=== PATIENT | male | born 1955 | race Caucasian/White ===

== ENCOUNTER 2019-06-15 13:04 | Outpatient (CLI) | payer MEDICARE, SELFPAY ==
--- NOTE | 2019-06-15 13:11 | ECG_ITS ---
Measurements Intervals [place] Rate: 62 P: 89 IN: 235 QRS: -27 QRSD: 103 T: 17 QT: 417 QTc: 424 Interpretive Statements SINUS RHYTHM WITH FIRST DEGREE AV BLOCK BORDERLINE R WAVE PROGRESSION, ANTERIOR LEADS INFERIOR INFARCT, AGE INDETERMINATE ABNORMAL ECG Electronically Signed On 06-15-2019 13:23:56 [employer]ESTYLE [employer] by Frank Reilly D.O.
== END 2019-06-15 13:05 | disposition home or self-care (01) ==
PROVIDERS: PCP Internal Medicine; Visit Provider Nurse Practitioner
DX: R00.2 Palpitations (principal); R07.9 Chest pain, unspecified; R94.31 Abnormal electrocardiogram [ECG] [EKG]
CPT/HCPCS: 93005

== ENCOUNTER 2019-06-21 09:38 | Outpatient (CLI) | payer MEDICARE, SELFPAY ==
--- NOTE | ~2019-06-21 | NM_ITS ---
EXAMINATION: NM brooke stress w perfusion EXAM DATE: 06/21/2019 12:57 INDICATION: Ischemic chest pain. TECHNIQUE: Rest images were obtained following intravenous administration of 9.4 mCi Tc99m tetrofosmi n (Myoview). The patient was infused intravenously with Lexiscan (regadenoson). Then, 26.8 mCi Tc99m tetrofosmin (Myoview) was administered intravenously, and stress images were obtained. Data was recon structed into short axis and horizontal and vertical long axis SPECT images. Gated SPECT images were also obtained. There is no prior study for comparison. FINDINGS: There is no definite reversible or fixed perfusion abnormality to suggest ischemia or infar ction. There is normal left ventricular wall motion. End diastolic volume: 125 mL. End-systolic volume: 50 mL. Left ventricular ejection fraction: 60%. IMPRESSION: 1. Normal myocardial perfusion at rest and during stress. 2. Left ventricular ejection fraction measuring 60%. Reviewed, dictated and finalized at location A. CUTTER
--- NOTE | 2019-06-21 10:50 | EST_ITS ---
Patient Info Name: Pawel Hawkins Age: 64 years : 1955 Gender: Male Ht: 68 in Wt: 285 lbs BSA: 2.56 m2 HR: 60 bpm BP: 150 / 93 mmHg Heart Rhythm: Sinus Rhythm Exam Date: 06/21/2019 11:40 AM Exam Location: [facility] Stress Patient Status: Outpatient Admit Date: 06/21/2019 Staff Ordering Physician: Nella Barber NP Attending Provider: Evan Rebolledo DO Exercise Technologist: Manju Ospina CT Exercise Physician: Frank Reilly DO Exam Type: CA stress brooke w NM Study Info Indications R07.9 - Chest pain, unspecified A regadenoson stress test was performed. Summary 1. 1. Negative Lexiscan stress test for ischemic ST changes by ECG criteria. 2. 2. Baseline hypertension. 3. 3. Nuclear scan to follow and will be reported separately. Please correlate with it. 4. 4. Patient informed of the above results. Protocol: Lexiscan Stress ECG Details Stage: REST Duration (min): 16 min : 9 sec HR (bpm): 68 SBP (mmHg): 150 DBP (mmHg): 93 Stage: STAGE 1 Duration (min): 1 min : 0 sec HR (bpm): 64 SBP (mmHg): 150 DBP (mmHg): 93 Stage: RECOVERY Duration (min): 1 min : 0 sec HR (bpm): 64 SBP (mmHg): 189 DBP (mmHg): 88 Stage: RECOVERY Duration (min): 2 min : 0 sec HR (bpm): --- SBP (mmHg): 189 DBP (mmHg): 88 Stage: RECOVERY Duration (min): 2 min : 35 sec HR (bpm): --- SBP (mmHg): 189 DBP (mmHg): 88 Rest HR: 68 bpm Peak HR: 68 bpm Rest Sys BP: 150 mmHg Peak Sys BP: 189 mmHg Max Pred HR: 154 bpm % Max Pred HR: 44 % Target HR: 131 bpm Max RPP: 12,852 bpm*mmHg Termination Reason: Completed protocol Cardiac Symptoms: Shortness of breath Total Time: 1 min : 0 sec Rest Vargas BP: 93 mmHg Peak Vargas BP: 88 mmHg Total Dose: 0.4 mg Resting ECG Sinus bradycardia with first degree AV block, BRWP- anterior leads. Stress ECG No ST changes. Arrhythmias None. Report Signatures
== END 2019-06-21 09:39 | disposition home or self-care (01) ==
PROVIDERS: PCP Internal Medicine; Visit Provider Internal Medicine
DX: R07.9 Chest pain, unspecified (principal)
CPT/HCPCS: 78452; 93017; A9502; J2785

== ENCOUNTER → 2019-11-21 12:13 | Outpatient (CLI) | payer MEDICARE, SELFPAY ==
--- NOTE | ~2019-11-21 | MR_ITS ---
EXAMINATION: MR brain/brain stem wo/w con DATE: 11/21/2019 13:23 INDICATION: Amnesia. Headache. Dizziness. TECHNIQUE: Magnetic resonance imaging (MRI) of the brain and brainstem was performed without and with 20 mL MultiHance intravenous contrast. Sequences included sagittal and axial T1-weighted FSE, axial diffusion-weighted FS EPI, axial T2*-weighted GRE, axial T2-weighted FLAIR Propeller, and axial T2-we ighted Propeller. Postcontrast sequences included axial and coronal T1-weighted FSE. Apparent diffusi on coefficient (ADC) maps were created. COMPARISON: None. FINDINGS: There are scattered areas of nonspecific increased T2-weighted signal intensity in the cere bral white matter. There is no intracranial hemorrhage, acute infarction, or abnormal intracranial ma ss lesion. The ventricles are normal in size. The paranasal sinuses are clear. The orbits are normal. There are trace bilateral mastoid effusions. IMPRESSION: 1. Mild nonspecific cerebral white matter disease, which likely represents chronic small vessel ische pauline disease. Reviewed, dictated and finalized at location A. IMPRESSION: 1. 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
[2019-11-21 12:40] LABS: Estimated Glomerular Filt Rate 43
== END ==
PROVIDERS: PCP Internal Medicine; Visit Provider Clinical Nurse Specialist
DX: R41.3 Other amnesia (principal); R51 Headache; R42 Dizziness and giddiness; R93.0 Abnormal findings on diagnostic imaging of skull and head, not elsewhere classified
CPT/HCPCS: 36415; 70553; A9577

== ENCOUNTER 2021-03-14 11:15 | Outpatient (CLI) | payer MEDICARE, SELFPAY ==
[2021-03-14 11:47] LABS: Creatinine Urine 154.8 mg/dL
[2021-03-14 11:49] LABS: Anion Gap 10 mmol/L (8-16); Blood Urea Nitrogen 30 mg/dL (9-20); Calcium 9.1 mg/dL (8.4-10.2); Carbon Dioxide 27 mmol/L (22-30); Chloride 99 mmol/L (98-107); Cholesterol 121 mg/dL (0-200); Estimated Glomerular Filt Rate 51; Glucose 278 mg/dL (65-110); HDL Direct 36 mg/dL; Potassium 4.9 mmol/L (3.4-5.0); Sodium 136 mmol/L (137-145); Triglycerides 139 mg/dL (<150)
[2021-03-14 12:00] LABS: LDL Cholesterol Direct 56 mg/dL
[2021-03-14 12:27] LABS: Hemoglobin A1C 9.2 % (<5.7)
[2021-03-14 12:43] LABS: MALB Creatinine Ratio 504.3 mg/g (0-30); Microalbumin Urine Random 780.7 mg/L (0-16.7)
== END 2021-03-14 11:16 | disposition home or self-care (01) ==
LOC: ANHLAB 11:19
PROVIDERS: PCP Internal Medicine; Visit Provider Clinical Nurse Specialist
DX: E11.9 Type 2 diabetes mellitus without complications (principal); E78.5 Hyperlipidemia, unspecified
CPT/HCPCS: 36415; 80048; 80061; 82043; 82607; 83036

== ENCOUNTER 2021-06-23 11:42 | Outpatient (CLI) | payer MEDICARE, SELFPAY ==
--- NOTE | ~2021-06-23 | XR_ITS ---
EXAMINATION: XR chest 2V 06/23/2021 11:57 INDICATION: Productive cough PROCEDURE: 2 view chest COMPARISON: 06/24/2018 FINDINGS: There is bibasilar atelectasis. No focal pneumonia, pleural effusion. The cardiomediastinal silhouette is within normal limits. There are no pleural effusions. There is no pneumothorax suspe cted. IMPRESSION: 1: Bibasilar atelectasis. Reviewed, dictated and finalized at location B. GYN IMPRESSION: 1: Bibasilar atelectasis.
== END 2021-06-23 11:43 | disposition home or self-care (01) ==
PROVIDERS: PCP Internal Medicine; Visit Provider Internal Medicine
DX: R05.9 Cough, unspecified (principal); J98.11 Atelectasis
CPT/HCPCS: 71046

== ENCOUNTER 2021-10-20 07:37 | Outpatient (CLI) | payer MEDICARE, SELFPAY ==
[2021-10-20 08:37] LABS: Anion Gap 5 mmol/L (8-16); Blood Urea Nitrogen 29 mg/dL (9-20); Calcium 8.9 mg/dL (8.4-10.2); Carbon Dioxide 26 mmol/L (22-30); Chloride 105 mmol/L (98-107); Estimated Glomerular Filt Rate 50; Glucose 192 mg/dL (65-110); Potassium 4.7 mmol/L (3.4-5.0); Sodium 136 mmol/L (137-145)
[2021-10-20 10:30] LABS: Hemoglobin A1C 7.6 % (<5.7)
== END 2021-10-20 07:38 | disposition home or self-care (01) ==
LOC: ANHLAB 07:43
PROVIDERS: PCP Internal Medicine; Visit Provider Family Medicine
DX: E11.9 Type 2 diabetes mellitus without complications (principal); N18.32 Chronic kidney disease, stage 3b
CPT/HCPCS: 36415; 80048; 83036

== ENCOUNTER 2022-01-20 11:34 | Outpatient (CLI) | payer MEDICARE, SELFPAY ==
[2022-01-20 19:26] LABS: Basophils Percent Auto 0.3 % (0.2-1.2); Eosinophils Absolute Auto 0.4 K/mm3 (0-0.3); Eosinophils Percent Auto 4.9 % (0-4.4); Hematocrit 39.4 % (42.0-52.0); Immature Granulocyte Absolute 0.02 K/mm3 (0.00-0.031); Immature Granulocyte Percent A 0.3 % (0-0.5); Lymphocytes Absolute Auto 1.86 K/mm3 (0.9-3.2); Lymphocytes Percent Auto 25.4 % (18.3-44.2); Mean Corpuscular Hemoglobin 31.8 pg (26-34); Mean Corpuscular Volume 96.3 fl (80-100); Mean Platelet Volume 10.3 fl (7.4-10.4); Monocytes Absolute Auto 0.5 K/mm3 (0.1-0.6); Monocytes Percent Auto 6.2 % (2.6-8.5); Neutrophils Absolute Auto 4.6 K/mm3 (1.3-6.7); Neutrophils Percent Auto 62.9 % (45.5-73.1); Platelet Count Result 177 k/mm3 (150-375); Red Blood Count 4.09 M/mm3 (4.6-6.20); Red Cell Distribution Width 13.6 % (11.5-14.5); White Blood Count 7.3 K/mm3 (4.5-10.0)
[2022-01-20 19:54] LABS: Creatinine Urine 112.9 mg/dL
[2022-01-20 20:07] LABS: Vitamin D 25 Hydroxy 33.8 ng/mL
[2022-01-20 20:15] LABS: MALB Creatinine Ratio 375.6 mg/g (0-30)
[2022-01-20 20:36] LABS: Hemoglobin A1C 9.2 % (<5.7)
[2022-01-20 20:42] LABS: Hepatitis C Virus Antibody Negative (Negative)
[2022-01-20 21:38] LABS: Alanine Aminotransferase 44 U/L (6-50); Albumin Level 4.2 g/dL (3.5-5.1); Alkaline Phosphatase 98 U/L (38-126); Anion Gap 13 mmol/L (8-16); Aspartate Amino Transferase 42 U/L (17-59); Bilirubin,Total 0.4 mg/dL (0.2-1.3); Blood Urea Nitrogen 28 mg/dL (9-20); Calcium 9.2 mg/dL (8.4-10.2); Carbon Dioxide 20 mmol/L (22-30); Chloride 104 mmol/L (98-107); Estimated Glomerular Filt Rate 47; Glucose 289 mg/dL (65-110); Potassium 4.8 mmol/L (3.4-5.0); Sodium 137 mmol/L (137-145)
[2022-01-20 21:48] LABS: Parathyroid Intact 82.3 pg/mL (7.5-53.5)
[2022-01-20 22:10] LABS: Prostate Specific Antigen 1.1 ng/mL (< OR = 4.0)
== END 2022-01-20 11:35 | disposition home or self-care (01) ==
LOC: ANHGOSHLAB 11:37
PROVIDERS: PCP Internal Medicine; Visit Provider Clinical Nurse Specialist
DX: N18.9 Chronic kidney disease, unspecified (principal); Z11.59 Encounter for screening for other viral diseases; E11.9 Type 2 diabetes mellitus without complications; E55.9 Vitamin D deficiency, unspecified; D64.9 Anemia, unspecified; Z12.5 Encounter for screening for malignant neoplasm of prostate
CPT/HCPCS: 36415; 80053; 82043; 82306; 83036; 83970; 84153; 85025; 86803; G0103

== ENCOUNTER 2022-02-26 09:18 | Outpatient (CLI) | payer MEDICARE, SELFPAY ==
[2022-02-26 10:05] LABS: Hematocrit 35.3 % (42.0-52.0); Hemoglobin 12.2 g/dL (14.0-18.0); Mean Corpuscular HGB Conc 34.6 g/dl (32-36); Mean Corpuscular Volume 92.7 fl (80-100); Mean Platelet Volume 9.8 fl (7.4-10.4); Platelet Count Result 149 k/mm3 (150-375); Red Blood Count 3.81 M/mm3 (4.6-6.20); Red Cell Distribution Width 13.5 % (11.5-14.5); White Blood Count 5.7 K/mm3 (4.5-10.0)
[2022-02-26 10:15] LABS: Add Urine Microscopic? YES; Appearance Urine Clear (Clear); Bilirubin Urine Negative (Negative); Blood Urine 1+ (Negative); Color Urine Yellow (Yellow); Glucose Urine UA 3+ mg/dL (Negative); Ketones Urine Negative (Negative); Leukocyte Esterase Ur Negative LEU/UL (NEGATIVE); Nitrate Urine Negative (Negative); Protein Urine 2+ mg/dL (Negative); RBC Urine 0-2 /hpf (0-2); Specific Grav Ur 1.026 (1.001-1.035); Urobilinogen Urine Negative mg/dL (<2.0); WBC Urine 0-3 /hpf (0-3)
[2022-02-26 10:23] LABS: Complement C3 105 mg/dL (88-165)
[2022-02-26 10:27] LABS: Parathyroid Intact 113.9 pg/mL (7.5-53.5)
[2022-02-26 10:34] LABS: Anion Gap 13 mmol/L (8-16); Blood Urea Nitrogen 24 mg/dL (9-20); Calcium 8.7 mg/dL (8.4-10.2); Carbon Dioxide 26 mmol/L (22-30); Chloride 95 mmol/L (98-107); Estimated Glomerular Filt Rate 47; Glucose 527 mg/dL (65-110); Phosphorus 3.4 mg/dL (2.5-4.5); Potassium 4.1 mmol/L (3.4-5.0); Sodium 134 mmol/L (137-145)
[2022-02-26 11:11] LABS: Erythrocyte Sedimentation Rate 43 mm/hr (0-20)
[2022-02-26 13:03] LABS: Creatinine Urine 77.5 mg/dL; Total Protein Urine Random 105 mg/dL; Ur Ttl Prot Creatinine Ratio 1.35 mg/mg (0-0.20)
[2022-03-02 17:49] LABS: Kappa\\Lambda Light Chains 1.44 (0.26-1.65); Lambda Light Chain 42.1 mg/L (5.7-26.3)
[2022-03-02 20:52] LABS: Complement Total CH50 >60 U/mL (31-60)
== END 2022-02-26 09:19 | disposition home or self-care (01) ==
PROVIDERS: PCP Internal Medicine; Visit Provider Internal Medicine Nephrology
DX: N18.31 Chronic kidney disease, stage 3a (principal)
CPT/HCPCS: 36415; 80069; 81001; 82570; 82948; 83883; 83970; 84156; 85027; 85652; 86038; 86160; 86162; 86334

== ENCOUNTER 2022-02-26 12:19 | Emergency (ER) | payer MEDICARE, SELFPAY ==
[2022-02-26 12:36] LABS: Glucose Point of Care 376 mg/dl (65-105)
[2022-02-26 12:37] VITALS: BP 152/75; PULSE 92; RESP 18; TEMP 36.3; O2SAT 98
--- NOTE | 2022-02-26 12:41 | PC.NURSE ---
Pt came to intake desk and states Im going to just go to [facility] office since my blood sugar has come down so much Pt ambulated to the exit with no difficulty
== END 2022-02-26 12:42 | disposition left against medical advice (07) ==
PROVIDERS: Emergency Provider Emergency Medicine; PCP Internal Medicine
DX: E11.65 Type 2 diabetes mellitus with hyperglycemia (principal)
CPT/HCPCS: 82948; 99199

== ENCOUNTER 2022-03-01 18:09 | Emergency (ER) | payer MEDICARE, SELFPAY ==
--- NOTE | ~2022-03-01 | XR_ITS ---
EXAM: XR foot LT min 3V DATE: 03/01/2022 19:23 HISTORY: Diabetic foot ulcer base of great toe, NKI . COMPARISON: None available. FINDINGS: Decreased mineralization. No fracture or dislocation. No lytic or blastic lesion. Scattere d degenerative changes. No erosion or periosteal change. Scattered vascular calcification. Soft tissu e swelling and ulceration at the ball of the foot. IMPRESSION: No acute osseous finding in the left foot. Reviewed, dictated and finalized at location K.
[2022-03-01 18:17] VITALS: BP 153/73; PULSE 82; RESP 16; TEMP 36.9; O2SAT 97
--- NOTE | 2022-03-01 19:11 | ECG_ITS ---
Measurements Intervals [place] Rate: 85 P: 93 WA: 225 QRS: -42 QRSD: 89 T: 38 QT: 341 QTc: 406 Interpretive Statements SINUS RHYTHM WITH FIRST DEGREE AV BLOCK MARKED LEFT AXIS DEVIATION [QRS AXIS < -30] POOR R-WAVE PROGRESSION PREVIOUS INFERIOR WALL AR ] COMPARED TO ECG 06/15/2019 13:21:14 NO SIGNIFICANT CHANGE Electronically Signed On 03-02-2022 12:30:17 CDT by Elie Doherty M.D.
--- NOTE | 2022-03-01 19:13 | ED.GENADULT ---
HPI - General Adult General Chief complaint: Extremity Problem,Nontraumatic Stated complaint: cellulitis? Time Seen by Provider: 03/01/22 18:26 History of Present Illness HPI narrative: This is a 4-year-old male with history of diabetes presenting ED with an ulcer on the bottom of his left foot. Patient believes that he stepped on a piece of glass 2 months ago and the wound has been getting steadily worse since then. Patient has intermittently controlled diabetes. He denies systemic signs of illness. Patient has licensed nurse practitioner who is not seen in over 1 year. Related Data Home Medications Medication Instructions Recorded Confirmed ferrous sulfate 325 mg (65 mg 325 mg PO DAILY 03/23/19 02/27/22 iron) tablet (Feosol) ketoconazole 2 % topical cream applic topical DAILY PRN 04/17/20 02/11/22 triamcinolone acetonide 0.025 % 1 applic topical DAILY 04/17/20 02/27/22 topical cream vitamin B complex (B 1 tablet PO DAILY 04/17/20 02/27/22 Complex-Vitamin B12 tablet) calcium carbonate 500 mg calcium 500 mg PO DAILY 09/26/20 02/27/22 (1,250 mg) tablet (Calcium 500) valacyclovir 500 mg tablet 500 mg PO DAILY 11/28/20 02/27/22 Allergies Allergy/AdvReac Type Severity Reaction Status Date / Time prednisone Allergy Severe Anaphylaxis Verified 02/27/22 09:20 Review of Systems Review of Systems: CONSTITUTIONAL: Denies night sweats. EYES: No eye pain ENT: Denies rhinorrhea CARDIOVASCULAR: Denies palpitations RESPIRATORY: Denies hemoptysis GASTROINTESTINAL: Denies hematemesis GENITOURINARY: Denies hematuria. SKIN: Denies rash MUSCULOSKELETAL: Denies myalgia. NEUROLOGIC: Denies weakness. PSYCHIATRIC: Denies delusions [facility] Past Medical History Medical History Anemia Asthma Cardiomyopathy Cellulitis of right lower extremity CKD (chronic kidney disease) Depression Diabetes mellitus Dyslipidemia Edema Fibromyalgia Generalized pain Gout Herpes zoster infection of oral mucosa History of transfusion Hyperlipidemia Hypertension Hypogonadism in male Morbid obesity with BMI of 40.0-44.9, adult Osteoarthritis Seasonal allergies Surgical History Surgical History History of carpal tunnel release Hx of gastric bypass Status post laparoscopic cholecystectomy 05/22/2019 Family History Family History Father Diabetes mellitus Asthma Family history of coronary artery disease Mother FH: ovarian cancer in first degree relative Social History Social History Smoking status: Never smoker Alcohol intake: never Gender identity (if verbalized by the patient): Male Exam Narrative: APPEARANCE: No apparent distress. Head atraumatic. EYES: PERRLA/EOMI, NOSE: Normal no drainage NECK: Supple, Trachea midline RESPIRATORY: CTAB, No increased work of breathing. CARDIOVASCULAR: S1S2 appreciated ABDOMINAL: Soft, nontender, nondistended, MUSCULOSKELETAl: No obvious deformities NEURO: Alert. Moving 4/4 extremities SKIN:: The base of the great toe on the sole of foot there is a large callus with ulceration . No area of fluctuance. There is some erythema/swelling to the foot. PSYCHIATRIC: Normal affect Course Vital Signs Vital signs: Vital Signs Temperature 98.4 F 03/01/22 18:17 Pulse Rate 82 03/01/22 18:17 Respiratory Rate 16 03/01/22 18:17 Blood Pressure 153/73 H 03/01/22 18:17 Pulse Oximetry 97 03/01/22 18:17 Oxygen Delivery Room Air 03/01/22 18:17 Temperature 98.4 F 03/01/22 18:17 Pulse Rate 82 03/01/22 18:17 Respiratory Rate 16 03/01/22 18:17 Blood Pressure 153/73 H 03/01/22 18:17 Pulse Oximetry 97 03/01/22 18:17 Oxygen Delivery Room Air 03/01/22 18:17 Medical Decision Making [facility] Narrative Medical decision making narrative: This is a 4
[2022-03-01 19:27] LABS: Glucose Point of Care 335 mg/dl (65-105)
== END 2022-03-01 20:08 | disposition left against medical advice (07) ==
PROVIDERS: Emergency Provider Emergency Medicine; PCP Internal Medicine
DX: E11.621 Type 2 diabetes mellitus with foot ulcer (principal); L97.529 Non-pressure chronic ulcer of other part of left foot with unspecified severity; E11.22 Type 2 diabetes mellitus with diabetic chronic kidney disease; I12.9 Hypertensive chronic kidney disease with stage 1 through stage 4 chronic kidney disease, or unspecified chronic kidney disease; N18.9 Chronic kidney disease, unspecified; J45.909 Unspecified asthma, uncomplicated; I42.9 Cardiomyopathy, unspecified; E78.5 Hyperlipidemia, unspecified; M79.7 Fibromyalgia; M19.90 Unspecified osteoarthritis, unspecified site; E66.01 Morbid (severe) obesity due to excess calories; Z68.41 Body mass index [BMI] 40.0-44.9, adult; Z86.2 Personal history of diseases of the blood and blood-forming organs and certain disorders involving the immune mechanism; Z98.84 Bariatric surgery status; Z79.85 Long-term (current) use of injectable non-insulin antidiabetic drugs; Z79.84 Long term (current) use of oral hypoglycemic drugs; I44.0 Atrioventricular block, first degree
CPT/HCPCS: 73630; 82948; 93005; 99283

== ENCOUNTER 2022-03-17 09:44 | Outpatient (CLI) | payer MEDICARE, SELFPAY ==
--- NOTE | 2022-03-17 09:58 | ECHO_ITS ---
Patient Info Name: Pawel Hawkins Age: 66 years : 1955 Gender: Male Ht: 68 in Wt: 288 lbs BSA: 2.57 m2 HR: 71 bpm BP: 151 / 83 mmHg Exam Date: 03/17/2022 10:30 AM Exam Location: [facility] Pulmonary Patient Status: Outpatient Admit Date: 03/17/2022 Staff Ordering Physician: Frank Reilly DO Electronic Coils Supervisor: Ean Figueroa RDCS Attending Provider: Frank Reilly DO Referring Physician: Tommie PENG; Exam Type: CA echo dop color flow w con Study Info Indications I51.89 - Other ill-defined heart diseases Complete two-dimensional, color flow and Doppler transthoracic echocardiogram is performed. Contrast/Agitated Saline Contrast/Ag. Saline: Definity Amount: 4.00 ml Administered By: Ean Figueroa RDCS Existing IV Access: Yes IV Access Condition: patent with no signs of infiltration Summary 1. Complete two-dimensional, color flow and Doppler transthoracic echocardiogram is performed. 2. Left ventricular chamber dimension is normal. 3. Definity contrast administered improved wall motion interpretation. 4. Left ventricular systolic function is normal, estimated at 60-65%. 5. The left ventricular diastolic function is abnormal. 6. E/e' 12 is mildly elevated. 7. There is mild aortic valve sclerosis. Left Ventricle Definity contrast administered improved wall motion interpretation. E/e' 12 is mildly elevated. Left ventricular chamber dimension is normal. Left ventricular systolic function is normal, estimated at 60-65%. The left ventricular diastolic function is abnormal. Right Ventricle Right ventricular systolic function is normal and with normal TAPSE 1.9 cm. Right ventricular chamber dimension is normal. Left Atria Left atrial chamber dimension is normal. Right Atria Right atrial chamber dimension is normal. Aortic Valve The aortic valve is trileaflet. There is mild aortic valve sclerosis. There is no aortic valve stenosis. There is no aortic valve regurgitation. Pulmonic Valve There is no pulmonic regurgitation. Mitral Valve There is no mitral valve stenosis. There is no mitral valve regurgitation. Tricuspid Valve There is no tricuspid valve regurgitation. Pericardium/Pleural There is no pericardial effusion. Inferior Vena Cava Normal inferior vena cava with >50% collapse upon inspiration consistent with normal right atrial pressure, 5 mmHg. Aorta The aortic root size at the sinus of Valsalva is normal. Left Ventricular Outflow Tract Name Value Normal LVOT 2D LVOT Diameter 2.29 cm Mitral Valve Name Value Normal MV Doppler MV Peak Gradient 2 mmHg MV Mean Gradient 1 mmHg MV Decel Mcminn 578.17 cm/s2 MV PHT 0 s MV Area (PHT) 4.90 cm2 4.00-5.00 MV Diastolic Function ---------
[2022-03-17] MEDS: PERFLUTREN LIPID MICROSPHERES 1.5 ML VIAL DILUTED TO 10 ML TOTAL VOLUME IV PUSH (11:00)
== END 2022-03-17 09:45 | disposition home or self-care (01) ==
LOC: ANHCARD 09:45
PROVIDERS: PCP Internal Medicine; Visit Provider Internal Medicine Cardiovascular Disease
DX: I51.89 Other ill-defined heart diseases (principal)
CPT/HCPCS: C8929; Q9957

== ENCOUNTER 2022-04-10 10:11 | Emergency (ER) | payer MEDICARE, SELFPAY ==
[2022-04-10 10:21] VITALS: BP 166/87; PULSE 112; RESP 16; TEMP 36.4; O2SAT 98
--- NOTE | 2022-04-10 10:50 | ED.SKABFB ---
HPI - Skin/Abscess/Foreign Bdy General Chief complaint: Skin/Abscess/Foreign Body Stated complaint: glass in rt foot Time Seen by Provider: 04/10/22 10:40 Source: patient, RN notes reviewed and old records reviewed Mode of arrival: ambulatory Limitations: no limitations History of Present Illness HPI narrative: 66 year old male presents to express care with complaint of feeling like he has a small piece of glass in the bottom of his right foot plantar area for the past 2 weeks. Patient reports that he had a piece of glass in his foot previously and had it removed in the past a few months ago.Patient states that when he steps down on his foot he feels like something sharp is in it. MD complaint: foreign body (reports that he thinks he has a piece of glass in foot.) Onset (ago): week(s) (2) Tetanus up to date: yes Location: R foot (plantar area) Severity scale (1-10): 1 Pain Consistency: intermittent Treatments prior to arrival: none Related Data Home Medications Medication Instructions Recorded Confirmed ferrous sulfate 325 mg (65 mg 325 mg PO DAILY 03/23/19 02/27/22 iron) tablet (Feosol) ketoconazole 2 % topical cream applic topical DAILY 04/17/20 02/11/22 triamcinolone acetonide 0.025 % 1 applic topical DAILY 04/17/20 02/27/22 topical cream vitamin B complex (B 1 tablet PO DAILY 04/17/20 02/27/22 Complex-Vitamin B12 tablet) calcium carbonate 500 mg calcium 500 mg PO DAILY 09/26/20 02/27/22 (1,250 mg) tablet (Calcium 500) valacyclovir 500 mg tablet 500 mg PO DAILY 11/28/20 02/27/22 metformin 500 mg tablet 1,000 mg BID 04/10/22 Allergies Allergy/AdvReac Type Severity Reaction Status Date / Time prednisone Allergy Severe Anaphylaxis Verified 04/10/22 10:26 Review of Systems Review of Systems: CONSTITUTIONAL: Denies fever, chills, or sweats. EYES: Denies visual changes, redness, or discharge. ENT: Denies rhinorrhea, congestion, sore throat, or otalgia. CARDIOVASCULAR: Denies chest pain, palpitations, or edema. RESPIRATORY: Denies cough or dyspnea. GASTROINTESTINAL: Denies abdominal pain, nausea, vomiting, or diarrhea. GENITOURINARY: Denies dysuria or hematuria. SKIN: Patient reports that he feels like he has foreign body in the bottom of his right foot plantar area at ball of foot MUSCULOSKELETAL: Denies back pain, joint pain, or myalgia. NEUROLOGIC: Denies headache, numbness, or weakness. PSYCHIATRIC: Denies anxiety or depression. All systems reviewed & are unremarkable except as noted in HPI and below PMFSH Past Medical History Medical History Anemia Asthma Cardiomyopathy Cellulitis of right lower extremity CKD (chronic kidney disease) Depression Diabetes mellitus Dyslipidemia Edema Fibromyalgia Generalized pain Gout Herpes zoster infection of oral mucosa History of transfusion Hyperlipidemia Hypertension Hypogonadism in male Morbid obesity with BMI of 40.0-44.9, adult Osteoarthritis Seasonal allergies Surgical History Surgical History History of carpal tunnel release Hx of gastric bypass Status post laparoscopic cholecystectomy 05/22/2019 Family History Family History Father Diabetes mellitus Asthma Family history of coronary artery disease Mother FH: ovarian cancer in first degree relative Social History Social History Smoking status: Never smoker Alcohol intake: never Gender identity (if verbalized by the patient): Male Comments At time of signature, agree with nursing past medical, surgical, social and family history. There is no relevant family history pertinent to the presenting complaint Exam Narrative: GENERAL: Well-appearing, well-nourished, and in no acute distress. HEAD: Normocephalic, atraumatic. EYES: PERRLA and EOMI. ENT: Nares clear,
== END 2022-04-10 11:06 | disposition home or self-care (01) ==
PROVIDERS: Emergency Provider Registered Nurse; PCP Internal Medicine
DX: S91.321A Laceration with foreign body, right foot, initial encounter (principal); E11.22 Type 2 diabetes mellitus with diabetic chronic kidney disease; I12.9 Hypertensive chronic kidney disease with stage 1 through stage 4 chronic kidney disease, or unspecified chronic kidney disease; N18.9 Chronic kidney disease, unspecified; E78.5 Hyperlipidemia, unspecified; W25.XXXA Contact with sharp glass, initial encounter
CPT/HCPCS: 99212; G0463

== ENCOUNTER 2022-12-24 10:48 | Outpatient (CLI) | payer MEDICARE, SELFPAY ==
[2022-12-24 11:38] LABS: Hematocrit 37.3 % (42.0-52.0); Hemoglobin 12.7 g/dL (14.0-18.0); Mean Corpuscular Hemoglobin 33.1 pg (26-34); Mean Corpuscular Volume 97.1 fl (80-100); Mean Platelet Volume 10.1 fl (7.4-10.4); Platelet Count Result 180 k/mm3 (150-375); Red Blood Count 3.84 M/mm3 (4.6-6.20); Red Cell Distribution Width 13.3 % (11.5-14.5); White Blood Count 7.3 K/mm3 (4.5-10.0)
[2022-12-24 11:52] LABS: Anion Gap 7 mmol/L (8-16); Blood Urea Nitrogen 33 mg/dL (9-20); Carbon Dioxide 23 mmol/L (22-30); Chloride 102 mmol/L (98-107); Cholesterol 129 mg/dL (0-200); Estimated Glomerular Filt Rate 50; Glucose 191 mg/dL (65-110); HDL Direct 35 mg/dL; Potassium 4.4 mmol/L (3.4-5.0); Sodium 132 mmol/L (137-145); Triglycerides 99 mg/dL (<150)
[2022-12-24 11:53] LABS: Albumin Level 4.1 g/dL (3.5-5.1); Anion Gap 6 mmol/L (8-16); Blood Urea Nitrogen 33 mg/dL (9-20); Carbon Dioxide 24 mmol/L (22-30); Chloride 102 mmol/L (98-107); Estimated Glomerular Filt Rate 50; Glucose 191 mg/dL (65-110); Phosphorus 3.6 mg/dL (2.5-4.5); Potassium 4.4 mmol/L (3.4-5.0); Sodium 132 mmol/L (137-145)
[2022-12-24 11:53] LABS: Creatinine Urine 145.2 mg/dL; Total Protein Urine Random 131 mg/dL
[2022-12-24 12:02] LABS: LDL Cholesterol Direct 73 mg/dL; Parathyroid Intact 117.2 pg/mL (7.5-53.5)
[2022-12-24 12:10] LABS: Hemoglobin A1C 7.2 % (<5.7)
== END 2022-12-24 10:49 | disposition home or self-care (01) ==
PROVIDERS: Internal Medicine Nephrology; PCP Internal Medicine; Referring Provider Internal Medicine Cardiovascular Disease; Visit Provider Clinical Nurse Specialist
DX: N18.31 Chronic kidney disease, stage 3a (principal); E11.9 Type 2 diabetes mellitus without complications; E78.5 Hyperlipidemia, unspecified
CPT/HCPCS: 36415; 80048; 80061; 80069; 82570; 83036; 83970; 84156; 85027

== ENCOUNTER 2023-04-01 07:22 | Outpatient (CLI) | payer MEDICARE, SELFPAY ==
[2023-04-01 08:07] LABS: Basophils Percent Auto 0.3 % (0.2-1.2); Eosinophils Absolute Auto 0.3 K/mm3 (0-0.3); Eosinophils Percent Auto 5.3 % (0-4.4); Hematocrit 36.7 % (42.0-52.0); Hemoglobin 12.5 g/dL (14.0-18.0); Immature Granulocyte Absolute 0.03 K/mm3 (0.00-0.031); Immature Granulocyte Percent A 0.5 % (0-0.5); Lymphocytes Absolute Auto 1.67 K/mm3 (0.9-3.2); Lymphocytes Percent Auto 26.6 % (18.3-44.2); Mean Corpuscular HGB Conc 34.1 g/dl (32-36); Mean Corpuscular Hemoglobin 32.9 pg (26-34); Mean Corpuscular Volume 96.6 fl (80-100); Monocytes Absolute Auto 0.5 K/mm3 (0.1-0.6); Monocytes Percent Auto 7.5 % (2.6-8.5); Neutrophils Absolute Auto 3.8 K/mm3 (1.3-6.7); Neutrophils Percent Auto 59.8 % (45.5-73.1); Platelet Count Result 150 k/mm3 (150-375); Red Cell Distribution Width 13.8 % (11.5-14.5); White Blood Count 6.3 K/mm3 (4.5-10.0)
[2023-04-01 08:24] LABS: CRP 0.7 mg/dL (<1.0)
[2023-04-01 08:30] LABS: Immunoglobulin A 368 mg/dL (70-400); Immunoglobulin G 896 mg/dL (700-1600); Immunoglobulin M 53 mg/dL (40-230)
[2023-04-01 09:28] LABS: Erythrocyte Sedimentation Rate 42 mm/hr (0-20)
[2023-04-03 20:15] LABS: Immunoglobulin G, Serum 885 mg/dL (600-1540); Immunoglobulin G1 293 mg/dL (382-929); Immunoglobulin G2 434 mg/dL (241-700); Immunoglobulin G3 184 mg/dL (22-178); Immunoglobulin G4 50.8 mg/dL (4.0-86.0)
== END 2023-04-01 07:23 | disposition home or self-care (01) ==
LOC: ANHLAB 07:28
PROVIDERS: PCP Internal Medicine; Visit Provider Allergy & Immunology
DX: D84.9 Immunodeficiency, unspecified (principal); R21 Rash and other nonspecific skin eruption
CPT/HCPCS: 36415; 82784; 82787; 85025; 85652; 86038; 86140; 86648; 86774

== ENCOUNTER 2023-05-11 09:41 | Outpatient (CLI) | payer MEDICARE, SELFPAY ==
[2023-05-11 19:22] LABS: Anion Gap 8 mmol/L (8-16); Blood Urea Nitrogen 32 mg/dL (9-20); Carbon Dioxide 28 mmol/L (22-30); Chloride 101 mmol/L (98-107); Estimated Glomerular Filt Rate 50; Glucose 228 mg/dL (65-110); Potassium 4.6 mmol/L (3.4-5.0); Sodium 137 mmol/L (137-145)
[2023-05-11 20:27] LABS: Erythrocyte Sedimentation Rate 87 mm/hr (0-20)
[2023-05-11 21:25] LABS: Hemoglobin A1C 8.6 % (<5.7)
[2023-05-13 15:56] LABS: Osmolality, Urine 483 mOsm/kg (50-1200)
[2023-05-13 16:34] LABS: Albumin 3.9 g/dL (3.8-4.8); Alpha 1 Globulin 0.4 g/dL (0.2-0.3); Alpha 2 Globulin 0.8 g/dL (0.5-0.9); Beta 1 Globulin 0.5 g/dL (0.4-0.6); Gamma Globulin 0.9 g/dL (0.8-1.7); Protein, Total 6.9 g/dL (6.1-8.1)
== END 2023-05-11 09:42 | disposition home or self-care (01) ==
PROVIDERS: Internal Medicine Nephrology; PCP Internal Medicine; Visit Provider Clinical Nurse Specialist
DX: E87.1 Hypo-osmolality and hyponatremia (principal); E11.22 Type 2 diabetes mellitus with diabetic chronic kidney disease; N18.31 Chronic kidney disease, stage 3a
CPT/HCPCS: 36415; 80048; 82533; 82607; 83036; 83930; 83935; 84155; 84165; 84443; 85652; 86334

== ENCOUNTER 2023-05-19 13:32 | Outpatient (CLI) | payer MEDICARE, SELFPAY ==
[2023-05-19 19:39] LABS: Prostate Specific Antigen 1.2 ng/mL (< OR = 4.0)
[2023-05-19 19:46] LABS: Hemoglobin A1C 8.4 % (<5.7)
== END 2023-05-19 13:33 | disposition home or self-care (01) ==
LOC: ANHGOSHLAB 13:33
PROVIDERS: PCP Internal Medicine; Visit Provider Clinical Nurse Specialist
DX: E11.22 Type 2 diabetes mellitus with diabetic chronic kidney disease (principal); Z12.5 Encounter for screening for malignant neoplasm of prostate
CPT/HCPCS: 36415; 83036; 84153; G0103

== ENCOUNTER 2023-06-08 13:49 | Outpatient (CLI) | payer MEDICARE, SELFPAY ==
--- NOTE | ~2023-06-08 | US_ITS ---
EXAMINATION: US renal BI DATE: 06/08/2023 14:28 INDICATION: Stage IIIa chronic kidney disease TECHNIQUE: Multiple ultrasound grayscale images of the kidneys were obtained. COMPARISON: CT dated 03/17/2019 FINDINGS: The right kidney measures 11.4 x 6.2 x 6.2 cm. The left kidney measures 12.1 x 6.7 x 5.1 cm. The kidn eys demonstrate normal echogenicity. There are multiple bilateral anechoic simple renal cysts the lar gest measuring up to 2.0 cm on the right and 3.0 cm on the left. There is no hydronephrosis in either kidney. No stones identified. The bladder appears unremarkable but is incompletely distended which limits evaluation.. IMPRESSION: 1. Bilateral simple appearing renal cysts. No hydronephrosis. Reviewed, dictated and finalized at location A. UMER
== END 2023-06-08 13:50 | disposition home or self-care (01) ==
LOC: ANHIMG 13:51
PROVIDERS: PCP Internal Medicine; Visit Provider Internal Medicine Nephrology
DX: N18.31 Chronic kidney disease, stage 3a (principal); E87.1 Hypo-osmolality and hyponatremia; N28.1 Cyst of kidney, acquired
CPT/HCPCS: 76775

== ENCOUNTER 2023-06-10 14:17 | Outpatient (CLI) | payer MEDICARE, SELFPAY ==
[2023-06-10 14:35] LABS: Basophils Percent Auto 0.3 % (0.2-1.2); Eosinophils Absolute Auto 0.4 K/mm3 (0-0.3); Eosinophils Percent Auto 5.1 % (0-4.4); Hematocrit 38.3 % (42.0-52.0); Hemoglobin 13.2 g/dL (14.0-18.0); Immature Granulocyte Absolute 0.03 K/mm3 (0.00-0.031); Immature Granulocyte Percent A 0.4 % (0-0.5); Lymphocytes Absolute Auto 2.08 K/mm3 (0.9-3.2); Lymphocytes Percent Auto 28.7 % (18.3-44.2); Mean Corpuscular HGB Conc 34.5 g/dl (32-36); Mean Corpuscular Volume 95.8 fl (80-100); Monocytes Absolute Auto 0.5 K/mm3 (0.1-0.6); Monocytes Percent Auto 7.2 % (2.6-8.5); Neutrophils Absolute Auto 4.2 K/mm3 (1.3-6.7); Neutrophils Percent Auto 58.3 % (45.5-73.1); Platelet Count Result 164 k/mm3 (150-375); Red Cell Distribution Width 12.4 % (11.5-14.5); White Blood Count 7.3 K/mm3 (4.5-10.0)
[2023-06-10 17:34] LABS: Alanine Aminotransferase 32 U/L (6-50); Alkaline Phosphatase 117 U/L (38-126); Anion Gap 8 mmol/L (8-16); Aspartate Amino Transferase 25 U/L (17-59); Bilirubin,Total 0.5 mg/dL (0.2-1.3); Blood Urea Nitrogen 40 mg/dL (9-20); Calcium 9.2 mg/dL (8.4-10.2); Carbon Dioxide 26 mmol/L (22-30); Chloride 97 mmol/L (98-107); Estimated Glomerular Filt Rate 43; Glucose 497 mg/dL (65-110); Sodium 131 mmol/L (137-145)
[2023-06-10 17:43] LABS: Immunoglobulin A 414 mg/dL (70-400); Immunoglobulin G 946 mg/dL (700-1600); Immunoglobulin M 67 mg/dL (40-230)
[2023-06-10 17:45] LABS: Potassium 4.6 mmol/L (3.4-5.0)
[2023-06-12 12:03] LABS: Kappa\\Lambda Light Chains 1.62 (0.26-1.65); Lambda Light Chain 46.7 mg/L (5.7-26.3)
[2023-06-13 13:30] LABS: Albumin 4.1 g/dL (3.8-4.8); Alpha 1 Globulin 0.3 g/dL (0.2-0.3); Alpha 2 Globulin 0.8 g/dL (0.5-0.9); Beta 1 Globulin 0.5 g/dL (0.4-0.6); Gamma Globulin 0.9 g/dL (0.8-1.7); Protein, Total 7.1 g/dL (6.1-8.1)
== END 2023-06-10 14:18 | disposition home or self-care (01) ==
LOC: ANHLAB 14:19
PROVIDERS: PCP Internal Medicine; Visit Provider Internal Medicine Hematology & Oncology
DX: C90.00 Multiple myeloma not having achieved remission (principal)
CPT/HCPCS: 36415; 80053; 82784; 83883; 84155; 84165; 85025

== ENCOUNTER 2023-06-14 08:52 | Outpatient (CLI) | payer MEDICARE, SELFPAY ==
--- NOTE | ~2023-06-14 | XR_ITS ---
EXAMINATION: XR bone survey comp/metastic DATE: 06/14/2023 09:39 INDICATION: Multiple myeloma. TECHNIQUE: 31 views of a skeletal survey were obtained. COMPARISON: CT abdomen and pelvis 03/17/2019 FINDINGS: The chest demonstrates clear lungs without pneumonia, pleural effusion, or pneumothorax. Th e heart size is normal. There are surgical clips in the abdomen. There are bridging endplate osteophy ayaka at multiple levels in the spine, consistent with diffuse idiopathic skeletal hyperostosis (DISH). There is mild chronic anterior wedging of T11 and T12 vertebral bodies. IMPRESSION: 1. No evidence of multiple myeloma. Reviewed, dictated and finalized at location A. ATTENDANT
== END 2023-06-14 08:53 | disposition home or self-care (01) ==
LOC: ANHIMG 08:55
PROVIDERS: PCP Internal Medicine; Visit Provider Internal Medicine Hematology & Oncology
DX: C90.00 Multiple myeloma not having achieved remission (principal)
CPT/HCPCS: 77075

== ENCOUNTER 2023-06-25 06:48 | Outpatient (CLI) | payer MEDICARE, SELFPAY ==
[2023-06-24 08:35] VITALS: BMI 41.8
--- NOTE | 2023-06-24 08:36 | PC.NURSE ---
Pre Radiology instructions Report to the outpatient hospital for special care on date 06/25/23 at time 0830 for procedure Time: 1030. YOU MAY BE MONITORED AT HOSPITAL FOR UP TO 4 HOURS AFTER YOUR PROCEDURE. A visitor will be allowed to accompany the patient into the hospital. You and your visitor will be asked to self-screen and do not enter if you have any COVID symptoms. A mask is OPTIONAL within the hospital. Patients are to have no food or drink 6 hours prior to procedure time Driving will be restricted after the procedure, you must have a person to drive you home. Labs will be drawn in preop area and once reviewed, you will be taken to radiology area for procedure. When the procedure is completed, you will be taken to outpatient where you will be monitored for several hours. You may have one visitor in this area. Other than holding anti-coagulants, patient may take other medication(s) as scheduled. Prior to your appointment date patients are instructed to hold anti-coagulants after discussing with ordering provider to stop. If unable to discontinue anti-coagulants please notify radiologist. ? No aspirin or warfarin (Coumadin) for 7 days prior to the procedure. ? No clopidogrel (Plavix), ticagrelor (Brilinta), prasugrel (Effient) or dabigatran (Pradaxa) for 5 days prior to the procedure. ? No rivaroxaban (Xarelto), apixaban (Eliquis), dipyridamole (Aggrenox or Persantine) or cilostazol (Pletal) for 2 days prior to the procedure. Medications to discontinue per physician: N/A Date to take last dose: N/A Please leave all valuables, including medications, at home the day of procedure. The hospital will not accept responsibility for valuables. Wear comfortable, loose fitting clothing.? Follow any additional instructions given to you from ordering provider. Telephone instructions given to PT - TOYA UMANZOR and asked if any additional questions and then verbalized understanding. Patient advised to call scheduling provider office or registration scheduling [phone] if any additional questions.
[2023-06-25] VITALS (9 sets, daily range): BP systolic 113–163; BP diastolic 60–77; PULSE 73–88; RESP 20; TEMP 36.2; O2SAT 95–99
--- NOTE | ~2023-06-25 | US_ITS ---
EXAMINATION: US biopsy renal DATE: 06/25/2023 11:02 INDICATION: Hypergammaglobulinemia TECHNIQUE: The procedure including the risks, benefits, and alternatives was discussed with the patie nt. Risks discussed included bleeding and infection. The patient understood the risks and agreed to p roceed. A timeout was performed to verify the patient's name, date of , and procedure to be p erformed. The skin overlying the left kidney was prepped and draped in usual sterile fashion. Anest hetic was administered with 1% lidocaine subcutaneously. An 18 gauge core biopsy needle was then use d to obtain 4 core biopsy specimens under continuous sonographic guidance. The entry site was cleaned and dressed. There were no immediate complications. FINDINGS: Ultrasound images demonstrate the needle in the kidney. IMPRESSION: 1. Ultrasound-guided random left kidney core needle biopsy. Reviewed, dictated and finalized at location A. STONE POLISHER
[2023-06-25 09:47] LABS: Platelet Count Result 133 k/mm3 (150-375)
[2023-06-25 10:03] LABS: Prothrombin Time 13.7 Seconds (11.1-14.7)
[2023-06-25 11:27] LABS: Glucose Point of Care 324 mg/dl (65-105)
[2023-06-25 11:27] LABS: Glucose Point of Care 297 mg/dl (65-105)
--- NOTE | 2023-06-25 11:29 | SUR.PHASEII ---
BS = 324; REPEATED = 297; DR. NICOLE NOTIFIED WHO RECOMMENDED PATIENT FOLLOW UP WITH PMD. NO INTERVENTIONS ORDERED.
== END 2023-06-25 14:55 | disposition home or self-care (01) ==
PROVIDERS: PCP Internal Medicine; Referring Provider Internal Medicine Nephrology; Visit Provider Radiology Diagnostic Radiology
PROC: (CPT 76942; principal; 2023-06-25 10:30)
DX: D89.2 Hypergammaglobulinemia, unspecified (principal); E11.22 Type 2 diabetes mellitus with diabetic chronic kidney disease; I12.9 Hypertensive chronic kidney disease with stage 1 through stage 4 chronic kidney disease, or unspecified chronic kidney disease; N18.32 Chronic kidney disease, stage 3b
CPT/HCPCS: 36415; 50200; 76942; 82948; 85049; 85610; 88300; 88305; 88313; 88329; 88346; 88348; 88350

== ENCOUNTER 2023-09-10 10:49 | Outpatient (CLI) | payer MEDICARE, SELFPAY ==
[2023-09-10 11:41] LABS: Hematocrit 37.7 % (42.0-52.0); Hemoglobin 12.4 g/dL (14.0-18.0); Mean Corpuscular HGB Conc 32.9 g/dl (32-36); Mean Corpuscular Hemoglobin 33.4 pg (26-34); Mean Corpuscular Volume 101.6 fl (80-100); Mean Platelet Volume 10.1 fl (7.4-10.4); Platelet Count Result 159 k/mm3 (150-375); Red Blood Count 3.71 M/mm3 (4.6-6.20); Red Cell Distribution Width 13.3 % (11.5-14.5); White Blood Count 5.7 K/mm3 (4.5-10.0)
[2023-09-10 11:45] LABS: Creatinine Urine 114.8 mg/dL
[2023-09-10 11:55] LABS: Albumin Level 4.1 g/dL (3.5-5.1); Anion Gap 5 mmol/L (4-12); Blood Urea Nitrogen 24 mg/dL (9-20); Calcium 9.6 mg/dL (8.4-10.2); Carbon Dioxide 27 mmol/L (22-30); Chloride 105 mmol/L (98-107); Estimated Glomerular Filt Rate 60; Glucose 218 mg/dL (65-110); Phosphorus 2.7 mg/dL (2.5-4.5); Potassium 4.5 mmol/L (3.4-5.0); Sodium 137 mmol/L (137-145)
[2023-09-10 12:04] LABS: Parathyroid Intact 87.3 pg/mL (7.5-53.5)
[2023-09-10 12:05] LABS: Total Protein Urine Random 295 mg/dL; Ur Ttl Prot Creatinine Ratio 2.57 mg/mg (0-0.20)
== END 2023-09-10 10:50 | disposition home or self-care (01) ==
PROVIDERS: PCP Internal Medicine; Visit Provider Internal Medicine Nephrology
DX: D89.2 Hypergammaglobulinemia, unspecified (principal); E11.22 Type 2 diabetes mellitus with diabetic chronic kidney disease; N18.31 Chronic kidney disease, stage 3a
CPT/HCPCS: 36415; 80069; 82570; 83970; 84156; 85027

== ENCOUNTER 2023-12-03 08:26 | Outpatient (CLI) | payer MEDICARE, SELFPAY ==
[2023-12-03 08:51] LABS: Basophils Percent Auto 0.2 % (0.2-1.2); Eosinophils Absolute Auto 0.4 K/mm3 (0-0.3); Eosinophils Percent Auto 7.4 % (0-4.4); Hematocrit 35.3 % (42.0-52.0); Hemoglobin 11.8 g/dL (14.0-18.0); Immature Granulocyte Absolute 0.02 K/mm3 (0.00-0.031); Immature Granulocyte Percent A 0.3 % (0-0.5); Lymphocytes Absolute Auto 1.23 K/mm3 (0.9-3.2); Lymphocytes Percent Auto 21.1 % (18.3-44.2); Mean Corpuscular HGB Conc 33.4 g/dl (32-36); Mean Corpuscular Hemoglobin 32.7 pg (26-34); Mean Corpuscular Volume 97.8 fl (80-100); Mean Platelet Volume 9.4 fl (7.4-10.4); Monocytes Absolute Auto 0.4 K/mm3 (0.1-0.6); Monocytes Percent Auto 6.2 % (2.6-8.5); Neutrophils Absolute Auto 3.8 K/mm3 (1.3-6.7); Neutrophils Percent Auto 64.8 % (45.5-73.1); Platelet Count Result 140 k/mm3 (150-375); Red Blood Count 3.61 M/mm3 (4.6-6.20); Red Cell Distribution Width 13.1 % (11.5-14.5); White Blood Count 5.8 K/mm3 (4.5-10.0)
[2023-12-03 10:40] LABS: Alanine Aminotransferase 35 U/L (6-50); Albumin Level 4.1 g/dL (3.5-5.1); Alkaline Phosphatase 92 U/L (38-126); Anion Gap 5 mmol/L (4-12); Aspartate Amino Transferase 24 U/L (17-59); Bilirubin,Total 0.5 mg/dL (0.2-1.3); Blood Urea Nitrogen 32 mg/dL (9-20); Carbon Dioxide 25 mmol/L (22-30); Chloride 105 mmol/L (98-107); Estimated Glomerular Filt Rate 55; Glucose 278 mg/dL (65-110); Potassium 4.4 mmol/L (3.4-5.0); Sodium 135 mmol/L (137-145)
[2023-12-03 10:45] LABS: Immunoglobulin A 358 mg/dL (70-400); Immunoglobulin G 975 mg/dL (700-1600); Immunoglobulin M 48 mg/dL (40-230)
[2023-12-05 04:23] LABS: Protein, Total 6.2 g/dL (6.1-8.1)
[2023-12-06 10:48] LABS: Kappa\\Lambda Light Chains 1.59 (0.26-1.65); Lambda Light Chain 39.5 mg/L (5.7-26.3)
[2023-12-06 15:37] LABS: Abnormal Protein Band 1 0.2 g/dL (NONE DETECTED); Albumin 3.6 g/dL (3.8-4.8); Alpha 1 Globulin 0.3 g/dL (0.2-0.3); Alpha 2 Globulin 0.7 g/dL (0.5-0.9); Beta 1 Globulin 0.5 g/dL (0.4-0.6); Gamma Globulin 0.8 g/dL (0.8-1.7)
== END 2023-12-03 08:27 | disposition home or self-care (01) ==
LOC: ANHLAB 08:28
PROVIDERS: PCP Internal Medicine; Visit Provider Internal Medicine Hematology & Oncology
DX: C90.00 Multiple myeloma not having achieved remission (principal)
CPT/HCPCS: 36415; 80053; 82784; 83883; 84155; 84165; 85025

== ENCOUNTER 2023-12-13 10:26 | Outpatient (CLI) | payer MEDICARE, SELFPAY ==
[2023-12-13 11:28] LABS: Iron 93 ug/dL (49-181)
[2023-12-13 11:39] LABS: Percent Iron Saturation 27 % (20-50)
== END 2023-12-13 10:27 | disposition home or self-care (01) ==
LOC: ANHLAB 10:27
PROVIDERS: PCP Internal Medicine; Visit Provider Internal Medicine Hematology & Oncology
DX: D64.9 Anemia, unspecified (principal)
CPT/HCPCS: 36415; 82607; 82728; 83540; 83550

== ENCOUNTER 2024-01-06 07:28 | Emergency (ER) | payer MEDICARE, SELFPAY ==
[2024-01-06 07:37] VITALS: BP 193/84; PULSE 77; RESP 15; TEMP 36.6; O2SAT 99
[2024-01-06 08:07] LABS: Strep Group A RT-PCR NOT DETECTED (Negative)
[2024-01-06 08:18] LABS: Influenza A QL RT-PCR Negative (Negative); Influenza B QL RT-PCR Negative (Negative); RSV RNA, RT-PCR Negative (Negative); SARS-CoV-2 RNA PCR Positive (Negative)
--- NOTE | 2024-01-06 08:39 | ED.URI ---
HPI - URI/Sore Throat General Chief Complaint: Upper Respiratory Infection Stated Complaint: cough, ST Time Seen by Provider: 01/06/24 08:13 History of Present Illness HPI Narrative: Patient presents here with a cough and sore throat, denies any nausea vomiting, chest pain shortness of breath, or other complaints. Related Data Home Medications Medication Instructions Recorded Confirmed ferrous sulfate 325 mg (65 mg 325 mg PO DAILY 03/23/19 09/15/23 iron) tablet (Feosol) ketoconazole 2 % topical cream 1 applic topical DAILY 04/17/20 09/15/23 triamcinolone acetonide 0.025 % 1 applic topical DAILY 04/17/20 09/15/23 topical cream vitamin B complex (B 1 tablet PO DAILY 04/17/20 09/15/23 Complex-Vitamin B12 tablet) calcium carbonate (Calcium 500) 500 mg PO DAILY 09/26/20 09/15/23 valacyclovir 500 mg tablet 500 mg PO BID 04/15/23 09/15/23 mupirocin 2 % topical ointment 1 applic topical BID 05/19/23 09/15/23 Allergies Allergy/AdvReac Type Severity Reaction Status Date / Time prednisone Allergy Severe Anaphylaxis Verified 09/14/23 11:09 Review of Systems Review of Systems: All systems reviewed & are unremarkable except as noted in HPI and below PMFSH Past Medical History Medical History Anemia Asthma Cardiomyopathy Cellulitis of right lower extremity CKD (chronic kidney disease) Depression Diabetes mellitus Dyslipidemia Edema Fibromyalgia Generalized pain Gout Herpes zoster infection of oral mucosa History of transfusion Hyperlipidemia Hypertension Hypogonadism in male Morbid obesity with BMI of 40.0-44.9, adult Osteoarthritis Seasonal allergies Surgical History Surgical History History of carpal tunnel release Hx of gastric bypass Status post laparoscopic cholecystectomy 05/22/2019 Family History Family History Father Diabetes mellitus Asthma Family history of coronary artery disease Mother FH: ovarian cancer in first degree relative Social History Social History Social History: Caffeine- tea occasionally Smoking status: Never smoker Alcohol intake: never Substance use: never Substance use type: does not use Do You Feel Safe in your Home?: Yes Lack of Transportation: No Lack of Food: Never True Current Housing: I Have Housing Concerned About Future Housing: No Difficulty Paying Gas/Electric Bills: No Difficulty Paying for Meds: No Currently Unemployed: No Education: Master's Degree or Higher Difficulty w/ Childcare or Family Care: No Gender identity (if verbalized by the patient): Male Exam Narrative: EXAMINATION OF ORGAN SYSTEMS/BODY AREAS: Constitutional: Vital signs per nursing GENERAL:[No acute distress, non-toxic appearing.] HEAD: Normal with no signs of head trauma. EYES: EOMI, conjunctiva normal ENT: Hearing grossly intact LUNGS: Nonlabored breathing. HEART: [Regular rate and rhythm] ABD: [Soft], [nontender to palpation] EXT: Normal range of motion SKIN: [No rashes or lesions.] NEURO: [Alert and oriented x 3. No gross focal sensory or strength deficits.] PSYCH: Normal affect Course Vital Signs Vital signs: Vital Signs Temperature 97.8 F 01/06/24 07:37 Pulse Rate 77 01/06/24 07:37 Respiratory Rate 15 01/06/24 07:37 Blood Pressure 193/84 H 01/06/24 07:37 Pulse Oximetry 99 01/06/24 07:37 Oxygen Delivery Room Air 01/06/24 07:37 Temperature 97.8 F 01/06/24 07:37 Pulse Rate 77 01/06/24 07:37 Respiratory Rate 15 01/06/24 07:37 Blood Pressure 193/84 H 01/06/24 07:37 Pulse Oximetry 99 01/06/24 07:37 Oxygen Delivery Room Air 01/06/24 08:14 MDM - URI/Sore Throat MDM Narrative Medical decision making narrative: ED COURSE AND MEDICAL DECISION MAKING: This 68 year o
== END 2024-01-06 08:57 | disposition home or self-care (01) ==
PROVIDERS: Emergency Provider Emergency Medicine; PCP Internal Medicine
DX: U07.1 COVID-19 (principal); I12.9 Hypertensive chronic kidney disease with stage 1 through stage 4 chronic kidney disease, or unspecified chronic kidney disease; E11.22 Type 2 diabetes mellitus with diabetic chronic kidney disease; N18.9 Chronic kidney disease, unspecified; D64.9 Anemia, unspecified; I42.9 Cardiomyopathy, unspecified; E78.5 Hyperlipidemia, unspecified; J45.909 Unspecified asthma, uncomplicated; M79.7 Fibromyalgia; M10.9 Gout, unspecified; E66.01 Morbid (severe) obesity due to excess calories; Z68.41 Body mass index [BMI] 40.0-44.9, adult; Z98.84 Bariatric surgery status; Z79.85 Long-term (current) use of injectable non-insulin antidiabetic drugs; Z79.84 Long term (current) use of oral hypoglycemic drugs
CPT/HCPCS: 87637; 87651; 99283

== ENCOUNTER 2024-01-14 10:28 | Emergency (ER) | payer MEDICARE, SELFPAY ==
--- NOTE | ~2024-01-14 | XR_ITS ---
EXAMINATION: XR chest 2V DATE: 01/14/2024 10:47 INDICATION: Cough and shortness of breath TECHNIQUE: frontal and lateral views of the chest were obtained. COMPARISON: Chest radiograph dated 06/23/2021 FINDINGS: The lungs are clear with no focal airspace opacities, pulmonary edema, pleural effusion or pneumothor ax. The cardiomediastinal silhouette is normal. Postoperative changes at the epigastric region consis tent with prior gastric bypass procedure chronic mild anterior wedging of a lower thoracic vertebral body with bridging osteophytes at multiple levels consistent with diffuse idiopathic skeletal hyperos tosis (DISH). IMPRESSION: 1. No acute cardiopulmonary disease. Reviewed, dictated and finalized at location B.
[2024-01-14 10:32] VITALS: BP 128/83; PULSE 86; RESP 16; TEMP 36.4; O2SAT 99
[2024-01-14 10:40] VITALS: O2SAT 99
--- NOTE | 2024-01-14 10:40 | ED.SOB ---
HPI - SOB/Dyspnea General Chief Complaint: Shortness of Breath/Dyspnea Stated Complaint: SOB Time Seen by Provider: 01/14/24 10:42 Source: patient Mode of arrival: ambulatory Limitations: no limitations History of Present Illness HPI Narrative: Pawel is a 68-year-old male patient presenting to the clinic today with complaints of shortness of breath and cough for the past 2-3 days. He reports last week he tested positive for COVID. He stated he called his primary care doctor's office and they cannot get him until next week and they suggested he come to the [facility] to be evaluated. He states he did go to the ER last night however there was a 6-7 hour wait. States that it feels as though it is hard to take a deep breath in, cough is nonproductive. No fevers or chills currently. He denies any chest pain. Related Data Home Medications Medication Instructions Recorded Confirmed ferrous sulfate 325 mg (65 mg 325 mg PO DAILY 03/23/19 09/15/23 iron) tablet (Feosol) ketoconazole 2 % topical cream 1 applic topical DAILY 04/17/20 09/15/23 triamcinolone acetonide 0.025 % 1 applic topical DAILY 04/17/20 09/15/23 topical cream vitamin B complex (B 1 tablet PO DAILY 04/17/20 09/15/23 Complex-Vitamin B12 tablet) calcium carbonate (Calcium 500) 500 mg PO DAILY 09/26/20 09/15/23 valacyclovir 500 mg tablet 500 mg PO BID 04/15/23 09/15/23 mupirocin 2 % topical ointment 1 applic topical BID 05/19/23 09/15/23 Allergies Allergy/AdvReac Type Severity Reaction Status Date / Time prednisone Allergy Severe Anaphylaxis Verified 01/14/24 10:46 Review of Systems Review of Systems: Pertinent positives per HPI. Patient denies any fever, chills, rash, headache, visual changes, dizziness, runny nose, sore throat,chest pain, palpitations, nausea, vomiting, diarrhea, constipation, abdominal pain, or any urinary issues. PENDING SALE TO [facility] Past Medical History Medical History Anemia Asthma Cardiomyopathy Cellulitis of right lower extremity CKD (chronic kidney disease) Depression Diabetes mellitus Dyslipidemia Edema Fibromyalgia Generalized pain Gout Herpes zoster infection of oral mucosa History of transfusion Hyperlipidemia Hypertension Hypogonadism in male Morbid obesity with BMI of 40.0-44.9, adult Osteoarthritis Seasonal allergies Surgical History Surgical History History of carpal tunnel release Hx of gastric bypass Status post laparoscopic cholecystectomy 05/22/2019 Family History Family History Father Diabetes mellitus Asthma Family history of coronary artery disease Mother FH: ovarian cancer in first degree relative Social History Social History Social History: Caffeine- tea occasionally Smoking status: Never smoker Alcohol intake: never Substance use: never Substance use type: does not use Do You Feel Safe in your Home?: Yes Lack of Transportation: No Lack of Food: Never True Current Housing: I Have Housing Concerned About Future Housing: No Difficulty Paying Gas/Electric Bills: No Difficulty Paying for Meds: No Currently Unemployed: No Education: Master's Degree or Higher Difficulty w/ Childcare or Family Care: No Gender identity (if verbalized by the patient): Male Comments At the time of my signature, I reviewed and agree with the nursing past medical, surgical, social, and family history. There is no relevant family history pertinent to the patient complaint. Exam Narrative: General: Well-developed, morbidly obese, in no apparent distress Head: Normocephalic, atraumatic Eyes: Pupils equally round and reactive to light bilaterally, EOM intact, sclera and conjunctive clear, no discharge, lids normal Ears: TMs intact and clear, ear canals clear, no drainag
== END 2024-01-14 11:07 | disposition home or self-care (01) ==
PROVIDERS: Emergency Provider Nurse Practitioner Family; PCP Internal Medicine
DX: R06.02 Shortness of breath (principal); R05.1 Acute cough; J45.909 Unspecified asthma, uncomplicated; I12.9 Hypertensive chronic kidney disease with stage 1 through stage 4 chronic kidney disease, or unspecified chronic kidney disease; E11.22 Type 2 diabetes mellitus with diabetic chronic kidney disease; N18.9 Chronic kidney disease, unspecified; E78.5 Hyperlipidemia, unspecified; M79.7 Fibromyalgia; M10.9 Gout, unspecified; E66.01 Morbid (severe) obesity due to excess calories; Z68.41 Body mass index [BMI] 40.0-44.9, adult; M19.90 Unspecified osteoarthritis, unspecified site; Z98.84 Bariatric surgery status; D64.9 Anemia, unspecified
CPT/HCPCS: 71046; 99213; G0463

== ENCOUNTER 2024-05-11 09:05 | Outpatient (CLI) | payer MEDICARE, SELFPAY ==
[2024-05-11 20:42] LABS: Creatinine Urine 81.2 mg/dL
[2024-05-11 20:46] LABS: Alanine Aminotransferase 38 U/L (6-50); Albumin Level 3.8 g/dL (3.5-5.1); Alkaline Phosphatase 92 U/L (38-126); Anion Gap 6 mmol/L (4-12); Aspartate Amino Transferase 36 U/L (17-59); Bilirubin,Total 0.6 mg/dL (0.2-1.3); Blood Urea Nitrogen 29 mg/dL (9-20); Carbon Dioxide 26 mmol/L (22-30); Chloride 105 mmol/L (98-107); Estimated Glomerular Filt Rate 47; Glucose 170 mg/dL (65-110); Potassium 4.6 mmol/L (3.4-5.0); Sodium 137 mmol/L (137-145)
[2024-05-11 20:54] LABS: Hematocrit 36.5 % (42.0-52.0); Mean Corpuscular HGB Conc 32.9 g/dl (32-36); Mean Corpuscular Volume 100.3 fl (80-100); Mean Platelet Volume 10.2 fl (7.4-10.4); Platelet Count Result 151 k/mm3 (150-375); Red Blood Count 3.64 M/mm3 (4.6-6.20); White Blood Count 6.1 K/mm3 (4.5-10.0)
[2024-05-11 21:12] LABS: Parathyroid Intact 61.8 pg/mL (14.5-75.2)
[2024-05-11 21:13] LABS: Total Protein Urine Random 314 mg/dL; Ur Ttl Prot Creatinine Ratio 3.87 mg/mg (0-0.20)
[2024-05-11 21:15] LABS: Vitamin D 25 Hydroxy 16.1 ng/mL
== END 2024-05-11 09:06 | disposition home or self-care (01) ==
PROVIDERS: Internal Medicine Nephrology; PCP Internal Medicine; Visit Provider Clinical Nurse Specialist
DX: E11.22 Type 2 diabetes mellitus with diabetic chronic kidney disease (principal); N18.31 Chronic kidney disease, stage 3a; E21.1 Secondary hyperparathyroidism, not elsewhere classified; R53.83 Other fatigue; Z86.2 Personal history of diseases of the blood and blood-forming organs and certain disorders involving the immune mechanism
CPT/HCPCS: 36415; 80053; 82306; 82570; 83036; 83970; 84156; 85027

== ENCOUNTER 2024-07-14 09:26 | Outpatient (CLI) | payer MEDICARE, SELFPAY ==
--- OUTSIDE RECORDS SUMMARY | 2024-07-14 10:01 | XMS_ITS | Clinical Summary ---
Author Organization [facility] Address [address] [place] [id number] Phone Care Team Providers Care Retail Zone Specialist Name Role Phone Evan Rebolledo DO Primary Care Provider [phone] Allergies Active Allergy Reactions Criticality Noted Date Comments Prednisone Hallucinations,Other (see comments) High 11/06/2019 Hyper-manic; auditory hallucinations Medications Medication Sig Dispensed Refills Start Date End Date Status allopurinol (ZYLOPRIM) 300 MG tablet Take 300 mg by mouth 1 (one) time each day 02/05/2022 Active atorvastatin (LIPITOR) 20 MG tablet Take 20 mg by mouth 1 (one) time each day 01/23/2022 Active Azelastine HCl 0.15 % solution USE 1 SPRAY IN EACH NOSTRIL EVERY DAY AT BEDTIME 11/21/2021 Active b complex vitamins capsule Take 1 capsule by mouth in the morning. Active baclofen (LIORESAL) 10 MG tablet 01/22/2022 Active busPIRone (BUSPAR) 10 MG tablet Take 10 mg by mouth in the morning and 10 mg before bedtime. 02/09/2022 Active Trulicity 4.5 MG/0.5ML solution pen-injector 01/22/2022 Active ferrous sulfate 325 (65 Fe) MG EC tablet Take 65 mg by mouth in the morning. Active fluticasone (FLONASE) 50 MCG/ACT nasal spray SHAKE LIQUID AND USE 1 SPRAY IN EACH NOSTRIL TWICE DAILY 02/18/2022 Active furosemide (LASIX) 20 MG tablet Take 20 tablets by mouth in the morning. 10/01/2019 Active Ketoconazole 2 % foam APPLY TOPICALLY TO THE AFFECTED AREA TWICE DAILY 01/30/2022 Active lisinopril (PRINIVIL) 20 MG tablet Take 20 mg by mouth 1 (one) time each day 01/28/2022 Active MAGnesium-Oxide 400 (240 Mg) MG tablet Take 1 tablet by mouth 1 (one) time each day 01/28/2022 Active metFORMIN (GLUCOPHAGE) 500 MG tablet Take 1,000 mg by mouth in the morning and 1,000 mg before bedtime. 02/09/2022 Active metoprolol succinate XL (TOPROL-XL) 25 MG 24 hr tablet Take 25 mg by mouth 1 (one) time each day 01/17/2022 Active montelukast (SINGULAIR) 10 MG tablet Take 10 mg by mouth 1 (one) time each day 02/03/2022 Active sertraline (ZOLOFT) 100 MG tablet Take 100 mg by mouth in the morning and 100 mg before bedtime. 01/28/2022 Active traZODone (DESYREL) 100 MG tablet Take 100 mg by mouth in the morning and 100 mg before bedtime. 01/29/2022 Active triamcinolone (KENALOG) 0.025 % cream APPLY TOPICALLY TO RASH ON LEGS TWICE DAILY FOR 4 WEEKS FOR FLARES. DO NOT APPLY TO FACE 02/21/2022 Active valACYclovir (VALTREX) 1 g tablet 02/11/2022 Acti ve Cholecalciferol (Vitamin D) 25 MCG (1000 UT) tablet Take by mouth Activ e Active Problems Problem Noted Date Diagnosed Date Diarrhea 11/06/2019 Overview (02/26/2022): Added automatically from request for surgery [id number] Generalized abdominal pain 11/06/2019 Overview (02/26/2022): Added automatically from request for surgery [id number] Immunizations Name Administration Dates Next Due Influenza TIV (IM) 01/15/2022 Pneumococcal Conjugate 01/15/2022 Family History Medical History Relation Comments Kidney disease Mother Relation Status Comments Mother Social History Tobacco Use Types Packs/Day Years Used Date Smoking Tobacco: Never Smokeless Tobacco: Never Tobacco Cessation:Counseling Given: Not Answered Alcohol Use Standard Drinks/Week Comments Not Currently 0 (1 standard drink = 0.6 oz pur e alcohol) Sex and Gender Information Value Date Recorded Sex Assigned at Not on file Gender Identity Not on file Sexual Orientation Not on file Last Filed Vital Signs Vital Sign Reading Time Taken Comments Blood Pressure 136/70 02/26/2022 8:52 AM CDT Pulse 72 02/26/2022 8:52 AM CDT Temperature 35.3 C (95.6 F) 02/26/2022 8:52 AM CDT Respiratory Rate - - Oxygen Saturation - - Inhaled Oxygen Concentration - - Weight 136 kg (299 lb) 02/26/2022 8:52 AM CDT Height 172.7 cm (5' 8 ) 02/26/2022 8:52 AM CDT Body Mass Index 45.46 02/26/2022 8:52 AM CDT Plan of Treatment Health Maintenance Due Date Last Done Comments Pneumococcal PPSV23/PCV13 65 + Years / High and Highest Risk (1 of 4 - PCV) 1959 Pneumococcal PPSV23/PCV13 65 + Years / Low and Medium Risk (1 of 4 - PCV) 2018 Influenza Vaccine (#1) 2024 01/15/2022 Care Teams Retail Zone Specialist Relationship Specialty Start Date End Date Evan Rebolledo DO [address] [place] [address] PCP - General Internal Medicine 01/22/22
--- OUTSIDE RECORDS SUMMARY | 2024-07-14 10:01 | XMS_ITS | Clinical Summary ---
Author Organization [facility] Address [address] [place] [address] Phone Care Team Providers Care Donor Floor Technician Name Role Phone Kesha Evan Kevyn DURHAM Primary Care Provider Allergies Active Allergy Reactions Criticality Noted Date Comments Prednisone Hallucination,Anaphy laxi s,Hives,Other (See Comments),Palpitations High 03/15/2018 Hyper-manic; auditory hallucinations Hyper-manic; auditory hallucinations Medications metFORMIN (GLUCOPHAGE) 500 mg tablet Take 1,000 mg by mouth 4 times daily. 2 Active metoprolol succinate (TOPROL XL) 25 mg Extended Release 24 hour tablet Take 25 mg by mouth daily. 2 Active furosemide (LASIX) 20 mg tablet Take 20 Tablets by mouth daily. 2 Active sertraline (ZOLOFT) 100 mg tablet Take 200 mg by mouth daily. 2 Active busPIRone (BUSPAR) 10 mg tablet Take 10 mg by mouth daily. 2 Active atorvastatin (LIPITOR) 20 mg tablet Take 20 mg by mouth daily. 2 Active allopurinoL (ZYLOPRIM) 300 mg tablet Take 300 mg by mouth daily. 2 Active magnesium oxide (MAG-OX) 400 mg (241.3 mg magnesium) tablet Take 400 mg by mouth daily. 2 Active lisinopriL (PRINIVIL) 20 mg tablet Take 20 mg by mouth daily. 2 Active traZODone (DESYREL) 100 mg tablet Take 100 mg by mouth daily at bedtime. 2 Active onabotulinumtox Brandan (BOTOX) 200 unit Recon SolnIndications :Intractable chronic migraine without aura and without status migrainosus Inject up to 200u IM to the head and neck muscles every 12 weeks in the MD office. Discard unused portion. 1 Each 2 Active triamcinolone acetonide (KENALOG) 0.025 % Cream APPLY TOPICALLY TO RASH ON LEGS TWICE DAILY FOR 4 WEEKS FOR FLARES. DO NOT APPLY TO FACE 3 Active mupirocin (BACTROBAN) 2 % Ointment APPLY TO CRUSTED AREAS ON THE FACE THREE TIMES DAILY FOR 1 WEEK NEEDED 3 Active Ketoconazole 2 % Foam APPLY TOPICALLY TO THE AFFECTED AREA TWICE DAILY 3 Active fluticasone propionate (FLONASE) 50 mcg/spray Gill, Suspension nasal inhaler SHAKE LIQUID AND USE 1 SPRAY IN EACH NOSTRIL TWICE DAILY 3 Active Trulicity 4.5 mg/0.5 mL injection 3 Active azelastine (ASTELIN) 137 mcg/actuation nasal spray Administer 1 Gill in each nostril Continuous as needed. 3 Active montelukast (SINGULAIR) 10 mg tablet Take 1 Tablet by mouth daily. 4 Active baclofen (LIORESAL) 10 mg tablet Take 1-2 pills up to two times a day for headache, can use up to 5 days a week. 60 Tablet 6 4 Active erenumab-aooe (Aimovig Autoinjector) 140 mg/mL Auto-Injector Inject 1 mL (140 mg) by subcutaneous injection every 28 days. 1 mL 5 4 Active Active Problems Problem Noted Date Diagnosed Date Intractable chronic migraine without aura and without status migrainosus 07/13/2024 Generalized abdominal pain 11/06/2019 Overview (02/24/2022): Added automatically from request for surgery [id number] Diarrhea 11/06/2019 Overview (02/24/2022): Added automatically from request for surgery [id number] Encounters Date Type Department Care Team Description 07/14/2024 Telephone [facility] Neurology [address] [facility] [address] [place] [address] gAa Domínguez FNP 07/13/2024 Orders Only [facility] [address] [facility] [address] [place] [address] Aga Domínguez FNP Intractable chronic migraine without aura and without status migrainosus (Primary Dx) 07/10/2024 External Device Data [facility] ABSTRACTION Provider, Abstract 06/27/2024 External Device Data [facility] ABSTRACTION Provider, Abstract 05/30/2024 External Device Data [facility] ABSTRACTION Provider, Abstract 05/24/2024 External Device Data [facility] ABSTRACTION Provider, Abstract 05/24/2024 External Device Data [facility] ABSTRACTION Provider, Abstract 05/24/2024 Abstract [facility] NEUROLOGY - [facility] [address] [facility] [address] [place] [address] Provider, Abstract 05/18/2024 Orders Only [facility] Neurology [facility] [address] [facility] [address] [place] [address] Provider, Abstract 05/17/2024 External Device Data ST[facility] ABSTRACTION Provider, Abstract 04/24/2024 8:30 AM STATEMENT CLERK Procedure visit [facility] [address] [facility] [address] [place] [address] Aga Domínguez FNP Other fatigue (Primary Dx); Paresthesia; Benign paroxysmal positional vertigo, unspecified laterality; Vitamin D deficiency; Type 2 diabetes mellitus with other specified complication, unspecified whether ocean transportation intermediary insulin use ([facility]); History of anemia; Intractable chronic migraine without aura and without status migrainosus from Last 3 Months Social History Tobacco Use Types Packs/Day Years Used Date Smoking Tobacco: Never Tobacco Cessation:Counseling Given: Not Answered Sex and Gender Information Value Date Recorded Sex Assigned at Not on file Legal Sex Male 10:47 AM CDT Gender Identity Not on file Sexual Orientation Not on file Last Filed Vital Signs Vital Sign Reading Time Taken Comments Blood Pressure 124/68 04/24/2024 8:44 AM STATEMENT CLERK Pulse 76 04/24/2024 8:44 AM STATEMENT CLERK Temperature 36.4 C (97.5 F) 12/13/2023 9:48 AM CDT Respiratory Rate 18 12/13/2023 9:48 AM CDT Oxygen Saturation 97% 04/24/2024 8:44 AM STATEMENT CLERK Inhaled Oxygen Concentration - - Weight 129.3 kg (285 lb) 01/31/2024 8:22 AM CDT Height 172.7 cm (5' 8 ) 11/08/2023 8:35 AM CDT Body Mass Index 43.33 11/08/2023 8:35 AM CDT Plan of Treatment Upcoming Encounters Date Type Department Care Team (Late st Contact Info) Description 07/17/2024 8:30 AM CDT Procedure visit [facility] Neurology [address] [facility] [address] [place] [address] Aga Domínguez FNP [address] [facility] [address] [place] [address] 07/21/2024 11:45 AM CDT Office Visit [facility] Oncology and Hematology - [place] [address] [facility] [address] [place] [address] Molina Camacho MD [address] [facility] [address] [place] [address] 09/20/2024 9:00 AM CDT Office Visit [facility] Neurology [address] [facility] [address] [place] [address] Tyson De La Cruz MD [address] [facility] [address] [place] [address] Health Maintenance Due Date Last Done Comments DTAP/TDAP/TD VACCINES (1 - Tdap) 1972 PNEUMOCOCCAL VACCINE 50+ YEA RS (1 of 2 - PCV) 1972 01/15/2022 ZOSTER VACCINE (1 of 2) 1972 COLORECTAL SCREENING 1998 Colorectal Cancer Screening 1998 FIT-DNA Q 3 years 1998 FIT/FOBT Q 1 year 1998 Flex Sig/CT Colonography Q 5 years 1998 RSV VACCINE (60+ or ) (1 - Risk 60-74 years 1-dose series) 2013 INFLUENZA VACCINE (#1) 2023 01/15/2022 COVID-19 Vaccine (5 - 2023-2 5 season) 2024 12/17/2021, 01/03/2021, 07/05/2020, Additional history exists Medicare Ad[place] ([place]) Preventative Visit/Annual Wellness Visit 05/03/2024 Procedures Procedure Name Priority Date/Time Associated Diagnosis Comments HISTORICAL LAB RESULTS Routine 05/15/2024 9:36 AM STATEMENT CLERK from Last 3 Months Results * HISTORICAL LAB RESULTS (05/15/2024 9:36 AM STATEMENT CLERK) Other, specify us Abstract Provider CHEMISTRY ORDERABLES Final Res [facility] from Last 3 Months Insurance AETNA [facility] RX AETNA Medicare Part D AETNA PPO [facility] Care Teams Donor Floor Technician Relationship Specialty Start Date End Date Evan Rebolledo DO [address] [facility] [address] [place] [address] PCP - General Internal Medicine 01/22/22
--- OUTSIDE RECORDS SUMMARY | 2024-07-14 10:01 | XMS_ITS | Encounter Summary ---
Author Organization [facility] Address [address] [place] [address] Care Team Providers Care Director Of Dance Name Role Phone Evan Rebolledo Primary Care Provider Encounter Details Date Type Department Care Team (Late Contact Info) Description 07/14/2024 Telephone [facility] Neurology [address] [place] [address] Aga Domínguez FNP [address] [place] [address] Social History Tobacco Use Types Packs/Day Years Used Date Smoking Tobacco: Never Sex and Gender Information Value Date Recorded Sex Assigned at Not on file Legal Sex Male 10:47 AM CDT Gender Identity Not on file Sexual Orientation Not on file documented as of this encounter Plan of Treatment Upcoming Encounters Date Type Department Care Team (Late Contact Info) Description 07/17/2024 8:30 AM CDT Procedure visit [facility] Neurology [address] [place] [address] Aga Domínguez FNP [address] [place] [address] 07/21/2024 11:45 AM CDT Office Visit [facility] Oncology and Hematology - [place] [address] [place] [address] Molina Camacho MD [address] [facility] [address] [place] [address] 09/20/2024 9:00 AM CDT Office Visit [facility] Neurology [address] [place] [address] Tyson De La Cruz MD [address] [facility] [address] [place] [address] documented as of this encounter Visit Diagnoses Not on filedocumented in this encounter Care Teams Director Of Dance Relationship Specialty Start Date End Date Evan Rebolledo DO [address] [facility] [address] [place] [address] PCP - General Internal Medicine 01/22/22 documented as of this encounter
--- OUTSIDE RECORDS SUMMARY | 2024-07-14 10:01 | XMS_ITS | Encounter Summary ---
Author Organization [facility] Address [address] [place] [address] Care Team Providers Care Supervisor Partial Denture Department Name Role Phone Evan Rebolledo Primary Care Provider Encounter Details Date Type Department Care Team (Late Contact Info) Description 07/13/2024 Orders Only [facility] Neurology [address] [place] [address] Aga Domínguez FNP [address] [place] [address] Intractable chronic migraine without aura and without status migrainosus (Primary Dx) Social History Tobacco Use Types Packs/Day Years [...] Description 07/17/2024 8:30 AM CDT Procedure visit [facility] Neurology [address] [place] [address] Aga Domínguez FNP [address] [place] [address] 07/21/2024 11:45 AM CDT Office Visit [facility] Oncology and Hematology - [place] [address] [place] [address] Molina Camacho MD [address] [facility] [address] [place] [address] 09/20/2024 9:00 AM CDT Office Visit [facility] Neurology [address] [place] [address] Tyson De La Cruz MD [address] [place] [address] documented as of this encounter Visit Diagnoses Diagnosis Intractable chronic migraine without aura and without status migrainosus- Primary Chronic migraine without aura, with intractable migraine, so stated, without mention of status migrainosus documented in this encounter Care Teams Supervisor Partial Denture Department Relationship Specialty Start Date End Date Evan Rebolledo DO [address] [facility] [address] [place] [address] PCP - General Internal Medicine 01/22/22 documented as of this encounter
[2024-07-14 18:45] LABS: Hematocrit 37.9 % (42.0-52.0); Hemoglobin 12.4 g/dL (14.0-18.0); Mean Corpuscular HGB Conc 32.7 g/dl (32-36); Mean Corpuscular Hemoglobin 33.2 pg (26-34); Mean Corpuscular Volume 101.3 fl (80-100); Mean Platelet Volume 10.1 fl (7.4-10.4); Platelet Count Result 151 k/mm3 (150-375); Red Blood Count 3.74 M/mm3 (4.6-6.20); Red Cell Distribution Width 13.6 % (11.5-14.5); White Blood Count 6.9 K/mm3 (4.5-10.0)
[2024-07-14 18:52] LABS: Alanine Aminotransferase 34 U/L (6-50); Alkaline Phosphatase 94 U/L (38-126); Anion Gap 10 mmol/L (4-12); Aspartate Amino Transferase 57 U/L (17-59); Bilirubin,Total 0.4 mg/dL (0.2-1.3); Blood Urea Nitrogen 26 mg/dL (9-20); Carbon Dioxide 23 mmol/L (22-30); Chloride 105 mmol/L (98-107); Estimated Glomerular Filt Rate 46; Glucose 151 mg/dL (65-110); Potassium 4.1 mmol/L (3.4-5.0); Sodium 138 mmol/L (137-145)
[2024-07-14 18:53] LABS: Iron 88 ug/dL (49-181)
[2024-07-14 18:53] LABS: Anion Gap 12 mmol/L (4-12); Blood Urea Nitrogen 26 mg/dL (9-20); Calcium 8.8 mg/dL (8.4-10.2); Carbon Dioxide 23 mmol/L (22-30); Chloride 105 mmol/L (98-107); Estimated Glomerular Filt Rate 46; Glucose 146 mg/dL (65-110); Phosphorus 3.4 mg/dL (2.5-4.5); Potassium 4.2 mmol/L (3.4-5.0); Sodium 140 mmol/L (137-145)
[2024-07-14 19:02] LABS: Parathyroid Intact 82.6 pg/mL (14.5-75.2)
[2024-07-14 19:02] LABS: Creatinine Urine 218.4 mg/dL
[2024-07-14 19:04] LABS: Percent Iron Saturation 26 % (20-50)
[2024-07-14 19:29] LABS: Total Protein Urine Random > 600 mg/dL; Ur Ttl Prot Creatinine Ratio > 2.75 mg/mg (0-0.20)
[2024-07-14 20:35] LABS: Folic Acid 12.5 ng/mL (2.76->20)
== END 2024-07-14 09:27 | disposition home or self-care (01) ==
LOC: ANHGOSHLAB 09:28
PROVIDERS: Internal Medicine Hematology & Oncology; PCP Internal Medicine; Visit Provider Internal Medicine Nephrology
DX: I12.9 Hypertensive chronic kidney disease with stage 1 through stage 4 chronic kidney disease, or unspecified chronic kidney disease (principal); E21.1 Secondary hyperparathyroidism, not elsewhere classified; N18.31 Chronic kidney disease, stage 3a; C90.00 Multiple myeloma not having achieved remission; D63.8 Anemia in other chronic diseases classified elsewhere
CPT/HCPCS: 36415; 80053; 80069; 82570; 82607; 82728; 82746; 83540; 83550; 83970; 84156; 85027

== ENCOUNTER 2024-10-06 08:29 | Outpatient (CLI) | payer MEDICARE, SELFPAY ==
--- OUTSIDE RECORDS SUMMARY | 2024-10-06 08:36 | XMS_ITS | Clinical Summary ---
Author Organization [facility] Address [address] [place] [id number] Phone Care Team Providers Care Gang Investigator Name Role Phone Evan Rebolledo DO Primary Care Provider [phone] Allergies Active Allergy Reactions Criticality Noted Date Comments Prednisone Hallucinations,Other (see comments) High 11/06/2019 Hyper-manic; auditory hallucinations Medications allopurinol (ZYLOPRIM) 300 MG tablet Take 300 mg by mouth 1 (one) time each day 2 Active atorvastatin (LIPITOR) 20 MG tablet Take 20 mg by mouth 1 (one) time each day 2 Active Azelastine HCl 0.15 % solution USE 1 SPRAY IN EACH NOSTRIL EVERY DAY AT BEDTIME 2 Active b complex vitamins capsule Take 1 capsule by mouth in the morning. Active baclofen (LIORESAL) 10 MG tablet 2 Active busPIRone (BUSPAR) 10 MG tablet Take 10 mg by mouth in the morning and 10 mg before bedtime. 2 Active Trulicity 4.5 MG/0.5ML solution pen-injector 2 Active ferrous sulfate 325 (65 Fe) MG EC tablet Take 65 mg by mouth in the morning. Active fluticasone (FLONASE) 50 MCG/ACT nasal spray SHAKE LIQUID AND USE 1 SPRAY IN EACH NOSTRIL TWICE DAILY 2 Active furosemide (LASIX) 20 MG tablet Take 20 tablets by mouth in the morning. 0 Active Ketoconazole 2 % foam APPLY TOPICALLY TO THE AFFECTED AREA TWICE DAILY 2 Active lisinopril (PRINIVIL) 20 MG tablet Take 20 mg by mouth 1 (one) time each day 2 Active MAGnesium-Oxide 400 (240 Mg) MG tablet Take 1 tablet by mouth 1 (one) time each day 2 Active metFORMIN (GLUCOPHAGE) 500 MG tablet Take 1,000 mg by mouth in the morning and 1,000 mg before bedtime. 2 Active metoprolol succinate XL (TOPROL-XL) 25 MG 24 hr tablet Take 25 mg by mouth 1 (one) time each day 2 Active montelukast (SINGULAIR) 10 MG tablet Take 10 mg by mouth 1 (one) time each day 2 Active sertraline (ZOLOFT) 100 MG tablet Take 100 mg by mouth in the morning and 100 mg before bedtime. 2 Active traZODone (DESYREL) 100 MG tablet Take 100 mg by mouth in the morning and 100 mg before bedtime. 2 Active triamcinolone (KENALOG) 0.025 % cream APPLY TOPICALLY TO RASH ON LEGS TWICE DAILY FOR 4 WEEKS FOR FLARES. DO NOT APPLY TO FACE 2 Active valACYclovir (VALTREX) 1 g tablet 2 Active Cholecalciferol (Vitamin D) 25 MCG (1000 UT) tablet Take by mouth Active Active Problems Problem Noted Date Diagnosed Date Diarrhea 11/06/2019 Overview (02/26/2022): Added automatically from request for surgery [id number] Generalized abdominal pain 11/06/2019 Overview (02/26/2022): Added automatically from request for surgery [id number] Immunizations Immunization Administration Dates Next Due Influenza TIV (IM) [...] at Not on file Legal Sex Male 2:02 PM MDT Gender Identity Not on file Sexual Orientation [...] 8:52 AM CDT Height 172.7 cm (5' 8) 02/26/2022 8:52 AM CDT Body Mass Index 45.46 02/26/2022 8:52 AM CDT Plan of Treatment Health Maintenance Due Date Last Done Comments Pneumococcal PPSV23/PCV13 65 + Years / Low and Medium Risk (1 of 4 - PCV) 2003 Influenza Vaccine (Season Ended) 2025 01/16/20 22 Insurance [address] [place] [address] A[employer] MEDICARE ADVANTAGE Care Teams Gang Investigator Relationship Specialty Start Date End Date Evan Rebolledo DO [address] [place] [address] PCP - General Internal Medicine 01/22/22
--- OUTSIDE RECORDS SUMMARY | 2024-10-06 08:36 | XMS_ITS | Patient Health Record ---
Author Organization [facility] [employer] Address [address] [facility] [address] [place] [phone] Care Team Providers Care Thread Puller Name Role Phone Torri Turner Primary Care Provider Reason For Referral No Information Immunizations Vaccine Route Administration Date Status Comme nts [id number] Vaccine IM Intramuscular 06/07/2020 Administered Pt tolerated we ll. [id number] Vaccine IM Intramuscular 07/05/2020 Administered Pt tolerated we ll. [id number]-[id number] Vaccine IM Intramuscular 01/03/2021 Administered Pt tolerated we ll [id number] BOOSTER IM Intramuscular 12/17/2021 Administered Pt tolerated injection well Plan Of Treatment No Information Insurance Providers Payer Name Payer Address Payer Phone Subscriber Number Group Number Insured Name Patient Relationship to Insured Coverage Start Date Coverage End Date [place] Aet[employer] [address] [place], [place] [id number] Pawel Lan Self - patient is the insured 1 Aetna PPO [address] [place], [place] [id number] Pawel Lan Self - patient is the insured 1
--- OUTSIDE RECORDS SUMMARY | 2024-10-06 08:36 | XMS_ITS | Clinical Summary ---
Author Organization [facility] Address [address] [place] [address] Phone Care Team Providers Care Flight Crew Scheduler Name Role Phone ThangEvan thakur Kevyn Primary Care Provider Allergies Active Allergy Reactions [...] 3 Active fluticasone propionate (FLONASE) 50 mcg/spray Wallaceton, Suspension nasal inhaler SHAKE LIQUID AND USE 1 SPRAY IN EACH NOSTRIL TWICE DAILY 3 Active Trulicity 4.5 mg/0.5 mL injection 3 Active azelastine (ASTELIN) 137 mcg/actuation nasal spray Administer 1 Wallaceton in each nostril Continuous as needed. 3 [...] (02/24/2022): Added automatically from request for surgery [id number] Diarrhea 11/06/2019 Overview (02/24/2022): Added automatically from request for surgery [id number] Encounters Date Type Department Care Team Description 09/26/2024 External Device Data [facility] Provider, Abstract 09/21/2024 External Device Data [facility] Provider, Abstract 09/20/2024 External Device Data [facility] Provider, Abstract 09/19/2024 External Device Data [facility] Provider, Abstract 08/15/2024 External Device Data [facility] Provider, Abstract 08/08/2024 External Device Data [facility] Provider, Abstract 07/24/2024 2:30 PM CDT Procedure visit [facility] [address] [place] [address] Aga Domínguez, DAVE Intractable chronic migraine without aura and without status migrainosus (Primary Dx) 07/24/2024 Telephone [facility] [address] [place] [address] Sana Styles FNP Erroneous encounter-disregard 07/21/2024 11:45 AM CDT Office Visit [facility] - [place] [address] [place] [phone] Molina Camacho MD Multiple myeloma, remission status unspecified (CMS/HCC) (Primary Dx); Chronic anemia 07/19/2024 External Device Data [facility] Provider, Abstract 07/19/2024 Orders Only [facility] - [place] [address] [place] [address] Molina Camacho MD 07/18/2024 Orders Only [facility] - [place] [address] [place] [address] Molina Camacho MD 07/17/2024 Telephone [facility] [address] [place] [address] Tyson De La Cruz MD Medication Question 07/14/2024 Telephone [facility] [place] [address] [place] [address] Ashley Riojas MD Botox PA Approval 07/14/2024 Telephone [facility] [address] [facility] [address] [place] [address] Aga Domínguez FNP Duplicate 07/13/2024 Orders Only [facility] [address] [facility] [address] [place] [address] Aga Domínguez FNP Intractable chronic migraine without aura and without status migrainosus (Primary Dx) 07/10/2024 External Device Data [facility] Provider, Abstract from Last 3 Months Social History Tobacco Use Types Packs/Day Years Used Date Smoking Tobacco: Never Tobacco Cessation:Counseling Given: Not Answered Sex and Gender Information Value Date Recorded Sex Assigned at Not on file Legal Sex Male 10:47 AM CDT Gender Identity Not on file Sexual Orientation Not on file Last Filed Vital Signs Vital Sign Reading Time Taken Comments Blood Pressure 164/76 07/24/2024 12:46 PM CDT Pulse 65 07/24/2024 12:46 PM CDT Temperature 36.1 C (96.9 F) 07/21/2024 11:34 AM CDT Respiratory Rate 16 07/21/2024 11:3 4 AM CDT Oxygen Saturation 97% 07/24/2024 12: 46 PM CDT Inhaled Oxygen Concentration - - Weight 123.7 kg (272 lb 12.8 oz) 2024 11:34 AM CDT Height 172.7 cm (5' 8) 11/08/2023 8:35 AM CDT Body Mass Index 41.48 11/08/2023 8:35 AM CDT Plan of Treatment Upcoming Encounters Date Type Department Care Team (Late st Contact Info) Description 10/16/2024 9:00 AM CDT Procedure visit [facility] [address] [facility] [address] [place] [address] Torri Le, HANDY [address] [facility] [address] [place] [address] 01/08/2025 9:00 AM CDT Procedure visit [facility] [address] [facility] [address] [place] [address] Aga Domínguez, DAVE [address] [facility] [address] [place] [address] 01/25/2025 11:45 AM CDT Office Visit [facility]ology - [place] [address] [facility] [address] [place] [address] Molina Camacho MD [address] [facility] [address] [place] [address] 02/14/2025 3:30 PM CDT Office Visit [facility] [address] [facility] [address] [place] [address] Tyson De La Cruz MD [address] [facility] [address] [place] [address] Health Maintenance Due Date Last Done Comments [...] Procedure Name Priority Date/Time Associated Diagnosis Comments AL CHEMODERVATE FACIAL/TRIGEM/CERV MUSC MIGRAINE Routine 07/24/2024 1:10 PM CDT Intractable chronic migraine without aura and without status migrainosus BASIC METABOLIC PANEL Routine 07/14/2024 4:53 PM CDT CBC WITH DIFFERENTIAL Routine 07/14/2024 2:32 PM CDT from Last 3 Months Results * AL CHEMODERVATE FACIAL/TRIGEM/CERV MUSC MIGRAINE (07/24/2024 1:10 PM CDT) Narrative Aga Domínguez FNP - 07/24/2024 1:10 PM CDT Aga Domínguez FNP 07/24/2024 2:49 PM Botox Procedure Note Patient: Pawel Hawkins / 69 y.o. / male : 1955 BP (!) 164/76 (BP Location: Left arm, Patient Position (BP): Sitting, BP Cuff Size: Large Adult) Pulse 65 SpO2 97% Procedure Performed: Botox for Chronic Migraine without Aura Date of Service: 07/24/2024 Provider: DAVE Bruno Medical Necessity for Procedure: This patient has a history of intractable headache present for 15 or more days per month, at least 8 of which lasting for more than 4 hours a day and meeting migraine criteria. They have tried at least 2 migraine prophylaxis medications. It is medically necessary to proceed with Botulinum toxin A injections per PREEMPT protocol in order to optimize this patient's treatment plan that will result in improved level of functioning and quality of life. Past Medical History: Past Medical History: Diagnosis Date Arthritis Diabetes mellitus (CMS/HCC) Headache Herpes zoster Migraine with aura Supporting Evidence for the Treatment's Effectiveness: BOTOX was evaluated in two randomized, multi-center, 24-week, 2 injection cycle, placebo-controlled double-blind studies. Study 1 and Study 2 included chronic migraine adults who were not using any concurrent headache prophylaxis, and during a 28-day baseline period had >15 headache days lasting 4 hours or more, with >50% being migraine/probable migraine. In both studies, patients were randomized to receive placebo or 155 Units to 195 Units BOTOX injections every 12 weeks for the 2-cycle, double-blind phase. Patients were allowed to use acute headache treatments during the study. BOTOX treatment demonstrated statistically significant and clinically meaningful improvements from baseline compared to placebo for wasserman efficacy variables (see Table 31). Patients treated with BOTOX had a significantly greater mean decrease from baseline in the frequency of headache days at most timepoints from Week 4 to Week 24 in Study 1 (Figure 11), and all timepoints from Week 4 to Week 24 in Study 2 (Figure 12), compared to placebo-treated patients. Diagram of Injection sites: ASSESSMENT and TREATMENT PLAN: HIT-6 score: Date of last botox treatment: 04/2024 with Abigail ACOSTA # of IBARRA d/m pre Botox: 30 d/m Current preventative medications Botox every 12 weeks Aimovig 140mg monthly - issues with getting script filled # of IBARRA d/m in each of last 3 months: 20-25 d/m 2024 Total Headache Days Migraine Days May Have you had improvement in severity of IBARRA compared to pre Botox?: Yes Any side effects of Botox: No Interim history Continues to have migraines approx 6 days per weeks Some sinus issues associated Located to bilateral frontal and sinus regions Procedure Details: The patient was educated about the risks and benefits of the procedure prior to starting. The patient signed a form showing they received informed consent. Then the patient was given Botox as follows: OnabotulinumtoxinA-Botox 200 units (lot # see jul; expiration see jul ) was reconstituted using 4 ml preservative free saline to a final concentration of 50 units/ml. Using 1 ml syringes with 30 gauge 0.5 inch needles, and aseptic technique, Botox was administered as follows: Muscle # units Right # of inj sites Right # units Left # of inj sites Left Total units Coin Purse Framer 5 1 5 1 10 Procerus 5 Frontalis 10 2 10 2 20 Temporalis 20 4 20 4 40 Occipitalis 15 3 15 3 30 Cervical Paraspinal 10 2 10 2 20 Trapezius 15 3 15 3 30 Masseter Orbicularis oculi Sternocleidomastoid TOTAL units injected 155 Units wasted 45 Each injection was preceded by negative aspiration for blood. Patient tolerated the procedure well. Post-injection care instructions reviewed and patient discharged in good and stable condition. Tension to neck and shoulders Tenderness to palpation to bilateral occipital regions Medications Administered This Visit: Administrations This Visit onabotulinumtoxinA (BOTOX) injection 155 Units Admin Date 07/24/2024 Action Given Dose 155 Units Route IM Documented By Aga Domínguez FNP Were there any complications during this procedure or following previous Botox procedures for Chronic Migraine?: No Treatment Plan: Continue Botox every 12 weeks Follow up assessment scheduled Dr. De La Cruz as scheduled DAVE Bruno Result [facility] Aga ACOSTA PROCEDURE/MINOR SURGIC AL ORDERABLES Final Result * BASIC METABOLIC PANEL (07/14/2024 4:53 PM CDT) Blood Molina Camacho MD CHEMISTRY ORDERABLES Final Resu lt * CBC WITH DIFFERENTIAL (07/14/2024 2:32 PM CDT) Blood Molina Camacho MD HEMATOLOGY ORDERABLES Final Res ult from Last 3 Months Insurance AETNA PPO [facility] RX AETNA Medicare Part D AET[employer] PPO MCR Care Teams Flight Crew Scheduler Relationship Specialty Start Date End Date Evan Rebolledo DO [address] [facility] [address] [place] [address] PCP - General Internal Medicine 01/22/22
[2024-10-06 12:14] LABS: Basophils Percent Auto 0.3 % (0.2-1.2); Eosinophils Absolute Auto 0.6 K/mm3 (0-0.3); Eosinophils Percent Auto 8.9 % (0-4.4); Hematocrit 35.3 % (42.0-52.0); Hemoglobin 11.4 g/dL (14.0-18.0); Immature Granulocyte Absolute 0.03 K/mm3 (0.00-0.031); Immature Granulocyte Percent A 0.4 % (0-0.5); Lymphocytes Absolute Auto 1.47 K/mm3 (0.9-3.2); Lymphocytes Percent Auto 21.5 % (18.3-44.2); Mean Corpuscular HGB Conc 32.3 g/dl (32-36); Mean Corpuscular Hemoglobin 32.6 pg (26-34); Mean Corpuscular Volume 100.9 fl (80-100); Monocytes Absolute Auto 0.5 K/mm3 (0.1-0.6); Monocytes Percent Auto 7.2 % (2.6-8.5); Neutrophils Absolute Auto 4.2 K/mm3 (1.3-6.7); Neutrophils Percent Auto 61.7 % (45.5-73.1); Platelet Count Result 139 k/mm3 (150-375); Red Cell Distribution Width 14.2 % (11.5-14.5); White Blood Count 6.8 K/mm3 (4.5-10.0)
[2024-10-06 12:40] LABS: Cholesterol 96 mg/dL (0-200); HDL Direct 34 mg/dL; Triglycerides 69 mg/dL (<150)
[2024-10-06 12:44] LABS: Alanine Aminotransferase 43 U/L (6-50); Albumin Level 3.7 g/dL (3.5-5.1); Alkaline Phosphatase 94 U/L (38-126); Anion Gap 7 mmol/L (4-12); Aspartate Amino Transferase 49 U/L (17-59); Bilirubin,Total 0.4 mg/dL (0.2-1.3); Blood Urea Nitrogen 34 mg/dL (9-20); Calcium 9.2 mg/dL (8.4-10.2); Carbon Dioxide 25 mmol/L (22-30); Chloride 108 mmol/L (98-107); Estimated Glomerular Filt Rate 44; Glucose 167 mg/dL (65-110); Potassium 4.9 mmol/L (3.4-5.0); Sodium 140 mmol/L (137-145); Total Protein 6.7 g/dL (6.3-8.2)
[2024-10-06 12:52] LABS: LDL Cholesterol Direct 38 mg/dL
[2024-10-06 13:06] LABS: Hemoglobin A1C 7.3 % (<5.7)
[2024-10-06 13:11] LABS: Prostate Specific Antigen 1.4 ng/mL (< OR = 4.0)
[2024-10-06 13:21] LABS: Thyroid Stimulating Hormone 0.786 uIU/mL (0.465-4.680)
[2024-10-06 13:42] LABS: Vitamin B12 > 1000.0 pg/mL (239-931)
[2024-10-11 17:28] LABS: Vitamin B6 4.8 ng/mL (2.1-21.7)
== END 2024-10-06 08:30 | disposition home or self-care (01) ==
PROVIDERS: Clinical Nurse Specialist; PCP Internal Medicine
DX: E78.5 Hyperlipidemia, unspecified (principal); Z12.5 Encounter for screening for malignant neoplasm of prostate; I10 Essential (primary) hypertension; I42.9 Cardiomyopathy, unspecified; I51.89 Other ill-defined heart diseases; E66.01 Morbid (severe) obesity due to excess calories; Z68.42 Body mass index [BMI] 45.0-49.9, adult; R53.83 Other fatigue; Z86.2 Personal history of diseases of the blood and blood-forming organs and certain disorders involving the immune mechanism
CPT/HCPCS: 36415; 80053; 80061; 82607; 83036; 84153; 84207; 84443; 85025; G0103

== ENCOUNTER 2024-10-18 12:30 | Emergency (ER) | payer MEDICARE, SELFPAY ==
--- NOTE | 2024-10-18 12:32 | ED.SKABFB ---
HPI - Skin/Abscess/Foreign Bdy General Chief complaint: Skin/Abscess/Foreign Body Stated complaint: Cellulitis Source: patient and RN notes reviewed Mode of arrival: ambulatory Limitations: no limitations History of Present Illness HPI narrative: Patient is a 69-year-old male who presents to the [facility] with complaints of wound to his right forearm. Patient states that he was struck with a toy rhino on Wednesday, which caused a puncture wound. Patient states that he placed a bandaid over the top of the wound, and when he removed the bandaid, it caused a skin tear. Patient is concerned for possible infection as he has history of diabetes and multiple myeloma. He states that he has done several dressing changes in attempt to keep the wound clean. States that his tetanus is up to date. Related Data Home Medications ?Medication ?Instructions ?Recorded ?Confirmed ?Last Taken ?Type ferrous sulfate 325 mg (65 mg 325 mg PO DAILY 03/23/19 10/17/24 05/21/19 History iron) tablet (Feosol) ketoconazole 2 % topical cream 1 applic topical DAILY 04/17/20 10/17/24 Unknown History triamcinolone acetonide 0.025 % 1 applic topical DAILY 04/17/20 10/17/24 Unknown History topical cream vitamin B complex (B 1 tablet PO DAILY 04/17/20 10/17/24 Unknown History Complex-Vitamin B12 tablet) calcium carbonate (Calcium 500) 500 mg PO DAILY 09/26/20 10/17/24 Unknown History valacyclovir 500 mg tablet 500 mg PO BID 04/15/23 10/17/24 Unknown History mupirocin 2 % topical ointment 1 applic topical BID 05/19/23 10/17/24 Unknown History Allergies Allergy/AdvReac Type Severity Reaction Status Date / Time prednisone Allergy Severe Anaphylaxis Verified 10/18/24 12:44 Review of Systems Review of Systems: CONSTITUTIONAL: Denies fever, chills, or sweats. EYES: Denies visual changes, redness, or discharge. ENT: Denies otalgia and sore throat CARDIOVASCULAR: Denies chest pain, palpitations, or edema. RESPIRATORY: Denies cough or dyspnea. GASTROINTESTINAL: Denies abdominal pain, nausea, vomiting, or diarrhea. GENITOURINARY: Denies dysuria or hematuria. SKIN: Reports skin tear to right forearm. MUSCULOSKELETAL: Denies back pain, joint pain, or myalgia. NEUROLOGIC: Denies headache, numbness, or weakness. Pertinent positives per HPI. [facility] Past Medical History Medical History Hypogonadism in male Fibromyalgia Morbid obesity with BMI of 40.0-44.9, adult Cardiomyopathy History of transfusion Asthma Generalized pain Edema Hyperlipidemia Cellulitis of right lower extremity Herpes zoster infection of oral mucosa Anemia Depression Gout Seasonal allergies Osteoarthritis CKD (chronic kidney disease) Dyslipidemia Hypertension Diabetes mellitus Surgical History Surgical History Status post laparoscopic cholecystectomy 05/22/2019 History of carpal tunnel release Hx of gastric bypass Family History Family History Father Diabetes mellitus Asthma Family history of coronary artery disease Mother FH: ovarian cancer in first degree relative Social History Social History Social History: Caffeine- tea occasionally Smoking status: Never smoker Alcohol intake: never Substance use: never Substance use type: does not use Do You Feel Safe in your Home?: Yes Lack of Transportation: No Lack of Food: Never True Current Housing: I Have Housing Concerned About Future Housing: No Difficulty Paying Gas/Electric Bills: No Difficulty Paying for Meds: No Currently Unemployed: No Education: Master's Degree or Higher Difficulty w/ Childcare or Family Care: No Living arrangements: with family Gender identity (if verbalized by the patient): Male Spiritual care concerns: No Comments At the time of my signature, I reviewed and agree with the nursing past medical, surgical, social, and family history. There is no relevant family history pertinent to the patient complaint. Exam Narrative: GENERAL: This is a well-nourished, well-developed patient, in no apparent distress. HEAD: normocephalic, atraumatic. EYES: Sclera clear/white. Vision is grossly intact. EARS: External ears normal. Hearing grossly intact. NOSE: External nose normal with no obvious nasal discharge, nares without redness, no rhinorrhea. THROAT: Mucous membranes moist, posterior pharynx clear. NECK: Neck supple, non-tender without lymphadenopathy, masses or thyromegaly. CARDIOVASCULAR: Regular rate and rhythm without murmurs, gallops, or rubs. RESPIRATORY: Clear to auscultation. Breath sounds equal bilaterally. No wheezes, rales, or rhonchi. GASTROINTESTINAL: Abdomen soft, non-tender, nondistended. Bowel sounds are active. No hepato-splenomegaly, or palpable masses. No guarding. SKIN: 3 cm skin tear to the posterior forearm with no significant erythema or swelling. No active bleeding. Wound is moist and clean. NEURO: awake, alert, and oriented to person, place and time. There were no obvious focal neurologic abnormalities. Course Course Level of Care: Express Care Visit Vital Signs Vital signs: Vital Signs Temperature 97.9 F 10/18/24 12:35 Pulse Rate 80 10/18/24 12:35 Respiratory Rate 17 10/18/24 12:35 Blood Pressure 144/74 H 10/18/24 12:35 Pulse Oximetry 99 10/18/24 12:35 Oxygen Delivery Room Air 10/18/24 12:35 Temperature 97.9 F 10/18/24 12:35 Pulse Rate 80 10/18/24 12:35 Respiratory Rate 17 10/18/24 12:35 Blood Pressure 144/74 H 10/18/24 12:35 Pulse Oximetry 99 10/18/24 12:35 Oxygen Delivery Room Air 10/18/24 12:35 Reviewed MDM - Skin/Abscess/Foreign Bdy MDM Narrative Medical decision making narrative: Clean with soap and water only; Avoid using alcohol and peroxide. Elevate the affected area if possible Alternate Tylenol/ibuprofen for as needed for pain Acetaminophen(Tylenol) 650-1000mg every 4-6hours with max of 4000mg/day. Nonsteroidal anti-inflammatory agent (NSAIDs-ibuprofen): 400mg every 4-6hours with max 2400mg/day Take antibiotic until it's gone. Please schedule a follow up visit with your personal physician for further evaluation and treatment within 3-5days OR if your symptoms persist, change or worsen significantly before you can contact your personal physician then please, without delay, go to the emergency department for further evaluation. Due to patient's history diabetes and multiple myeloma, we will prophylactically treat with a course of Keflex. Advised follow-up with primary care physician. Differential Diagnosis Differential diagnosis: Likely abscess of skin or subcutaneous tissue, cellulitis, contact dermatitis and other (skin tear) Critical Care Time Critical Care Time Critical Care Time: No Discharge Plan Discharge Clinical Impression: Skin tear of right forearm without complication Qualifiers: Encounter type: initial encounter Qualified Code(s): S51.811A - Laceration without foreign body of right forearm, initial encounter Patient Disposition: Home Condition: Stable Instructions: Antibiotic Form, Cellulitis (ED) Additional Instructions: Clean with soap and water only; Avoid using alcohol and peroxide. Elevate the affected area if possible Alternate Tylenol/ibuprofen for as needed for pain Acetaminophen(Tylenol) 650-1000mg every 4-6hours with max of 4000mg/day. Nonsteroidal anti-inflammatory agent (NSAIDs-ibuprofen): 400mg every 4-6hours with max 2400mg/day Take antibiotic until it's gone. Please schedule a follow up visit with your personal physician for further evaluation and treatment within 3-5days OR if your symptoms persist, change or worsen significantly before you can contact your personal physician then please, without delay, go to the emergency department for further evaluation. Patient Language: Tongan Prescriptions: New cephalexin 500 mg capsule 500 mg PO Q8H 7 Days Qty: 21 0RF No Action valacyclovir 500 mg tablet 500 mg PO BID ferrous sulfate [Feosol] 325 mg (65 mg iron) tablet 325 mg PO DAILY triamcinolone acetonide 0.025 % cream 1 applic topical DAILY ketoconazole 2 % cream 1 applic topical DAILY vitamin B complex [B Complex-Vitamin B12] Tablet 1 tablet PO DAILY calcium carbonate [Calcium 500] 500 mg calcium (1,250 mg) tablet 500 mg PO DAILY mupirocin 2 % ointment 1 applic topical BID nystatin 100,000 unit/gram ointment 1 applic topical BID Qty: 30 0RF albuterol sulfate 90 mcg/actuation HFA aerosol inhaler 2 puff inhalation Q4-6H PRN (Reason: shortness of breath or wheezing) Qty: 8.5 1RF furosemide 20 mg tablet See Rx Instructions .ROUTE .COMPLEX Qty: 270 1RF Dose Instruction: TAKE 2 TABLETS BY MOUTH EVERY MORNING AND 1 TABLET DAILY AT NIGHT Rx Instructions: TAKE 2 TABLETS BY MOUTH EVERY MORNING AND 1 TABLET DAILY AT NIGHT acetaminophen [Tylenol Extra Strength] 500 mg tablet 1,000 mg PO Q6H PRN (Reason: pain) Qty: 50 0RF (DME) blood-glucose meter Misc See Rx Instructions .Route Qty: 1 0RF Rx Instructions: Use to test BS once daily (DME) Blood Glucose Test Strip See Rx Instructions .Route Qty: 50 3RF Rx Instructions: Use to check BS once daily (DME) lancets-blood glucose strips 30 gauge combo pack See Rx Instructions .Route Qty: 200 2RF Rx Instructions: Use to check BS once daily lisinopril 40 mg tablet 80 mg PO DAILY Qty: 90 3RF azelastine 137 mcg (0.1 %) spray,non-aerosol 137 mcg intranasal Q12H Qty: 90 1RF Rx Instructions: administer into each nostril atorvastatin 20 mg tablet See Rx Instructions .ROUTE .COMPLEX Qty: 90 1RF Dose Instruction: TAKE 1 TABLET BY MOUTH DAILY Rx Instructions: TAKE 1 TABLET BY MOUTH DAILY. sertraline 100 mg tablet See Rx Instructions .ROUTE .COMPLEX Qty: 180 0RF Dose Instruction: TAKE 1 TABLET BY MOUTH TWICE DAILY Rx Instructions: TAKE 1 TABLET BY MOUTH TWICE DAILY fluticasone propionate 50 mcg/actuation spray,suspension See Rx Instructions .ROUTE .COMPLEX Qty: 48 0RF Dose Instruction: SHAKE LIQUID AND USE 1 SPRAY IN EACH NOSTRIL TWICE DAILY Rx Instructions: SHAKE LIQUID AND USE 1 SPRAY IN EACH NOSTRIL TWICE DAILY Trulicity 4.5 mg/0.5 mL pen injector See Rx Instructions .ROUTE .COMPLEX Qty: 2 2RF Dose Instruction: ADMINISTER 0.5 ML(4.5 MG) UNDER THE SKIN WEEKLY Rx Instructions: ADMINISTER 0.5 ML(4.5 MG) UNDER THE SKIN WEEKLY trazodone 100 mg tablet See Rx Instructions .ROUTE .COMPLEX Qty: 180 0RF Dose Instruction: TAKE 2 TABLETS BY MOUTH EVERY DAY AT BEDTIME Rx Instructions: TAKE 2 TABLETS BY MOUTH EVERY DAY AT BEDTIME metformin 500 mg tablet 1,000 mg PO BID Qty: 360 1RF allopurinol 300 mg tablet See Rx Instructions .ROUTE .COMPLEX Qty: 90 1RF Dose Instruction: TAKE 1 TABLET BY MOUTH DAILY Rx Instructions: TAKE 1 TABLET BY MOUTH DAILY buspirone 10 mg tablet See Rx Instructions .ROUTE .COMPLEX Qty: 180 1RF Dose Instruction: TAKE 1 TABLET BY MOUTH TWICE DAILY Rx Instructions: TAKE 1 TABLET BY MOUTH TWICE DAILY metoprolol succinate 25 mg tablet extended release 24 hr 25 mg PO DAILY Qty: 90 1RF montelukast [Singulair] 10 mg tablet 10 mg PO DAILY Qty: 90 1RF magnesium oxide 400 mg (241.3 mg magnesium) tablet See Rx Instructions .ROUTE .COMPLEX Qty: 90 1RF Dose Instruction: TAKE 1 TABLET BY MOUTH DAILY Rx Instructions: TAKE 1 TABLET BY MOUTH DAILY Ozempic 0.25 mg or 0.5 mg (2 mg/3 mL) pen injector 0.25 mg subcut WEEKLY Qty: 3 0RF Rx Instructions: for 4 weeks Follow-up/Referrals: PHYSICIAN,INVESTIGATION MANAGER [Primary Care Provider] - Time of Disposition: 12:47
[2024-10-18 12:35] VITALS: BP 144/74; PULSE 80; RESP 17; TEMP 36.6; O2SAT 99
== END 2024-10-18 13:00 | disposition home or self-care (01) ==
PROVIDERS: Emergency Provider Nurse Practitioner
DX: S51.811A Laceration without foreign body of right forearm, initial encounter (principal); X58.XXXA Exposure to other specified factors, initial encounter; I12.9 Hypertensive chronic kidney disease with stage 1 through stage 4 chronic kidney disease, or unspecified chronic kidney disease; E11.22 Type 2 diabetes mellitus with diabetic chronic kidney disease; N18.9 Chronic kidney disease, unspecified; Z79.84 Long term (current) use of oral hypoglycemic drugs; Z79.85 Long-term (current) use of injectable non-insulin antidiabetic drugs; C90.00 Multiple myeloma not having achieved remission; I42.9 Cardiomyopathy, unspecified; E78.5 Hyperlipidemia, unspecified; M79.7 Fibromyalgia; E66.01 Morbid (severe) obesity due to excess calories; Z68.41 Body mass index [BMI] 40.0-44.9, adult; J45.909 Unspecified asthma, uncomplicated; D64.9 Anemia, unspecified; M10.9 Gout, unspecified; Z98.84 Bariatric surgery status
CPT/HCPCS: 99213; G0463

== ENCOUNTER 2024-12-15 07:17 | Outpatient (CLI) | payer MEDICARE, SELFPAY ==
--- NOTE | ~2024-12-15 | XR_ITS ---
Cervical Spine: AP, lateral, open-mouth views Clinical History: Pain Findings: The normal lordotic curve is maintained. No fracture or subluxation seen. There is moderate degenerative disc narrowing from C4 through C6. There is advanced degenerative disc narrowing at C6- C7. There are minimal facet joint degenerative changes. Pre-vertebral soft tissues are unremarkable. Impression: Moderate to advanced degenerative spondylosis of the lower cervical spine, as above. Reviewed, dictated and finalized at location M. Impression: Moderate to advanced degenerative spondylosis of the lower cervical spine, as a nick.
--- OUTSIDE RECORDS SUMMARY | 2024-12-15 07:25 | XMS_ITS | Clinical Summary ---
Author Organization [facility] Address [address] [place] [address] Phone Care Team Providers Care Phlebotomist Medical Lab Assistant Name Role Phone ThangEvan thakur Kevyn Primary [...] by mouth daily at bedtime. 2 Active onabotulinumtoxin A (BOTOX) 200 unit Recon SolnIndications:I ntractable chronic migraine without aura and without status [...] 3 Active fluticasone propionate (FLONASE) 50 mcg/spray [place], Suspension nasal inhaler SHAKE LIQUID AND USE 1 SPRAY IN EACH NOSTRIL TWICE DAILY 3 Active Trulicity 4.5 mg/0.5 mL injection 3 Active azelastine (ASTELIN) 137 mcg/actuation nasal spray Administer 1 [place] in each nostril Continuous as needed. 3 Active montelukast (SINGULAIR) 10 mg tablet Take 1 Tablet by mouth daily. 4 Active baclofen (LIORESAL) 10 mg tablet Take 1-2 pills up to two times a day for headache, can use up to 5 days a week. 60 Tablet 6 4 Active Aimovig Autoinjector 140 mg/mL Auto-Injector ADMINISTER 1 ML(140 MG) UNDER THE SKIN EVERY 28 DAYS 1 mL 5 5 Active Active Problems Problem Noted Date Diagnosed Date Intractable chronic migraine without aura and without status migrainosus 07/13/2024 Generalized abdominal pain 11/06/2019 Overview (02/24/2022): Added automatically from request for surgery [id number] Diarrhea 11/06/2019 Overview (02/24/2022): Added automatically from request for surgery [id number] Encounters Date Type Department Care Team Description 12/05/2024 External Device Data STL ABSTRACTION Provider, Abstract 11/23/2024 Telephone [facility] Neurology [address] [place] [phone] Aga Domínguez FNP Erroneous encounter-disregard 10/25/2024 10:30 AM CDT Procedure visit [facility] Neurology [address] [place] [address] Torri Le, HANDY Intractable chronic migraine without aura and without status migrainosus (Primary Dx); Myalgia of auxiliary muscles, head and neck 10/20/2024 Refill [facility] Neurology [address] [place] [address] Aga Domínguez FNP 10/20/2024 Telephone [facility] Neurology [address] [place] [address] Tyson De La Cruz MD Med Refill 10/20/2024 Telephone [facility] Neurology [address] [place] [address] Aga Domínguez FNP TPI PHONE CALL 10/17/2024 External Device Data STL ABSTRACTION Provider, Abstract 10/17/2024 Telephone [facility] Oncology and Hematology - [place] [facility] Bobo Kamara [facility] [address] [place] [address] Molina Camacho MD Lab Results 10/16/2024 9:00 AM CDT Procedure visit [facility] Neurology [address] [place] [address] Torri Le, HANDY Intractable chronic migraine without aura and without status migrainosus (Primary Dx) 10/12/2024 Results Follow-Up [facility] Neurology [address] [place] [address] Aga Domínguez FNP VITAMIN B6 LEVEL 10/12/2024 Orders Only [facility] Neurology [address] [place] [address] Shelby Delgadillo Hermilo 10/09/2024 Orders Only [facility] Neurology [address] [place] [address] Tyson De La Cruz MD 09/26/2024 External Device Data STL ABSTRACTION Provider, [...] Sign Reading Time Taken Comments Blood Pressure 130/72 10/25/2024 10:44 AM CDT Pulse 78 10/16/2024 8:42 AM CDT Temperature 36.1 C (96.9 F) 07/21/2024 11:34 AM CDT Respiratory Rate 16 07/21/2024 11:3 4 AM CDT Oxygen Saturation 97% 10/16/2024 8:42 AM CDT Inhaled Oxygen Concentration - - Weight 123.7 kg (272 lb 12.8 oz) 2024 11:34 AM CDT Height 172.7 cm (5' 8) 11/08/2023 8:35 AM CDT Body Mass Index 41.48 11/08/2023 8:35 AM CDT Plan of Treatment Upcoming Encounters Date Type Department Care Team (Late st Contact Info) Description 01/25/2025 11:45 AM CDT Office Visit [facility] Oncology and Hematology - [place] [address] [place] [address] Molina Camacho MD [address] [facility] [address] [place] [address] 01/26/2025 11:30 AM CDT Procedure visit [facility] Neurology [address] [facility] [address] [place] [address] Aga Domínguez, DAVE [address] [facility] [address] [place] [address] 02/14/2025 3:30 PM CDT Office Visit [facility] Neurology [address] [facility] [address] [place] [address] Tyson De La Cruz MD [address] [facility] [address] [place] [address] 04/02/2025 1:00 PM [employer] Procedure visit [facility] Neurology [address] [facility] [address] [place] [address] Torri Le NP [address] [facility] [address] [place] [address] Health Maintenance Due Date Last Done [...] - Risk 60-74 years 1-dose series) 2013 COVID-19 Vaccine (5 - 2023-2 5 season) 2024 12/17/2021, 01/03/2021, 07/05/2020, Additional history exists INFLUENZA VACCINE (#1) 2024 01/15/2022 Procedures Procedure Name Priority Date/Time Associated Diagnosis Comments NV INJECTION SINGLE/MARINE SURVEYOR TRIGGER POINT 3/> MUSCLES Routine 10/25/2024 11:12 AM CDT Intractable chronic migraine without aura and without status migrainosus Myalgia of auxiliary muscles, head and neck NV CHEMODERVATE FACIAL/TRIGEM/CERV MUSC MIGRAINE Routine 10/16/2024 9:35 AM CDT Intractable chronic migraine without aura and without status migrainosus VITAMIN B6 LEVEL Routine 10/12/2024 3:45 PM CDT Paresthesia COMPREHENSIVE METABOLIC PANEL Routine 10/06/2024 1:41 PM CDT from Last 3 Months Results * NV INJECTION SINGLE/MARINE SURVEYOR TRIGGER POINT 3/> MUSCLES (10/25/2024 11:12 AM CDT) Narrative Torri Le NP - 10/25/2024 11:12 AM CDT Torri Le NP 10/25/2024 11:15 AM Procedure Note Patient: Pawel Hawkins / 69 y.o. / male : 1955 Procedure Performed: Trigger Point Injections Date of Service: 10/25/2024 Provider: Torri Le NP MA/MEAGAN/RN: Evonne Lazar RN BP 130/72 (BP Location: Left arm, Patient Position (BP): Sitting, BP Cuff Size: Large Adult) Preoperative Diagnosis: ICD-10-CM ICD-9-CM 1. Intractable chronic migraine without aura and without status migrainosus G43.719 346.71 BUPivacaine PF (SENSORCAINE MPF) 5 mg/mL (0.5%) injection 75 mg INJECT TRIGGER POINT(S) DISCONTINUED: BUPivacaine PF (SENSORCAINE MPF) 5 mg/mL (0.5%) injection 75 mg 2. Myalgia of auxiliary muscles, head and neck M79.12 729.1 BUPivacaine PF (SENSORCAINE MPF) 5 mg/mL (0.5%) injection 75 mg INJECT TRIGGER POINT(S) Postoperative Diagnosis: ICD-10-CM ICD-9-CM 1. Intractable chronic migraine without aura and without status migrainosus G43.719 346.71 BUPivacaine PF (SENSORCAINE MPF) 5 mg/mL (0.5%) injection 75 mg INJECT TRIGGER POINT(S) DISCONTINUED: BUPivacaine PF (SENSORCAINE MPF) 5 mg/mL (0.5%) injection 75 mg 2. Myalgia of auxiliary muscles, head and neck M79.12 729.1 BUPivacaine PF (SENSORCAINE MPF) 5 mg/mL (0.5%) injection 75 mg INJECT TRIGGER POINT(S) /SAME Anesthesia: Local Estimated Blood Loss: Minimal. Surgical Safety Checklist: Pre-Incision Completed: Yes Confirmation of: Patient verified Site verified (if applicable) Laterality verified Procedure verified H&P Performed Prior to Procedure Surgical Safety Checklist Pre-Incision Completed Timeout - A timeout was performed to include correct patient verified, site identified and marked if appropriate, laterality verified, and surgical safety checklist were completed. FIRE RISKS (fire risks (skin prep, oxygen) and REMEDIATION TO PREVENT FIRE (ex: skin prep was fully dried per floor molder instructions per use) Yes Specimens Removed: None Procedure Details: After informed consent was obtained the patient was given Trigger Point Injections as follows: Procedure, risks, benefits and treatment alternatives were reviewed with patient. After verbal and written consent obtained, using sterile technique the trigger point areas were prepped. Bupivacaine 0.5% (Lot #: [id number]; Expiration: 03/27) was used. The procedure was well tolerated. Muscle # of inj sites Left Total dose left (mg) # of inj sites Right Total dose right (mg) Total dose (mg) Addiction Social Worker Procerus Frontalis Temporalis Occipitalis 5 12.5 5 12.5 25 Splenius capitis Semispinalis capitis Trapezius 5 25 5 25 50 Masseter Sternocleidomastoid TOTAL injected 75 mg Total wasted 25 mg Medications Administered This Visit: Administrations This Visit BUPivacaine PF (SENSORCAINE MPF) 5 mg/mL (0.5%) injection 75 mg Admin Date 10/25/2024 Action Given Dose 75 mg Route Intradermal Documented By Torri Le NP Condition: Aftercare instructions reviewed with patient. Patient discharged in good and stable condition. COMPLICATIONS: No Post Procedure Follow Up: NA Plan: Follow up as needed for Trigger Point Injections Continue Botox every 12 weeks Follow up with Dr. De La Cruz on 02/14/25. Physician Responsible for Discharge: HANDY Llanes NP Torri Le NP PROCEDURE/MINOR MOSER RGICAL ORDERABLES Final Result * NV CHEMODERVATE FACIAL/TRIGEM/CERV MUSC MIGRAINE (10/16/2024 9:35 AM CDT) Narrative Torri Le NP - 10/16/2024 9:35 AM CDT Torri Le NP 10/16/2024 9:36 AM Botox Procedure Note Patient: Pawel Hawkins / 69 y.o. / male : 1955 BP (!) 144/82 (BP Location: Left arm, Patient Position (BP): Sitting, BP Cuff Size: Large Adult) Pulse 78 SpO2 97% Procedure Performed: Botox for Chronic Migraine without Aura Date of Service: 10/16/2024 Provider: Torri Le NP Medical Necessity for Procedure: This patient has a history of intractable headache present for 15 or more days per month, at least 8 of which lasting for more than 4 hours a day and meeting migraine criteria for at least 3 months. They have tried at least 2 migraine prophylaxis medications. It is medically necessary to proceed with Botulinum toxin A injections per PREEMPT protocol in order to optimize this patient's treatment plan that will result in improved level of functioning and quality of life. Past Medical History: Past Medical History: Diagnosis Date Arthritis Diabetes mellitus ([facility]) Headache Herpes zoster Migraine with aura Supporting [...] to placebo-treated patients. Diagram of Injection sites: Procedure Details: The patient was educated about the risks and benefits of the procedure prior to starting. The patient signed a form showing they received informed consent. Then the patient was given Botox as follows: OnabotulinumtoxinA-Botox 200 units (lot # [id number] ; expiration 02/26) was reconstituted using 4 ml preservative free saline to a final concentration of 50 units/ml. Using 1 ml syringes with 30 gauge 0.5 inch needles, and aseptic technique, Botox was administered as follows: Muscle # units Right # of inj sites Right # units Left # of inj sites Left Total units Addiction Social Worker 5 1 5 1 10 Procerus 5 Frontalis 10 2 10 2 20 Temporalis 20 4 20 4 40 Occipitalis 15 3 15 3 30 Cervical Paraspinal 10 2 10 2 20 Trapezius 15 3 15 3 30 TOTAL units injected 155 Units wasted 45 Each injection was preceded by negative aspiration for blood. Patient tolerated the procedure well. Post-injection care instructions reviewed and patient discharged in good and stable condition. Medications Administered This Visit: Administrations This Visit onabotulinumtoxinA (BOTOX) injection 155 Units Admin Date 10/16/2024 Action Given Dose 155 Units Route IM Documented By Torri Le NP sodium chloride bacteriostatic 0.9 % injection 4 mL Admin Date 10/16/2024 Action Given Dose 4 mL Route See Admin Instructions Documented By Torri Le NP Were there any complications during this procedure or following previous Botox procedures for Chronic Migraine?: No Treatment Plan: Continue Botox every 12 weeks Follow up assessment scheduled 02/14/[address] Jono Le NP us Torri Le NP PROCEDURE/MINOR MOSER RGICAL ORDERABLES Final Result * VITAMIN B6 LEVEL (10/12/2024 3:45 PM CDT) Blood 10/12/2024 3:45 PM CDT Aga Domínguez STOREPERSON CHEMISTRY ORDERABLES F inal Result [facility] [phone] * COMPREHENSIVE METABOLIC PANEL (10/06/2024 1:41 PM CDT) Blood Tyson De La Cruz MD CHEMISTRY ORDERABLES Final Resu lt from Last 3 Months Insurance RX AETNA Medicare Part D [facility] Care Teams Phlebotomist Medical Lab Assistant Relationship Specialty Start Date End Date Evan Rebolledo DO [address] [facility] [address] [place] [address] PCP - General Internal Medicine 01/22/22
--- OUTSIDE RECORDS SUMMARY | 2024-12-15 07:25 | XMS_ITS | Patient Health Record ---
Author Organization [facility] Address [address] [address] Care Team Providers Care Supervisor Decorating Name Role Phone Torri Turner Primary Care Provider Reason For Referral No Information Immunizations Vaccine Route Administration Date Status Comme nts [id number] Vaccine IM Intramuscular 06/07/2020 Administered Pt tolerated we ll. [id number] Vaccine IM Intramuscular 07/05/2020 Administered Pt tolerated we ll. [id number] Vaccine IM Intramuscular 01/03/2021 Administered Pt tolerated we ll TFrbgojw-[id number]-15 BOOSTER IM Intramuscular 12/17/2021 Administered Pt tolerated injection well Plan Of Treatment No Information Insurance Providers Payer Name Payer Address Payer Phone Subscriber Number Group Number Insured Name Patient Relationship to Insured Coverage Start Date Coverage End Date [place] Aet[employer] [address] [place], [place] [id number] Pawel Lan Self - patient is the insured 1 A[employer] PPO [address] [place], [place] [id number] Pawel Lan Self - patient is the insured 1
--- OUTSIDE RECORDS SUMMARY | 2024-12-15 07:25 | XMS_ITS | Clinical Summary ---
Author Organization [facility] Address [address] [place] [phone] Phone Care Team Providers Care Data Miner Name Role Phone Evan Rebolledo DO Primary Care Provider Allergies Active Allergy Reactions [...] (02/26/2022): Added automatically from request for surgery [id number] Generalized abdominal pain 11/06/2019 Overview (02/26/2022): Added automatically from request for surgery [id number] Immunizations Immunization Administration Dates Next Due Influenza [...] / Low and Medium Risk (1 of 2 - PCV) 2003 Influenza Vaccine (#1) 2025 01/15/2022 Insurance [employer] MEDICARE ADVANTAGE Care Teams Data Miner Relationship Specialty Start Date End Date Evan Rebolledo DO [address] [place] [address] PCP - General Internal Medicine 01/22/22
[2024-12-15 08:21] LABS: Hematocrit 38.8 % (42.0-52.0); Hemoglobin 13.1 g/dL (14.0-18.0); Immature Granulocyte Percent A 0.3 % (0-0.5); Lymphocytes Absolute Auto 1.50 K/mm3 (0.9-3.2); Mean Corpuscular HGB Conc 33.8 g/dl (32-36); Mean Corpuscular Hemoglobin 32.9 pg (26-34); Mean Corpuscular Volume 97.5 fl (80-100); Nucleated Red Blood Cells Absolute Auto 0.000 K/mm3 (0.0-0.012); Nucleated Red Blood Cells Perc 0.0 % (0.0-0.2); Platelet Count Result 158 k/mm3 (150-375); Red Blood Count 3.98 M/mm3 (4.6-6.20); White Blood Count 6.6 K/mm3 (4.5-10.0)
[2024-12-15 08:36] LABS: Hemoglobin A1C 8.5 % (<5.7)
[2024-12-15 08:42] LABS: Alanine Aminotransferase 81 U/L (6-50); Albumin Level 4.0 g/dL (3.5-5.1); Alkaline Phosphatase 98 U/L (38-126); Anion Gap 11 mmol/L (4-12); Aspartate Amino Transferase 68 U/L (17-59); Bilirubin,Total 0.5 mg/dL (0.2-1.3); Blood Urea Nitrogen 31 mg/dL (9-20); Calcium 9.4 mg/dL (8.4-10.2); Carbon Dioxide 24 mmol/L (22-30); Chloride 99 mmol/L (98-107); Estimated Glomerular Filt Rate 38; Glucose 388 mg/dL (65-110); Potassium 4.4 mmol/L (3.4-5.0); Sodium 134 mmol/L (137-145); Total Protein 7.2 g/dL (6.3-8.2)
[2024-12-15 10:36] LABS: Parathyroid Intact 64.0 pg/mL (14.5-75.2)
[2024-12-15 11:32] LABS: Total Protein Urine Random > 600 mg/dL; Ur Ttl Prot Creatinine Ratio > 6.99 mg/mg (0-0.20)
== END 2024-12-15 07:18 | disposition home or self-care (01) ==
PROVIDERS: PCP Internal Medicine; Referring Provider Clinical Nurse Specialist; Visit Provider Internal Medicine Nephrology
DX: I42.9 Cardiomyopathy, unspecified (principal); I51.89 Other ill-defined heart diseases; E66.01 Morbid (severe) obesity due to excess calories; Z68.42 Body mass index [BMI] 45.0-49.9, adult; Z12.5 Encounter for screening for malignant neoplasm of prostate; E11.9 Type 2 diabetes mellitus without complications; E55.9 Vitamin D deficiency, unspecified; I12.9 Hypertensive chronic kidney disease with stage 1 through stage 4 chronic kidney disease, or unspecified chronic kidney disease; N18.32 Chronic kidney disease, stage 3b; M47.22 Other spondylosis with radiculopathy, cervical region
CPT/HCPCS: 36415; 72040; 80053; 82306; 82570; 83036; 83970; 84100; 84156; 85025

== ENCOUNTER 2025-01-11 11:24 | Emergency (ER) | payer MEDICARE, SELFPAY ==
--- NOTE | ~2025-01-11 | CT_ITS ---
EXAMINATION: CT brain wo con DATE: 01/11/2025 13:37 INDICATION: Altered mental status TECHNIQUE: Computed tomography (CT) of the head was performed without intravenous contrast. The dose-length product was 681.00 mGy-cm. Automated exposure control and iterative reconstruction technique were employed. COMPARISON: None FINDINGS: Generalized atrophy. There are scattered mild periventricular and subcortical white matter changes, most likely related to small vessel ischemic disease (microangiopathy). There is a prominent perivascular space in the left basal ganglia. There is intracranial atherosclerosis. No acute infarction, hemorrhage, mass or mass effect. IMPRESSION: 1. No acute intracranial abnormality. Reviewed, dictated and finalized at location O.
[2025-01-11 11:27] VITALS: BP 148/69; PULSE 87; RESP 16; TEMP 36.8; O2SAT 97
--- NOTE | 2025-01-11 11:46 | ECG_ITS ---
Test Date: 2025-01-11 11:58:46 Measurements Intervals Oracle Rate: 84 P: 88 TX: 201 QRS: -34 QRSD: 93 T: 35 QT: 364 QTc: 430 Interpretive Statements SINUS RHYTHM WITH OCCASIONAL SUPRAVENTRICULAR PREMATURE COMPLEXES LEFT AXIS DEVIATION [QRS AXIS < -30] INFERIOR INFARCT, AGE INDETERMINATE MODERATE ST DEPRESSION [0.05+ mV ST DEPRESSION] No previous ECG available for comparison Electronically Signed On 01-11-2025 12:19:12 CDT by Nick Stanley M.D.
[2025-01-11 11:58] VITALS: BP 158/77; PULSE 84; RESP 18; O2SAT 95
[2025-01-11 12:10] LABS: Hematocrit 35.1 % (42.0-52.0); Hemoglobin 12.2 g/dL (14.0-18.0); Immature Granulocyte Percent A 0.6 % (0-0.5); Lymphocytes Absolute Auto 0.85 K/mm3 (0.9-3.2); Mean Corpuscular HGB Conc 34.8 g/dl (32-36); Mean Corpuscular Hemoglobin 33.0 pg (26-34); Mean Corpuscular Volume 94.9 fl (80-100); Nucleated Red Blood Cells Absolute Auto 0.000 K/mm3 (0.0-0.012); Nucleated Red Blood Cells Perc 0.0 % (0.0-0.2); Platelet Count Result 140 k/mm3 (150-375); Red Blood Count 3.70 M/mm3 (4.6-6.20); White Blood Count 6.8 K/mm3 (4.5-10.0)
--- NOTE | 2025-01-11 12:11 | ED_ITS ---
HPI - Altered Mental Status General Chief Complaint: Altered Mental Status Stated Complaint: confusion Time Seen by Provider: 01/11/25 12:00 Source: patient and RN notes reviewed Mode of arrival: EMS Limitations: no limitations History of Present Illness HPI narrative: This is a 69-year-old male with history of diabetes, hypertension, hyperlipidemia, gout, CKD who presents the ED for altered mental status. Patient states that for the past 4 days, he has been having dizziness that has made it difficult for him to ambulate. States he has also been having issues with memory loss and finding words that is new for him. He does live at assisted living facility. Denies any changes in medicines recently. He reports a sore throat for 2 months was asthma recently. Denies fevers, chills chest pain, shortness of breath, nausea vomiting, diarrhea, constipation. He has been checking his sugars at home and have been greater than 500 which extremely high for him. He is only on metformin for this. Related Data Home Medications ?Medication ?Instructions ?Recorded ?Confirmed ?Last Taken ?Type ferrous sulfate 325 mg (65 mg 325 mg PO DAILY 03/23/19 12/07/24 05/21/19 History iron) tablet (Feosol) ketoconazole 2 % topical cream 1 applic topical DAILY 04/17/20 12/07/24 Unknown History triamcinolone acetonide 0.025 % 1 applic topical DAILY 04/17/20 12/07/24 Unknown History topical cream vitamin B complex (B 1 tablet PO DAILY 04/17/20 0 12/07/24 Unknown History Complex-Vitamin B12 tablet) calcium carbonate (Calcium 500) 500 mg PO DAILY 12/07/24 Unknown History valacyclovir 500 mg tablet 500 mg PO BID 04/15/2311/24 Unknown History mupirocin 2 % topical ointment 1 applic topical BID 12/07/24 Unknown History Allergies Allergy/AdvReac Type Severity Reaction Status Date / Time prednisone Allergy Severe Anaphylaxis Verified 01/11/25 12:11 Review of Systems 2 Review of Systems: Gen.: Denies fevers or chills Eyes: Denies eye pain or visual change ENT: Denies congestion Respiratory: Denies shortness of breath or cough CV: Denies chest pain or palpitations GI: Denies abdominal pain nausea, emesis or diarrhea denies burning, urgency, frequency or hematuria Musculoskeletal: Denies back pain or muscle pain Neuro: Denies numbness, tingling, weakness or focal weakness Skin: Denies rash Except as documented, all other systems reviewed and negative [facility] Past Medical History Medical History Hypogonadism in male Fibromyalgia Morbid obesity with BMI of 40.0-44.9, adult Cardiomyopathy History of transfusion Asthma Generalized pain Edema Hyperlipidemia Cellulitis of right lower extremity Herpes zoster infection of oral mucosa Anemia Depression Gout Seasonal allergies Osteoarthritis CKD (chronic kidney disease) Dyslipidemia Hypertension Diabetes mellitus Surgical History Surgical History Status post laparoscopic cholecystectomy 05/22/2019 History of carpal tunnel release Hx of gastric bypass Family History Family History Father Diabetes mellitus Asthma Family history of coronary artery disease Mother FH: ovarian cancer in first degree relative Social History Social History Social History: Caffeine- tea occasionally Smoking status: Never smoker Alcohol intake: never Substance use: never Substance use type: does not use Do You Feel Safe in your Home?: Yes Lack of Transportation: No Lack of Food: Never True Current Housing: I Have Housing Concerned About Future Housing: No Difficulty Paying Gas/Electric Bills: No Difficulty Paying for Meds: No Currently Unemployed: No Education: Master's Degree or Higher Difficulty w/ Childcare or Family Care: No Living arrangements: with family Gender identity (if verbalized by the patient): Male Spiritual care concerns: No Exam 2 Narrative: APPEARANCE: No acute distress, nontoxic, resting in bed EYES: EOMI HEENT: Normocephalic, atraumatic, OMM RESPIRATORY: No respiratory distress Clear to auscultation bilaterally with no rhonchi wheezing or rales. CARDIOVASCULAR: Regular rate and rhythm without murmurs rubs or gallops. ABDOMINAL: Soft, nontender, nondistended, no rebound or guarding MUSCULOSKELETAl: Moves all extremities. No clubbing, cyanosis or edema. NEURO: Awake and alert. Following commands, speech normal, no focal deficits. Difficulty with memory recall. NIHSS 0 SKIN:: Warm, dry. No rashes lesions or abrasions PSYCHIATRIC: Normal affect/mood, Course Vital Signs Vital signs: Vital Signs Temperature 98.2 F 01/11/25 11:27 Pulse Rate 87 01/11/25 11:27 Respiratory Rate 16 01/11/25 11:27 Blood Pressure 148/69 H 01/11/25 11:27 Pulse Oximetry 97 01/11/25 11:27 Oxygen Delivery Room Air 01/11/25 11:27 Temperature 98.2 F 01/11/25 11:27 Pulse Rate 78 01/11/25 15:20 Respiratory Rate 16 01/11/25 15:20 Blood Pressure 148/79 H 01/11/25 15:20 Pulse Oximetry 93 01/11/25 15:20 Oxygen Delivery Room Air 01/11/25 11:58 MDM - Altered Mental Status MDM Narrative Medical decision making narrative: 69-year-old male that presented to the ED for concerns for altered mental status and hyperglycemia. Our initial evaluation, patient was in no acute distress, afebrile, hemodynamically stable. He was having some memory recall issues but had a nonfocal neuro exam. Abdomen was soft nontender. There is no obvious rashes or evidence of cellulitis. He was hyperglycemic but otherwise labs were without major abnormalities. He was given 12 units of insulin as well as potassium replacement. He did have improvement of his symptoms and was able ambulate through the department without any significant difficulty. Family did arrive and reported that he was at his baseline. Patient was deemed appropriate for discharge at this time. He was advised follow-up with PCP on Wednesday as scheduled. Patient and family are agreeable to this plan. Given strict return precautions. Differential Diagnosis Differential diagnosis: Likely altered mental status, delirium, dementia and other (CVA, electrolyte abnormality, UTI) Medical Records Attestation: I reviewed the patient's medical records. Lab Data Attestation: I reviewed the patient's lab results. Lab results narrative: For mild anemia at 12.2. Mild thrombocytopenia of 140. Pseudo hyponatremia due to hyperglycemia of 500. Creatinine 1.86. UA showed glucosuria 01/11/25 12:00 01/11/25 12:00 Labs: Lab Results 01/11/25 01/11/25 01/11/25 Range/Units 12:00 12:04 13:54 WBC 6.8 (4.5-10.0) K/mm3 RBC 3.70 L (4.6-6.20) M/mm3 Hgb 12.2 L (14.0-18.0) g/dL Hct 35.1 L (42.0-52.0) % MCV 94.9 (80-100) fl MCH 33.0 (26-34) pg MCHC 34.8 (32-36) g/dl RDW 13.4 (11.5-14.5) % Plt Count 140 L (150-375) k/mm3 MPV 10.0 (7.4-10.4) fl Immature Gran % (Auto) 0.6 H (0-0.5) % Neut % (Auto) 78.4 H (45.5-73.1) % Lymph % (Auto) 12.5 L (18.3-44.2) % Nuckolls % (Auto) 6.0 (2.6-8.5) % Eos % (Auto) 2.2 (0-4.4) % Baso % (Auto) 0.3 (0.2-1.2) % Lymph # (Auto) 0.85 L (0.9-3.2) K/mm3 Nuckolls # (Auto) 0.4 (0.1-0.6) K/mm3 Eos # (Auto) 0.2 (0-0.3) K/mm3 Baso # (Auto) 0.0 (0.0-0.1) K/mm3 Abs Immat Gran (auto) 0.04 H (0.00-0.031) K/mm3 Absolute Neuts (auto) 5.3 (1.3-6.7) K/mm3 Absolute Nucleated RBC 0.000 (0.0-0.012) K/mm3 Nucleated RBC % 0.0 (0.0-0.2) % PT 13.2 (11.1-14.7) Seconds INR 1.0 APTT 25.2 (22.3-36.8) Seconds Sodium 132 L (137-145) mmol/L Potassium 4.0 (3.4-5.0) mmol/L Chloride 98 (98-107) mmol/L Carbon Dioxide 24 (22-30) mmol/L Anion Gap 10 (4-12) mmol/L BUN 33 H (9-20) mg/dL Creatinine 1.86 H (0.7-1.3) mg/dL Estim Creat Clear Calc 42 ml/min Estimated GFR 36 L (59 - ) Glucose 499 H (65-110) mg/dL POC Capillary Glucose 290 H (65-105) mg/dl Calcium 8.7 (8.4-10.2) mg/dL Total Bilirubin 0.9 (0.2-1.3) mg/dL AST 30 (17-59) U/L ALT 38 (6-50) U/L Alkaline Phosphatase 128 H (38-126) U/L Total Protein 6.3 (6.3-8.2) g/dL Albumin 3.6 (3.5-5.1) g/dL Urine Color Yellow (Yellow) Urine Appearance Clear (Clear) Urine pH 5.5 (5.0-9.0) Ur Specific [place] 1.024 (1.001-1.035) Urine Protein 3+ H (Negative) mg/dL Urine Glucose (UA) 3+ H (Negative) mg/dL Urine Ketones Trace H (Negative) mg/dL Ur Blood (Man) 1+ H (Negative) Urine Nitrate Negative (Negative) Urine Bilirubin Negative (Negative) Urine Urobilinogen 0.2 (<2.0) mg/dL Leukocyte Esterase Rfl Negative (Negative) NIDHI/UL Urine RBC 0-2 (0-2) /hpf Urine WBC 0-5 (0-3) /hpf Ur Squamous Epith Cells None seen (Few) /hpf Urine Bacteria None seen /hpf Urine Casts 0-2 ECG Data EKG #1: Attestation: I personally reviewed and interpreted this ECG as follows: ECG completion date: 01/11/25 ECG completion time: 11:58 Interpretation: Normal sinus rhythm rate of 84 with occasional PAC, left axis deviation, poor R- wave progression, and Q-waves in inferior leads, no acute ST or T-wave changes. Discharge Plan Discharge Clinical Impression: Diabetes mellitus Qualifiers: Diabetes mellitus type: type 2 Diabetes mellitus termite treater helper insulin use: without termite treater helper use Diabetes mellitus complication status: with kidney complications D iabetes mellitus complication detail: with chronic kidney disease Chronic kidney disease stage: unspecified stage Qualified Code(s): E11.22 - Type 2 diabetes mellitus with diabetic chronic kidney disease Patient Disposition: Home Condition: Stable Instructions: Antibiotic Form, Diabetes and Nutrition (ED) Additional Instructions: Follow up with her PCP on Wednesday as scheduled. Continue to monitor blood sugars make diet adjustments as necessary. Return to ED for any new or worsening symptoms. Patient Language: Maltese Prescriptions: No Action valacyclovir 500 mg tablet 500 mg PO BID ferrous sulfate [Feosol] 325 mg (65 mg iron) tablet 325 mg PO DAILY triamcinolone acetonide 0.025 % cream 1 applic topical DAILY ketoconazole 2 % cream 1 applic topical DAILY vitamin B complex [B Complex-Vitamin B12] Tablet 1 tablet PO DAILY calcium carbonate [Calcium 500] 500 mg calcium (1,250 mg) tablet 500 mg PO DAILY mupirocin 2 % ointment 1 applic topical BID nystatin 100,000 unit/gram ointment 1 applic topical BID Qty: 30 0RF furosemide 20 mg tablet See Rx Instructions .ROUTE .COMPLEX Qty: 270 1RF Dose Instruction: TAKE 2 TABLETS BY MOUTH EVERY MORNING AND 1 TABLET DAILY AT NIGHT Rx Instructions: TAKE 2 TABLETS BY MOUTH EVERY MORNING AND 1 TABLET DAILY AT NIGHT albuterol sulfate 90 mcg/actuation HFA aerosol inhaler 2 puff inhalation Q4-6H PRN (Reason: shortness of breath or wheezing) Qty: 8.5 1RF allopurinol 300 mg tablet See Rx Instructions .ROUTE .COMPLEX Qty: 90 1RF Dose Instruction: TAKE 1 TABLET BY MOUTH DAILY Rx Instructions: TAKE 1 TABLET BY MOUTH DAILY acetaminophen [Tylenol Extra Strength] 500 mg tablet 1,000 mg PO Q6H PRN (Reason: pain) Qty: 50 0RF (DME) blood-glucose meter Misc See Rx Instructions .Route Qty: 1 0RF Rx Instructions: Use to test BS once daily (DME) Blood Glucose Test Strip See Rx Instructions .Route Qty: 50 3RF Rx Instructions: Use to check BS once daily (DME) lancets-blood glucose strips 30 gauge combo pack See Rx Instructions .Route Qty: 200 2RF Rx Instructions: Use to check BS once daily lisinopril 40 mg tablet 80 mg PO DAILY Qty: 90 3RF azelastine 137 mcg (0.1 %) spray,non-aerosol 137 mcg intranasal Q12H Qty: 90 1RF Rx Instructions: administer into each nostril atorvastatin 20 mg tablet See Rx Instructions .ROUTE .COMPLEX Qty: 90 1RF Dose Instruction: TAKE 1 TABLET BY MOUTH DAILY Rx Instructions: TAKE 1 TABLET BY MOUTH DAILY. sertraline 100 mg tablet See Rx Instructions .ROUTE .COMPLEX Qty: 180 0RF Dose Instruction: TAKE 1 TABLET BY MOUTH TWICE DAILY Rx Instructions: TAKE 1 TABLET BY MOUTH TWICE DAILY metformin 500 mg tablet 1,000 mg PO BID Qty: 360 1RF buspirone 10 mg tablet See Rx Instructions .ROUTE .COMPLEX Qty: 180 1RF Dose Instruction: TAKE 1 TABLET BY MOUTH TWICE DAILY Rx Instructions: TAKE 1 TABLET BY MOUTH TWICE DAILY metoprolol succinate 25 mg tablet extended release 24 hr 25 mg PO DAILY Qty: 90 1RF montelukast [Singulair] 10 mg tablet 10 mg PO DAILY Qty: 90 1RF magnesium oxide 400 mg (241.3 mg magnesium) tablet See Rx Instructions .ROUTE .COMPLEX Qty: 90 1RF Dose Instruction: TAKE 1 TABLET BY MOUTH DAILY Rx Instructions: TAKE 1 TABLET BY MOUTH DAILY trazodone 100 mg tablet See Rx Instructions .ROUTE .COMPLEX Qty: 180 1RF Dose Instruction: TAKE 2 TABLETS BY MOUTH EVERY DAY AT BEDTIME Rx Instructions: TAKE 2 TABLETS BY MOUTH EVERY DAY AT BEDTIME fluticasone propionate 50 mcg/actuation spray,suspension See Rx Instructions .ROUTE .COMPLEX Qty: 48 1RF Dose Instruction: SHAKE LIQUID AND USE 1 SPRAY IN EACH NOSTRIL TWICE DAILY Rx Instructions: SHAKE LIQUID AND USE 1 SPRAY IN EACH NOSTRIL TWICE DAILY Ozempic 0.25 mg or 0.5 mg (2 mg/3 mL) pen injector 0.5 mg subcut WEEKLY Qty: 3 0RF Rx Instructions: for 4 weeks Follow-up/Referrals: Evan Rebolledo, [Primary Care Provider, Internal Medicine]
[2025-01-11 12:15] VITALS: BP 161/89; PULSE 86; RESP 20; O2SAT 97
--- NOTE | 2025-01-11 12:16 | PC.NURSE ---
Called Uday at [phone], son in law, message was left.
[2025-01-11 12:17] LABS: Add Urine Microscopic? YES; Appearance Urine Clear (Clear); Glucose Urine UA 3+ mg/dL (Negative); Leukocyte Esterase Ur Negative LEU/UL (Negative); Nitrate Urine Negative (Negative); Non Pathogenic Casts 0-2; Specific Grav Ur 1.024 (1.001-1.035)
[2025-01-11 12:31] LABS: Alanine Aminotransferase 38 U/L (6-50); Albumin Level 3.6 g/dL (3.5-5.1); Alkaline Phosphatase 128 U/L (38-126); Anion Gap 10 mmol/L (4-12); Aspartate Amino Transferase 30 U/L (17-59); Bilirubin,Total 0.9 mg/dL (0.2-1.3); Blood Urea Nitrogen 33 mg/dL (9-20); Calcium 8.7 mg/dL (8.4-10.2); Carbon Dioxide 24 mmol/L (22-30); Chloride 98 mmol/L (98-107); Estimated CRCL calculation 42 ml/min; Estimated Glomerular Filt Rate 36; Glucose 499 mg/dL (65-110); Potassium 4.0 mmol/L (3.4-5.0); Sodium 132 mmol/L (137-145); Total Protein 6.3 g/dL (6.3-8.2)
[2025-01-11 12:32] LABS: INR 1.0; Prothrombin Time 13.2 Seconds (11.1-14.7)
[2025-01-11 12:33] LABS: Partial Thromboplastin Time 25.2 Seconds (22.3-36.8)
[2025-01-11 12:45] VITALS: BP 160/99; PULSE 86; RESP 16; O2SAT 97
[2025-01-11] MEDS: SODIUM CHLORIDE 0.9% IV 1,000 ML 999 ML IV CONT (12:58)
[2025-01-11] MEDS: INSULIN HUMAN REGULAR (*BKC) 100 UNITS/ML 12.1 UNITS IV PUSH (12:58)
[2025-01-11] MEDS: POTASSIUM CHLORIDE INJ 40 MEQ in SODIUM CHLORIDE 0.9% IV 500 ML 130 MEQ IVPB (13:22)
--- NOTE | 2025-01-11 13:55 | PC.NURSE ---
patient blood sugar 290 on fingerstick, Celestina Sommers RN aware.
--- OUTSIDE RECORDS SUMMARY | 2025-01-11 13:58 | XMS_ITS | Clinical Summary ---
Author Organization [facility] Address [address] [place] [id number] Phone Care Team Providers Care Personal Lines Sales Rep Name Role Phone Evan Rebolledo DO Primary Care Provider [phone] Allergies Active Allergy Reactions Criticality Noted Date [...] (02/26/2022): Added automatically from request for surgery [id number] Generalized abdominal pain 11/06/2019 Overview (02/26/2022): Added automatically from request for surgery [id number] Immunizations Immunization Administration Dates Next Due Influenza [...] 01/15/2022 Insurance [employer] MEDICARE ADVANTAGE Care Teams Personal Lines Sales Rep Relationship Specialty Start Date End Date Evan Rebolledo DO [address] [place] [address] PCP - General Internal Medicine 01/22/22
--- OUTSIDE RECORDS SUMMARY | 2025-01-11 13:58 | XMS_ITS | Clinical Summary ---
Author Organization [facility] Address [address] [place] [address] Phone Care Team Providers Care Wall Scraper Name Role Phone KeshaEvan Kevyn Primary Care Provider Allergies Active Allergy [...] 3 Active fluticasone propionate (FLONASE) 50 mcg/spray Temple, Suspension nasal inhaler SHAKE LIQUID AND USE 1 SPRAY IN EACH NOSTRIL TWICE DAILY 3 Active Trulicity 4.5 mg/0.5 mL injection 3 Active azelastine (ASTELIN) 137 mcg/actuation nasal spray Administer 1 Temple in each nostril Continuous as needed. 3 [...] (02/24/2022): Added automatically from request for surgery [id number] Diarrhea 11/06/2019 Overview (02/24/2022): Added automatically from request for surgery [id number] Encounters Date Type Department Care Team Description 12/19/2024 External Device Data ST[facility] ABSTRACTION Provider, Abstract 12/05/2024 External Device Data [facility] ABSTRACTION Provider, Abstract 11/23/2024 Telephone [facility] [address] [facility] [address] [place] [phone] Aga Domínguez FNP Erroneous encounter-disregard 10/25/2024 10:30 AM CDT Procedure visit [facility] [address] [facility] [address] [place] [address] Torri Le, HANDY Intractable chronic migraine without aura and without status migrainosus (Primary Dx); Myalgia of auxiliary muscles, head and neck 10/20/2024 Refill [facility] [address] [facility] [address] [place] [address] Aga Domínguez FNP 10/20/2024 Telephone [facility] [address] [facility] [address] [place] [address] Tyson De La Cruz MD Med Refill 10/20/2024 Telephone [facility] [address] [facility] [address] [place] [address] Aga Domínguez FNP TPI PHONE CALL 10/17/2024 External Device Data [facility] ABSTRACTION Provider, Abstract 10/17/2024 Telephone [facility] - [place] [address] [address] [address] Molina Camacho MD Lab Results 10/16/2024 9:00 AM CDT Procedure visit [facility] [address] [facility] [address] [place] [address] Torri Le, HANDY Intractable chronic migraine without aura and without status migrainosus (Primary Dx) 10/12/2024 Results Follow-Up [facility] [address] [facility] [address] [address] [place] [address] Aga Domínguez FNP VITAMIN B6 LEVEL 10/12/2024 Orders Only [facility] [address] [place] [address] Shelby Delgadillo Paresthesia from Last 3 Months Social History Tobacco [...] Description 01/25/2025 11:45 AM CDT Office Visit [facility] - [place] [address] [facility] [address] [place] [phone] Molina Camacho MD [address] [facility] [address] [place] [address] 01/26/2025 11:30 AM CDT Procedure visit [facility] [address] [place] [address] Aga Domínguez FNP [address] [place] [address] 02/14/2025 3:30 PM CDT Office Visit [facility] [address] [place] [address] Tyson De La Cruz MD [address] [facility] [address] [place] [address] 04/02/2025 1:00 PM POST ACUTE CARE REGISTERED NURSE Procedure visit [facility] [address] 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 / male : 1955 Procedure Performed: Trigger Point Injections Date of Service: 10/25/2024 Provider: Torri Le NP MA/PRODUCTION SUPERINTENDENT/RN: Evonne Lazar RN BP 130/72 (BP Location: [...] (ex: skin prep was fully dried per jewelry sales coordinator instructions per use) Yes Specimens Removed: None Procedure Details: After informed consent was obtained the patient was given Trigger Point Injections as follows: Procedure, risks, benefits and treatment alternatives were reviewed with patient. After verbal and written consent obtained, using sterile technique the trigger point areas were prepped. Bupivacaine 0.5% (Lot #: [id number]; Expiration: 03/27) was used. The procedure was well tolerated. Muscle # of inj sites Left Total dose left (mg) # of inj sites Right Total dose right (mg) Total dose (mg) Valver Procerus Frontalis Temporalis Occipitalis 5 12.5 5 [...] PROCEDURE/MINOR MOSER RGICAL ORDERABLES Final Result * NC CHEMODERVATE FACIAL/TRIGEM/CERV MUSC MIGRAINE (10/16/2024 9:35 AM [...] as follows: OnabotulinumtoxinA-Botox 200 units (lot # [id number] ; expiration 02/26) was reconstituted using 4 ml preservative free saline to a final concentration of 50 units/ml. Using 1 ml syringes with 30 gauge 0.5 inch needles, and aseptic technique, Botox was administered as follows: Muscle # units Right # of inj sites Right # units Left # of inj sites Left Total units Valver 5 1 5 1 10 Procerus 5 [...] scheduled 02/14/[address] Jono Le NP Torri Le NP PROCEDURE/MINOR MOSER RGICAL ORDERABLES Final Result * VITAMIN B6 LEVEL (10/12/2024 3:45 PM CDT) Blood 10/12/2024 3:45 PM CDT us Aga Domínguez ALL SOURCE ANALYST CHEMISTRY ORDERABLES F inal Result [facility] [phone] from Last 3 Months Insurance AETNA PPO [facility] RX AETNA Medicare Part D AETNA PPO [facility] Care Teams Wall Scraper Relationship Specialty Start Date End Date Evna Rebolledo DO [address] [facility] [address] [place] [address] PCP - General Internal Medicine 01/22/22
--- OUTSIDE RECORDS SUMMARY | 2025-01-11 13:58 | XMS_ITS | Patient Health Record ---
Author Organization [facility] [employer] Address [address] [address] Care Team Providers Care Traveling Construction Superintendent Name Role Phone Torri Turner Primary Care Provider Reason For Referral No Information Immunizations Vaccine Route Administration Date Status Comme nts [id number] Vaccine IM Intramuscular 06/07/2020 Administered Pt tolerated we ll. [id number] Vaccine IM Intramuscular 07/05/2020 Administered Pt tolerated we ll. [id number] Vaccine IM Intramuscular 01/03/2021 Administered Pt tolerated we ll [id number] BOOSTER IM Intramuscular 12/17/2021 Administered Pt tolerated injection well Social History Social History [facility] Social Info Question Answer Notes Household/Enviromental Risk Factors: Any Patient/Famil y Concerns : No Do you have any social/cultu ral characteristics? Social Characteristics: Yes Highest level of education: Graduated High School Concerns with daily living situations: None Support from family/friends: Yes Participation in community activities: No Cultural Characteristics: No Communication Barriers Are: None Assessment of Health Literacy Understands how to take medication Yes Understands risks/side effects of medication Yes Drugs/Alcohol: Social Info Question Answer Notes Caffeine Intake: more than 4 cups per day Tea Plan Of Treatment No Information Insurance Providers Payer Name Payer Address Payer Phone Subscriber Number Group Number Insured Name Patient Relationship to Insured Coverage Start Date Coverage End Date [place] Aetna [address] [place], [place] [id number] Pawel Lan Self - patient is the insured Aetna PPO [address] [place], [place] [id number] Pawel Lan Self - patient is the insured 1
[2025-01-11 14:31] VITALS: BP 160/85; PULSE 85; RESP 19; O2SAT 97
[2025-01-11 15:20] VITALS: BP 148/79; PULSE 78; RESP 16; O2SAT 93
== END 2025-01-11 15:20 | disposition home or self-care (01) ==
PROVIDERS: Emergency Medicine; Emergency Provider Student in an Organized Health Care Education/Training Program; PCP Internal Medicine
DX: I12.9 Hypertensive chronic kidney disease with stage 1 through stage 4 chronic kidney disease, or unspecified chronic kidney disease (principal); E11.22 Type 2 diabetes mellitus with diabetic chronic kidney disease; N18.9 Chronic kidney disease, unspecified; E78.5 Hyperlipidemia, unspecified
CPT/HCPCS: 36415; 70450; 80053; 81001; 82948; 85025; 85610; 85730; 93005; 96365; 96366; 96375; 99284; J1815; J3480; J7030; J7040

== ENCOUNTER 2025-01-12 10:03 | Emergency (ER) | payer MEDICARE, SELFPAY ==
--- NOTE | ~2025-01-12 | XR_ITS ---
EXAMINATION: XR chest 1V portable DATE: 01/12/2025 11:34 INDICATION: Confusion TECHNIQUE: frontal view of the chest was obtained. COMPARISON: Chest radiograph dated 01/14/24 FINDINGS: Mild linear discoid atelectasis/scarring at the lateral right midlung zone. No other airspace opacities, pulmonary edema, pleural effusion or pneumothorax. The cardiomediastinal silhouette is normal. IMPRESSION: 1. Mild linear discoid atelectasis/scarring at the lateral right midlung zone. No other acute cardiopulmonary disease. Reviewed, dictated and finalized at location A.
[2025-01-12 10:45] VITALS: BP 186/86; PULSE 88; RESP 12; TEMP 36.8; O2SAT 99
--- OUTSIDE RECORDS SUMMARY | 2025-01-12 10:47 | XMS_ITS | Clinical Summary ---
Author Organization [facility] Address [address] [place] [address] Phone Care Team Providers Care Separator Inserter Name Role Phone KeshaEvan Kevyn Primary Care [...] 3 Active fluticasone propionate (FLONASE) 50 mcg/spray Taberg, Suspension nasal inhaler SHAKE LIQUID AND USE 1 SPRAY IN EACH NOSTRIL TWICE DAILY 3 Active Trulicity 4.5 mg/0.5 mL injection 3 Active azelastine (ASTELIN) 137 mcg/actuation nasal spray Administer 1 Taberg in each nostril Continuous as needed. 3 [...] (02/24/2022): Added automatically from request for surgery [id number] Diarrhea 11/06/2019 Overview (02/24/2022): Added automatically from request for surgery [id number] Encounters Date Type Department Care Team Description 12/19/2024 External Device Data STL ABSTRACTION Provider, Abstract 12/05/2024 External Device Data STL ABSTRACTION Provider, Abstract 11/23/2024 Telephone [facility] Neurology [address] [facility] [address] [place] [address] Aga Domínguez FNP Erroneous encounter-disregard 10/25/2024 10:30 AM CDT Procedure visit [facility] Neurology [address] [facility] [address] [place] [address] Torri Le, HANDY Intractable chronic migraine without aura and without status migrainosus (Primary Dx); Myalgia of auxiliary muscles, head and neck 10/20/2024 Refill [facility] Neurology [address] [facility] [address] [place] [address] Aga Domínguez FNP 10/20/2024 Telephone [facility] Neurology [address] [facility] [address] [place] [address] Tyson De La Cruz MD Med Refill 10/20/2024 Telephone [facility] Neurology [address] [facility] [address] [place] [address] Aga Domínguez FNP TPI PHONE CALL 10/17/2024 External Device Data STL ABSTRACTION Provider, Abstract 10/17/2024 Telephone [facility] Oncology and Hematology - [place] [address] Bobo Kamara [address] [address] Molina Camacho MD Lab Results 10/16/2024 9:00 AM CDT Procedure visit [facility] Neurology [address] [facility] [address] [place] [address] Torri Le, HANDY Intractable chronic migraine without aura and without status migrainosus (Primary Dx) 10/12/2024 Results Follow-Up [facility] Neurology [address] [facility] [address] [place] [address] Aga Domínguez FNP VITAMIN B6 LEVEL 10/12/2024 Orders Only [facility] Neurology [address] [place] [address] Shelby Delgadillo Paresthesia from Last [...] Description 01/25/2025 11:45 AM CDT Office Visit [facility] Oncology and Hematology - [place] [address] [facility] [address] [place] [address] Molina Camacho MD [address] [facility] [address] [place] [address] 01/26/2025 11:30 AM CDT Procedure visit [facility] Neurology [address] [place] [address] Aga Domínguez FNP [address] [place] [address] 02/14/2025 3:30 PM CDT Office Visit [facility] Neurology [address] [place] [address] Tyson De La Cruz MD [address] [facility] [address] [place] [address] 04/02/2025 1:00 PM SHOE REPAIR COBBLER Procedure visit [facility] Neurology [address] [facility] [address] [place] [address] Torri Le, HANDY [address] [facility] [address] [place] [address] Health Maintenance Due Date Last [...] Procedure Name Priority Date/Time Associated Diagnosis Comments HI INJECTION SINGLE/DIRECTOR OF AGRONOMY TRIGGER POINT 3/> MUSCLES Routine 10/25/2024 11:12 AM CDT Intractable chronic migraine without aura and without status migrainosus Myalgia of auxiliary muscles, head and neck HI CHEMODERVATE FACIAL/TRIGEM/CERV MUSC MIGRAINE Routine 10/16/2024 9:35 AM CDT Intractable chronic migraine without aura and without status migrainosus VITAMIN B6 LEVEL Routine 10/12/2024 3:45 PM CDT Paresthesia from Last 3 Months Results * HI INJECTION SINGLE/DIRECTOR OF AGRONOMY TRIGGER POINT 3/> MUSCLES (10/25/2024 11:12 AM CDT) Narrative Torri Le NP - 10/25/2024 11:12 AM CDT Torri Le NP 10/25/2024 11:15 AM Procedure Note Patient: Pawel Hawkins / 69 y.o. / male : 1955 Procedure Performed: Trigger Point Injections Date of Service: 10/25/2024 Provider: Torri Le NP MA/GARAGE DOOR INSTALLER/RN: Evonne Lazar RN BP 130/72 (BP Location: [...] (ex: skin prep was fully dried per thrill performer instructions per use) Yes Specimens Removed: None Procedure Details: After informed consent was obtained the patient was given Trigger Point Injections as follows: Procedure, risks, benefits and treatment alternatives were reviewed with patient. After verbal and written consent obtained, using sterile technique the trigger point areas were prepped. Bupivacaine 0.5% (Lot #: [id number]; Expiration: 03/27) was used. The procedure was well tolerated. Muscle # of inj sites Left Total dose left (mg) # of inj sites Right Total dose right (mg) Total dose (mg) Maintenance Data Analyst Procerus Frontalis Temporalis Occipitalis 5 12.5 5 [...] PROCEDURE/MINOR MOSER RGICAL ORDERABLES Final Result * HI CHEMODERVATE FACIAL/TRIGEM/CERV MUSC MIGRAINE (10/16/2024 9:35 AM [...] as follows: OnabotulinumtoxinA-Botox 200 units (lot # [id number] ; expiration 02/26) was reconstituted using 4 ml preservative free saline to a final concentration of 50 units/ml. Using 1 ml syringes with 30 gauge 0.5 inch needles, and aseptic technique, Botox was administered as follows: Muscle # units Right # of inj sites Right # units Left # of inj sites Left Total units Maintenance Data Analyst 5 1 5 1 10 Procerus 5 [...] 10/12/2024 3:45 PM CDT us Aga Domínguez MARKETING DATA SPECIALIST CHEMISTRY ORDERABLES F inal Result [facility] [phone] from Last 3 Months Insurance [employer] PPO [facility] RX AETNA Medicare Part D A[employer] PPO [facility] Care Teams Separator Inserter Relationship Specialty Start Date End Date Evan Rebolledo DO [address] [facility] [address] [place] [address] PCP - General Internal Medicine 01/22/22
--- OUTSIDE RECORDS SUMMARY | 2025-01-12 10:47 | XMS_ITS | Patient Health Record ---
Author Organization [facility] Address [address] [address] Care Team Providers Care Litigation Specialist Name Role Phone Torri Turner Primary Care Provider [phone] Reason For Referral No Information Immunizations Vaccine Route Administration Date Status Comme nts [id number]-69 BOOSTER IM Intramuscular 12/17/2021 Administered Pt tolerated injection well Lkjirun-MAWTM-20 Vaccine IM Intramuscular 06/07/2020 Administered Pt tolerated we ll. Rqyxrfu-HUHED-94 Vaccine IM Intramuscular 07/05/2020 Administered Pt tolerated we ll. Gshahun-GKGRR-18 Vaccine IM Intramuscular 01/03/2021 Administered Pt tolerated we ll Social History Social History [facility] Social Info Question Answer Notes Household/Enviromental Risk [...] Coverage End Date [place] [employer] [address] [place], [place] [id number] Pawel Lan Self - patient is the insured A[employer] PPO [address] [place], [place] [phone] [phone] [id number] Pawel Lan Self - patient is the insured 1
--- OUTSIDE RECORDS SUMMARY | 2025-01-12 10:47 | XMS_ITS | Clinical Summary ---
Author Organization [facility] Address [address] [place] [address] Phone Care Team Providers Care Sander Setter Name Role Phone Evan Rebolledo DO Primary Care Provider [phone] Allergies Active Allergy Reactions Criticality Noted Date [...] (02/26/2022): Added automatically from request for surgery [id number] Generalized abdominal pain 11/06/2019 Overview (02/26/2022): Added automatically from request for surgery [id number] Immunizations Immunization Administration Dates Next Due Influenza [...] 01/15/2022 Insurance [employer] MEDICARE ADVANTAGE Care Teams Sander Setter Relationship Specialty Start Date End Date Evan Rebolledo DO [address] [place] [address] PCP - General Internal Medicine 01/22/22
--- NOTE | 2025-01-12 10:50 | ECG_ITS ---
Test Date: 2025-01-12 11:09:00 Measurements Intervals [place] Rate: 87 P: -31 VT: 203 QRS: 96 QRSD: 105 T: 27 QT: 380 QTc: 458 Interpretive Statements SINUS RHYTHM WITH OCCASIONAL SUPRAVENTRICULAR PREMATURE COMPLEXES BORDERLINE RIGHT AXIS DEVIATION [QRS AXIS > 90] Compared to ECG 01/11/2025 11:58:46 Left-axis deviation no longer present ST (T wave) deviation no longer present Electronically Signed On 01-12-2025 15:41:35 CDT by Nick Stanley M.D.
[2025-01-12 10:59] LABS: Hematocrit 35.1 % (42.0-52.0); Hemoglobin 12.0 g/dL (14.0-18.0); Immature Granulocyte Percent A 0.6 % (0-0.5); Lymphocytes Absolute Auto 0.66 K/mm3 (0.9-3.2); Mean Corpuscular HGB Conc 34.2 g/dl (32-36); Mean Corpuscular Hemoglobin 33.0 pg (26-34); Mean Corpuscular Volume 96.4 fl (80-100); Nucleated Red Blood Cells Absolute Auto 0.000 K/mm3 (0.0-0.012); Nucleated Red Blood Cells Perc 0.0 % (0.0-0.2); Platelet Count Result 127 k/mm3 (150-375); Red Blood Count 3.64 M/mm3 (4.6-6.20); White Blood Count 6.8 K/mm3 (4.5-10.0)
[2025-01-12 11:10] LABS: INR 1.0; Prothrombin Time 13.8 Seconds (11.1-14.7)
[2025-01-12 11:11] LABS: Partial Thromboplastin Time 26.1 Seconds (22.3-36.8)
[2025-01-12 11:12] LABS: Alanine Aminotransferase 39 U/L (6-50); Albumin Level 3.8 g/dL (3.5-5.1); Alkaline Phosphatase 136 U/L (38-126); Anion Gap 14 mmol/L (4-12); Aspartate Amino Transferase 41 U/L (17-59); Bilirubin,Total 1.1 mg/dL (0.2-1.3); Blood Urea Nitrogen 33 mg/dL (9-20); Calcium 8.9 mg/dL (8.4-10.2); Carbon Dioxide 18 mmol/L (22-30); Chloride 101 mmol/L (98-107); Estimated CRCL calculation 47 ml/min; Estimated Glomerular Filt Rate 42; Glucose 394 mg/dL (65-110); Potassium 4.6 mmol/L (3.4-5.0); Sodium 133 mmol/L (137-145); Total Protein 6.9 g/dL (6.3-8.2)
[2025-01-12 11:28] VITALS: PULSE 88
[2025-01-12 11:29] VITALS: BP 189/84; PULSE 90; RESP 20; O2SAT 98
--- NOTE | 2025-01-12 12:03 | PC.NURSE ---
Called lab, made awareof urine sent down and order placed.
[2025-01-12 12:23] LABS: Add Urine Microscopic? YES; Appearance Urine Clear (Clear); Glucose Urine UA 3+ mg/dL (Negative); Leukocyte Esterase Ur Negative LEU/UL (Negative); Nitrate Urine Negative (Negative); Non Pathogenic Casts 0-2; Specific Grav Ur 1.022 (1.001-1.035)
[2025-01-12] MEDS: SODIUM CHLORIDE 0.9% IV 500 ML 999 ML IV CONT (12:31)
[2025-01-12] MEDS: METOCLOPRAMIDE HCL INJ 10 MG/2 ML VIAL IV PUSH (12:33)
[2025-01-12 13:05] LABS: Influenza A QL RT-PCR Negative (Negative); Influenza B QL RT-PCR Negative (Negative); RSV RNA, RT-PCR Negative (Negative); SARS-CoV-2 RNA PCR Negative (Negative)
--- OUTSIDE RECORDS SUMMARY | 2025-01-12 13:07 | XMS_ITS | Clinical Summary ---
Author Organization [facility] Address [address] [place] [address] Phone Care Team Providers Care Hat Finisher Name Role Phone Evan Rebolledo DO Primary Care Provider [phone] Allergies Active Allergy Reactions Criticality Noted Date [...] (02/26/2022): Added automatically from request for surgery [id number] Generalized abdominal pain 11/06/2019 Overview (02/26/2022): Added automatically from request for surgery [id number] Immunizations Immunization Administration Dates Next Due Influenza [...] 01/15/2022 Insurance [employer] MEDICARE ADVANTAGE Care Teams Hat Finisher Relationship Specialty Start Date End Date Evan Rebolledo DO [address] [place] [address] PCP - General Internal Medicine 01/22/22
--- NOTE | 2025-01-12 13:32 | ED.GENADULT ---
HPI - General Adult General Chief complaint: Altered Mental Status Stated complaint: hallucinations Time Seen by Provider: 01/12/25 12:04 History of Present Illness HPI narrative: Patient is a 69-year-old male who presents ER with reports of having lights in his visual field bilaterally in the periphery as well as waking up today and having a flat affect which is atypical for him. He has been feeling unwell for about a week. He is diabetic and takes metformin, reports compliance with this medication. Was seen in the ER yesterday receive some IV insulin. There are no significant abnormalities outside of a increased blood sugar level. He has had normal CT imaging of his brain in the last 24 hours. No chest pain or shortness of breath. No productive cough. Mild frontal headache. Patient has not taken his antihypertensives for 2 days. Related Data Home Medications ?Medication ?Instructions ?Recorded ?Confirmed ?Last Taken ?Type ferrous sulfate 325 mg (65 mg 325 mg PO DAILY 03/23/19 12/07/24 05/21/19 History iron) tablet (Feosol) ketoconazole 2 % topical cream 1 applic topical DAILY 04/17/20 12/07/24 Unknown History triamcinolone acetonide 0.025 % 1 applic topical DAILY 04/17/20 12/07/24 Unknown History topical cream vitamin B complex (B 1 tablet PO DAILY 04/17/20 12/07/24 Unknown History Complex-Vitamin B12 tablet) calcium carbonate (Calcium 500) 500 mg PO DAILY 09/26/20 12/07/24 Unknown History valacyclovir 500 mg tablet 500 mg PO BID 04/15/23 12/07/24 Unknown History mupirocin 2 % topical ointment 1 applic topical BID 05/19/23 12/07/24 Unknown History Allergies Allergy/AdvReac Type Severity Reaction Status Date / Time prednisone Allergy Severe Anaphylaxis Verified 01/11/25 12:11 Review of Systems Review of Systems: All systems reviewed & are unremarkable except as noted in HPI and below Constitutional: Constitutional: Reports no additional constitutional complaints Eyes: Eyes: Reports no additional eye complaints ENT: Reports system reviewed and no additional complaints, except as documented Cardiovascular: Cardiovascular: Reports no additional cardiovascular complaints Respiratory: Respiratory: Reports no additional respiratory complaints PMFSH Past Medical History Medical History Hypogonadism in male Fibromyalgia Morbid obesity with BMI of 40.0-44.9, adult Cardiomyopathy History of transfusion Asthma Generalized pain Edema Hyperlipidemia Cellulitis of right lower extremity Herpes zoster infection of oral mucosa Anemia Depression Gout Seasonal allergies Osteoarthritis CKD (chronic kidney disease) Dyslipidemia Hypertension Diabetes mellitus Surgical History Surgical History Status post laparoscopic cholecystectomy 05/22/2019 History of carpal tunnel release Hx of gastric bypass Family History Family History Father Diabetes mellitus Asthma Family history of coronary artery disease Mother FH: ovarian cancer in first degree relative Social History Social History Social History: Caffeine- tea occasionally Smoking status: Never smoker Alcohol intake: never Substance use: never Substance use type: does not use Do You Feel Safe in your Home?: Yes Lack of Transportation: No Lack of Food: Never True Current Housing: I Have Housing Concerned About Future Housing: No Difficulty Paying Gas/Electric Bills: No Difficulty Paying for Meds: No Currently Unemployed: No Education: Master's Degree or Higher Difficulty w/ Childcare or Family Care: No Living arrangements: with family Gender identity (if verbalized by the patient): Male Spiritual care concerns: No Exam Narrative: GENERAL: Well-appearing, well-nourished, and in no acute distress. HEAD: Normocephalic, atraumatic. EYES: PERRL and EOMI. Mild right eye strabismus laterally that patient reports is normal. ENT: Mucous membranes moist. CHEST: Clear to auscultation. No respiratory distress. HEART: Regular rate and rhythm. Normal peripheral pulses. ABDOMEN: Soft, nontender, nondistended. EXTREMITIES: Normal range of motion. No edema. SKIN: Warm, dry, no rash. NEURO: Alert and oriented x3. Course Course Emergency Course: 1338: Patient requesting anxiety medication. Received IV insulin 6 units with minimal change in blood sugar. COVID/flu testing negative. Urinalysis without infection, 1+ ketones. CMP shows elevated glucose and chronic kidney disease. Potassium normal. White blood cell count and hemoglobin normal as well. 1542: Ambulated without issue. Migraine resolved. Blood pressure improved after administration home medication. He patient is appropriate for discharge home. Patient did feel better after anxiety medication. Vital Signs Vital signs: Vital Signs Temperature 98.2 F 01/12/25 10:45 Pulse Rate 88 01/12/25 10:45 Respiratory Rate 12 01/12/25 10:45 Blood Pressure 186/86 H 01/12/25 10:45 Pulse Oximetry 99 01/12/25 10:45 Oxygen Delivery Room Air 01/12/25 10:45 Temperature 98.2 F 01/12/25 10:45 Pulse Rate 99 01/12/25 13:41 Respiratory Rate 20 01/12/25 11:29 Blood Pressure 189/84 H 01/12/25 11:29 Pulse Oximetry 98 01/12/25 11:29 Oxygen Delivery Room Air 01/12/25 10:45 Medical Decision Making Vital Signs Vital Signs: Vital Signs Temperature 98.2 F 01/12/25 10:45 Pulse Rate 88 01/12/25 10:45 Respiratory Rate 01/12/25 10:45 Blood Pressure 186/86 H 01/12/25 10:45 Pulse Oximetry 99 01/12/25 10:45 Oxygen Delivery Room Air 01/12/25 10:45 Temperature 98.2 F 01/12/25 10:45 Pulse Rate 99 01/12/25 13:41 Respiratory Rate 01/12/25 11:29 Blood Pressure 189/84 H 01/12/25 11:29 Pulse Oximetry 98 01/12/25 11:29 Oxygen Delivery Room Air 01/12/25 10:45 Lab Data 01/12/25 10:52 01/12/25 10:52 Labs: Lab Results 01/12/25 01/12/25 01/12/25 Range/Units 10:16 10:52 12:05 WBC 6.8 (4.5-10.0) K/mm3 RBC 3.64 L (4.6-6.20) M/mm3 Hgb 12.0 L (14.0-18.0) g/dL Hct 35.1 L (42.0-52.0) % MCV 96.4 (80-100) fl MCH 33.0 (26-34) pg MCHC 34.2 (32-36) g/dl RDW 13.3 (11.5-14.5) % Plt Count 127 L (150-375) k/mm3 MPV 9.9 (7.4-10.4) fl Immature Gran % (Auto) 0.6 H (0-0.5) % Neut % (Auto) 83.4 H (45.5-73.1) % Lymph % (Auto) 9.7 L (18.3-44.2) % Sharp % (Auto) 5.0 (2.6-8.5) % Eos % (Auto) 1.0 (0-4.4) % Baso % (Auto) 0.3 (0.2-1.2) % Lymph # (Auto) 0.66 L (0.9-3.2) K/mm3 Sharp # (Auto) 0.3 (0.1-0.6) K/mm3 Eos # (Auto) 0.1 (0-0.3) K/mm3 Baso # (Auto) 0.0 (0.0-0.1) K/mm3 Abs Immat Gran (auto) 0.04 H (0.00-0.031) K/mm3 Absolute Neuts (auto) 5.7 (1.3-6.7) K/mm3 Absolute Nucleated RBC 0.000 (0.0-0.012) K/mm3 Nucleated RBC % 0.0 (0.0-0.2) % PT 13.8 (11.1-14.7) Seconds INR 1.0 APTT 26.1 (22.3-36.8) Seconds Sodium 133 L (137-145) mmol/L Potassium 4.6 (3.4-5.0) mmol/L Chloride 101 (98-107) mmol/L Carbon Dioxide 18 L (22-30) mmol/L Anion Gap 14 H (4-12) mmol/L BUN 33 H (9-20) mg/dL Creatinine 1.63 H (0.7-1.3) mg/dL Estim Creat Clear Calc 47 ml/min Estimated GFR 42 L (59 - ) Glucose 394 H (65-110) mg/dL POC Capillary Glucose 395 H (65-105) mg/dl Lactic Acid 1.1 (0.7-2.0) mmol/L Calcium 8.9 (8.4-10.2) mg/dL Total Bilirubin 1.1 (0.2-1.3) mg/dL AST 41 (17-59) U/L ALT 39 (6-50) U/L Alkaline Phosphatase 136 H (38-126) U/L Total Protein 6.9 (6.3-8.2) g/dL Albumin 3.8 (3.5-5.1) g/dL Urine Color Yellow (Yellow) Urine Appearance Clear (Clear) Urine pH 5.5 (5.0-9.0) Ur Specific [place] 1.022 (1.001-1.035) Urine Protein 3+ H (Negative) mg/dL Urine Glucose (UA) 3+ H (Negative) mg/dL Urine Ketones 1+ H (Negative) mg/dL Ur Blood (Man) 1+ H (Negative) Urine Nitrate Negative (Negative) Urine Bilirubin Negative (Negative) Urine Urobilinogen 0.2 (<2.0) mg/dL Leukocyte Esterase Rfl Negative (Negative) NIDHI/UL Urine RBC 0-2 (0-2) /hpf Urine WBC 0-5 (0-3) /hpf Ur Squamous Epith Cells None seen (Few) /hpf Urine Bacteria None seen /hpf Urine Casts 0-2 Influenza A (RT-PCR) (Negative) Influenza B (RT-PCR) (Negative) RSV (RT-PCR) (Negative) SARS-CoV-2 RNA (RT-PCR) (Negative) 01/12/25 01/12/25 01/12/25 Range/Units 12:23 12:32 13:32 WBC (4.5-10.0) K/mm3 RBC (4.6-6.20) M/mm3 Hgb (14.0-18.0) g/dL Hct (42.0-52.0) % MCV (80-100) fl MCH (26-34) pg MCHC (32-36) g/dl RDW (11.5-14.5) % Plt Count (150-375) k/mm3 MPV (7.4-10.4) fl Immature Gran % (Auto) (0-0.5) % Neut % (Auto) (45.5-73.1) % Lymph % (Auto) (18.3-44.2) % Sharp % (Auto) (2.6-8.5) % Eos % (Auto) (0-4.4) % Baso % (Auto) (0.2-1.2) % Lymph # (Auto) (0.9-3.2) K/mm3 Sharp # (Auto) (0.1-0.6) K/mm3 Eos # (Auto) (0-0.3) K/mm3 Baso # (Auto) (0.0-0.1) K/mm3 Abs Immat Gran (auto) (0.00-0.031) K/mm3 Absolute Neuts (auto) (1.3-6.7) K/mm3 Absolute Nucleated RBC (0.0-0.012) K/mm3 Nucleated RBC % (0.0-0.2) % PT (11.1-14.7) Seconds INR APTT (22.3-36.8) Seconds Sodium (137-145) mmol/L Potassium (3.4-5.0) mmol/L Chloride (98-107) mmol/L Carbon Dioxide (22-30) mmol/L Anion Gap (4-12) mmol/L BUN (9-20) mg/dL Creatinine (0.7-1.3) mg/dL Estim Creat Clear Calc ml/min Estimated GFR (59 - ) Glucose (65-110) mg/dL POC Capillary Glucose 340 H 343 H (65-105) mg/dl Lactic Acid (0.7-2.0) mmol/L Calcium (8.4-10.2) mg/dL Total Bilirubin (0.2-1.3) mg/dL AST (17-59) U/L ALT (6-50) U/L Alkaline Phosphatase (38-126) U/L Total Protein (6.3-8.2) g/dL Albumin (3.5-5.1) g/dL Urine Color (Yellow) Urine Appearance (Clear) Urine pH (5.0-9.0) Ur Specific [place] (1.001-1.035) Urine Protein (Negative) mg/dL Urine Glucose (UA) (Negative) mg/dL Urine Ketones (Negative) mg/dL Ur Blood (Man) (Negative) Urine Nitrate (Negative) Urine Bilirubin (Negative) Urine Urobilinogen (<2.0) mg/dL Leukocyte Esterase Rfl (Negative) NIDHI/UL Urine RBC (0-2) /hpf Urine WBC (0-3) /hpf Ur Squamous Epith Cells (Few) /hpf Urine Bacteria /hpf Urine Casts Influenza A (RT-PCR) Negative (Negative) Influenza B (RT-PCR) Negative (Negative) RSV (RT-PCR) Negative (Negative) SARS-CoV-2 RNA (RT-PCR) Negative (Negative) 01/12/25 Range/Units 14:14 WBC (4.5-10.0) K/mm3 RBC (4.6-6.20) M/mm3 Hgb (14.0-18.0) g/dL Hct (42.0-52.0) % MCV (80-100) fl MCH (26-34) pg MCHC (32-36) g/dl RDW (11.5-14.5) % Plt Count (150-375) k/mm3 MPV (7.4-10.4) fl Immature Gran % (Auto) (0-0.5) % Neut % (Auto) (45.5-73.1) % Lymph % (Auto) (18.3-44.2) % Sharp % (Auto) (2.6-8.5) % Eos % (Auto) (0-4.4) % Baso % (Auto) (0.2-1.2) % Lymph # (Auto) (0.9-3.2) K/mm3 Sharp # (Auto) (0.1-0.6) K/mm3 Eos # (Auto) (0-0.3) K/mm3 Baso # (Auto) (0.0-0.1) K/mm3 Abs Immat Gran (auto) (0.00-0.031) K/mm3 Absolute Neuts (auto) (1.3-6.7) K/mm3 Absolute Nucleated RBC (0.0-0.012) K/mm3 Nucleated RBC % (0.0-0.2) % PT (11.1-14.7) Seconds INR APTT (22.3-36.8) Seconds Sodium (137-145) mmol/L Potassium (3.4-5.0) mmol/L Chloride (98-107) mmol/L Carbon Dioxide (22-30) mmol/L Anion Gap (4-12) mmol/L BUN (9-20) mg/dL Creatinine (0.7-1.3) mg/dL Estim Creat Clear Calc ml/min Estimated GFR (59 - ) Glucose (65-110) mg/dL POC Capillary Glucose 273 H (65-105) mg/dl Lactic Acid (0.7-2.0) mmol/L Calcium (8.4-10.2) mg/dL Total Bilirubin (0.2-1.3) mg/dL AST (17-59) U/L ALT (6-50) U/L Alkaline Phosphatase (38-126) U/L Total Protein (6.3-8.2) g/dL Albumin (3.5-5.1) g/dL Urine Color (Yellow) Urine Appearance (Clear) Urine pH (5.0-9.0) Ur Specific [place] (1.001-1.035) Urine Protein (Negative) mg/dL Urine Glucose (UA) (Negative) mg/dL Urine Ketones (Negative) mg/dL Ur Blood (Man) (Negative) Urine Nitrate (Negative) Urine Bilirubin (Negative) Urine Urobilinogen (<2.0) mg/dL Leukocyte Esterase Rfl (Negative) NIDHI/UL Urine RBC (0-2) /hpf Urine WBC (0-3) /hpf Ur Squamous Epith Cells (Few) /hpf Urine Bacteria /hpf Urine Casts Influenza A (RT-PCR) (Negative) Influenza B (RT-PCR) (Negative) RSV (RT-PCR) (Negative) SARS-CoV-2 RNA (RT-PCR) (Negative) Imaging Data Radiologist's impression: ITS Impressions Chest X-Ray 01/12/25 11:45 IMPRESSION: 1. Mild linear discoid atelectasis/scarring at the lateral right midlung zone. No other acute cardiopulmonary disease. Discharge Plan Discharge Clinical Impression: Hyperglycemia, Migraine Patient Disposition: Home Condition: Stable Instructions: Migraine Headache (ED), Diabetic Hyperglycemia (ED) Additional Instructions: Try to stay well hydrated at home. Please return to the emergency department if you develop worsening of your headache or a new headache which is severe, associated with vision changes, associated with neck stiffness or fever, or if it is different from any other headache that you have had before. Return to the emergency department if you develop numbness, weakness or tingling or problems with coordination, or if you develop severe nausea and vomiting and are unable to keep down fluids at home. Patient Language: Micronesian Prescriptions: No Action valacyclovir 500 mg tablet 500 mg PO BID ferrous sulfate [Feosol] 325 mg (65 mg iron) tablet 325 mg PO DAILY triamcinolone acetonide 0.025 % cream 1 applic topical DAILY ketoconazole 2 % cream 1 applic topical DAILY vitamin B complex [B Complex-Vitamin B12] Tablet 1 tablet PO DAILY calcium carbonate [Calcium 500] 500 mg calcium (1,250 mg) tablet 500 mg PO DAILY mupirocin 2 % ointment 1 applic topical BID nystatin 100,000 unit/gram ointment 1 applic topical BID Qty: 30 0RF furosemide 20 mg tablet See Rx Instructions .ROUTE .COMPLEX Qty: 270 1RF Dose Instruction: TAKE 2 TABLETS BY MOUTH EVERY MORNING AND 1 TABLET DAILY AT NIGHT Rx Instructions: TAKE 2 TABLETS BY MOUTH EVERY MORNING AND 1 TABLET DAILY AT NIGHT albuterol sulfate 90 mcg/actuation HFA aerosol inhaler 2 puff inhalation Q4-6H PRN (Reason: shortness of breath or wheezing) Qty: 8.5 1RF allopurinol 300 mg tablet See Rx Instructions .ROUTE .COMPLEX Qty: 90 1RF Dose Instruction: TAKE 1 TABLET BY MOUTH DAILY Rx Instructions: TAKE 1 TABLET BY MOUTH DAILY acetaminophen [Tylenol Extra Strength] 500 mg tablet 1,000 mg PO Q6H PRN (Reason: pain) Qty: 50 0RF (DME) blood-glucose meter Mis See Rx Instructions .Route Qty: 1 0RF Rx Instructions: Use to test BS once daily (DME) Blood Glucose Test Strip See Rx Instructions .Route Qty: 50 3RF Rx Instructions: Use to check BS once daily (DME) lancets-blood glucose strips 30 gauge combo pack See Rx Instructions .Route Qty: 200 2RF Rx Instructions: Use to check BS once daily lisinopril 40 mg tablet 80 mg PO DAILY Qty: 90 3RF azelastine 137 mcg (0.1 %) spray,non-aerosol 137 mcg intranasal Q12H Qty: 90 1RF Rx Instructions: administer into each nostril atorvastatin 20 mg tablet See Rx Instructions .ROUTE .COMPLEX Qty: 90 1RF Dose Instruction: TAKE 1 TABLET BY MOUTH DAILY Rx Instructions: TAKE 1 TABLET BY MOUTH DAILY. sertraline 100 mg tablet See Rx Instructions .ROUTE .COMPLEX Qty: 180 0RF Dose Instruction: TAKE 1 TABLET BY MOUTH TWICE DAILY Rx Instructions: TAKE 1 TABLET BY MOUTH TWICE DAILY metformin 500 mg tablet 1,000 mg PO BID Qty: 360 1RF buspirone 10 mg tablet See Rx Instructions .ROUTE .COMPLEX Qty: 180 1RF Dose Instruction: TAKE 1 TABLET BY MOUTH TWICE DAILY Rx Instructions: TAKE 1 TABLET BY MOUTH TWICE DAILY metoprolol succinate 25 mg tablet extended release 24 hr 25 mg PO DAILY Qty: 90 1RF montelukast [Singulair] 10 mg tablet 10 mg PO DAILY Qty: 90 1RF magnesium oxide 400 mg (241.3 mg magnesium) tablet See Rx Instructions .ROUTE .COMPLEX Qty: 90 1RF Dose Instruction: TAKE 1 TABLET BY MOUTH DAILY Rx Instructions: TAKE 1 TABLET BY MOUTH DAILY trazodone 100 mg tablet See Rx Instructions .ROUTE .COMPLEX Qty: 180 1RF Dose Instruction: TAKE 2 TABLETS BY MOUTH EVERY DAY AT BEDTIME Rx Instructions: TAKE 2 TABLETS BY MOUTH EVERY DAY AT BEDTIME fluticasone propionate 50 mcg/actuation spray,suspension See Rx Instructions .ROUTE .COMPLEX Qty: 48 1RF Dose Instruction: SHAKE LIQUID AND USE 1 SPRAY IN EACH NOSTRIL TWICE DAILY Rx Instructions: SHAKE LIQUID AND USE 1 SPRAY IN EACH NOSTRIL TWICE DAILY Ozempic 0.25 mg or 0.5 mg (2 mg/3 mL) pen injector 0.5 mg subcut WEEKLY Qty: 3 0RF Rx Instructions: for 4 weeks Follow-up/Referrals: Evan Rebolledo DO [Primary Care Provider, Internal Medicine] - 1 Week
[2025-01-12] MEDS: INSULIN HUMAN REGULAR (*BKC) 100 UNITS/ML 6 UNITS IV PUSH (13:39)
[2025-01-12 13:41] VITALS: PULSE 99
[2025-01-12] MEDS: METOPROLOL SUCCINATE EXT REL 25 MG TABCR PO (13:41)
[2025-01-12] MEDS: diazePAM INJ (*CRX) 10 MG/2 ML SYRINGE 5 MG IV PUSH (13:45)
== END 2025-01-12 16:12 | disposition home or self-care (01) ==
PROVIDERS: Emergency Medicine; Emergency Provider Emergency Medicine; PCP Internal Medicine
DX: E11.65 Type 2 diabetes mellitus with hyperglycemia (principal); G43.909 Migraine, unspecified, not intractable, without status migrainosus; Z79.84 Long term (current) use of oral hypoglycemic drugs; Z20.822 Contact with and (suspected) exposure to COVID-19
CPT/HCPCS: 36415; 71045; 80053; 81001; 82948; 83605; 85025; 85610; 85730; 87637; 93005; 96361; 96374; 96375; 99284; A9270; J1200; J1815; J2765; J3360; J7040

== ENCOUNTER 2025-01-13 07:36 | Inpatient (IN) | payer MEDICARE, SELFPAY ==
[2025-01-13] VITALS (24 sets, daily range): BP systolic 147–181; BP diastolic 67–117; PULSE 79–102; RESP 12–25; TEMP 36.2–36.9; O2SAT 95–100; BMI 35.0; BMI 38.5
--- NOTE | ~2025-01-13 | CT_ITS ---
EXAMINATION: CT brain wo khadijah, 01/13/2025 11:00 CDT HISTORY: Confused COMPARISON: No comparisons available. Technique: Axial images obtained of the brain without contrast. One or more of the following dose reduction techniques were used: automated exposure control, adjustment of the mA and/or kV according to patient size, use of iterative reconstruction technique. Findings: No acute infarct or parenchymal hemorrhage. No abnormal mass or mass effect. No midline shift. No extra-axial fluid collections. No hydrocephalus. Mastoid air cells unremarkable. Sinuses and orbits unremarkable. No acute fracture. No significant facial or scalp soft tissue swelling evident. No radiopaque foreign body is seen. Impression: 1.No acute intracranial abnormality. Reviewed, dictated and finalized at location A. Impression: 1.No acute intracranial abnormality.
--- NOTE | ~2025-01-13 | US_ITS ---
EXAMINATION: US carotid duplex BI DATE: 01/13/2025 18:27 INDICATION: Changes in mental status. Subjective visual disturbance in the right eye and speech-language deficit. TECHNIQUE: Grayscale, color Doppler, and pulsed Doppler images of the cervical carotid arteries were obtained. The degree of vessel stenosis is placed in one of the following categories: normal, <50%, 50-69%, >=70% but less than near- occlusion, near-occlusion, or total occlusion. Note that percent stenosis relative to normal distal artery lumen diameter is indirectly measured from velocity measurements as described by Nikko, et al. Radiology 2003; 229:340-346. COMPARISON: None. FINDINGS: RIGHT: The right common carotid artery (CCA) peak systolic velocity (PSV) is 68 cm/s. The right internal carotid artery (ICA) PSV is 81 cm/s. The right ICA end- diastolic velocity (EDV) is 18 cm/s. The right ICA/CCA PSV ratio is 1.2. Grayscale and color Doppler images yield an estimate of <50% diameter reduction from plaque in the ICA. The external carotid artery (ECA) PSV is 95 cm/s. There is antegrade flow in the right vertebral artery. LEFT: The left CCA PSV is 68 cm/s. The left ICA PSV is 91 cm/s. The left ICA EDV is 17 cm/s. The left ICA/CCA PSV ratio is 1.3. Grayscale and color Doppler images yield an estimate of <50% diameter reduction from plaque in the ICA. The ECA PSV is 65 cm/s. There is antegrade flow in the left vertebral artery. IMPRESSION: 1. <50% stenosis in the right internal carotid artery. 2. <50% stenosis in the left internal carotid artery. Reviewed, dictated and finalized at location A.
--- NOTE | ~2025-01-13 | CT_ITS ---
EXAMINATION: CT cervical spine wo con DATE: 01/15/2025 17:43 INDICATION: Fall. Seizure. TECHNIQUE: Computed tomography (CT) of the cervical spine was performed without intravenous contrast. Automated exposure control and iterative reconstruction technique were employed. The dose-length product was 603.35 mGy-cm. COMPARISON: Cervical spine radiographs 12/15/2024 FINDINGS: Alignment is normal. There are compression fractures of T2 and T3 with less than 1/5 loss of height. There is mildly decreased disc height at C2-C3 and C3-C4 and moderately decreased disc height at C4-C5 and C5-C6. There is severely decreased disc height at C6-C7 with interbody fusion. There is intermittent ossification of posterior longitudinal ligament. There is multilevel [id number] facet joint osteoarthritis. 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 There is mild neural foraminal stenosis at multiple levels on either side. On the right, there is moderate neural foraminal stenosis at C4-C5 and C5-C6. On the left, there is moderate neural foraminal stenosis at C3-C4 and C6-C7. There is mild central canal stenosis at C3-C4, C4- C5, C5-C6, and C6-C7. IMPRESSION: 1. Age-indeterminate compression fractures of T2 and T3. 2. Moderate cervical spondylosis. Reviewed, dictated and finalized at location K.
--- NOTE | ~2025-01-13 | XR_ITS ---
EXAMINATION: XR chest 1V, 01/13/2025 11:15 CDT HISTORY: Altered mental status COMPARISON: No comparisons available. Technique: Single view. Findings: The lungs are clear, no effusion. No pneumothorax. Heart is normal size. Mediastinal and hilar contours are within normal limits. Bony thorax no acute abnormality. Impression: No acute cardiopulmonary abnormality. Reviewed, dictated and finalized at location A. Impression: No acute cardiopulmonary abnormality.
--- NOTE | ~2025-01-13 | MR_ITS ---
EXAMINATION: MR brain/brain stem wo con DATE: 01/17/2025 15:34 INDICATION: Mental status changes TECHNIQUE: Magnetic resonance imaging (MRI) of the brain and brainstem was performed without intravenous contrast. Sequences included sagittal and axial T1-weighted SE and axial diffusion-weighted FS SE. Apparent diffusion coefficient (ADC) maps were created. The T2-weighted, FLAIR and SWAN sequences w ere unable to be obtained as patient was unable to tolerate laying flat and terminate the study prior to completion of the planned standard complement of sequences. COMPARISON: Head CT dated 01/14/2025 FINDINGS: There are no areas of restricted diffusion to suggest acute infarction. No intracranial hemorrhage or abnormal intracranial mass lesion. There is scattered T2-weighted signal intensity in the cerebral white matter, predominantly involving the deep and periventricular white matter which is evident on the diffusion-weighted imaging. The ventricles are symmetric and normal in size. There are no abnormal extra-axial fluid collections. Flow voids are seen in the cerebral arteries on the T2-weighted sequences consistent with their expected patency. Changes of bilateral intraocular lens replacement. Visualized orbits and soft tissues are unremarkable. IMPRESSION: 1. Limited study lacking the standard T2-weighted, FLAIR and SWAN sequences due to patient's inability to lay flat for the entirety of the study. 2. No acute infarct or other evident acute intracranial process. 3. Periventricular predominant white matter T2 hyperintensity which within normal limits for age and likely sequela of chronic small vessel ischemic disease. Reviewed, dictated and finalized at location A. IMPRESSION: 1. Limited study lacking the standard T2-weighted, FLAIR and SWAN sequences due to patient's inability to lay flat for the entirety of the study. 2. No acute infarct or other evident acute intracranial process. 3. Periventricular predominant white matter T2 hyperintensity which within norm al limits for age and likely sequela of chronic small vessel ischemic disease.
--- NOTE | ~2025-01-13 | MR_ITS ---
EXAMINATION: MRA brain wo con DATE: 01/18/2025 09:53 INDICATION: Brainstem stroke. TECHNIQUE: Magnetic resonance angiography (MRA) of the brain was performed without intravenous contrast with T1-weighted SPGR by the 3D [id number] technique. Maximum intensity projection 3D-reconstructions were obtained. COMPARISON: Brain MRI 01/17/2025 FINDINGS: Motion artifact is noted. The vertebral arteries are codominant. There is no significant stenosis of basilar artery or the internal carotid arteries. IMPRESSION: 1. No significant stenosis of the vertebrobasilar arteries or the internal carotid arteries. The anterior, middle, and posterior cerebral arteries are obscured by motion artifact. Reviewed, dictated and finalized at location E. IMPRESSION: 1. No significant stenosis of the vertebrobasilar arteries or the internal smith tid arteries. The anterior, middle, and posterior cerebral arteries are obscure d by motion artifact.
--- NOTE | ~2025-01-13 | MR_ITS ---
EXAMINATION: MR brain/brain stem wo/w con DATE: 01/21/2025 14:44 INDICATION: Hemianopsia TECHNIQUE: Magnetic resonance imaging (MRI) of the brain and brainstem was performed without intravenous contrast. Sequences included sagittal and axial T1-weighted SE, axial diffusion-weighted FS SE, axial T2*-weighted GRE, axial T2-weighted FLAIR, and axial T2-weighted FSE. Postcontrast axial, sagittal and coronal T1-weighted SE was obtained. Apparent diffusion coefficient (ADC) maps were created. COMPARISON: 01/17/2025 FINDINGS: There are no areas of restricted diffusion to suggest acute infarction. No intracranial hemorrhage or abnormal intracranial mass lesion. There are scattered areas of nonspecific increased T2-weighted signal intensity in the cerebral white matter, predominantly involving the deep and periventricular whi te matter. There are no intraparenchymal signal abnormalities seen on the other pulse sequences. The ventricles are symmetric and normal in size. There are no abnormal extra-axial fluid collections. Flow voids are seen in the cerebral arteries on the T2-weighted sequences consistent with their expected patency. Changes of bilateral intraocular lens replacement. Visualized orbits and soft tissues are unremarkable. There are no areas of abnormal enhancement on the post contrast images although assessment moderately limited on the postcontrast images by motion artifact on all 3 planes of imaging.. IMPRESSION: 1. Mild periventricular predominant white matter T2 hyperintensity which within normal limits for age and likely sequela of chronic small vessel ischemic disease. No acute intracranial process. Reviewed, dictated and finalized at location A. IMPRESSION: 1. Mild periventricular predominant white matter T2 hyperintensity which within normal limits for age and likely sequela of chronic small vessel ischemic dise ase. No acute intracranial process.
--- NOTE | ~2025-01-13 | CT_ITS ---
EXAMINATION: CT brain wo khadijah, 01/14/2025 8:20 CDT HISTORY: seizures COMPARISON: No comparisons available. Technique: Axial images obtained of the brain without contrast. One or more of the following dose reduction techniques were used: automated exposure control, adjustment of the mA and/or kV according to patient size, use of iterative reconstruction technique. Findings: No acute infarct or parenchymal hemorrhage. No abnormal mass or mass effect. No midline shift. No extra-axial fluid collections. No hydrocephalus. Mastoid air cells unremarkable. Sinuses and orbits unremarkable. No acute fracture. No significant facial or scalp soft tissue swelling evident. No radiopaque foreign body is seen. Impression: 1.No acute intracranial abnormality. Reviewed, dictated and finalized at location A. Impression: 1.No acute intracranial abnormality.
--- OUTSIDE RECORDS SUMMARY | 2025-01-13 10:15 | XMS_ITS | Patient Health Record ---
Author Organization [facility] [employer] Address [address] [address] Care Team Providers Care Order Dispatcher Chief Name Role Phone Torri Turner Primary Care Provider [phone] Reason For Referral No Information Immunizations Vaccine Route Administration Date Status Comme nts [id number] BOOSTER IM Intramuscular 12/17/2021 Administered Pt tolerated injection well [id number] Vaccine IM Intramuscular 06/07/2020 Administered Pt tolerated we ll. [id number] Vaccine IM Intramuscular 07/05/2020 Administered Pt tolerated we ll. [id number] Vaccine IM Intramuscular 01/03/2021 Administered Pt tolerated we ll Social History Social History [facility] Social Info Question Answer Notes Household/Enviromental Risk [...] Coverage End Date [place] [employer] [address] [place], [place] [id number] Pawel Lan Self - patient is the insured [employer] PPO [address] [place], [place] [id number] Pawel Lan Self - patient is the insured 1
--- OUTSIDE RECORDS SUMMARY | 2025-01-13 10:15 | XMS_ITS | Clinical Summary ---
Author Organization [facility] Address [address] [place] [id number] Phone Care Team Providers Care Supervisor Prop Making Name Role Phone Evan Rebolledo DO Primary Care Provider [phone] Allergies Active Allergy Reactions Criticality Noted Date [...] (02/26/2022): Added automatically from request for surgery [id number] Generalized abdominal pain 11/06/2019 Overview (02/26/2022): Added automatically from request for surgery [id number] Immunizations Immunization Administration Dates Next Due Influenza [...] 01/15/2022 Insurance [employer] MED[employer]ARE ADVANTAGE Care Teams Supervisor Prop Making Relationship Specialty Start Date End Date Evan Rebolledo DO [address] [place] [address] PCP - General Internal Medicine 01/22/22
--- OUTSIDE RECORDS SUMMARY | 2025-01-13 10:15 | XMS_ITS | Clinical Summary ---
Author Organization [facility] Address [address] [place] [address] Phone Care Team Providers Care Group Manager Name Role Phone KeshaEvan Kevyn Primary Care [...] 3 Active fluticasone propionate (FLONASE) 50 mcg/spray [place], Suspension nasal inhaler SHAKE LIQUID AND USE 1 SPRAY IN EACH NOSTRIL TWICE DAILY 3 Active Trulicity 4.5 mg/0.5 mL injection 3 Active azelastine (ASTELIN) 137 mcg/actuation nasal spray Administer 1 [place] in each nostril Continuous as needed. 3 [...] (02/24/2022): Added automatically from request for surgery [id number] Diarrhea 11/06/2019 Overview (02/24/2022): Added automatically from request for surgery [id number] Encounters Date Type Department Care Team Description 12/19/2024 External Device Data STL ABSTRACTION Provider, Abstract 12/05/2024 External Device Data STL ABSTRACTION Provider, Abstract 11/23/2024 Telephone [facility] [address] [facility] [address] [place] [address] Aga Domínguez FNP Erroneous encounter-disregard 10/25/2024 10:30 AM CDT Procedure visit [facility] Neu[facility] [address] [facility] [address] [place] [address] Torri Le, HANDY Intractable chronic migraine without aura and without status migrainosus (Primary Dx); Myalgia of auxiliary muscles, head and neck 10/20/2024 Refill [facility] Neu[facility] [address] [facility] [address] [place] [address] Aga Domínguez FNP 10/20/2024 Telephone [facility] Neu[facility] [address] [facility] [address] [place] [address] Tyson De La Cruz MD Med Refill 10/20/2024 Telephone [facility] [address] [facility] [address] [place] [address] Aga Domínguez FNP TPI PHONE CALL 10/17/2024 External Device Data STL ABSTRACTION Provider, Abstract 10/17/2024 Telephone [facility] - [place] [address] [address] [place] [phone] Molina Camacho MD Lab Results 10/16/2024 9:00 AM CDT Procedure visit [facility] [address] [facility] [address] [place] [id number] Torri Le, HANDY Intractable chronic migraine without aura and without status migrainosus (Primary Dx) from Last 3 Months Social History Tobacco [...] Description 01/25/2025 11:45 AM CDT Office Visit [facility] [place] [address] [facility] [address] [place] [address] Molina Camacho MD [address] [facility] [address] [place] [address] 01/26/2025 11:30 AM CDT Procedure visit [facility] Neu[facility] [address] [place] [address] Aga Domínguez FNP [address] [place] [phone] 02/14/2025 3:30 PM CDT Office Visit [facility] Neu[facility] [address] [place] [address] Tyson De La Cruz MD [address] [place] [address] 04/02/2025 1:00 PM SPRAY APPLICATOR Procedure visit [facility] Neu[facility] [address] [place] [address] Torri Le, HANDY [address] [facility] [address] [place] [address] Health Maintenance Due Date Last [...] Procedure Name Priority Date/Time Associated Diagnosis Comments NE INJECTION SINGLE/HOUSEHOLD APPLIANCES SALESPERSON TRIGGER POINT 3/> MUSCLES Routine 10/25/2024 11:12 AM CDT Intractable chronic migraine without aura and without status migrainosus Myalgia of auxiliary muscles, head and neck NE CHEMODERVATE FACIAL/TRIGEM/CERV MUSC MIGRAINE Routine 10/16/2024 9:35 AM CDT Intractable chronic migraine without aura and without status migrainosus from Last 3 Months Results * NE INJECTION SINGLE/HOUSEHOLD APPLIANCES SALESPERSON TRIGGER POINT 3/> MUSCLES (10/25/2024 11:12 AM CDT) Narrative Torri Le NP - 10/25/2024 11:12 AM CDT Torri Le NP 10/25/2024 11:15 AM Procedure Note Patient: Pawel Hawkins / 69 y.o. / male : 1955 Procedure Performed: Trigger Point Injections Date of Service: 10/25/2024 Provider: Torri Le NP MA/DATA ENTRY MACHINE OPERATOR/RN: Evonne Lazar RN BP 130/72 (BP Location: [...] (ex: skin prep was fully dried per agile coach instructions per use) Yes Specimens Removed: None Procedure Details: After informed consent was obtained the patient was given Trigger Point Injections as follows: Procedure, risks, benefits and treatment alternatives were reviewed with patient. After verbal and written consent obtained, using sterile technique the trigger point areas were prepped. Bupivacaine 0.5% (Lot #: [id number]; Expiration: 03/27) was used. The procedure was well tolerated. Muscle # of inj sites Left Total dose left (mg) # of inj sites Right Total dose right (mg) Total dose (mg) Post Anesthesia Care Unit Nurse Procerus Frontalis Temporalis Occipitalis 5 12.5 5 [...] PROCEDURE/MINOR MOSER RGICAL ORDERABLES Final Result * NE CHEMODERVATE FACIAL/TRIGEM/CERV MUSC MIGRAINE (10/16/2024 9:35 AM [...] as follows: OnabotulinumtoxinA-Botox 200 units (lot # [id number] ; expiration 02/26) was reconstituted using 4 ml preservative free saline to a final concentration of 50 units/ml. Using 1 ml syringes with 30 gauge 0.5 inch needles, and aseptic technique, Botox was administered as follows: Muscle # units Right # of inj sites Right # units Left # of inj sites Left Total units Post Anesthesia Care Unit Nurse 5 1 5 1 10 Procerus 5 [...] NP PROCEDURE/MINOR MOSER RGICAL ORDERABLES Final Result from Last 3 Months Insurance [employer] PPO [facility] RX AETNA Medicare Part D [employer] PPO MCR Care Teams Group Manager Relationship Specialty Start Date End Date Evan Rebolledo DO [address] [facility] [address] [place] [address] PCP - General Internal Medicine 01/22/22
--- NOTE | 2025-01-13 10:17 | ED.AMS ---
HPI - Altered Mental Status General Chief Complaint: Altered Mental Status Stated Complaint: AMS Time Seen by Provider: 01/13/25 10:09 Source: EMS Mode of arrival: EMS Limitations: no limitations History of Present Illness HPI narrative: Patient came from home by ambulance, unable to tell me why, confused, oriented to his name only restless telling me unable to sleep, eating or drinking for unknown time. Currently patient denying any pain, headache, chest pain, shortness of breath, back pain or abdominal pain Related Data Home Medications ?Medication ?Instructions ?Recorded ?Confirmed ?Last Taken ?Type ferrous sulfate 325 mg (65 mg 325 mg PO DAILY 03/23/19 12/07/24 05/21/19 History iron) tablet (Feosol) ketoconazole 2 % topical cream 1 applic topical DAILY 04/17/20 12/07/24 Unknown History triamcinolone acetonide 0.025 % 1 applic topical DAILY 04/17/20 12/07/24 Unknown History topical cream vitamin B complex (B 1 tablet PO DAILY 04/17/20 12/07/24 Unknown History Complex-Vitamin B12 tablet) calcium carbonate (Calcium 500) 500 mg PO DAILY 09/26/20 12/07/24 Unknown History valacyclovir 500 mg tablet 500 mg PO BID 04/15/23 12/07/24 Unknown History mupirocin 2 % topical ointment 1 applic topical BID 05/19/23 12/07/24 Unknown History Allergies Allergy/AdvReac Type Severity Reaction Status Date / Time prednisone Allergy Severe Anaphylaxis Verified 01/13/25 07:55 Review of Systems Review of Systems: All systems reviewed & are unremarkable except as noted in HPI and below PMFSH Past Medical History Medical History Hypogonadism in male Fibromyalgia Morbid obesity with BMI of 40.0-44.9, adult Cardiomyopathy History of transfusion Asthma Generalized pain Edema Hyperlipidemia Cellulitis of right lower extremity Herpes zoster infection of oral mucosa Anemia Depression Gout Seasonal allergies Osteoarthritis CKD (chronic kidney disease) Dyslipidemia Hypertension Diabetes mellitus Surgical History Surgical History Status post laparoscopic cholecystectomy 05/22/2019 History of carpal tunnel release Hx of gastric bypass Family History Family History Father Diabetes mellitus Asthma Family history of coronary artery disease Mother FH: ovarian cancer in first degree relative Social History Social History Social History: Caffeine- tea occasionally Smoking status: Never smoker Alcohol intake: never Substance use: never Substance use type: does not use Do You Feel Safe in your Home?: Yes Lack of Transportation: No Lack of Food: Never True Current Housing: I Have Housing Concerned About Future Housing: No Difficulty Paying Gas/Electric Bills: No Difficulty Paying for Meds: No Currently Unemployed: No Education: Master's Degree or Higher Difficulty w/ Childcare or Family Care: No Living arrangements: with family Gender identity (if verbalized by the patient): Male Spiritual care concerns: No Exam Narrative: General appearance: Well-developed, well-nourished, restless Skin: Normal color Head: Normocephalic, nontraumatic Eyes: Clear conjunctiva gazing to the right ENT: Oropharynx normal, ears normal, nose normal Neck: Supple, nontender Chest and respiratory: Airway patent, no respiratory distress, no accessory muscle use Heart: Regular rate/rhythm Abdomen: Soft, nontender, no organomegaly, quiet bowel sounds Vascular: Normal peripheral pulses, normal capillary refill. Musculoskeletal: Normal range of motion, nontender back Neurologic: Alert and oriented to his name only Course Vital Signs Vital signs: Vital Signs Temperature 36.7 C 01/13/25 07:35 Pulse Rate 90 01/13/25 07:35 Respiratory Rate 22 H 01/13/25 07:35 Blood Pressure 148/82 H 01/13/25 07:35 Pulse Oximetry 100 01/13/25 07:35 Oxygen Delivery Room Air 01/13/25 07:35 Temperature 36.7 C 01/13/25 07:54 Pulse Rate 93 01/13/25 12:34 Respiratory Rate 12 01/13/25 12:34 Blood Pressure 174/84 H 01/13/25 12:34 Pulse Oximetry 100 01/13/25 12:34 Oxygen Delivery Room Air 01/13/25 07:35 MDM - Altered Mental Status MDM Narrative Medical decision making narrative: Patient presents to the ED with unknown reason, Vital signs are stable Physical examination showing that the patient is awake, oriented to his name only, restless Differential diagnosis altered mental status, metabolic encephalopathy, electrolyte imbalance, dehydration, CVA, urinary tract infection Blood workup today includes CBC, CMP, troponin, CPK, TSH showed creatinine 1.7 glucose 426 CPK 396, beta hydroxybutyrate 2.1 which could be secondary to fasting and starvation, stress, metabolic disorder Chest x-ray showed no acute abnormality CT scan of the head showed no acute abnormality Urinalysis showed no evidence of infection Diagnosis: Altered mental status, diabetic hyperglycemia, noncompliance with medication, dehydration, failure to thrive Admit to hospitalist Differential Diagnosis Differential diagnosis: Likely other (As above) Medical Records Attestation: I reviewed the patient's medical records. Lab Data Attestation: I reviewed the patient's lab results. 01/13/25 10:43 01/13/25 10:43 Labs: Lab Results 01/13/25 01/13/25 01/13/25 Range/Units 10:43 10:44 12:34 WBC 7.7 (4.5-10.0) K/mm3 RBC 3.83 L (4.6-6.20) M/mm3 Hgb 12.5 L (14.0-18.0) g/dL Hct 37.0 L (42.0-52.0) % MCV 96.6 (80-100) fl MCH 32.6 (26-34) pg MCHC 33.8 (32-36) g/dl RDW 13.7 (11.5-14.5) % Plt Count 170 (150-375) k/mm3 MPV 10.6 H (7.4-10.4) fl Immature Gran % (Auto) 0.4 (0-0.5) % Neut % (Auto) 78.9 H (45.5-73.1) % Lymph % (Auto) 12.3 L (18.3-44.2) % Shannon % (Auto) 7.2 (2.6-8.5) % Eos % (Auto) 0.9 (0-4.4) % Baso % (Auto) 0.3 (0.2-1.2) % Lymph # (Auto) 0.94 (0.9-3.2) K/mm3 Shannon # (Auto) 0.6 (0.1-0.6) K/mm3 Eos # (Auto) 0.1 (0-0.3) K/mm3 Baso # (Auto) 0.0 (0.0-0.1) K/mm3 Abs Immat Gran (auto) 0.03 (0.00-0.031) K/mm3 Absolute Neuts (auto) 6.1 (1.3-6.7) K/mm3 Absolute Nucleated RBC 0.000 (0.0-0.012) K/mm3 Nucleated RBC % 0.0 (0.0-0.2) % PT 13.5 (11.1-14.7) Seconds INR 1.0 APTT 27.4 (22.3-36.8) Seconds Sodium 135 L (137-145) mmol/L Potassium 3.8 (3.4-5.0) mmol/L Chloride 102 (98-107) mmol/L Carbon Dioxide 20 L (22-30) mmol/L Anion Gap 13 H (4-12) mmol/L BUN 28 H (9-20) mg/dL Creatinine 1.71 H (0.7-1.3) mg/dL Estim Creat Clear Calc 42 ml/min Estimated GFR 40 L (59 - ) Glucose 426 H (65-110) mg/dL POC Capillary Glucose (65-105) mg/dl Calcium 9.2 (8.4-10.2) mg/dL Phosphorus 3.6 (2.5-4.5) mg/dL Magnesium 2.0 (1.6-2.3) mg/dL Total Bilirubin 0.7 (0.2-1.3) mg/dL AST 43 (17-59) U/L ALT 41 (6-50) U/L Alkaline Phosphatase 160 H (38-126) U/L Total Creatine Kinase 396 H (55-170) U/L Troponin I 0.018 (0.000-0.034) ng/mL Total Protein 7.0 (6.3-8.2) g/dL Albumin 3.9 (3.5-5.1) g/dL Beta-Hydroxybutyrate/Acetoacetate 2.14 H (0.02-0.27) mmol/L TSH 1.160 (0.465-4.680) uIU/mL Urine Opiates Screen Negative (Negative) Urine Methadone Screen Negative (Negative) Ur Barbiturates Screen Negative (Negative) Ur Phencyclidine Scrn Negative (Negative) Ur Amphetamine Screen Negative (Negative) U Benzodiazepines Scrn Negative (Negative) Urine Cocaine Screen Negative (Negative) U Cannabinoids Screen Negative (Negative) Ethyl Alcohol < 10 (<10) mg/dL 01/13/25 01/13/25 Range/Units 12:37 13:13 WBC (4.5-10.0) K/mm3 RBC (4.6-6.20) M/mm3 Hgb (14.0-18.0) g/dL Hct (42.0-52.0) % MCV (80-100) fl MCH (26-34) pg MCHC (32-36) g/dl RDW (11.5-14.5) % Plt Count (150-375) k/mm3 MPV (7.4-10.4) fl Immature Gran % (Auto) (0-0.5) % Neut % (Auto) (45.5-73.1) % Lymph % (Auto) (18.3-44.2) % Shannon % (Auto) (2.6-8.5) % Eos % (Auto) (0-4.4) % Baso % (Auto) (0.2-1.2) % Lymph # (Auto) (0.9-3.2) K/mm3 [place] # (Auto) (0.1-0.6) K/mm3 Eos # (Auto) (0-0.3) K/mm3 Baso # (Auto) (0.0-0.1) K/mm3 Abs Immat Gran (auto) (0.00-0.031) K/mm3 Absolute Neuts (auto) (1.3-6.7) K/mm3 Absolute Nucleated RBC (0.0-0.012) K/mm3 Nucleated RBC % (0.0-0.2) % PT (11.1-14.7) Seconds INR APTT (22.3-36.8) Seconds Sodium (137-145) mmol/L Potassium (3.4-5.0) mmol/L Chloride (98-107) mmol/L Carbon Dioxide (22-30) mmol/L Anion Gap (4-12) mmol/L BUN (9-20) mg/dL Creatinine (0.7-1.3) mg/dL Estim Creat Clear Calc ml/min Estimated GFR (59 - ) Glucose (65-110) mg/dL POC Capillary Glucose 459 H 358 H (65-105) mg/dl Calcium (8.4-10.2) mg/dL Phosphorus (2.5-4.5) mg/dL Magnesium (1.6-2.3) mg/dL Total Bilirubin (0.2-1.3) mg/dL AST (17-59) U/L ALT (6-50) U/L Alkaline Phosphatase (38-126) U/L Total Creatine Kinase (55-170) U/L Troponin I (0.000-0.034) ng/mL Total Protein (6.3-8.2) g/dL Albumin (3.5-5.1) g/dL Beta-Hydroxybutyrate/Acetoacetate (0.02-0.27) mmol/L TSH (0.465-4.680) uIU/mL Urine Opiates Screen (Negative) Urine Methadone Screen (Negative) Ur Barbiturates Screen (Negative) Ur Phencyclidine Scrn (Negative) Ur Amphetamine Screen (Negative) U Benzodiazepines Scrn (Negative) Urine Cocaine Screen (Negative) U Cannabinoids Screen (Negative) Ethyl Alcohol (<10) mg/dL ABG Data ABG results: 01/13/25 12:51 Puncture Site Left brachial ABG pH 7.393 ABG pCO2 32.2 L ABG pO2 80.8 ABG PO2/FiO2 Ratio 3.85 ABG HCO3 19.2 L ABG O2 Saturation 96.0 ABG O2 Content 16.2 ABG Base Excess -4.8 A-a Gradient 30.4 Oxyhemoglobin 93.4 Total Hemoglobin 12.3 O2 Delivery Device Room air O2 Liters/Min 0.0 FiO2 21 Imaging Data Radiologist's impression: Impressions Head CT 01/13/25 11:29 Impression: 1.No acute intracranial abnormality. Chest X-Ray 01/13/25 12:31 Impression: No acute cardiopulmonary abnormality. ECG Data EKG #1: Attestation: I personally reviewed and interpreted this ECG as follows: ECG completion date: 01/13/25 Interpretation: Normal sinus rhythm at 98 beats per minute, possible anterior myocardial infarction of indeterminate age, abnormal EKG, compared to EKG yesterday first-degree AV block now present, left axis deviation now present, myocardial infarction finding now present Discharge Plan Discharge Clinical Impression: Hyperglycemia due to diabetes mellitus, Rhabdomyolysis Altered mental status Qualifiers: Altered mental status type: disorientation Qualified Code(s): R41.0 - Disorientation, unspecified Patient Disposition: Still a Patient Condition: Guarded Prognosis Patient Language: Pashto Prescriptions: No Action valacyclovir 500 mg tablet 500 mg PO BID ferrous sulfate [Feosol] 325 mg (65 mg iron) tablet 325 mg PO DAILY triamcinolone acetonide 0.025 % cream 1 applic topical DAILY ketoconazole 2 % cream 1 applic topical DAILY vitamin B complex [B Complex-Vitamin B12] Tablet 1 tablet PO DAILY calcium carbonate [Calcium 500] 500 mg calcium (1,250 mg) tablet 500 mg PO DAILY mupirocin 2 % ointment 1 applic topical BID nystatin 100,000 unit/gram ointment 1 applic topical BID Qty: 30 0RF furosemide 20 mg tablet See Rx Instructions .ROUTE .COMPLEX Qty: 270 1RF Dose Instruction: TAKE 2 TABLETS BY MOUTH EVERY MORNING AND 1 TABLET DAILY AT NIGHT Rx Instructions: TAKE 2 TABLETS BY MOUTH EVERY MORNING AND 1 TABLET DAILY AT NIGHT albuterol sulfate 90 mcg/actuation HFA aerosol inhaler 2 puff inhalation Q4-6H PRN (Reason: shortness of breath or wheezing) Qty: 8.5 1RF allopurinol 300 mg tablet See Rx Instructions .ROUTE .COMPLEX Qty: 90 1RF Dose Instruction: TAKE 1 TABLET BY MOUTH DAILY Rx Instructions: TAKE 1 TABLET BY MOUTH DAILY acetaminophen [Tylenol Extra Strength] 500 mg tablet 1,000 mg PO Q6H PRN (Reason: pain) Qty: 50 0RF (DME) blood-glucose meter Misc See Rx Instructions .Route Qty: 1 0RF Rx Instructions: Use to test BS once daily (DME) Blood Glucose Test Strip See Rx Instructions .Route Qty: 50 3RF Rx Instructions: Use to check BS once daily (DME) lancets-blood glucose strips 30 gauge combo pack See Rx Instructions .Route Qty: 200 2RF Rx Instructions: Use to check BS once daily lisinopril 40 mg tablet 80 mg PO DAILY Qty: 90 3RF azelastine 137 mcg (0.1 %) spray,non-aerosol 137 mcg intranasal Q12H Qty: 90 1RF Rx Instructions: administer into each nostril atorvastatin 20 mg tablet See Rx Instructions .ROUTE .COMPLEX Qty: 90 1RF Dose Instruction: TAKE 1 TABLET BY MOUTH DAILY Rx Instructions: TAKE 1 TABLET BY MOUTH DAILY. sertraline 100 mg tablet See Rx Instructions .ROUTE .COMPLEX Qty: 180 0RF Dose Instruction: TAKE 1 TABLET BY MOUTH TWICE DAILY Rx Instructions: TAKE 1 TABLET BY MOUTH TWICE DAILY metformin 500 mg tablet 1,000 mg PO BID Qty: 360 1RF buspirone 10 mg tablet See Rx Instructions .ROUTE .COMPLEX Qty: 180 1RF Dose Instruction: TAKE 1 TABLET BY MOUTH TWICE DAILY Rx Instructions: TAKE 1 TABLET BY MOUTH TWICE DAILY metoprolol succinate 25 mg tablet extended release 24 hr 25 mg PO DAILY Qty: 90 1RF montelukast [Singulair] 10 mg tablet 10 mg PO DAILY Qty: 90 1RF magnesium oxide 400 mg (241.3 mg magnesium) tablet See Rx Instructions .ROUTE .COMPLEX Qty: 90 1RF Dose Instruction: TAKE 1 TABLET BY MOUTH DAILY Rx Instructions: TAKE 1 TABLET BY MOUTH DAILY trazodone 100 mg tablet See Rx Instructions .ROUTE .COMPLEX Qty: 180 1RF Dose Instruction: TAKE 2 TABLETS BY MOUTH EVERY DAY AT BEDTIME Rx Instructions: TAKE 2 TABLETS BY MOUTH EVERY DAY AT BEDTIME fluticasone propionate 50 mcg/actuation spray,suspension See Rx Instructions .ROUTE .COMPLEX Qty: 48 1RF Dose Instruction: SHAKE LIQUID AND USE 1 SPRAY IN EACH NOSTRIL TWICE DAILY Rx Instructions: SHAKE LIQUID AND USE 1 SPRAY IN EACH NOSTRIL TWICE DAILY Ozempic 0.25 mg or 0.5 mg (2 mg/3 mL) pen injector 0.5 mg subcut WEEKLY Qty: 3 0RF Rx Instructions: for 4 weeks Follow-up/Referrals: Evan Rebolledo DO [Primary Care Provider, Internal Medicine]
--- NOTE | 2025-01-13 10:35 | ECG_ITS ---
Test Date: 2025-01-13 10:45:28 Measurements Intervals Mckee Rate: 98 P: 50 AR: 214 QRS: -34 QRSD: 90 T: 74 QT: 443 QTc: 567 Interpretive Statements SINUS RHYTHM WITH FIRST DEGREE AV BLOCK LEFT AXIS DEVIATION [QRS AXIS < -30] POSSIBLE ANTERIOR MYOCARDIAL INFARCTION , OF INDETERMINATE AGE [30 ms Q WAVE IN V3/V4, OR R < 0.2 mV IN V4] ABNORMAL ECG Compared to ECG 01/12/2025 11:09:00 First degree AV block now present Left-axis deviation now present Myocardial infarct finding now present Electronically Signed On 01-13-2025 12:34:06 CDT by Eduard Breen M.D.
[2025-01-13 10:50] LABS: Hematocrit 37.0 % (42.0-52.0); Hemoglobin 12.5 g/dL (14.0-18.0); Immature Granulocyte Percent A 0.4 % (0-0.5); Lymphocytes Absolute Auto 0.94 K/mm3 (0.9-3.2); Mean Corpuscular HGB Conc 33.8 g/dl (32-36); Mean Corpuscular Hemoglobin 32.6 pg (26-34); Mean Corpuscular Volume 96.6 fl (80-100); Nucleated Red Blood Cells Absolute Auto 0.000 K/mm3 (0.0-0.012); Nucleated Red Blood Cells Perc 0.0 % (0.0-0.2); Platelet Count Result 170 k/mm3 (150-375); Red Blood Count 3.83 M/mm3 (4.6-6.20); White Blood Count 7.7 K/mm3 (4.5-10.0)
[2025-01-13 11:03] LABS: INR 1.0; Prothrombin Time 13.5 Seconds (11.1-14.7)
[2025-01-13 11:04] LABS: Partial Thromboplastin Time 27.4 Seconds (22.3-36.8)
[2025-01-13 11:05] LABS: Alanine Aminotransferase 41 U/L (6-50); Albumin Level 3.9 g/dL (3.5-5.1); Alkaline Phosphatase 160 U/L (38-126); Anion Gap 13 mmol/L (4-12); Aspartate Amino Transferase 43 U/L (17-59); Bilirubin,Total 0.7 mg/dL (0.2-1.3); Blood Urea Nitrogen 28 mg/dL (9-20); Calcium 9.2 mg/dL (8.4-10.2); Carbon Dioxide 20 mmol/L (22-30); Chloride 102 mmol/L (98-107); Creatine Kinase 396 U/L (55-170); Estimated CRCL calculation 42 ml/min; Estimated Glomerular Filt Rate 40; Glucose 426 mg/dL (65-110); Potassium 3.8 mmol/L (3.4-5.0); Sodium 135 mmol/L (137-145); Total Protein 7.0 g/dL (6.3-8.2)
[2025-01-13 11:12] LABS: Cannabinoid Screen Urine Negative (Negative)
[2025-01-13 11:16] LABS: Troponin I 0.018 ng/mL (0.000-0.034)
[2025-01-13 11:34] LABS: Thyroid Stimulating Hormone 1.160 uIU/mL (0.465-4.680)
[2025-01-13] MEDS: SODIUM CHLORIDE 0.9% IV 1,000 ML 999 ML IV CONT ×2 (12:38→12:39)
[2025-01-13] MEDS: INSULIN HUMAN REGULAR (*BKC) 100 UNITS/ML 16 UNITS IV PUSH (12:39)
[2025-01-13 12:57] LABS: Alveolar/Arterial O2 Gradient 30.4 mmHg; Fractional Inspired Oxygen 21 %; HCO3 ABG 19.2 mEq/l (22.0-26.0); Oxygen Content ABG 16.2 %vol (16.0-22.0); Oxygen Saturation ABG 96.0 % (95.0-100.0); PCO2 ABG 32.2 mmHg (35.0-45.0); PO2 ABG 80.8 mmHg (80.0-100.0); PO2 FiO2 Ratio Arterial Blood 3.85 %
[2025-01-13 12:58] LABS: Beta-Hydroxybutyrate/Acetoace. 2.14 mmol/L (0.02-0.27)
[2025-01-13 12:59] LABS: Liters per Minute 0.0 LPM; Site Drawn LEFT BRACHIAL
[2025-01-13 13:07] LABS: Magnesium 2.0 mg/dL (1.6-2.3)
--- NOTE | 2025-01-13 14:01 | PM.IMHP ---
H&P: HPI History of Present Illness Date/Time: 01/13/25 14:01 Chief Complaint: Altered Mental Status Narrative: 69 y/o M with PMH of fibromyalgia, hypogonadism, cardiomyopathy, asthma, hyperlipidemia, anemia at by depression, gout, CKD, and diabetes presents here with altered mental status. The patient presents here from home via EMS on 01/13 for further evaluation of altered mental status. HPI obtained through chart review, ED provider report, and patient report. Per ED provider, upon arrival to the emergency department he was unable to explain why a he called 911 and was seeking care today. He patient was A&O x1 and restless. Per chart review, the patient has sought care in the emergency department on 01/11 and 01/12. On 01/11 he presented with altered mental status and dizziness. He reported at that time was difficult for him to ambulate and that he was experiencing issues with memory loss, word-finding difficulty, and hyperglycemia (glucose greater than 500 at home). At the time he reported he lived in assisted living? At that time memory recall her deficits were noted but neuro exam was nonfocal. He was encouraged to follow-up with his PCP on Wednesday and was discharged home. He then returned on 01/12 for visual changes, mild frontal headache, and waking up with a flat affect. At that time he reported he had not taken his antihypertensive medications for 2 days. He was given anxiolytics, insulin, and his home antihypertensive medications. Migraine resolved, blood pressure improved, and patient felt overall better and was discharged home. Today he is is reporting that the symptoms had started approximately 8 days before he was initially evaluated on 01/11. He reports word-finding difficulty, dizziness, and behavioral changes. He is having difficulty articulating the behavioral changes, but reports new fears and possible visual hallucinations/out of body sensation? He denies focal weakness or focal numbness. Initial VS at presentation: 98.1? F, HR 90, R 22, 148/82, and 100% on RA. ED workup showed: No leukocytosis, hemoglobin 12.5 (12 on 01/12), normal coags, sodium 135, creatinine 1.71 and GFR 40 (1.78 and GFR 38 on 12/15), glucose 426, gap 13, beta hydroxy 2.14 and TSH within normal limits. UDS negative. UA from 01/12 showed 3+ protein/3+ glucose/1+ ketones/1+ blood otherwise unremarkable. Head CT showed no acute intracranial abnormality. CXR showed no acute cardiopulmonary abnormality. EKG shows sinus rhythm with first-degree AV block, left axis deviation, possible anterior VA of indeterminate age. Review of Systems Review of Systems: All systems reviewed & are unremarkable except as noted in HPI and below (Limited, patient having difficulty articulating) [facility] Past Medical History Medical History (Updated 01/13/25 @ 16:40 by Shelbie Severino MD) Cerebral vascular accident Hypogonadism in male Fibromyalgia Morbid obesity with BMI of 40.0-44.9, adult Cardiomyopathy History of transfusion Asthma Generalized pain Edema Hyperlipidemia Cellulitis of right lower extremity Herpes zoster infection of oral mucosa Anemia Depression Gout Seasonal allergies Osteoarthritis CKD (chronic kidney disease) Dyslipidemia Hypertension Diabetes mellitus Surgical History Surgical History Status post laparoscopic cholecystectomy 05/22/2019 History of carpal tunnel release Hx of gastric bypass Family History Family History Father Diabetes mellitus Asthma Family history of coronary artery disease Mother FH: ovarian cancer in first degree relative Social History Social History Social History: Caffeine- tea occasionally Smoking status: Never smoker Alcohol intake: never Substance use: never Substance use type: does not use Do You Feel Safe in your Home?: Yes Lack of Transportation: No Lack of Food: Never True Current Housing: I Have Housing Concerned About Future Housing: No Difficulty Paying Gas/Electric Bills: No Difficulty Paying for Meds: No Currently Unemployed: No Education: Master's Degree or Higher Difficulty w/ Childcare or Family Care: No Living arrangements: with family Gender identity (if verbalized by the patient): Male Spiritual care concerns: No Meds Home Medications and Allergies Home Medications ?Medication ?Instructions ?Recorded ?Confirmed ?Type ferrous sulfate 325 mg (65 mg 325 mg PO DAILY 03/23/19 01/13/25 History iron) tablet (Feosol) ketoconazole 2 % topical cream 1 applic topical DAILY 04/17/20 01/13/25 History triamcinolone acetonide 0.025 % 1 applic topical DAILY 04/17/20 01/13/25 History topical cream vitamin B complex (B 1 tablet PO DAILY 04/17/20 01/13/25 History Complex-Vitamin B12 tablet) calcium carbonate (Calcium 500) 500 mg PO DAILY 09/26/20 01/13/25 History blood sugar diagnostic (Blood #50 ea 03/03/22 01/13/25 Rx Glucose Test strips) blood-glucose meter #1 ea 03/03/22 01/13/25 Rx lancets 30 gauge and blood glucose #200 ea 03/03/22 01/13/25 Rx strips combo pack valacyclovir 500 mg tablet 500 mg PO BID 04/15/23 01/13/25 History mupirocin 2 % topical ointment 1 applic topical BID 05/19/23 01/13/25 History lisinopril 40 mg tablet 80 mg (2 x 40 mg) PO DAILY #90 tabs 12/01/23 01/13/25 Rx acetaminophen 500 mg tablet 1,000 mg (2 x 500 mg) PO Q6H PRN 01/06/24 01/13/25 Rx (Tylenol Extra Strength) pain #50 tabs azelastine 137 mcg (0.1 %) nasal 137 mcg (0.137 mL) intranasal Q12H 03/16/24 01/13/25 Rx spray #90 mL atorvastatin 20 mg tablet See Rx Instructions .Route 06/19/24 01/13/25 Rx .COMPLEX #90 tabs sertraline 100 mg tablet See Rx Instructions .Route 06/26/24 01/13/25 Rx .COMPLEX #180 tabs metformin 500 mg tablet 1,000 mg (2 x 500 mg) PO BID #360 08/10/24 01/13/25 Rx tabs buspirone 10 mg tablet See Rx Instructions .Route 09/26/24 01/13/25 Rx .COMPLEX #180 tabs metoprolol succinate 25 mg 25 mg PO DAILY #90 tabs 09/28/24 01/13/25 Rx tablet,extended release 24 hr montelukast 10 mg tablet 10 mg PO DAILY #90 tabs 09/29/24 01/13/25 Rx (Singulair) furosemide 20 mg tablet See Rx Instructions .Route 10/06/24 01/13/25 Rx .COMPLEX #270 tabs magnesium oxide 400 mg (241.3 mg See Rx Instructions .Route 10/11/24 01/13/25 Rx magnesium) tablet .COMPLEX #90 tabs trazodone 100 mg tablet See Rx Instructions .Route 10/31/24 01/13/25 Rx .COMPLEX #180 tabs fluticasone propionate 50 See Rx Instructions .Route 11/02/24 01/13/25 Rx mcg/actuation nasal .COMPLEX #48 grams spray,suspension albuterol sulfate 90 mcg/actuation 2 puff inhalation Q4-6H PRN 11/28/24 01/13/25 Rx aerosol inhaler shortness of breath or wheezing #8.5 grams allopurinol 300 mg tablet See Rx Instructions .Route 11/28/24 01/13/25 Rx .COMPLEX #90 tabs semaglutide 0.25 mg or 0.5 mg (2 0.5 mg (0.736 mL) subcut WEEKLY #3 01/09/25 01/13/25 Rx mg/3 mL) subcutaneous pen injector mL (Ozempic) Allergies Allergy/AdvReac Type Severity Reaction Status Date / Time prednisone Allergy Severe Anaphylaxis Verified 01/13/25 07:55 Vital Signs Vital Signs - 24 hr 01/13/25 07:35 01/13/25 07:54 01/13/25 07:54 Temperature 98.1 F 98.1 F Pulse Rate 90 93 88 Respiratory Rate 22 H 17 Blood Pressure 148/82 H 164/85 H Pulse Oximetry 100 100 Oxygen Delivery Room Air 01/13/25 12:34 Temperature Pulse Rate 93 Respiratory Rate 12 Blood Pressure 174/84 H Pulse Oximetry 100 Oxygen Delivery Exam Const: General: comfortable and no acute distress Other: , male, elderly, nontoxic appearance HENMT: Face/Nose/Sinus: Normal nares present Mouth: Yes moist mucous membranes Eyes: General: appearance normal, both eyes and all related structures Sclera: sclerae normal Pupils: Equal, round and reactive pupils present EOM: EOMs intact bilaterally Resp: Effort & Inspection: normal respiratory effort Auscultation: clear to auscultation bilaterally Cardio: Rate: regular rate Rhythm: regular rhythm Other: S1-S2 present without murmur, rub, ectopy GI: Other: Abdomen soft, nondistended, nontender. Normoactive bowel sounds in all quadrants. Skin: General skin exam: normal color and no rashes or lesions noted Wounds: no wounds Neuro: Speech: normal speech Sensory Exam: normal sensation Other: Patient is A&O x3 and is able to answer orientation questions however easily confused and difficulty with explaining history. No facial droop. Able to follow one-step commands, however has difficulty with 2 step commands. Significant word-finding difficulty and difficulty with articulation. No obvious dysarthria. +right homonymous hemianopsia. No sensory deficits. Extrem: General: normal to inspection Psych: Mental Status: mental status grossly normal Affect: normal affect Other: Fair insight and judgment at present, very pleasant H&P: Results Labs Labs: Short CBC 01/13/25 Range/Units 10:43 WBC 7.7 (4.5-10.0) K/mm3 Hgb 12.5 L (14.0-18.0) g/dL Hct 37.0 L (42.0-52.0) % Plt Count 170 (150-375) k/mm3 BMP 01/13/25 10:43 Sodium 135 L Potassium 3.8 Chloride 102 Carbon Dioxide 20 L BUN 28 H Creatinine 1.71 H Glucose 426 H Calcium 9.2 Cardiac Enzymes 01/13/25 Range/Units 10:43 Total Creatine Kinase 396 H (55-170) U/L Troponin I 0.018 (0.000-0.034) ng/mL Liver Function 01/13/25 Range/Units 10:43 Total Bilirubin 0.7 (0.2-1.3) mg/dL AST 43 (17-59) U/L ALT 41 (6-50) U/L Alkaline Phosphatase 160 H (38-126) U/L Albumin 3.9 (3.5-5.1) g/dL Assessment and Plan Assessment and plan (1) Altered mental status: Qualifiers: Altered mental status type: disorientation Qualified Code(s): R41.0 - Disorientation, unspecified Code(s): R41.82 - Altered mental status, unspecified Status: Acute Assessment and Plan: Her last known well [id number], on original presentation on 01/11. Significant word-finding difficulty noted, confusion, and reported behavioral changes by patient. Symptoms concerning for stroke. Patient significantly out of the window for thrombolytics or thrombectomy. - head CT from 01/11 in 01/13 were unremarkable - CXR, UDS, UA were unremarkable. CO2 20 on BMP. No significant electrolyte derangements. - per previous documentation, patient reported his last known well was 3 days prior to 01/11 - check MRI - neurology consulted >> recommended MRI, MR Angiography of the head/neck, EEG, carotid Doppler, and starting anti-platelet/statin now (patient is on atorvastatin 20 mg daily, increase to 40 mg daily). Additional lab work ordered. - neurochecks Q4H - check TSH, echo, lipid panel, B12, vitamin-D, folate (2) Diabetes mellitus: Qualifiers: Chronic kidney disease stage: unspecified stage Diabetes mellitus complication detail: with chronic kidney disease Diabetes mellitus complication status: with kidney complications Diabetes mellitus fpc insulin use: without fpc use Diabetes mellitus type: type 2 Qualified Code(s): E11.22 - Type 2 diabetes mellitus with diabetic chronic kidney disease Code(s): E11.9 - Type 2 diabetes mellitus without complications Status: Acute Assessment and Plan: Initial glucose 426, gap 13, however CO2 28 and beta hydroxy 2.14. Given 2L of fluid in the ED, will recheck BMP this evening. - hypoglycemia protocol - POC blood glucose ACHS - home medication: Hold metformin in case of need for contrast and Ozempic (NF) - correct regimen ordered - high dose TIDWM and HS, based off BMI - A1C 8.5% on 12/15/2024 - consider adaptive physical educator consultation once alteration improved (3) CKD (chronic kidney disease): Qualifiers: Chronic kidney disease stage: stage 1 Qualified Code(s): N18.1 - Chronic kidney disease, stage 1 Code(s): N18.9 - Chronic kidney disease, unspecified Status: Chronic Assessment and Plan: - creatinine 1.71, BUN 28, and GFR 40 upon admission - creatinine has ranged between 1.49 and 1.86 in 202, more recently 1.6-1.8 - trend renal function - trend electrolytes, correct as needed (4) Hypertension: Qualifiers: Hypertension type: primary hypertension Qualified Code(s): I10 - Essential (primary) hypertension Code(s): I10 - Essential (primary) hypertension Status: Acute Assessment and Plan: - chronic, currently 174/84 - continue home medications: Metoprolol, Lasix, lisinopril - monitor (5) Hyperlipidemia: Qualifiers: Hyperlipidemia type: mixed hyperlipidemia Qualified Code(s): E78.2 - Mixed hyperlipidemia Code(s): E78.5 - Hyperlipidemia, unspecified Status: Acute Assessment and Plan: - atorvastatin increased from 20 mg daily to 40 mg daily due to concern for stroke Plan Diet: diabetic GI Prophylaxis: n/a DVT Prophylaxis: lovenox SQ IV fluids: 2L bolus -> 150 mL/hr Lines/Tubes: Peripheral IV Code Status: Full code Quality VTE Prophylaxis VTE prophylaxis: pharmacologic ordered Hospitalist MIPS Advance Care Plan I have confirmed that the patient's Advanced Care Plan is present, code status is documented, or surrogate decision maker is listed in patient medical record.: Yes Medication Reconciliation I have utilized all available resources to obtain, update and review the patients current medications (includes all prescriptions, OTC, herbals, cannabis, and nutritional supplements).: Yes
--- NOTE | 2025-01-13 16:32 | P.CONNEU_ITS ---
Assessment and Plan Assessment and plan (1) Cerebral vascular accident: Code(s): I63.9 - Cerebral infarction, unspecified Status: Acute (2) Diabetes mellitus: Qualifiers: Diabetes mellitus type: type 2 Diabetes mellitus assisted insulin use: without termite control servicer use Diabetes mellitus complication status: with kidney complications Diabetes mellitus complication detail: with chronic kidney disease Chronic kidney disease stage: unspecified stage Qualified Code(s): E 11.22 - Type 2 diabetes mellitus with diabetic chronic kidney disease Code(s): E11.9 - Type 2 diabetes mellitus without complications Status: Acute (3) Stage 3b chronic kidney disease: Code(s): N18.32 - Chronic kidney disease, stage 3b Status: Acute Plan on examination the patient appears to have a right homonymous hemianopsia but is overtly very anxious about something in the right visual field that seems to bother him. He perceives that as a visual hallucinations. I do not find any other significant focal deficit but he has difficulty finding the words and also keeping with balance while walking. Since he is diabetic and small vessel disease affecting right occipital temporal area versus brainstem disease would be in the differential diagnosis. Other possibility will be intermittent transient ischemic attack in the distribution of these vessels versus a epileptiform abnormality of some sort. We do not have a clear which of for these at this time. Would like to suggest MRI of the brain, MR angiography of the head and neck, EEG, carotid Doppler study and keep him with antiplatelets and statin for now. We should also check his blood level for vitamin B12, B1, B6, methylmalonic acid level and lipid profile. I shall see him for follow-up with results of these. I reviewed the CT scan of brain and I agree that this does not show any acute abnormalities. Consult date: 01/13/25 HPI: Pawel Hawkins is a 69 year old male who presented to the hospital for the 3rd time the last 3 days with the symptom that bothers him. He states that he sees things on the right side of the face field of vision which is constantly ongoing abnormal lytes or things. He thinks that he may be having hallucinations or hearing things but he is also having difficulty expressing what bothers him. He also has headache. He states that it is by himself on his current daughter lives in will. He has not had any fall or febrile illness. There is no prior history of stroke or head trauma. no family member present at the time of the evaluation. Review of Systems 2 Review of Systems: ROS unobtainable: Yes unobtainable due to mental status PMFSH Past Medical History Medical History (Updated 01/13/25 @ 16:40 by Shelbie Severino MD) Cerebral vascular accident Hypogonadism in male Fibromyalgia Morbid obesity with BMI of 40.0-44.9, adult Cardiomyopathy History of transfusion Asthma Generalized pain Edema Hyperlipidemia Cellulitis of right lower extremity Herpes zoster infection of oral mucosa Anemia Depression Gout Seasonal allergies Osteoarthritis CKD (chronic kidney disease) Dyslipidemia Hypertension Diabetes mellitus Surgical History Surgical History Status post laparoscopic cholecystectomy 05/22/2019 History of carpal tunnel release Hx of gastric bypass Family History Family History Father Diabetes mellitus Asthma Family history of coronary artery disease Mother FH: ovarian cancer in first degree relative Social History Social History Social History: Caffeine- tea occasionally Smoking status: Never smoker Alcohol intake: never Substance use: never Substance use type: does not use Do You Feel Safe in your Home?: Yes Lack of Transportation: No Lack of Food: Never True Current Housing: I Have Housing Concerned About Future Housing: No Difficulty Paying Gas/Electric Bills: No Difficulty Paying for Meds: No Currently Unemployed: No Education: Master's Degree or Higher Difficulty w/ Childcare or Family Care: No Living arrangements: with family Gender identity (if verbalized by the patient): Male Spiritual care concerns: No Meds Home Medications and Allergies Home Medications ?Medication ?Instructions ?Recorded ?Confirmed ?Type ferrous sulfate 325 mg (65 mg 325 mg PO DAILY 03/23/19 01/13/25 History iron) tablet (Feosol) ketoconazole 2 % topical cream 1 applic topical DAILY 04/17/20 01/13/25 History triamcinolone acetonide 0.025 % 1 applic topical DAILY 04/17/20 01/13/25 History topical cream vitamin B complex (B 1 tablet PO DAILY 04/17/20 0 01/13/25 History Complex-Vitamin B12 tablet) calcium carbonate (Calcium 500) 500 mg PO DAILY 01/13/25 History blood sugar diagnostic (Blood #50 ea 03/03/22 01/13/25 Rx Glucose Test strips) blood-glucose meter #1 ea 03/03/22 01/13/25 Rx lancets 30 gauge and blood glucose #200 ea 03/03/22 Rx strips combo pack valacyclovir 500 mg tablet 500 mg PO BID 04/15/2301/01 History mupirocin 2 % topical ointment 1 applic topical BID 01/13/25 History lisinopril 40 mg tablet 80 mg (2 x 40 mg) PO DAILY # 90 tabs 12/01/23 01/13/25 Rx acetaminophen 500 mg tablet 1,000 mg (2 x 500 mg) PO Q 6H PRN 01/06/24 01/13/25 Rx (Tylenol Extra Strength) pain #50 tabs azelastine 137 mcg (0.1 %) nasal 137 mcg (0.137 mL) in tranasal Q12H 03/16/24 01/13/25 Rx spray #90 mL atorvastatin 20 mg tablet See Rx Instructions .Route 0 06/19/24 01/13/25 Rx .COMPLEX #90 tabs sertraline 100 mg tablet See Rx Instructions .Route 0 06/26/24 01/13/25 Rx .COMPLEX #180 tabs metformin 500 mg tablet 1,000 mg (2 x 500 mg) PO BID #360 08/10/24 01/13/25 Rx tabs buspirone 10 mg tablet See Rx Instructions .Route 0 09/26/24 01/13/25 Rx .COMPLEX #180 tabs metoprolol succinate 25 mg 25 mg PO DAILY #90 tabs 01/13/25 Rx tablet,extended release 24 hr montelukast 10 mg tablet 10 mg PO DAILY #90 tabs 09/0201/13/25 Rx (Singulair) furosemide 20 mg tablet See Rx Instructions .Route 0 10/06/24 01/13/25 Rx .COMPLEX #270 tabs magnesium oxide 400 mg (241.3 mg See Rx Instructions . Route 10/11/24 01/13/25 Rx magnesium) tablet .COMPLEX #90 tabs trazodone 100 mg tablet See Rx Instructions .Route 0 10/31/24 01/13/25 Rx .COMPLEX #180 tabs fluticasone propionate 50 See Rx Instructions .Route 0 11/02/24 01/13/25 Rx mcg/actuation nasal .COMPLEX #48 grams spray,suspension albuterol sulfate 90 mcg/actuation 2 puff inhalation Q 4-6H PRN 11/28/24 01/13/25 Rx aerosol inhaler shortness of breath or wheez ing #8.5 grams allopurinol 300 mg tablet See Rx Instructions .Route 0 11/28/24 01/13/25 Rx .COMPLEX #90 tabs semaglutide 0.25 mg or 0.5 mg (2 0.5 mg (0.736 mL) sub cut WEEKLY #3 01/09/25 01/13/25 Rx mg/3 mL) subcutaneous pen injector mL (Ozempic) Allergies Allergy/AdvReac Type Severity Reaction Status Date / Time prednisone Allergy Severe Anaphylaxis Verified 01/13/25 07:55 Vital Signs Vital Signs - 24 hr 01/13/25 07:35 01/13/25 07:41 01/13/25 07:54 Temperature 98.1 F 98.1 F Pulse Rate 90 88 93 Respiratory Rate 22 H 18 17 Blood Pressure 148/82 H 164/85 H Pulse Oximetry 100 99 100 Oxygen Delivery Room Air 01/13/25 07:54 01/13/25 08:01 01/13/25 08:31 Temperature Pulse Rate 88 87 90 Respiratory Rate 18 13 Blood Pressure 171/79 H 175/84 H Pulse Oximetry 95 98 Oxygen Delivery 01/13/25 08:46 01/13/25 09:01 01/13/25 09:34 Temperature Pulse Rate 98 93 99 Respiratory Rate 19 17 18 Blood Pressure 178/117 H 180/97 H Pulse Oximetry 98 99 99 Oxygen Delivery 01/13/25 09:46 01/13/25 10:01 01/13/25 11:01 Temperature Pulse Rate 92 89 95 Respiratory Rate 18 17 20 Blood Pressure 181/88 H 177/89 H 172/72 H Pulse Oximetry 100 Oxygen Delivery 01/13/25 11:30 01/13/25 12:14 01/13/25 12:18 Temperature Pulse Rate 98 87 102 H Respiratory Rate 16 13 21 H Blood Pressure Pulse Oximetry 100 98 100 Oxygen Delivery 01/13/25 12:34 01/13/25 12:37 01/13/25 12:46 Temperature Pulse Rate 93 91 90 Respiratory Rate 12 17 18 Blood Pressure 174/84 H 173/84 H 181/72 H Pulse Oximetry 100 98 100 Oxygen Delivery 01/13/25 13:01 01/13/25 13:31 01/13/25 14:02 Temperature Pulse Rate 97 91 91 Respiratory Rate 16 20 18 Blood Pressure 180/79 H 147/67 H 159/93 H Pulse Oximetry 99 99 Oxygen Delivery 01/13/25 14:31 01/13/25 14:46 01/13/25 15:22 Temperature 97.2 F L Pulse Rate 82 79 87 Respiratory Rate 24 H 25 H 20 Blood Pressure 162/76 H 157/76 H 173/88 H Pulse Oximetry 100 Oxygen Delivery Exam 2 Narrative: Fully conscious alert. He is able to talk and follow one-step commands but gets mixed up in two-step commands. when asked to tell me the name of talk months event up to January and then he seems to stop and get mixed up. Then he said he cannot do it. It seems overtly anxious. And he frequently points to something on the right side of the field of vision which bothers him. Examination head and neck shows no evidence of external trauma. No nuchal rigidity. Cranial nerves visual oakley by confrontation show right homonymous hemianopsia. No facial asymmetry. Facial sensation intact. Tongue was midline. Other cranial nerves are normal limits. Motor system shows normal power and tone in both upper and lower limbs. No involuntary movements are seen. Sensory is grossly intact. The tone appears symmetric on both sides. He is able to ambulate but then he cannot find his way back to the bed. Results Labs 01/13/25 10:43 01/13/25 10:43 Labs: Short CBC 01/13/25 Range/Units 10:43 WBC 7.7 (4.5-10.0) K/mm3 Hgb 12.5 L (14.0-18.0) g/dL Hct 37.0 L (42.0-52.0) % Plt Count 170 (150-375) k/mm3 BMP 01/13/25 10:43 Sodium 135 L Potassium 3.8 Chloride 102 Carbon Dioxide 20 L BUN 28 H Creatinine 1.71 H Glucose 426 H Calcium 9.2 Cardiac Enzymes 01/13/25 Range/Units 10:43 Total Creatine Kinase 396 H (55-170) U/L Troponin I 0.018 (0.000-0.034) ng/mL Liver Function 01/13/25 Range/Units 10:43 Total Bilirubin 0.7 (0.2-1.3) mg/dL AST 43 (17-59) U/L ALT 41 (6-50) U/L Alkaline Phosphatase 160 H (38-126) U/L Albumin 3.9 (3.5-5.1) g/dL
[2025-01-13 17:39] LABS: Cholesterol 112 mg/dL (0-200); HDL Direct 36 mg/dL; Triglycerides 104 mg/dL (<150)
[2025-01-13 17:41] LABS: Anion Gap 13 mmol/L (4-12); Blood Urea Nitrogen 24 mg/dL (9-20); Calcium 9.0 mg/dL (8.4-10.2); Carbon Dioxide 21 mmol/L (22-30); Chloride 105 mmol/L (98-107); Estimated CRCL calculation 49 ml/min; Estimated Glomerular Filt Rate 47; Glucose 232 mg/dL (65-110); Potassium 3.8 mmol/L (3.4-5.0); Sodium 139 mmol/L (137-145)
[2025-01-13 17:58] LABS: Hemoglobin A1C 10.1 % (<5.7)
[2025-01-13] MEDS: INSULIN ASPART (*BKC) 100 UNITS/ML SUB-Q ×2 (17:59→21:40)
[2025-01-13] MEDS: SODIUM CHLORIDE 0.9% IV 1,000 ML 150 ML IV CONT (18:01)
[2025-01-13 18:10] LABS: Thyroid Stimulating Hormone 0.590 uIU/mL (0.465-4.680)
[2025-01-13 18:47] LABS: Vitamin B12 > 1000.0 pg/mL (239-931)
[2025-01-13] MEDS: SERTRALINE HCL 50 MG TABLET 100 MG PO (18:50)
[2025-01-13] MEDS: FUROSEMIDE 20 MG TABLET PO (18:50)
[2025-01-13] MEDS: ACETAMINOPHEN 325 MG TABLET 650 MG PO (21:36)
[2025-01-13] MEDS: AZELASTINE HCL NASAL 0.1% 137 MCG/SPR 30 ML BTL 1 SPRAY NASAL (21:38)
[2025-01-13] MEDS: ALPRAZolam (*CRX) 0.25 MG TABLET PO (23:50)
[2025-01-14] VITALS (10 sets, daily range): BP systolic 148–192; BP diastolic 58–82; PULSE 78–120; RESP 10–20; TEMP 36.2–37; O2SAT 98–100
[2025-01-14] MEDS: SODIUM CHLORIDE 0.9% IV 1,000 ML 150 ML IV CONT ×4 (00:03→23:37)
[2025-01-14] MEDS: ACETAMINOPHEN 325 MG TABLET 650 MG PO ×2 (01:06→13:54)
[2025-01-14 05:17] LABS: Hematocrit 35.6 % (42.0-52.0); Hemoglobin 11.9 g/dL (14.0-18.0); Immature Granulocyte Percent A 0.4 % (0-0.5); Lymphocytes Absolute Auto 1.60 K/mm3 (0.9-3.2); Mean Corpuscular HGB Conc 33.4 g/dl (32-36); Mean Corpuscular Hemoglobin 32.4 pg (26-34); Mean Corpuscular Volume 97.0 fl (80-100); Nucleated Red Blood Cells Absolute Auto 0.000 K/mm3 (0.0-0.012); Nucleated Red Blood Cells Perc 0.0 % (0.0-0.2); Platelet Count Result 149 k/mm3 (150-375); Red Blood Count 3.67 M/mm3 (4.6-6.20); White Blood Count 6.9 K/mm3 (4.5-10.0)
[2025-01-14 05:36] LABS: Alanine Aminotransferase 30 U/L (6-50); Albumin Level 3.5 g/dL (3.5-5.1); Alkaline Phosphatase 139 U/L (38-126); Anion Gap 10 mmol/L (4-12); Aspartate Amino Transferase 36 U/L (17-59); Bilirubin,Total 0.9 mg/dL (0.2-1.3); Blood Urea Nitrogen 20 mg/dL (9-20); Calcium 8.7 mg/dL (8.4-10.2); Carbon Dioxide 20 mmol/L (22-30); Chloride 108 mmol/L (98-107); Estimated CRCL calculation 55 ml/min; Estimated Glomerular Filt Rate 54; Glucose 190 mg/dL (65-110); Potassium 3.4 mmol/L (3.4-5.0); Sodium 138 mmol/L (137-145); Total Protein 6.3 g/dL (6.3-8.2)
--- NOTE | 2025-01-14 06:38 | PC.NURSE ---
Addendum entered by Janet Villa RN 01/14/25 07:03: Another daughter of this pt called back to state her and sister [Alicia] want to be removed from contact list since they have not talked to pt in years. Daughter gave me the number of ex son-in-law who would be the preferred contact for pt. OB admitting updated with this information. Original Note: Called daughter @[phone] to attempt to confirm details of MRI screening. No answer received. Voicemail message left to call back. MRI screening done by this nurse with verbal confirmation by pt. Second nurse was present to witness.
[2025-01-14 08:36] LABS: Magnesium 1.8 mg/dL (1.6-2.3)
[2025-01-14] MEDS: levETIRAcetam 1000MG/NACL100ML 1,000 MG/100 ML BAG 400 MG IVPB ×3 (09:16→21:40)
--- NOTE | 2025-01-14 09:34 | PM.IMPN ---
Progress Note: A&P Assessment and Plan (1) Altered mental status: Qualifiers: Altered mental status type: disorientation Qualified Code(s): R41.0 - Disorientation, unspecified Code(s): R41.82 - Altered mental status, unspecified Status: Acute Assessment and Plan: Her last known well [id number], on original presentation on 01/11. Significant word-finding difficulty noted, confusion, and reported behavioral changes by patient. Symptoms concerning for stroke. Patient significantly out of the window for thrombolytics or thrombectomy. - head CT from 01/11 in 01/13 were unremarkable - CXR, UDS, UA were unremarkable. CO2 20 on BMP. No significant electrolyte derangements. - per previous documentation, patient reported his last known well was 3 days prior to 01/11 - check MRI - neurology consulted >> recommended MRI, MR Angiography of the head/neck, EEG, carotid Doppler, and starting anti-platelet/statin now (patient is on atorvastatin 20 mg daily, increase to 40 mg daily). Additional lab work ordered. - neurochecks Q4H - check TSH, echo, lipid panel, B12, vitamin-D, folate TSH- wnl mg 1.9 bs 312 -will add blood culutres to r/u any infectious process (2) Diabetes mellitus: Qualifiers: Chronic kidney disease stage: unspecified stage Diabetes mellitus complication detail: with chronic kidney disease Diabetes mellitus complication status: with kidney complications Diabetes mellitus interactive digital media specialist insulin use: without interactive digital media specialist use Diabetes mellitus type: type 2 Qualified Code(s): E11.22 - Type 2 diabetes mellitus with diabetic chronic kidney disease Code(s): E11.9 - Type 2 diabetes mellitus without complications Status: Acute Assessment and Plan: Initial glucose 426, gap 13, however CO2 28 and beta hydroxy 2.14. Given 2L of fluid in the ED, will recheck BMP this evening. - hypoglycemia protocol - POC blood glucose ACHS - home medication: Hold metformin in case of need for contrast and Ozempic (NF) - correct regimen ordered - high dose TIDWM and HS, based off BMI - A1C 8.5% on 12/15/2024 - consider coding educator consultation once alteration improved (3) CKD (chronic kidney disease): Qualifiers: Chronic kidney disease stage: stage 1 Qualified Code(s): N18.1 - Chronic kidney disease, stage 1 Code(s): N18.9 - Chronic kidney disease, unspecified Status: Chronic Assessment and Plan: - creatinine 1.71, BUN 28, and GFR 40 upon admission - creatinine has ranged between 1.49 and 1.86 in 202, more recently 1.6-1.8 - trend renal function - trend electrolytes, correct as needed (4) Hypertension: Qualifiers: Hypertension type: primary hypertension Qualified Code(s): I10 - Essential (primary) hypertension Code(s): I10 - Essential (primary) hypertension Status: Acute Assessment and Plan: - chronic, currently 174/84 - continue home medications: Metoprolol, Lasix, lisinopril - monitor (5) Hyperlipidemia: Qualifiers: Hyperlipidemia type: mixed hyperlipidemia Qualified Code(s): E78.2 - Mixed hyperlipidemia Code(s): E78.5 - Hyperlipidemia, unspecified Status: Acute Assessment and Plan: - atorvastatin increased from 20 mg daily to 40 mg daily due to concern for stroke (6) Seizure: Code(s): R56.9 - Unspecified convulsions Status: Acute Assessment and Plan: Rapid response was called this am. Pt was found on the floor. Per nursing records, pt was in a recliner, stood up, chair alarm went off, and when staff arrived, pt was found on the floor, witness seizure for about 20 seconds. Prior to that, he was a/o x1, restless.Of note, he was in ED prior for c/o AMS and hallucination. Noted that BC was high as well. Stat head CT, C spine was ordered, neurology was called and DR Severino recommended 2000 mg loading dose of keppra and then 1000 mg bid and pt was moved to IMU. SonJose C was called and updated on condition- all questions answered. - MRI is ordered prior and pending - pt will need EEG as well -bc ordered Plan Diet: diabetic GI Prophylaxis: n/a DVT Prophylaxis: lovenox SQ IV fluids: 2L bolus -> 150 mL/hr Lines/Tubes: Peripheral IV Code Status: Full code Time Spent With Patient Time with patient: Greater than 35 minutes Subjective Date/time seen: 01/14/25 09:34 Interval history: ''69 y/o M with PMH of fibromyalgia, hypogonadism, cardiomyopathy, asthma, hyperlipidemia, anemia at by depression, gout, CKD, and diabetes presents here with altered mental status. The patient presents here from home via EMS on 01/13 for further evaluation of altered mental status. HPI obtained through chart review, ED provider report, and patient report. Per ED provider, upon arrival to the emergency department he was unable to explain why a he called 911 and was seeking care today. He patient was A&O x1 and restless. Per chart review, the patient has sought care in the emergency department on 01/11 and 01/12. On 01/11 he presented with altered mental status and dizziness. He reported at that time was difficult for him to ambulate and that he was experiencing issues with memory loss, word-finding difficulty, and hyperglycemia (glucose greater than 500 at home). At the time he reported he lived in assisted living? At that time memory recall her deficits were noted but neuro exam was nonfocal. He was encouraged to follow-up with his PCP on Wednesday and was discharged home. He then returned on 01/12 for visual changes, mild frontal headache, and waking up with a flat affect. At that time he reported he had not taken his antihypertensive medications for 2 days. He was given anxiolytics, insulin, and his home antihypertensive medications. Migraine resolved, blood pressure improved, and patient felt overall better and was discharged home. Today he is is reporting that the symptoms had started approximately 8 days before he was initially evaluated on 01/11. He reports word-finding difficulty, dizziness, and behavioral changes. He is having difficulty articulating the behavioral changes, but reports new fears and possible visual hallucinations/out of body sensation? He denies focal weakness or focal numbness. Initial VS at presentation: 98.1? F, HR 90, R 22, 148/82, and 100% on RA. ED workup showed: No leukocytosis, hemoglobin 12.5 (12 on 01/12), normal coags, sodium 135, creatinine 1.71 and GFR 40 (1.78 and GFR 38 on 12/15), glucose 426, gap 13, beta hydroxy 2.14 and TSH within normal limits. UDS negative. UA from 01/12 showed 3+ protein/3+ glucose/1+ ketones/1+ blood otherwise unremarkable. Head CT showed no acute intracranial abnormality. CXR showed no acute cardiopulmonary abnormality. EKG shows sinus rhythm with first-degree AV block, left axis deviation, possible anterior HI of indeterminate age. Assuming care. Rapid response was called this am. Pt was found on the floor. Per nursing records, pt was in a recliner, stood up, chair alarm went off, and when staff arrived, pt was found on the floor, witness seizure for about 20 seconds. Prior to that, he was a/o x1, restless.Of note, he was in ED prior for c/o AMS and hallucination. Noted that BC was high as well. Stat head CT, C spine was ordered, neurology was called and DR Severino recommended 2000 mg loading dose of keppra and then 1000 mg bid and pt was moved to IMU. Son, Jose C was called and updated on condition- all questions answered. Review of Systems Review of Systems: All systems reviewed & are unremarkable except as noted in HPI and below (Limited, patient having difficulty articulating) ROS unobtainable: Yes unobtainable due to mental status (Limited, A&O x1) Exam Narrative: Pt is seen and examined. He is calm and oriented to self Const: General: comfortable and no acute distress Other: , male, elderly, nontoxic appearance HENMT: Face/Nose/Sinus: Normal nares present Mouth: Yes moist mucous membranes Eyes: General: appearance normal, both eyes and all related structures Sclera: sclerae normal Pupils: Equal, round and reactive pupils present EOM: EOMs intact bilaterally Resp: Effort & Inspection: normal respiratory effort Auscultation: clear to auscultation bilaterally Cardio: Rate: regular rate Rhythm: regular rhythm Other: S1-S2 present without murmur, rub, ectopy GI: Auscultation: normal bowel sounds Skin: General skin exam: normal color and no rashes or lesions noted Wounds: no wounds Neuro: Cranial nerves: Yes Equal, round and reactive pupils present Speech: normal speech Sensory Exam: normal sensation Other: Patient is A&O x2 and is able to answer orientation questions with some delay. He was able to tell me his name and but it took him a bit to tell em where he was No facial droop. Able to follow one-step commands intermittently Significant word-finding difficulty and difficulty with articulation. No sensory deficits. Extrem: General: normal to inspection Psych: Mental Status: mental status grossly normal Affect: normal affect Other: Fair insight and judgment at present, very pleasant Objective Data Vital Signs Vital Signs: Vital Signs - 24 hr 01/13/25 09:46 01/13/25 10:01 01/13/25 11:01 Temperature Pulse Rate 92 89 95 Respiratory Rate 18 17 20 Blood Pressure 181/88 H 177/89 H 172/72 H Pulse Oximetry 100 Oxygen Delivery 01/13/25 11:30 01/13/25 12:14 01/13/25 12:18 Temperature Pulse Rate 98 87 102 H Respiratory Rate 16 13 21 H Blood Pressure Pulse Oximetry 100 98 100 Oxygen Delivery 01/13/25 12:34 01/13/25 12:37 01/13/25 12:46 Temperature Pulse Rate 93 91 90 Respiratory Rate 12 17 18 Blood Pressure 174/84 H 173/84 H 181/72 H Pulse Oximetry 100 98 100 Oxygen Delivery 01/13/25 13:01 01/13/25 13:31 01/13/25 14:02 Temperature Pulse Rate 97 91 91 Respiratory Rate 16 20 18 Blood Pressure 180/79 H 147/67 H 159/93 H Pulse Oximetry 99 99 Oxygen Delivery 01/13/25 14:31 01/13/25 14:46 01/13/25 15:22 Temperature 97.2 F L Pulse Rate 82 79 87 Respiratory Rate 24 H 25 H 20 Blood Pressure 162/76 H 157/76 H 173/88 H Pulse Oximetry 100 Oxygen Delivery 01/13/25 17:18 01/13/25 20:00 01/13/25 22:00 Temperature 98.4 F Pulse Rate 97 Respiratory Rate 18 Blood Pressure 160/80 H Pulse Oximetry 98 Oxygen Delivery Room Air Room Air 01/14/25 06:00 01/14/25 08:31 Temperature 97.1 F L Pulse Rate 80 98 Respiratory Rate 18 10 L Blood Pressure 151/82 H 192/76 H Pulse Oximetry 98 99 Oxygen Delivery Room Air Intake/Output Intake/Output: Intake & Output 01/11/25 01/12/25 01/13/25 01/14/25 23:59 23:59 23:59 23:59 Intake Total 2370 905 Output Total 225 850 Balance 2145 55 Meds/Results Medications: Active Medications Generic Name Dose Route Start Last Admin Trade Name Freq PRN Reason Stop Dose Admin Acetaminophen 650 mg 01/13/25 14:12 01/14/25 01:06 Acetaminophen 325 Mg Tablet PO 650 mg Q4H PRN Administration Mild Pain (1-3) or Fever Albuterol 2 puff 01/13/25 18:22 Albuterol Sulfate (*Sp) Aerosol 1 Puff INHALATION Q4-6H PRN Shortness Of Breath Or Wheezing Allopurinol 300 mg 01/14/25 09:00 Allopurinol 300 Mg Tablet PO DAILY [facility] Aspirin 81 mg 01/14/25 09:00 Aspirin 81 Mg Enteric Tablet PO QAM [facility] Atorvastatin Calcium 40 mg 01/14/25 09:00 Atorvastatin 40 Mg Tablet PO DAILY [facility] Azelastine HCl 1 spray 01/13/25 21:00 01/13/25 21:38 Azelastine Hcl Nasal 0.1% 137 Mcg/Spr 30 Ml Btl NASAL 1 spray Q12HR [facility] Administration Buspirone HCl 10 mg 01/13/25 18:25 01/13/25 18:50 Buspirone Hcl 10 Mg Tablet PO 10 mg BID [facility] Administration Calcium Carbonate 500 mg 01/14/25 09:00 Calcium Carbonate (Oscal) 500 Mg Tablet PO DAILY [facility] Clopidogrel Bisulfate 75 mg 01/14/25 09:00 Clopidogrel Bisulfate 75 Mg Tablet PO QAM [facility] Dextrose 12.5 gm 01/13/25 14:13 Dextrose 50% 25 Gm/50 Ml Syringe IV PUSH PRN PRN Hypoglycemia Protocol Diazepam 5 mg 01/14/25 09:30 Diazepam Inj (*Crx) 10 Mg/2 Ml Syringe IV PUSH ONCE PRN seizures Enoxaparin Sodium 40 mg 01/14/25 09:00 Enoxaparin 40 Mg/0.4 Ml Syringe SUB-Q DAILY [facility] Ferrous Sulfate 325 mg 01/14/25 09:00 Ferrous Sulfate 325 Mg Tablet PO DAILY [facility] Fluticasone Propionate 1 spray 01/14/25 09:00 Fluticasone Propionate 0.05% Na Spr 16 Gm Btl (*Bkc) NASAL BID [facility] Furosemide 20 mg 01/13/25 18:25 01/13/25 18:50 Furosemide 20 Mg Tablet PO 20 mg QPM [facility] Administration Furosemide 40 mg 01/14/25 09:00 Furosemide 20 Mg Tablet PO QAM [facility] Glucagon 1 mg 01/13/25 14:13 Glucagon For Inj 1 Mg Vial IM PRN PRN Hypoglycemia Protocol Glucose 15 gm 01/13/25 14:13 Glucose Oral Gel 15 Gm Of Glucse In 37.5 Gm Tube PO PRN PRN Hypoglycemia Protocol Hydrocortisone 1 applic 01/14/25 09:00 Hydrocortisone 1% 30 Gm Cream TOPICAL DAILY [facility] Sodium Chloride 1,000 mls @ 150 mls/hr 01/13/25 14:15 01/14/25 00:03 Normal Saline Iv IV CONT 150 mls/hr .Q6H40M [facility] Administration Dextrose 1,000 mls @ 100 mls/hr 01/13/25 14:13 Dextrose 5% 1,000 Ml IVPB PRN PRN Hypoglycemia Protocol Insulin Aspart 4 - 8 units 01/13/25 17:00 01/13/25 17:59 Insulin Aspart (*Bkc) 100 Units/Ml SUB-Q 5 units TIDWM [facility] Administration Protocol Insulin Aspart 2 - 4 units 01/13/25 21:00 01/13/25 21:40 Insulin Aspart (*Bkc) 100 Units/Ml SUB-Q 2 units HS [facility] Administration Protocol Lisinopril 80 mg 01/14/25 09:00 Lisinopril 20 Mg Tablet PO DAILY [facility] Magnesium Oxide 400 mg 01/14/25 09:00 Magnesium Oxide 400 Mg Tablet PO DAILY [facility] Metoprolol Succinate 25 mg 01/14/25 09:00 Metoprolol Succinate Ext Rel 25 Mg Tabcr PO DAILY [facility] Miconazole Nitrate 1 applic 01/14/25 09:00 Miconazole Nitrate 2% Cream 30 Gm Tube TOPICAL DAILY [facility] Miscellaneous Information 1 each 01/14/25 00:01 Please Add Site Of Apliication For Hydrocortisone 1% Cream (Therapeutic Sub For Triamcinol XX 02/13/25 00:00 CLARIFY [facility] Montelukast Sodium 10 mg 01/14/25 09:00 Montelukast Sodium 10 Mg Tablet PO DAILY [facility] Mupirocin 1 applic 01/14/25 09:00 Mupirocin 2% Oint 22 Gm Tube TOPICAL BID [facility] Sertraline HCl 100 mg 01/13/25 18:25 01/13/25 18:50 Sertraline Hcl 50 Mg Tablet PO 100 mg BID [facility] Administration Trazodone HCl 200 mg 01/13/25 21:00 01/13/25 21:37 Trazodone Hcl 50 Mg Tablet PO 200 mg HS [facility] Administration Valacyclovir HCl 500 mg 01/13/25 18:40 01/13/25 18:50 Valacyclovir Hcl 500 Mg Tablet PO 500 mg BID [facility] Administration Vitamin B Complex 1 cap 01/14/25 09:00 Vitamin B Complex Capsule PO DAILY [facility] Radiology Results: ITS Impressions Chest X-Ray 01/13/25 12:31 Impression: No acute cardiopulmonary abnormality. Labs Labs: Laboratory Results - last 24 hr 01/13/25 01/13/25 01/13/25 10:43 10:44 12:34 WBC 7.7 RBC 3.83 L Hgb 12.5 L Hct 37.0 L MCV 96.6 MCH 32.6 MCHC 33.8 RDW 13.7 Plt Count 170 MPV 10.6 H Immature Gran % (Auto) 0.4 Neut % (Auto) 78.9 H Lymph % (Auto) 12.3 L Camp % (Auto) 7.2 Eos % (Auto) 0.9 Baso % (Auto) 0.3 Lymph # (Auto) 0.94 Camp # (Auto) 0.6 Eos # (Auto) 0.1 Baso # (Auto) 0.0 Abs Immat Gran (auto) 0.03 Absolute Neuts (auto) 6.1 Absolute Nucleated RBC 0.000 Nucleated RBC % 0.0 PT 13.5 INR 1.0 APTT 27.4 Puncture Site ABG pH ABG pCO2 ABG pO2 ABG PO2/FiO2 Ratio ABG HCO3 ABG O2 Saturation ABG O2 Content ABG Base Excess A-a Gradient Oxyhemoglobin Total Hemoglobin O2 Delivery Device O2 Liters/Min FiO2 Sodium 135 L Potassium 3.8 Chloride 102 Carbon Dioxide 20 L Anion Gap 13 H BUN 28 H Creatinine 1.71 H Estim Creat Clear Calc 42 Estimated GFR 40 L Glucose 426 H POC Capillary Glucose Hemoglobin A1c Calcium 9.2 Phosphorus 3.6 Magnesium 2.0 Total Bilirubin 0.7 AST 43 ALT 41 Alkaline Phosphatase 160 H Total Creatine Kinase 396 H Troponin I 0.018 Total Protein 7.0 Albumin 3.9 Triglycerides Cholesterol LDL Cholesterol Direct HDL Direct Vitamin B12 Vitamin D 25-Hydroxy Folate Beta-Hydroxybutyrate/Acetoacetate 2.14 H TSH 1.160 Thyroxine (T4) Urine Opiates Screen Negative Urine Methadone Screen Negative Ur Barbiturates Screen Negative Ur Phencyclidine Scrn Negative Ur Amphetamine Screen Negative U Benzodiazepines Scrn Negative Urine Cocaine Screen Negative U Cannabinoids Screen Negative Ethyl Alcohol < 10 01/13/25 01/13/25 01/13/25 12:37 12:51 13:13 WBC RBC Hgb Hct MCV MCH MCHC RDW Plt Count MPV Immature Gran % (Auto) Neut % (Auto) Lymph % (Auto) Camp % (Auto) Eos % (Auto) Baso % (Auto) Lymph # (Auto) Camp # (Auto) Eos # (Auto) Baso # (Auto) Abs Immat Gran (auto) Absolute Neuts (auto) Absolute Nucleated RBC Nucleated RBC % PT INR APTT Puncture Site Left brachial ABG pH 7.393 ABG pCO2 32.2 L ABG pO2 80.8 ABG PO2/FiO2 Ratio 3.85 ABG HCO3 19.2 L ABG O2 Saturation 96.0 ABG O2 Content 16.2 ABG Base Excess -4.8 A-a Gradient 30.4 Oxyhemoglobin 93.4 Total Hemoglobin 12.3 O2 Delivery Device Room air O2 Liters/Min 0.0 FiO2 21 Sodium Potassium Chloride Carbon Dioxide Anion Gap BUN Creatinine Estim Creat Clear Calc Estimated GFR Glucose POC Capillary Glucose 459 H 358 H Hemoglobin A1c Calcium Phosphorus Magnesium Total Bilirubin AST ALT Alkaline Phosphatase Total Creatine Kinase Troponin I Total Protein Albumin Triglycerides Cholesterol LDL Cholesterol Direct HDL Direct Vitamin B12 Vitamin D 25-Hydroxy Folate Beta-Hydroxybutyrate/Acetoacetate TSH Thyroxine (T4) Urine Opiates Screen Urine Methadone Screen Ur Barbiturates Screen Ur Phencyclidine Scrn Ur Amphetamine Screen U Benzodiazepines Scrn Urine Cocaine Screen U Cannabinoids Screen Ethyl Alcohol 01/13/25 01/13/25 01/13/25 14:53 17:02 17:03 WBC RBC Hgb Hct MCV MCH MCHC RDW Plt Count MPV Immature Gran % (Auto) Neut % (Auto) Lymph % (Auto) Camp % (Auto) Eos % (Auto) Baso % (Auto) Lymph # (Auto) Camp # (Auto) Eos # (Auto) Baso # (Auto) Abs Immat Gran (auto) Absolute Neuts (auto) Absolute Nucleated RBC Nucleated RBC % PT INR APTT Puncture Site ABG pH ABG pCO2 ABG pO2 ABG PO2/FiO2 Ratio ABG HCO3 ABG O2 Saturation ABG O2 Content ABG Base Excess A-a Gradient Oxyhemoglobin Total Hemoglobin O2 Delivery Device O2 Liters/Min FiO2 Sodium 139 Potassium 3.8 Chloride 105 Carbon Dioxide 21 L Anion Gap 13 H BUN 24 H Creatinine 1.47 H Estim Creat Clear Calc 49 Estimated GFR 47 L Glucose 232 H POC Capillary Glucose 222 H Hemoglobin A1c 10.1 H Calcium 9.0 Phosphorus Magnesium Total Bilirubin AST ALT Alkaline Phosphatase Total Creatine Kinase Troponin I Total Protein Albumin Triglycerides 104 Cholesterol 112 LDL Cholesterol Direct 45 HDL Direct 36 Vitamin B12 > 1000.0 H Vitamin D 25-Hydroxy 27.8 Folate 11.3 Beta-Hydroxybutyrate/Acetoacetate TSH 0.590 Thyroxine (T4) 8.66 Urine Opiates Screen Urine Methadone Screen Ur Barbiturates Screen Ur Phencyclidine Scrn Ur Amphetamine Screen U Benzodiazepines Scrn Urine Cocaine Screen U Cannabinoids Screen Ethyl Alcohol 01/13/25 01/13/25 01/14/25 17:13 19:44 04:32 WBC 6.9 RBC 3.67 L Hgb 11.9 L Hct 35.6 L MCV 97.0 MCH 32.4 MCHC 33.4 RDW 13.4 Plt Count 149 L MPV 10.3 Immature Gran % (Auto) 0.4 Neut % (Auto) 66.0 Lymph % (Auto) 23.1 Camp % (Auto) 7.3 Eos % (Auto) 2.9 Baso % (Auto) 0.3 Lymph # (Auto) 1.60 Camp # (Auto) 0.5 Eos # (Auto) 0.2 Baso # (Auto) 0.0 Abs Immat Gran (auto) 0.03 Absolute Neuts (auto) 4.6 Absolute Nucleated RBC 0.000 Nucleated RBC % 0.0 PT INR APTT Puncture Site ABG pH ABG pCO2 ABG pO2 ABG PO2/FiO2 Ratio ABG HCO3 ABG O2 Saturation ABG O2 Content ABG Base Excess A-a Gradient Oxyhemoglobin Total Hemoglobin O2 Delivery Device O2 Liters/Min FiO2 Sodium 138 Potassium 3.4 Chloride 108 H Carbon Dioxide 20 L Anion Gap 10 BUN 20 Creatinine 1.30 Estim Creat Clear Calc 55 Estimated GFR 54 L Glucose 190 H POC Capillary Glucose 257 H 265 H Hemoglobin A1c Calcium 8.7 Phosphorus Magnesium Cancelled Total Bilirubin 0.9 AST 36 ALT 30 Alkaline Phosphatase 139 H Total Creatine Kinase Troponin I Total Protein 6.3 Albumin 3.5 Triglycerides Cholesterol LDL Cholesterol Direct HDL Direct Vitamin B12 Vitamin D 25-Hydroxy Folate Beta-Hydroxybutyrate/Acetoacetate TSH Thyroxine (T4) Urine Opiates Screen Urine Methadone Screen Ur Barbiturates Screen Ur Phencyclidine Scrn Ur Amphetamine Screen U Benzodiazepines Scrn Urine Cocaine Screen U Cannabinoids Screen Ethyl Alcohol 01/14/25 01/14/25 08:12 08:40 WBC RBC Hgb Hct MCV MCH MCHC RDW Plt Count MPV Immature Gran % (Auto) Neut % (Auto) Lymph % (Auto) Camp % (Auto) Eos % (Auto) Baso % (Auto) Lymph # (Auto) Camp # (Auto) Eos # (Auto) Baso # (Auto) Abs Immat Gran (auto) Absolute Neuts (auto) Absolute Nucleated RBC Nucleated RBC % PT INR APTT Puncture Site ABG pH ABG pCO2 ABG pO2 ABG PO2/FiO2 Ratio ABG HCO3 ABG O2 Saturation ABG O2 Content ABG Base Excess A-a Gradient Oxyhemoglobin Total Hemoglobin O2 Delivery Device O2 Liters/Min FiO2 Sodium Potassium Chloride Carbon Dioxide Anion Gap BUN Creatinine Estim Creat Clear Calc Estimated GFR Glucose POC Capillary Glucose 312 H Hemoglobin A1c Calcium Phosphorus Magnesium 1.8 Total Bilirubin AST ALT Alkaline Phosphatase Total Creatine Kinase Troponin I Total Protein Albumin Triglycerides Cholesterol LDL Cholesterol Direct HDL Direct Vitamin B12 Vitamin D 25-Hydroxy Folate Beta-Hydroxybutyrate/Acetoacetate TSH Thyroxine (T4) Urine Opiates Screen Urine Methadone Screen Ur Barbiturates Screen Ur Phencyclidine Scrn Ur Amphetamine Screen U Benzodiazepines Scrn Urine Cocaine Screen U Cannabinoids Screen Ethyl Alcohol Quality VTE Prophylaxis VTE prophylaxis: pharmacologic ordered
--- NOTE | 2025-01-14 10:43 | PC.NURSE ---
Spoke with Netta about PT status. According to the family visiting the other patient in the room, as soon as Liane left the room the patient began shaking in his bed. This RN came to check in on the patient and he was not responsive to sternal rub for several minutes but began to arouse to pain. Clarified Keppra dose. Will give 2nd gram of Keppra and start 1gram BID. Also received order for EEG. But the may not be available until Wednesday. Order read back and verified.
[2025-01-14] MEDS: ENOXAPARIN 40 MG/0.4 ML SYRINGE SUB-Q (10:58)
[2025-01-14] MEDS: INSULIN ASPART (*BKC) 100 UNITS/ML SUB-Q ×2 (12:01→21:21)
[2025-01-14] MEDS: LIDOCAINE 5% PATCH 1 PATCH TRANSDERM (13:56)
--- NOTE | 2025-01-14 17:01 | WPDNEUROPN ---
Progress Note: A&P Assessment and Plan (1) Seizure: Code(s): R56.9 - Unspecified convulsions Status: Acute (2) Cerebral vascular accident: Code(s): I63.9 - Cerebral infarction, unspecified Status: Acute (3) Diabetes mellitus: Qualifiers: Diabetes mellitus type: type 2 Diabetes mellitus termite helper insulin use: without snf use Diabetes mellitus complication status: with kidney complications Diabetes mellitus complication detail: with chronic kidney disease Chronic kidney disease stage: unspecified stage Qualified Code(s): E11.22 - Type 2 diabetes mellitus with diabetic chronic kidney disease Code(s): E11.9 - Type 2 diabetes mellitus without complications Status: Acute (4) Hx of gastric bypass: Code(s): Z98.84 - Bariatric surgery status Status: Acute (5) Stage 3b chronic kidney disease: Code(s): N18.32 - Chronic kidney disease, stage 3b Status: Acute Plan The patient has persistent right homonymous hemianopsia but he appears lot more calm today compared to yesterday. He will undergo MRI of the brain and other investigations as planned. He is now on Keppra 1000 mg twice a day. Since left occipital infarct versus space-occupying lesion is a consideration I have started him on dual antiplatelets and statin for now. He is on atorvastatin 40 mg a day in addition to aspirin 81 mg and Plavix 75 mg a day. We should clinically follow him up. Subjective Date/time seen: 01/14/25 17:01 Interval history: The patient is 69-year-old with history of abnormal visual symptoms in the right side of the field of vision. He was found to have a right homonymous hemianopsia. This morning he had a seizure which lasted 22nd while in the room and he fell. Thereafter I was called by the hospitalist and a I advised to start him on Keppra 2000 mg followed by 1000 mg twice a day. That he also had a CT scan just for the safety because he had a fall that also did not show any evidence for bleed. He is awaiting for MRI and echocardiogram EEG. In the meanwhile he feels better when I saw him this afternoon. Denies any headache. The patient has history of gastric bypass surgery, diabetes mellitus, chronic kidney disease. Review of Systems Review of Systems: All systems reviewed & are unremarkable except as noted in HPI and below Exam Narrative: Fully conscious alert oriented to self place and person. Exam head and neck shows no evidence of external injuries. Cranial nerves injured testing show right homonymous hemianopsia. No facial asymmetry. Tongue was midline other cranial nerves were normal limits. Motor system normal power and tone in both upper lower limbs. There is mild weakness of the dorsiflexion the right great toe. He did not cooperate very well with formal testing the lower limbs. No other significant abnormalities were noted. No involuntary movements are seen. Objective Data Vital Signs Vital Signs: Vital Signs - 24 hr 01/13/25 17:18 01/13/25 20:00 01/13/25 22:00 Temperature 98.4 F Pulse Rate 97 Respiratory Rate 18 Blood Pressure 160/80 H Pulse Oximetry 98 Oxygen Delivery Room Air Room Air Oxygen Flow Rate 01/14/25 06:00 01/14/25 08:30 01/14/25 08:30 Temperature 97.1 F L Pulse Rate 80 Respiratory Rate 18 Blood Pressure 151/82 H Pulse Oximetry 98 98 100 Oxygen Delivery Nasal Cannula Room Air Oxygen Flow Rate 2 01/14/25 08:31 01/14/25 11:04 01/14/25 12:00 Temperature Pulse Rate 98 Respiratory Rate 10 L Blood Pressure 192/76 H 148/72 H Pulse Oximetry 99 100 Oxygen Delivery Room Air Nasal Cannula Oxygen Flow Rate 2 01/14/25 12:00 01/14/25 16:00 Temperature 98.6 F Pulse Rate 120 H 88 Respiratory Rate 20 Blood Pressure 149/58 H Pulse Oximetry 100 Oxygen Delivery Oxygen Flow Rate Intake/Output Intake/Output: Intake & Output 01/11/25 01/12/25 01/13/25 01/14/25 23:59 23:59 23:59 23:59 Intake Total 2370 2385 Output Total 225 1050 Balance 2145 1335 Meds/Results Medications: Active Medications Generic Name Dose Route Start Last Admin Trade Name Freq PRN Reason Stop Dose Admin Acetaminophen 650 mg 01/13/25 14:12 01/14/25 13:54 Acetaminophen 325 Mg Tablet PO 650 mg Q4H PRN Administration Mild Pain (1-3) or Fever Albuterol 2 puff 01/13/25 18:22 Albuterol Sulfate (*Sp) Aerosol 1 Puff INHALATION Q4-6H PRN Shortness Of Breath Or Wheezing Allopurinol 300 mg 01/14/25 09:00 01/14/25 10:11 Allopurinol 300 Mg Tablet PO Not Given DAILY [facility] Aspirin 81 mg 01/14/25 09:00 01/14/25 10:12 Aspirin 81 Mg Enteric Tablet PO Not Given QAM [facility] Atorvastatin Calcium 40 mg 01/14/25 09:00 01/14/25 10:12 Atorvastatin 40 Mg Tablet PO Not Given DAILY [facility] Azelastine HCl 1 spray 01/13/25 21:00 01/14/25 10:12 Azelastine Hcl Nasal 0.1% 137 Mcg/Spr 30 Ml Btl NASAL Not Given Q12HR [facility] Buspirone HCl 10 mg 01/13/25 18:25 01/14/25 10:12 Buspirone Hcl 10 Mg Tablet PO Not Given BID [facility] Calcium Carbonate 500 mg 01/14/25 09:00 01/14/25 10:12 Calcium Carbonate (Oscal) 500 Mg Tablet PO Not Given DAILY [facility] Clopidogrel Bisulfate 75 mg 01/14/25 09:00 01/14/25 10:12 Clopidogrel Bisulfate 75 Mg Tablet PO Not Given QAM [facility] Dextrose 12.5 gm 01/13/25 14:13 Dextrose 50% 25 Gm/50 Ml Syringe IV PUSH PRN PRN Hypoglycemia Protocol Diazepam 5 mg 01/14/25 09:30 Diazepam Inj (*Crx) 10 Mg/2 Ml Syringe IV PUSH ONCE PRN seizures Enoxaparin Sodium 40 mg 01/14/25 09:00 01/14/25 10:58 Enoxaparin 40 Mg/0.4 Ml Syringe SUB-Q 40 mg DAILY [facility] Administration Ferrous Sulfate 325 mg 01/14/25 09:00 01/14/25 10:12 Ferrous Sulfate 325 Mg Tablet PO Not Given DAILY [facility] Fluticasone Propionate 1 spray 01/14/25 09:00 01/14/25 10:13 Fluticasone Propionate 0.05% Na Spr 16 Gm Btl (*Bkc) NASAL Not Given BID [facility] Furosemide 20 mg 01/13/25 18:25 01/13/25 18:50 Furosemide 20 Mg Tablet PO 20 mg QPM [facility] Administration Furosemide 40 mg 01/14/25 09:00 01/14/25 10:13 Furosemide 20 Mg Tablet PO Not Given QAM [facility] Glucagon 1 mg 01/13/25 14:13 Glucagon For Inj 1 Mg Vial IM PRN PRN Hypoglycemia Protocol Glucose 15 gm 01/13/25 14:13 Glucose Oral Gel 15 Gm Of Glucse In 37.5 Gm Tube PO PRN PRN Hypoglycemia Protocol Hydralazine HCl 10 mg 01/14/25 09:45 Hydralazine Hcl 20 Mg/Ml Vial IV PUSH Q8H PRN Blood Pressure - High Hydrocortisone 1 applic 01/14/25 09:00 01/14/25 10:13 Hydrocortisone 1% 30 Gm Cream TOPICAL Not Given DAILY [facility] Sodium Chloride 1,000 mls @ 150 mls/hr 01/13/25 14:15 01/14/25 11:52 Normal Saline Iv IV CONT Not Given .Q6H40M [facility] Dextrose 1,000 mls @ 100 mls/hr 01/13/25 14:13 Dextrose 5% 1,000 Ml IVPB PRN PRN Hypoglycemia Protocol Levetiracetam 1,000 mg in 100 mls @ 400 mls/hr 01/14/25 21:00 Keppra Iv IVPB Q12HR [facility] Insulin Aspart 4 - 8 units 01/13/25 17:00 01/14/25 16:48 Insulin Aspart (*Bkc) 100 Units/Ml SUB-Q Not Given TIDWM [facility] Protocol Insulin Aspart 2 - 4 units 01/13/25 21:00 01/13/25 21:40 Insulin Aspart (*Bkc) 100 Units/Ml SUB-Q 2 units HS [facility] Administration Protocol Lidocaine 1 patch 01/14/25 12:45 01/14/25 13:56 Lidocaine 5% Patch TRANSDERM 1 patch DAILY [facility] Administration Lisinopril 80 mg 01/14/25 09:00 01/14/25 10:13 Lisinopril 20 Mg Tablet PO Not Given DAILY [facility] Magnesium Oxide 400 mg 01/14/25 09:00 01/14/25 10:13 Magnesium Oxide 400 Mg Tablet PO Not Given DAILY [facility] Metoprolol Succinate 25 mg 01/14/25 09:00 01/14/25 10:13 Metoprolol Succinate Ext Rel 25 Mg Tabcr PO Not Given DAILY [facility] Miconazole Nitrate 1 applic 01/14/25 09:00 01/14/25 10:13 Miconazole Nitrate 2% Cream 30 Gm Tube TOPICAL Not Given DAILY [facility] Montelukast Sodium 10 mg 01/14/25 09:00 01/14/25 10:13 Montelukast Sodium 10 Mg Tablet PO Not Given DAILY [facility] Mupirocin 1 applic 01/14/25 09:00 01/14/25 10:15 Mupirocin 2% Oint 22 Gm Tube TOPICAL Not Given BID [facility] Sertraline HCl 100 mg 01/13/25 18:25 01/14/25 10:15 Sertraline Hcl 50 Mg Tablet PO Not Given BID [facility] Trazodone HCl 200 mg 01/13/25 21:00 01/13/25 21:37 Trazodone Hcl 50 Mg Tablet PO 200 mg HS [facility] Administration Valacyclovir HCl 500 mg 01/13/25 18:40 01/14/25 10:15 Valacyclovir Hcl 500 Mg Tablet PO Not Given BID [facility] Vitamin B Complex 1 cap 01/14/25 09:00 01/14/25 10:15 Vitamin B Complex Capsule PO Not Given DAILY [facility] Radiology Results: ITS Impressions Chest X-Ray 01/13/25 12:31 Impression: No acute cardiopulmonary abnormality. Head CT 01/14/25 10:21 Impression: 1.No acute intracranial abnormality. Labs Labs: Laboratory Results - last 24 hr 01/13/25 01/13/25 01/13/25 17:02 17:03 17:13 WBC RBC Hgb Hct MCV MCH MCHC RDW Plt Count MPV Immature Gran % (Auto) Neut % (Auto) Lymph % (Auto) [place] % (Auto) Eos % (Auto) Baso % (Auto) Lymph # (Auto) [place] # (Auto) Eos # (Auto) Baso # (Auto) Abs Immat Gran (auto) Absolute Neuts (auto) Absolute Nucleated RBC Nucleated RBC % Sodium 139 Potassium 3.8 Chloride 105 Carbon Dioxide 21 L Anion Gap 13 H BUN 24 H Creatinine 1.47 H Estim Creat Clear Calc 49 Estimated GFR 47 L Glucose 232 H POC Capillary Glucose 257 H Hemoglobin A1c 10.1 H Calcium 9.0 Magnesium Total Bilirubin AST ALT Alkaline Phosphatase Total Protein Albumin Triglycerides 104 Cholesterol 112 LDL Cholesterol Direct 45 HDL Direct 36 Vitamin B12 > 1000.0 H Vitamin D 25-Hydroxy 27.8 Folate 11.3 TSH 0.590 Thyroxine (T4) 8.66 01/13/25 01/14/25 01/14/25 19:44 04:32 08:12 WBC 6.9 RBC 3.67 L Hgb 11.9 L Hct 35.6 L MCV 97.0 MCH 32.4 MCHC 33.4 RDW 13.4 Plt Count 149 L MPV 10.3 Immature Gran % (Auto) 0.4 Neut % (Auto) 66.0 Lymph % (Auto) 23.1 [place] % (Auto) 7.3 Eos % (Auto) 2.9 Baso % (Auto) 0.3 Lymph # (Auto) 1.60 [place] # (Auto) 0.5 Eos # (Auto) 0.2 Baso # (Auto) 0.0 Abs Immat Gran (auto) 0.03 Absolute Neuts (auto) 4.6 Absolute Nucleated RBC 0.000 Nucleated RBC % 0.0 Sodium 138 Potassium 3.4 Chloride 108 H Carbon Dioxide 20 L Anion Gap 10 BUN 20 Creatinine 1.30 Estim Creat Clear Calc 55 Estimated GFR 54 L Glucose 190 H POC Capillary Glucose 265 H Hemoglobin A1c Calcium 8.7 Magnesium Cancelled 1.8 Total Bilirubin 0.9 AST 36 ALT 30 Alkaline Phosphatase 139 H Total Protein 6.3 Albumin 3.5 Triglycerides Cholesterol LDL Cholesterol Direct HDL Direct Vitamin B12 Vitamin D 25-Hydroxy Folate TSH Thyroxine (T4) 01/14/25 01/14/25 01/14/25 08:40 11:48 15:57 WBC RBC Hgb Hct MCV MCH MCHC RDW Plt Count MPV Immature Gran % (Auto) Neut % (Auto) Lymph % (Auto) [place] % (Auto) Eos % (Auto) Baso % (Auto) Lymph # (Auto) [place] # (Auto) Eos # (Auto) Baso # (Auto) Abs Immat Gran (auto) Absolute Neuts (auto) Absolute Nucleated RBC Nucleated RBC % Sodium Potassium Chloride Carbon Dioxide Anion Gap BUN Creatinine Estim Creat Clear Calc Estimated GFR Glucose POC Capillary Glucose 312 H 343 H 197 H Hemoglobin A1c Calcium Magnesium Total Bilirubin AST ALT Alkaline Phosphatase Total Protein Albumin Triglycerides Cholesterol LDL Cholesterol Direct HDL Direct Vitamin B12 Vitamin D 25-Hydroxy Folate TSH Thyroxine (T4)
[2025-01-14] MEDS: SERTRALINE HCL 50 MG TABLET 100 MG PO (17:11)
[2025-01-14] MEDS: FUROSEMIDE 20 MG TABLET PO (17:11)
[2025-01-14] MEDS: WATER FOR IRRIGATION, STERILE 1,000 ML BOTTLE 1000 ML (21:22)
[2025-01-14] MEDS: AZELASTINE HCL NASAL 0.1% 137 MCG/SPR 30 ML BTL 1 SPRAY NASAL (22:03)
[2025-01-15] VITALS (15 sets, daily range): BP systolic 153–179; BP diastolic 64–78; PULSE 70–97; RESP 16–18; TEMP 36.4–36.8; O2SAT 92–100
[2025-01-15] MEDS: ACETAMINOPHEN 325 MG TABLET 650 MG PO ×2 (00:46→21:07)
--- NOTE | 2025-01-15 08:47 | PM.IMPN ---
Progress Note: A&P Assessment and Plan (1) Altered mental status: Qualifiers: Altered mental status type: disorientation Qualified Code(s): R41.0 - Disorientation, unspecified Code(s): R41.82 - Altered mental status, unspecified Status: Acute Assessment and Plan: Her last known well [id number], on original presentation on 01/11. Significant word-finding difficulty noted, confusion, and reported behavioral changes by patient. Symptoms concerning for stroke. Patient significantly out of the window for thrombolytics or thrombectomy. - head CT from 01/11 in 01/13 were unremarkable - CXR, UDS, UA were unremarkable. CO2 20 on BMP. No significant electrolyte derangements. - per previous documentation, patient reported his last known well was 3 days prior to 01/11 - check MRI - neurology consulted >> recommended MRI, MR Angiography of the head/neck, EEG, carotid Doppler, and starting anti-platelet/statin now (patient is on atorvastatin 20 mg daily, increase to 40 mg daily). Additional lab work ordered. - neurochecks Q4H - check TSH, echo, lipid panel, B12, vitamin-D, folate TSH- wnl mg 1.9 bs 312 -will add blood culutres to r/u any infectious process MRI brain today 01/15 (2) Diabetes mellitus: Qualifiers: Chronic kidney disease stage: unspecified stage Diabetes mellitus complication detail: with chronic kidney disease Diabetes mellitus complication status: with kidney complications Diabetes mellitus mcfp insulin use: without termination clerk use Diabetes mellitus type: type 2 Qualified Code(s): E11.22 - Type 2 diabetes mellitus with diabetic chronic kidney disease Code(s): E11.9 - Type 2 diabetes mellitus without complications Status: Acute Assessment and Plan: Initial glucose 426, gap 13, however CO2 28 and beta hydroxy 2.14. Given 2L of fluid in the ED, will recheck BMP this evening. - hypoglycemia protocol - POC blood glucose ACHS - home medication: Hold metformin in case of need for contrast and Ozempic (NF) - correct regimen ordered - high dose TIDWM and HS, based off BMI - A1C 8.5% on 12/15/2024 - consider interactive multimedia designer consultation once alteration improved (3) CKD (chronic kidney disease): Qualifiers: Chronic kidney disease stage: stage 1 Qualified Code(s): N18.1 - Chronic kidney disease, stage 1 Code(s): N18.9 - Chronic kidney disease, unspecified Status: Chronic Assessment and Plan: - creatinine 1.71, BUN 28, and GFR 40 upon admission - creatinine has ranged between 1.49 and 1.86 in 202, more recently 1.6-1.8 - trend renal function - trend electrolytes, correct as needed (4) Hypertension: Qualifiers: Hypertension type: primary hypertension Qualified Code(s): I10 - Essential (primary) hypertension Code(s): I10 - Essential (primary) hypertension Status: Acute Assessment and Plan: - chronic, currently 174/84 - continue home medications: Metoprolol, Lasix, lisinopril - monitor (5) Hyperlipidemia: Qualifiers: Hyperlipidemia type: mixed hyperlipidemia Qualified Code(s): E78.2 - Mixed hyperlipidemia Code(s): E78.5 - Hyperlipidemia, unspecified Status: Acute Assessment and Plan: - atorvastatin increased from 20 mg daily to 40 mg daily due to concern for stroke (6) Seizure: Code(s): R56.9 - Unspecified convulsions Status: Acute Assessment and Plan: Rapid response was called this am. Pt was found on the floor. Per nursing records, pt was in a recliner, stood up, chair alarm went off, and when staff arrived, pt was found on the floor, witness seizure for about 20 seconds. Prior to that, he was a/o x1, restless.Of note, he was in ED prior for c/o AMS and hallucination. Noted that BC was high as well. Stat head CT, C spine was ordered, neurology was called and DR Severino recommended 2000 mg loading dose of keppra and then 1000 mg bid and pt was moved to IMU. SonJose C was called and updated on condition- all questions answered. - MRI is ordered prior and pending - pt will need EEG as well -bc ordered Plan Diet: diabetic GI Prophylaxis: n/a DVT Prophylaxis: lovenox SQ IV fluids: 2L bolus -> 150 mL/hr Lines/Tubes: Peripheral IV Code Status: Full code Time Spent With Patient Time with patient: Greater than 35 minutes Subjective Date/time seen: 01/15/25 1145 Interval history: 69 y/o M with PMH of fibromyalgia, hypogonadism, cardiomyopathy, asthma, hyperlipidemia, anemia at by depression, gout, CKD, and diabetes presents here with altered mental status. He had a seizure yesterday and a fall. Keppra 2000 mg loading doses was started followed by 1000 mg twice a day. CT sca was completed to r/u any acute bleed. He is awaiting for MRI and echocardiogram EEG. He was restless this am but calm and quite now. no observed seizures Review of Systems Review of Systems: All systems reviewed & are unremarkable except as noted in HPI and below (Limited, patient having difficulty articulating) ROS unobtainable: Yes unobtainable due to mental status (Limited, A&O x1) Exam Narrative: Pt is seen and examined. He is calm and oriented to self Const: General: comfortable and no acute distress Other: , male, elderly, nontoxic appearance HENMT: Face/Nose/Sinus: Normal nares present Mouth: Yes moist mucous membranes Eyes: General: appearance normal, both eyes and all related structures Sclera: sclerae normal Pupils: Equal, round and reactive pupils present EOM: EOMs intact bilaterally Resp: Effort & Inspection: normal respiratory effort Auscultation: clear to auscultation bilaterally Cardio: Rate: regular rate Rhythm: regular rhythm Other: S1-S2 present without murmur, rub, ectopy GI: Auscultation: normal bowel sounds Other: Abdomen soft, nondistended, nontender. Normoactive bowel sounds in all quadrants. Skin: General skin exam: normal color and no rashes or lesions noted Wounds: no wounds Neuro: Cranial nerves: Yes Equal, round and reactive pupils present Speech: normal speech Sensory Exam: normal sensation Other: Patient is A&O x2 and is able to answer orientation questions with some delay. He was able to tell me his name and but it took him a bit to tell em where he was No facial droop. Able to follow one-step commands intermittently Significant word-finding difficulty and difficulty with articulation. No sensory deficits. Extrem: General: normal to inspection Psych: Mental Status: mental status grossly normal Affect: normal affect Other: Fair insight and judgment at present, very pleasant Objective Data Vital Signs Vital Signs: Vital Signs - 24 hr 01/14/25 11:04 01/14/25 12:00 01/14/25 12:00 Temperature Pulse Rate 120 H Respiratory Rate Blood Pressure 148/72 H Pulse Oximetry 100 Oxygen Delivery Nasal Cannula Oxygen Flow Rate 2 01/14/25 16:00 01/14/25 16:00 01/14/25 19:43 Temperature 98.6 F 98.1 F Pulse Rate 88 86 81 Respiratory Rate 20 17 Blood Pressure 149/58 H 170/76 H Pulse Oximetry 100 100 Oxygen Delivery Oxygen Flow Rate 01/14/25 20:00 01/14/25 20:00 01/14/25 22:00 Temperature Pulse Rate 84 83 Respiratory Rate Blood Pressure Pulse Oximetry 100 Oxygen Delivery Nasal Cannula Oxygen Flow Rate 2 01/14/25 23:20 01/15/25 00:00 01/15/25 00:00 Temperature 98.4 F Pulse Rate 78 81 Respiratory Rate 18 Blood Pressure 154/67 H Pulse Oximetry 100 100 Oxygen Delivery Nasal Cannula Oxygen Flow Rate 2 01/15/25 02:00 01/15/25 03:57 01/15/25 04:00 Temperature 97.6 F Pulse Rate 90 84 Respiratory Rate 18 Blood Pressure 175/70 H Pulse Oximetry 98 Oxygen Delivery Room Air Oxygen Flow Rate 01/15/25 04:00 01/15/25 06:00 01/15/25 08:00 Temperature 98.2 F Pulse Rate 86 76 92 Respiratory Rate 18 Blood Pressure 155/64 H Pulse Oximetry 97 Oxygen Delivery Oxygen Flow Rate Intake/Output Intake/Output: Intake & Output 01/12/25 01/13/25 01/14/25 01/15/25 23:59 23:59 23:59 23:59 Intake Total 2370 5125.0 100 Output Total 225 1550 150 Balance 2145 3575.0 -50 Meds/Results Medications: Active Medications Generic Name Dose Route Start Last Admin Trade Name Freq PRN Reason Stop Dose Admin Acetaminophen 650 mg 01/13/25 14:12 01/15/25 00:46 Acetaminophen 325 Mg Tablet PO 650 mg Q4H PRN Administration Mild Pain (1-3) or Fever Albuterol 2 puff 01/13/25 18:22 Albuterol Sulfate (*Sp) Aerosol 1 Puff INHALATION Q4-6H PRN Shortness Of Breath Or Wheezing Allopurinol 300 mg 01/14/25 09:00 01/14/25 10:11 Allopurinol 300 Mg Tablet PO Not Given DAILY [facility] Aspirin 81 mg 01/14/25 09:00 01/14/25 10:12 Aspirin 81 Mg Enteric Tablet PO Not Given QAM [facility] Atorvastatin Calcium 40 mg 01/14/25 09:00 01/14/25 10:12 Atorvastatin 40 Mg Tablet PO Not Given DAILY [facility] Azelastine HCl 1 spray 01/13/25 21:00 01/14/25 22:03 Azelastine Hcl Nasal 0.1% 137 Mcg/Spr 30 Ml Btl NASAL 1 spray Q12HR [facility] Administration Buspirone HCl 10 mg 01/13/25 18:25 01/14/25 17:11 Buspirone Hcl 10 Mg Tablet PO 10 mg BID [facility] Administration Calcium Carbonate 500 mg 01/14/25 09:00 01/14/25 10:12 Calcium Carbonate (Oscal) 500 Mg Tablet PO Not Given DAILY [facility] Clopidogrel Bisulfate 75 mg 01/14/25 09:00 01/14/25 10:12 Clopidogrel Bisulfate 75 Mg Tablet PO Not Given QAM [facility] Dextrose 12.5 gm 01/13/25 14:13 Dextrose 50% 25 Gm/50 Ml Syringe IV PUSH PRN PRN Hypoglycemia Protocol Diazepam 5 mg 01/14/25 09:30 Diazepam Inj (*Crx) 10 Mg/2 Ml Syringe IV PUSH ONCE PRN seizures Enoxaparin Sodium 40 mg 01/14/25 09:00 01/14/25 10:58 Enoxaparin 40 Mg/0.4 Ml Syringe SUB-Q 40 mg DAILY [facility] Administration Ferrous Sulfate 325 mg 01/14/25 09:00 01/14/25 10:12 Ferrous Sulfate 325 Mg Tablet PO Not Given DAILY [facility] Fluticasone Propionate 1 spray 01/14/25 09:00 01/14/25 17:12 Fluticasone Propionate 0.05% Na Spr 16 Gm Btl (*Bkc) NASAL Not Given BID [facility] Furosemide 20 mg 01/13/25 18:25 01/14/25 17:11 Furosemide 20 Mg Tablet PO 20 mg QPM [facility] Administration Furosemide 40 mg 01/14/25 09:00 01/14/25 10:13 Furosemide 20 Mg Tablet PO Not Given QAM [facility] Glucagon 1 mg 01/13/25 14:13 Glucagon For Inj 1 Mg Vial IM PRN PRN Hypoglycemia Protocol Glucose 15 gm 01/13/25 14:13 Glucose Oral Gel 15 Gm Of Glucse In 37.5 Gm Tube PO PRN PRN Hypoglycemia Protocol Hydralazine HCl 10 mg 01/14/25 09:45 Hydralazine Hcl 20 Mg/Ml Vial IV PUSH Q8H PRN Blood Pressure - High Hydrocortisone 1 applic 01/14/25 09:00 01/14/25 10:13 Hydrocortisone 1% 30 Gm Cream TOPICAL Not Given DAILY [facility] Sodium Chloride 1,000 mls @ 150 mls/hr 01/13/25 14:15 01/14/25 23:37 Normal Saline Iv IV CONT 150 mls/hr .Q6H40M [facility] Administration Dextrose 1,000 mls @ 100 mls/hr 01/13/25 14:13 Dextrose 5% 1,000 Ml IVPB PRN PRN Hypoglycemia Protocol Levetiracetam 1,000 mg in 100 mls @ 400 mls/hr 01/14/25 21:00 01/14/25 21:40 Keppra Iv IVPB 400 mls/hr Q12HR [facility] Administration Insulin Aspart 4 - 8 units 01/13/25 17:00 01/14/25 16:48 Insulin Aspart (*Bkc) 100 Units/Ml SUB-Q Not Given TIDWM [facility] Protocol Insulin Aspart 2 - 4 units 01/13/25 21:00 01/14/25 21:21 Insulin Aspart (*Bkc) 100 Units/Ml SUB-Q 2 units HS [facility] Administration Protocol Insulin Glargine 10 units 01/15/25 21:00 Insulin Glargine (*Bkc) 100 Units/Ml SUB-Q HS [facility] Lidocaine 1 patch 01/14/25 12:45 01/14/25 13:56 Lidocaine 5% Patch TRANSDERM 1 patch DAILY [facility] Administration Lisinopril 80 mg 01/14/25 09:00 01/14/25 10:13 Lisinopril 20 Mg Tablet PO Not Given DAILY [facility] Magnesium Oxide 400 mg 01/14/25 09:00 01/14/25 10:13 Magnesium Oxide 400 Mg Tablet PO Not Given DAILY [facility] Metoprolol Succinate 25 mg 01/14/25 09:00 01/14/25 10:13 Metoprolol Succinate Ext Rel 25 Mg Tabcr PO Not Given DAILY [facility] Miconazole Nitrate 1 applic 01/14/25 09:00 01/14/25 10:13 Miconazole Nitrate 2% Cream 30 Gm Tube TOPICAL Not Given DAILY [facility] Montelukast Sodium 10 mg 01/14/25 09:00 01/14/25 10:13 Montelukast Sodium 10 Mg Tablet PO Not Given DAILY [facility] Mupirocin 1 applic 01/14/25 09:00 01/14/25 17:12 Mupirocin 2% Oint 22 Gm Tube TOPICAL Not Given BID [facility] Sertraline HCl 100 mg 01/13/25 18:25 01/14/25 17:11 Sertraline Hcl 50 Mg Tablet PO 100 mg BID [facility] Administration Trazodone HCl 200 mg 01/13/25 21:00 01/14/25 23:37 Trazodone Hcl 50 Mg Tablet PO 200 mg HS [facility] Administration Valacyclovir HCl 500 mg 01/13/25 18:40 01/14/25 17:11 Valacyclovir Hcl 500 Mg Tablet PO 500 mg BID [facility] Administration Vitamin B Complex 1 cap 01/14/25 09:00 01/14/25 10:15 Vitamin B Complex Capsule PO Not Given DAILY [facility] Radiology Results: ITS Impressions Chest X-Ray 01/13/25 12:31 Impression: No acute cardiopulmonary abnormality. Head CT 01/14/25 10:21 Impression: 1.No acute intracranial abnormality. Labs Labs: Laboratory Results - last 24 hr 01/14/25 01/14/25 01/14/25 11:48 15:57 19:42 POC Capillary Glucose 343 H 197 H 242 H Quality VTE Prophylaxis VTE prophylaxis: pharmacologic ordered
[2025-01-15] MEDS: FERROUS SULFATE 325 MG TABLET PO (09:28)
[2025-01-15] MEDS: VITAMIN B COMPLEX CAPSULE 1 CAP PO (09:30)
[2025-01-15] MEDS: MONTELUKAST SODIUM 10 MG TABLET PO (09:31)
[2025-01-15] MEDS: SERTRALINE HCL 50 MG TABLET 100 MG PO ×2 (09:32→16:30)
[2025-01-15] MEDS: ASPIRIN 81 MG ENTERIC TABLET PO (09:32)
[2025-01-15] MEDS: CALCIUM CARBONATE (OSCAL) 500 MG TABLET PO (09:33)
[2025-01-15] MEDS: ATORVASTATIN 40 MG TABLET PO (09:33)
[2025-01-15] MEDS: METOPROLOL SUCCINATE EXT REL 25 MG TABCR PO (09:35)
[2025-01-15] MEDS: CLOPIDOGREL BISULFATE 75 MG TABLET PO (09:37)
[2025-01-15] MEDS: MAGNESIUM OXIDE 400 MG TABLET PO (09:39)
[2025-01-15] MEDS: FUROSEMIDE 20 MG TABLET 40 MG PO (09:40)
[2025-01-15] MEDS: ENOXAPARIN 40 MG/0.4 ML SYRINGE SUB-Q (09:41)
[2025-01-15] MEDS: INSULIN ASPART (*BKC) 100 UNITS/ML SUB-Q (12:10)
--- NOTE | 2025-01-15 13:08 | PCNEURO ---
started to perform EEG on patient, but he was woken up by guests for the bed next to his. Pt began agitated with staff and pulling EEG leads off. will attempt at a later time.
[2025-01-15] MEDS: LIDOCAINE 5% PATCH 1 PATCH TRANSDERM (13:10)
[2025-01-15] MEDS: MUPIROCIN 2% OINT 22 GM TUBE 1 APPLIC TOPICAL ×2 (13:13→16:31)
[2025-01-15] MEDS: HYDROCORTISONE 1% 30 GM CREAM 1 APPLIC TOPICAL (13:15)
[2025-01-15] MEDS: MICONAZOLE NITRATE 2% CREAM 30 GM TUBE 1 APPLIC TOPICAL (13:15)
[2025-01-15] MEDS: AZELASTINE HCL NASAL 0.1% 137 MCG/SPR 30 ML BTL 1 SPRAY NASAL (14:11)
[2025-01-15] MEDS: levETIRAcetam 1000MG/NACL100ML 1,000 MG/100 ML BAG 400 MG IVPB (14:11)
[2025-01-15] MEDS: FLUTICASONE PROPIONATE 0.05% NA SPR 16 GM BTL (*BKC) 1 SPRAY NASAL (14:11)
[2025-01-15] MEDS: SODIUM CHLORIDE 0.9% IV 1,000 ML 150 ML IV CONT ×2 (14:19→21:05)
--- NOTE | 2025-01-15 16:47 | PC.NURSE ---
On 01/15/25, the student, Lenka Aguirre and Jaime Bonilla, provided care and completed [facility] documentation on this patient. I have reviewed the student's documentation and agree with the findings. TERRENCE West, MSN, RN
[2025-01-15] MEDS: LORazepam INJ (*CRX) 2 MG/ML VIAL 0.5 MG IV PUSH (16:48)
[2025-01-15] MEDS: FUROSEMIDE 20 MG TABLET PO (21:07)
[2025-01-15] MEDS: INSULIN GLARGINE (*BKC) 100 UNITS/ML 10 UNITS SUB-Q (21:27)
[2025-01-16] VITALS (13 sets, daily range): BP systolic 128–178; BP diastolic 62–79; PULSE 66–92; RESP 17–28; TEMP 36.4–36.8; O2SAT 94–100; BMI 38.9
[2025-01-16] MEDS: SODIUM CHLORIDE 0.9% IV 1,000 ML 150 ML IV CONT (03:27)
[2025-01-16 05:03] LABS: Anion Gap 10 mmol/L (4-12); Blood Urea Nitrogen 16 mg/dL (9-20); Calcium 8.5 mg/dL (8.4-10.2); Carbon Dioxide 21 mmol/L (22-30); Chloride 108 mmol/L (98-107); Estimated CRCL calculation 59 ml/min; Estimated Glomerular Filt Rate 56; Glucose 184 mg/dL (65-110); Potassium 2.8 mmol/L (3.4-5.0); Sodium 139 mmol/L (137-145)
[2025-01-16] MEDS: MAGNESIUM SULF 2 GM/WATER 50ML 2 GM/50 ML BAG IVPB (06:01)
[2025-01-16] MEDS: POTASSIUM CHLORIDE 20 MEQ PACKET (FOR LIQUID) 40 MEQ PO ×2 (06:02→09:16)
[2025-01-16 07:14] LABS: Hematocrit 32.8 % (42.0-52.0); Hemoglobin 11.0 g/dL (14.0-18.0); Mean Corpuscular HGB Conc 33.5 g/dl (32-36); Mean Corpuscular Hemoglobin 32.4 pg (26-34); Mean Corpuscular Volume 96.5 fl (80-100); Platelet Count Result 134 k/mm3 (150-375); Red Blood Count 3.40 M/mm3 (4.6-6.20); White Blood Count 5.6 K/mm3 (4.5-10.0)
[2025-01-16] MEDS: FUROSEMIDE 20 MG TABLET 40 MG PO (09:14)
[2025-01-16] MEDS: SERTRALINE HCL 50 MG TABLET 100 MG PO ×2 (09:14→18:13)
[2025-01-16] MEDS: LIDOCAINE 5% PATCH 1 PATCH TRANSDERM (09:14)
[2025-01-16] MEDS: MAGNESIUM OXIDE 400 MG TABLET PO (09:14)
[2025-01-16] MEDS: ENOXAPARIN 40 MG/0.4 ML SYRINGE SUB-Q (09:14)
[2025-01-16] MEDS: FERROUS SULFATE 325 MG TABLET PO (09:14)
[2025-01-16] MEDS: ATORVASTATIN 40 MG TABLET PO (09:15)
[2025-01-16] MEDS: METOPROLOL SUCCINATE EXT REL 25 MG TABCR PO (09:15)
[2025-01-16] MEDS: ASPIRIN 81 MG ENTERIC TABLET PO (09:15)
[2025-01-16] MEDS: CLOPIDOGREL BISULFATE 75 MG TABLET PO (09:15)
[2025-01-16] MEDS: CALCIUM CARBONATE (OSCAL) 500 MG TABLET PO (09:15)
[2025-01-16] MEDS: MONTELUKAST SODIUM 10 MG TABLET PO (09:15)
[2025-01-16] MEDS: AZELASTINE HCL NASAL 0.1% 137 MCG/SPR 30 ML BTL 1 SPRAY NASAL (09:15)
[2025-01-16] MEDS: VITAMIN B COMPLEX CAPSULE 1 CAP PO (09:15)
[2025-01-16] MEDS: HYDROCORTISONE 1% 30 GM CREAM 1 APPLIC TOPICAL (09:17)
[2025-01-16] MEDS: MICONAZOLE NITRATE 2% CREAM 30 GM TUBE 1 APPLIC TOPICAL (09:17)
[2025-01-16] MEDS: MUPIROCIN 2% OINT 22 GM TUBE 1 APPLIC TOPICAL ×2 (09:17→18:13)
[2025-01-16] MEDS: FLUTICASONE PROPIONATE 0.05% NA SPR 16 GM BTL (*BKC) 1 SPRAY NASAL ×2 (09:23→18:13)
--- NOTE | 2025-01-16 12:31 | PM.IMPN ---
Progress Note: A&P Assessment and Plan (1) Altered mental status: Qualifiers: Altered mental status type: disorientation Qualified Code(s): R41.0 - Disorientation, unspecified Code(s): R41.82 - Altered mental status, unspecified Status: Acute Assessment and Plan: Her last known well [id number], on original presentation on 01/11. Significant word-finding difficulty noted, confusion, and reported behavioral changes by patient. Symptoms concerning for stroke. Patient significantly out of the window for thrombolytics or thrombectomy. - head CT from 01/11 in 01/13 were unremarkable - CXR, UDS, UA were unremarkable. CO2 20 on BMP. No significant electrolyte derangements. - per previous documentation, patient reported his last known well was 3 days prior to 01/11 - check MRI - neurology consulted >> recommended MRI, MR Angiography of the head/neck, EEG, carotid Doppler, and starting anti-platelet/statin now (patient is on atorvastatin 20 mg daily, increase to 40 mg daily). Additional lab work ordered. - neurochecks Q4H - check TSH, echo, lipid panel, B12, vitamin-D, folate TSH- wnl mg 1.9 bs 312 -will add blood culutres to r/u any infectious process MRI brain today 01/15 01/16 mri was not done as unable to complete required pre mri documentations as pt was not alert and no family(sin) was not very involved in pt's life. Neurology is aware. EEG is today. Continue Keppra. will downgrade to medtele. (2) Diabetes mellitus: Qualifiers: Diabetes mellitus type: type 2 Diabetes mellitus assisted insulin use: without assisted use Diabetes mellitus complication status: with kidney complications Diabetes mellitus complication detail: with chronic kidney disease Chronic kidney disease stage: unspecified stage Qualified Code(s): E11.22 - Type 2 diabetes mellitus with diabetic chronic kidney disease Code(s): E11.9 - Type 2 diabetes mellitus without complications Status: Acute Assessment and Plan: Initial glucose 426, gap 13, however CO2 28 and beta hydroxy 2.14. Given 2L of fluid in the ED, will recheck BMP this evening. - hypoglycemia protocol - POC blood glucose ACHS - home medication: Hold metformin in case of need for contrast and Ozempic (NF) - correct regimen ordered - high dose TIDWM and HS, based off BMI - A1C 8.5% on 12/15/2024 - consider school vocational educator consultation once alteration improved 01/16 will increase lantus to 12 units (from 10) to provide better coverage as BS in am still a bit elevated (3) CKD (chronic kidney disease): Qualifiers: Chronic kidney disease stage: stage 1 Qualified Code(s): N18.1 - Chronic kidney disease, stage 1 Code(s): N18.9 - Chronic kidney disease, unspecified Status: Chronic Assessment and Plan: - creatinine 1.71, BUN 28, and GFR 40 upon admission - creatinine has ranged between 1.49 and 1.86 in 2024, more recently 1.6-1.8 - trend renal function - trend electrolytes, correct as needed (4) Hypertension: Qualifiers: Hypertension type: primary hypertension Qualified Code(s): I10 - Essential (primary) hypertension Code(s): I10 - Essential (primary) hypertension Status: Acute Assessment and Plan: - chronic, currently 174/84 - continue home medications: Metoprolol, Lasix, lisinopril - monitor (5) Hyperlipidemia: Qualifiers: Hyperlipidemia type: mixed hyperlipidemia Qualified Code(s): E78.2 - Mixed hyperlipidemia Code(s): E78.5 - Hyperlipidemia, unspecified Status: Acute Assessment and Plan: - atorvastatin increased from 20 mg daily to 40 mg daily due to concern for stroke (6) Seizure: Code(s): R56.9 - Unspecified convulsions Status: Acute Assessment and Plan: Rapid response was called this am. Pt was found on the floor. Per nursing records, pt was in a recliner, stood up, chair alarm went off, and when staff arrived, pt was found on the floor, witness seizure for about 20 seconds. Prior to that, he was a/o x1, restless.Of note, he was in ED prior for c/o AMS and hallucination. Noted that BC was high as well. Stat head CT, C spine was ordered, neurology was called and DR Severino recommended 2000 mg loading dose of keppra and then 1000 mg bid and pt was moved to IMU. SonJose C was called and updated on condition- all questions answered. - MRI is ordered prior and pending - pt will need EEG as well -bc ordered- still pending - continue Keppra and seizure precoutions Plan Diet: diabetic GI Prophylaxis: n/a DVT Prophylaxis: lovenox SQ IV fluids: 2L bolus -> 150 mL/hr Lines/Tubes: Peripheral IV Code Status: Full code Time Spent With Patient Time with patient: Greater than 35 minutes Subjective Date/time seen: 01/16/25 12:31 Interval history: 69 y/o M with PMH of fibromyalgia, hypogonadism, cardiomyopathy, asthma, hyperlipidemia, anemia at by depression, gout, CKD, and diabetes presents here with altered mental status. He had a seizure yesterday and a fall. Keppra 2000 mg loading doses was started followed by 1000 mg twice a day. CT sca was completed to r/u any acute bleed. He is awaiting for MRI and echocardiogram EEG. He was restless this am but calm and quite now. no observed seizures 01/16 he is more alert today, able to tell me his name and and knew he was in the hospital. Followed once step commands intermittently. remains on seizure precautions. No observed seizures. Waiting for mri comletion. eeg today Review of Systems Review of Systems: All systems reviewed & are unremarkable except as noted in HPI and below (Limited, patient having difficulty articulating) ROS unobtainable: Yes unobtainable due to mental status (Limited, A&O x1) Exam Narrative: Pt is seen and examined. He is calm and oriented to self Const: General: comfortable and no acute distress Other: , male, elderly, nontoxic appearance HENMT: Face/Nose/Sinus: Normal nares present Mouth: Yes moist mucous membranes Eyes: General: appearance normal, both eyes and all related structures Sclera: sclerae normal Pupils: Equal, round and reactive pupils present EOM: EOMs intact bilaterally Resp: Effort & Inspection: normal respiratory effort Auscultation: clear to auscultation bilaterally Cardio: Rate: regular rate Rhythm: regular rhythm Other: S1-S2 present without murmur, rub, ectopy GI: Auscultation: normal bowel sounds Other: Abdomen soft, nondistended, nontender. Normoactive bowel sounds in all quadrants. Skin: General skin exam: normal color and no rashes or lesions noted Wounds: no wounds Neuro: Cranial nerves: Yes Equal, round and reactive pupils present Speech: normal speech Sensory Exam: normal sensation Other: Patient is A&O x2 and is able to answer orientation questions with some delay. He was able to tell me his name and but it took him a bit to tell em where he was No facial droop. Able to follow one-step commands intermittently Significant word-finding difficulty and difficulty with articulation. No sensory deficits. Extrem: General: normal to inspection Psych: Mental Status: mental status grossly normal Affect: normal affect Other: Fair insight and judgment at present, very pleasant Objective Data Vital Signs Vital Signs: Vital Signs - 24 hr 01/15/25 14:00 01/15/25 16:00 01/15/25 16:00 Temperature 98.1 F Pulse Rate 76 85 Respiratory Rate 18 Blood Pressure 179/78 H Pulse Oximetry 96 Oxygen Delivery Room Air 01/15/25 16:00 01/15/25 18:00 01/15/25 20:00 Temperature Pulse Rate 87 74 Respiratory Rate Blood Pressure Pulse Oximetry Oxygen Delivery Room Air 01/15/25 20:00 01/15/25 20:08 01/15/25 22:00 Temperature 98.2 F Pulse Rate 80 80 76 Respiratory Rate 18 Blood Pressure 171/73 H Pulse Oximetry 97 Oxygen Delivery 01/15/25 22:51 01/15/25 23:22 01/16/25 00:00 Temperature 98.0 F Pulse Rate 70 66 Respiratory Rate 16 Blood Pressure 156/69 H Pulse Oximetry 97 Oxygen Delivery Room Air 01/16/25 02:00 01/16/25 04:00 01/16/25 04:00 Temperature Pulse Rate 66 92 Respiratory Rate Blood Pressure Pulse Oximetry 97 Oxygen Delivery Room Air 01/16/25 04:03 01/16/25 06:00 01/16/25 08:00 Temperature 97.9 F 97.5 F L Pulse Rate 90 85 73 Respiratory Rate 18 20 Blood Pressure 148/65 H 177/66 H Pulse Oximetry 96 98 Oxygen Delivery 01/16/25 08:00 01/16/25 08:00 01/16/25 10:15 Temperature Pulse Rate 92 Respiratory Rate Blood Pressure Pulse Oximetry 97 97 Oxygen Delivery Room Air Room Air 01/16/25 12:00 Temperature Pulse Rate Respiratory Rate Blood Pressure Pulse Oximetry 97 Oxygen Delivery Room Air Intake/Output Intake/Output: Intake & Output 01/13/25 01/14/25 01/15/25 01/16/25 23:59 23:59 23:59 23:59 Intake Total 2370 5225.0 2307.5 1325 Output Total 225 1550 1650 500 Balance 2145 3675.0 657.5 825 Meds/Results Medications: Active Medications Generic Name Dose Route Start Last Admin Trade Name Freq PRN Reason Stop Dose Admin Acetaminophen 650 mg 01/13/25 14:12 01/15/25 21:07 Acetaminophen 325 Mg Tablet PO 650 mg Q4H PRN Administration Mild Pain (1-3) or Fever Albuterol 2 puff 01/13/25 18:22 Albuterol Sulfate (*Sp) Aerosol 1 Puff INHALATION Q4-6H PRN Shortness Of Breath Or Wheezing Allopurinol 300 mg 01/14/25 09:00 01/16/25 09:15 Allopurinol 300 Mg Tablet PO 300 mg DAILY FLOYD Administration Aspirin 81 mg 01/14/25 09:00 01/16/25 09:15 Aspirin 81 Mg Enteric Tablet PO 81 mg QAM FLOYD Administration Atorvastatin Calcium 40 mg 01/14/25 09:00 01/16/25 09:15 Atorvastatin 40 Mg Tablet PO 40 mg DAILY FLOYD Administration Azelastine HCl 1 spray 01/13/25 21:00 01/16/25 09:15 Azelastine Hcl Nasal 0.1% 137 Mcg/Spr 30 Ml Btl NASAL 1 spray Q12HR FLOYD Administration Buspirone HCl 10 mg 01/13/25 18:25 01/16/25 09:15 Buspirone Hcl 10 Mg Tablet PO 10 mg BID FLOYD Administration Calcium Carbonate 500 mg 01/14/25 09:00 01/16/25 09:15 Calcium Carbonate (Oscal) 500 Mg Tablet PO 500 mg DAILY FLOYD Administration Clopidogrel Bisulfate 75 mg 01/14/25 09:00 01/16/25 09:15 Clopidogrel Bisulfate 75 Mg Tablet PO 75 mg QAM FLOYD Administration Dextrose 12.5 gm 01/13/25 14:13 Dextrose 50% 25 Gm/50 Ml Syringe IV PUSH PRN PRN Hypoglycemia Protocol Diazepam 5 mg 01/14/25 09:30 Diazepam Inj (*Crx) 10 Mg/2 Ml Syringe IV PUSH ONCE PRN seizures Enoxaparin Sodium 40 mg 01/14/25 09:00 01/16/25 09:14 Enoxaparin 40 Mg/0.4 Ml Syringe SUB-Q 40 mg DAILY FLOYD Administration Ferrous Sulfate 325 mg 01/14/25 09:00 01/16/25 09:14 Ferrous Sulfate 325 Mg Tablet PO 325 mg DAILY FLOYD Administration Fluticasone Propionate 1 spray 01/14/25 09:00 01/16/25 09:23 Fluticasone Propionate 0.05% Na Spr 16 Gm Btl (*Bkc) NASAL 1 spray BID FLOYD Administration Furosemide 20 mg 01/13/25 18:25 01/15/25 21:07 Furosemide 20 Mg Tablet PO 20 mg QPM FLOYD Administration Furosemide 40 mg 01/14/25 09:00 01/16/25 09:14 Furosemide 20 Mg Tablet PO 40 mg QAM FLOYD Administration Glucagon 1 mg 01/13/25 14:13 Glucagon For Inj 1 Mg Vial IM PRN PRN Hypoglycemia Protocol Glucose 15 gm 01/13/25 14:13 Glucose Oral Gel 15 Gm Of Glucse In 37.5 Gm Tube PO PRN PRN Hypoglycemia Protocol Hydralazine HCl 10 mg 01/14/25 09:45 Hydralazine Hcl 20 Mg/Ml Vial IV PUSH Q8H PRN Blood Pressure - High Hydrocortisone 1 applic 01/14/25 09:00 01/16/25 09:17 Hydrocortisone 1% 30 Gm Cream TOPICAL 1 applic DAILY FLOYD Administration Dextrose 1,000 mls @ 100 mls/hr 01/13/25 14:13 Dextrose 5% 1,000 Ml IVPB PRN PRN Hypoglycemia Protocol Levetiracetam 750 mg/ Dextrose 107.5 mls @ 430 mls/hr 01/15/25 21:00 01/16/25 09:16 IVPB 430 mls/hr Q12HR FLOYD Administration Insulin Aspart 4 - 8 units 01/13/25 17:00 01/16/25 07:56 Insulin Aspart (*Bkc) 100 Units/Ml SUB-Q Not Given TIDWM FLOYD Protocol Insulin Aspart 2 - 4 units 01/13/25 21:00 01/15/25 21:08 Insulin Aspart (*Bkc) 100 Units/Ml SUB-Q Not Given HS FLOYD Protocol Insulin Glargine 10 units 01/15/25 21:00 01/15/25 21:27 Insulin Glargine (*Bkc) 100 Units/Ml SUB-Q 10 units HS FLOYD Administration Lidocaine 1 patch 01/14/25 12:45 01/16/25 09:14 Lidocaine 5% Patch TRANSDERM 1 patch DAILY FLOYD Administration Lisinopril 80 mg 01/14/25 09:00 01/16/25 09:15 Lisinopril 20 Mg Tablet PO 80 mg DAILY FLOYD Administration Magnesium Oxide 400 mg 01/14/25 09:00 01/16/25 09:14 Magnesium Oxide 400 Mg Tablet PO 400 mg DAILY FLOYD Administration Metoprolol Succinate 25 mg 01/14/25 09:00 01/16/25 09:15 Metoprolol Succinate Ext Rel 25 Mg Tabcr PO 25 mg DAILY FLOYD Administration Miconazole Nitrate 1 applic 01/14/25 09:00 01/16/25 09:17 Miconazole Nitrate 2% Cream 30 Gm Tube TOPICAL 1 applic DAILY FLOYD Administration Montelukast Sodium 10 mg 01/14/25 09:00 01/16/25 09:15 Montelukast Sodium 10 Mg Tablet PO 10 mg DAILY FLOYD Administration Mupirocin 1 applic 01/14/25 09:00 01/16/25 09:17 Mupirocin 2% Oint 22 Gm Tube TOPICAL 1 applic BID FLOYD Administration Sertraline HCl 100 mg 01/13/25 18:25 01/16/25 09:14 Sertraline Hcl 50 Mg Tablet PO 100 mg BID FLOYD Administration Trazodone HCl 200 mg 01/13/25 21:00 01/15/25 21:07 Trazodone Hcl 50 Mg Tablet PO 200 mg HS FLOYD Administration Valacyclovir HCl 500 mg 01/13/25 18:40 01/16/25 09:15 Valacyclovir Hcl 500 Mg Tablet PO 500 mg BID FLOYD Administration Vitamin B Complex 1 cap 01/14/25 09:00 01/16/25 09:15 Vitamin B Complex Capsule PO 1 cap DAILY FLOYD Administration Radiology Results: ITS Impressions Chest X-Ray 01/13/25 12:31 Impression: No acute cardiopulmonary abnormality. Head CT 01/14/25 10:21 Impression: 1.No acute intracranial abnormality. Carotid Doppler Study 01/15/25 14:46 IMPRESSION: 1. <50% stenosis in the right internal carotid artery. 2. <50% stenosis in the left internal carotid artery. Cervical Spine CT 01/15/25 18:24 IMPRESSION: 1. Age-indeterminate compression fractures of T2 and T3. 2. Moderate cervical spondylosis. Labs Labs: Laboratory Results - last 24 hr 01/15/25 01/15/25 01/16/25 15:57 20:52 04:09 WBC 5.6 RBC 3.40 L Hgb 11.0 L Hct 32.8 L MCV 96.5 MCH 32.4 MCHC 33.5 RDW 13.8 Plt Count 134 L MPV 10.3 Sodium 139 Potassium 2.8 L* Chloride 108 H Carbon Dioxide 21 L Anion Gap 10 BUN 16 Creatinine 1.27 Estim Creat Clear Calc 59 Estimated GFR 56 L Glucose 184 H POC Capillary Glucose 173 H 164 H Calcium 8.5 01/16/25 07:31 WBC RBC Hgb Hct MCV MCH MCHC RDW Plt Count MPV Sodium Potassium Chloride Carbon Dioxide Anion Gap BUN Creatinine Estim Creat Clear Calc Estimated GFR Glucose POC Capillary Glucose 192 H Calcium Quality VTE Prophylaxis VTE prophylaxis: pharmacologic ordered
[2025-01-16] MEDS: ACETAMINOPHEN 325 MG TABLET 650 MG PO ×2 (13:06→20:35)
[2025-01-16] MEDS: INSULIN ASPART (*BKC) 100 UNITS/ML SUB-Q ×3 (13:07→20:33)
[2025-01-16 14:20] LABS: Anion Gap 9 mmol/L (4-12); Blood Urea Nitrogen 16 mg/dL (9-20); Calcium 8.4 mg/dL (8.4-10.2); Carbon Dioxide 21 mmol/L (22-30); Chloride 107 mmol/L (98-107); Estimated CRCL calculation 52 ml/min; Estimated Glomerular Filt Rate 48; Glucose 297 mg/dL (65-110); Potassium 3.4 mmol/L (3.4-5.0); Sodium 137 mmol/L (137-145)
[2025-01-16] MEDS: FUROSEMIDE 20 MG TABLET PO (18:12)
[2025-01-16] MEDS: INSULIN GLARGINE (*BKC) 100 UNITS/ML 10 UNITS SUB-Q (20:33)
[2025-01-17] VITALS (8 sets, daily range): BP systolic 111–179; BP diastolic 69–87; PULSE 69–90; RESP 16–18; TEMP 36.4–36.7; O2SAT 97–99
[2025-01-17 04:13] LABS: Hematocrit 33.5 % (42.0-52.0); Hemoglobin 11.5 g/dL (14.0-18.0); Mean Corpuscular HGB Conc 34.3 g/dl (32-36); Mean Corpuscular Hemoglobin 32.6 pg (26-34); Mean Corpuscular Volume 94.9 fl (80-100); Platelet Count Result 121 k/mm3 (150-375); Red Blood Count 3.53 M/mm3 (4.6-6.20); White Blood Count 6.4 K/mm3 (4.5-10.0)
[2025-01-17 04:34] LABS: Anion Gap 6 mmol/L (4-12); Blood Urea Nitrogen 15 mg/dL (9-20); Calcium 8.5 mg/dL (8.4-10.2); Carbon Dioxide 27 mmol/L (22-30); Chloride 105 mmol/L (98-107); Estimated CRCL calculation 59 ml/min; Estimated Glomerular Filt Rate 55; Glucose 142 mg/dL (65-110); Potassium 2.8 mmol/L (3.4-5.0); Sodium 138 mmol/L (137-145)
[2025-01-17] MEDS: POTASSIUM CHLORIDE 20 MEQ PACKET (FOR LIQUID) 40 MEQ PO ×2 (05:29→11:22)
--- NOTE | 2025-01-17 06:57 | PM.IMPN ---
Progress Note: A&P Assessment and Plan (1) Altered mental status: Qualifiers: Altered mental status type: disorientation Qualified Code(s): R41.0 - Disorientation, unspecified Code(s): R41.82 - Altered mental status, unspecified Status: Acute Assessment and Plan: Last known well [id number], on original presentation on 01/11. Significant word-finding difficulty noted, confusion, and reported behavioral changes by patient. Symptoms initially concerning for stroke. Patient significantly out of the window for thrombolytics or thrombectomy. Per previous documentation, patient reported his last known well was 4 days prior to 01/11 - head CT from 01/11 in 01/13 were unremarkable. repeat head ct 01/14 remains unremarkable. - carotid doppler: < 50% stenosis of bilateral ICA - CXR, UDS, UA were unremarkable. CO2 20 on BMP. No significant electrolyte derangements. - TSH, B12 and folate WNL - blood cultures added to r/u any infectious process: NGTD - MRI ordered - Echo ordered - Initiate stroke protocol, NIH Stroke Scale, neuro's q.4 hours - Monitor CBC, CMP, magnesium, troponin, and lipid profile - Monitor blood pressure, allow for permissive hypertension. - Telemetry monitoring - Monitor blood glucose - PT/OT eval and treat - Neurology consulted, appreciate assistance and recommendations recommended MRI, MR Angiography of the head/neck, EEG, carotid Doppler, and starting anti-platelet/statin now (patient is on atorvastatin increased to 40 mg daily). Patient currently AOx4 following commands on assessment. Denies any hallucinations. MRI/MRA to be done following the completion of MRI documents. (2) Seizure: Code(s): R56.9 - Unspecified convulsions Status: Acute Assessment and Plan: Rapid response was called on 01/14. Pt was found on the floor. Per nursing records, pt was in a recliner, stood up, chair alarm went off, and when staff arrived, pt was found on the floor, witness seizure for about 20 seconds. Prior to that, he was a/o x1, restless. Of note, he was in ED prior for c/o AMS and hallucination. Stat head CT, C spine was ordered, neurology was called and DR Severino recommended 2000 mg loading dose of keppra and then 1000 mg bid and pt was moved to IMU. SonJose C was called and updated on condition- all questions answered. - Head CT: unremarkable - C spine CT: age indeterminate compression fractures of t2 and t3 with moderate cervical spondylosis - MRI is ordered - EEG ordered - Keppra 2000 mg loading dose given per neurology recommendations, remains on keppra 1000 mg bid - Seizure precautions (3) Diabetes mellitus: Qualifiers: Chronic kidney disease stage: unspecified stage Diabetes mellitus complication detail: with chronic kidney disease Diabetes mellitus complication status: with kidney complications Diabetes mellitus fpc insulin use: without fpc use Diabetes mellitus type: type 2 Qualified Code(s): E11.22 - Type 2 diabetes mellitus with diabetic chronic kidney disease Code(s): E11.9 - Type 2 diabetes mellitus without complications Status: Acute Assessment and Plan: Initial glucose 426, gap 13, however CO2 28 and beta hydroxy 2.14. Given 2L of fluid in the ED - hypoglycemia protocol - POC blood glucose ACHS - home medication: Hold metformin in case of need for contrast and Ozempic (NF) - correct regimen ordered - high dose TIDWM and HS, based off BMI and lantus 10 units - A1C 8.5% on 12/15/2024 - consider failure analysis engineer consultation once alteration improved (4) CKD (chronic kidney disease): Qualifiers: Chronic kidney disease stage: stage 1 Qualified Code(s): N18.1 - Chronic kidney disease, stage 1 Code(s): N18.9 - Chronic kidney disease, unspecified Status: Chronic Assessment and Plan: - creatinine 1.71, BUN 28, and GFR 40 upon admission. appears at baseline. - creatinine has ranged 1.6-1.8 - trend renal function - trend electrolytes, correct as needed - renally dose medications - monitor I/O (5) Hypertension: Qualifiers: Hypertension type: primary hypertension Qualified Code(s): I10 - Essential (primary) hypertension Code(s): I10 - Essential (primary) hypertension Status: Acute Assessment and Plan: Chronic, continue home medications - Metoprolol 25 mg daily - Lasix 60 mg daily - Lisinopril 80 mg daily - blood pressures remain stable, continue to monitor (6) Hyperlipidemia: Qualifiers: Hyperlipidemia type: mixed hyperlipidemia Qualified Code(s): E78.2 - Mixed hyperlipidemia Code(s): E78.5 - Hyperlipidemia, unspecified Status: Acute Assessment and Plan: - atorvastatin increased from 20 mg daily to 40 mg daily due to concern for stroke Time Spent With Patient Time with patient: 25 - 35 minutes Subjective Date/time seen: 01/17/25 06:57 Interval history: 69 year old male with past medical history of fibromyalgia, hypogonadism, cardiomyopathy, asthma, hyperlipidemia, anemia, depression, gout, CKD, and diabetes presents here with altered mental status. Patient is pleasant sitting up comfortably in bed. He is AOx4 on assessment following commands. He states that he is no longer seeing fireworks out of his right peripheral vision and denies all other hallucinations. He has no complaints denying chest pain, palpitations, shortness of breath, nausea/vomiting and abdominal pain. Review of Systems Review of Systems: All systems reviewed & are unremarkable except as noted in HPI and below Exam Narrative: AF HR 84 RR 18 Spo2 97 BP 161/77 General: male in no acute respiratory distress who is nontoxic appearing, sitting up in bed. HEENT: Normocephalic. Atraumatic. Extraocular movement intact. Sclera clear and anicteric. No facial asymmetry. Chest: Lungs are clear to auscultation bilaterally. CV: Heart was regular rate and rhythm. Abd: Abdomen was soft. Nontender. Nondistended. Positive bowel sounds. Ext: No clubbing, cyanosis, or edema. DP pulses bilaterally. Chronic pretibial discoloration. Neuro: Patient is alert and oriented x4. Strength is 5/5 in both upper and lower extremities. Cranial nerves 2-12 are intact. Speech is clear. Objective Data Vital Signs Vital Signs: Vital Signs - 24 hr 01/16/25 08:00 01/16/25 08:00 01/16/25 08:00 Temperature 97.5 F L Pulse Rate 73 92 Respiratory Rate 20 Blood Pressure 177/66 H Pulse Oximetry 98 97 Oxygen Delivery Room Air 01/16/25 10:00 01/16/25 10:15 01/16/25 12:00 Temperature Pulse Rate 87 Respiratory Rate Blood Pressure Pulse Oximetry 97 97 Oxygen Delivery Room Air Room Air 01/16/25 12:00 01/16/25 12:00 01/16/25 14:00 Temperature 97.5 F L Pulse Rate 70 79 77 Respiratory Rate 24 H Blood Pressure 128/68 Pulse Oximetry 100 Oxygen Delivery 01/16/25 16:00 01/16/25 16:00 01/16/25 20:00 Temperature 97.5 F L 98.2 F Pulse Rate 86 75 81 Respiratory Rate 28 H 17 Blood Pressure 178/79 H 164/71 H Pulse Oximetry 99 96 Oxygen Delivery 01/16/25 20:00 01/16/25 20:00 01/16/25 23:30 Temperature 98.0 F Pulse Rate 76 72 Respiratory Rate 17 Blood Pressure 154/62 H Pulse Oximetry 97 94 Oxygen Delivery Room Air 01/17/25 00:00 01/17/25 04:00 01/17/25 04:00 Temperature 98.0 F Pulse Rate 80 69 73 Respiratory Rate 17 Blood Pressure 111/87 Pulse Oximetry 98 Oxygen Delivery Intake/Output Intake/Output: Intake & Output 01/14/25 01/15/25 01/16/25 01/17/25 23:59 23:59 23:59 23:59 Intake Total 5225.0 2307.5 2412.5 Output Total 1550 1650 2300 200 Balance 3675.0 657.5 112.5 -200 Meds/Results Medications: Active Medications Generic Name Dose Route Start Last Admin Trade Name Freq PRN Reason Stop Dose Admin Acetaminophen 650 mg 01/13/25 14:12 01/16/25 20:35 Acetaminophen 325 Mg Tablet PO 650 mg Q4H PRN Administration Mild Pain (1-3) or Fever Albuterol 2 puff 01/13/25 18:22 Albuterol Sulfate (*Sp) Aerosol 1 Puff INHALATION Q4-6H PRN Shortness Of Breath Or Wheezing Allopurinol 300 mg 01/14/25 09:00 01/16/25 09:15 Allopurinol 300 Mg Tablet PO 300 mg DAILY FLOYD Administration Aspirin 81 mg 01/14/25 09:00 01/16/25 09:15 Aspirin 81 Mg Enteric Tablet PO 81 mg QAM FLOYD Administration Atorvastatin Calcium 40 mg 01/14/25 09:00 01/16/25 09:15 Atorvastatin 40 Mg Tablet PO 40 mg DAILY FLOYD Administration Azelastine HCl 1 spray 01/13/25 21:00 01/16/25 23:45 Azelastine Hcl Nasal 0.1% 137 Mcg/Spr 30 Ml Btl NASAL Not Given Q12HR FLOYD Buspirone HCl 10 mg 01/13/25 18:25 01/16/25 18:13 Buspirone Hcl 10 Mg Tablet PO 10 mg BID FLOYD Administration Calcium Carbonate 500 mg 01/14/25 09:00 01/16/25 09:15 Calcium Carbonate (Oscal) 500 Mg Tablet PO 500 mg DAILY FLOYD Administration Clopidogrel Bisulfate 75 mg 01/14/25 09:00 01/16/25 09:15 Clopidogrel Bisulfate 75 Mg Tablet PO 75 mg QAM FLOYD Administration Dextrose 12.5 gm 01/13/25 14:13 Dextrose 50% 25 Gm/50 Ml Syringe IV PUSH PRN PRN Hypoglycemia Protocol Diazepam 5 mg 01/14/25 09:30 Diazepam Inj (*Crx) 10 Mg/2 Ml Syringe IV PUSH ONCE PRN seizures Enoxaparin Sodium 40 mg 01/14/25 09:00 01/16/25 09:14 Enoxaparin 40 Mg/0.4 Ml Syringe SUB-Q 40 mg DAILY FLOYD Administration Ferrous Sulfate 325 mg 01/14/25 09:00 01/16/25 09:14 Ferrous Sulfate 325 Mg Tablet PO 325 mg DAILY FLOYD Administration Fluticasone Propionate 1 spray 01/14/25 09:00 01/16/25 18:13 Fluticasone Propionate 0.05% Na Spr 16 Gm Btl (*Bkc) NASAL 1 spray BID FLOYD Administration Furosemide 20 mg 01/13/25 18:25 01/16/25 18:12 Furosemide 20 Mg Tablet PO 20 mg QPM FLOYD Administration Furosemide 40 mg 01/14/25 09:00 01/16/25 09:14 Furosemide 20 Mg Tablet PO 40 mg QAM FLOYD Administration Glucagon 1 mg 01/13/25 14:13 Glucagon For Inj 1 Mg Vial IM PRN PRN Hypoglycemia Protocol Glucose 15 gm 01/13/25 14:13 Glucose Oral Gel 15 Gm Of Glucse In 37.5 Gm Tube PO PRN PRN Hypoglycemia Protocol Hydralazine HCl 10 mg 01/14/25 09:45 Hydralazine Hcl 20 Mg/Ml Vial IV PUSH Q8H PRN Blood Pressure - High Hydrocortisone 1 applic 01/14/25 09:00 01/16/25 09:17 Hydrocortisone 1% 30 Gm Cream TOPICAL 1 applic DAILY FLOYD Administration Dextrose 1,000 mls @ 100 mls/hr 01/13/25 14:13 Dextrose 5% 1,000 Ml IVPB PRN PRN Hypoglycemia Protocol Levetiracetam 750 mg/ Dextrose 107.5 mls @ 430 mls/hr 01/15/25 21:00 01/16/25 20:34 IVPB 430 mls/hr Q12HR FLOYD Administration Insulin Aspart 4 - 8 units 01/13/25 17:00 01/16/25 18:13 Insulin Aspart (*Bkc) 100 Units/Ml SUB-Q 5 units TIDWM FLOYD Administration Protocol Insulin Aspart 2 - 4 units 01/13/25 21:00 01/16/25 20:33 Insulin Aspart (*Bkc) 100 Units/Ml SUB-Q 2 units HS FLOYD Administration Protocol Insulin Glargine 10 units 01/15/25 21:00 01/16/25 20:33 Insulin Glargine (*Bkc) 100 Units/Ml SUB-Q 10 units HS FLOYD Administration Lidocaine 1 patch 01/14/25 12:45 01/16/25 09:14 Lidocaine 5% Patch TRANSDERM 1 patch DAILY FLOYD Administration Lisinopril 80 mg 01/14/25 09:00 01/16/25 09:15 Lisinopril 20 Mg Tablet PO 80 mg DAILY FLOYD Administration Magnesium Oxide 400 mg 01/14/25 09:00 01/16/25 09:14 Magnesium Oxide 400 Mg Tablet PO 400 mg DAILY FLOYD Administration Metoprolol Succinate 25 mg 01/14/25 09:00 01/16/25 09:15 Metoprolol Succinate Ext Rel 25 Mg Tabcr PO 25 mg DAILY FLOYD Administration Miconazole Nitrate 1 applic 01/14/25 09:00 01/16/25 09:17 Miconazole Nitrate 2% Cream 30 Gm Tube TOPICAL 1 applic DAILY FLOYD Administration Montelukast Sodium 10 mg 01/14/25 09:00 01/16/25 09:15 Montelukast Sodium 10 Mg Tablet PO 10 mg DAILY FLOYD Administration Mupirocin 1 applic 01/14/25 09:00 01/16/25 18:13 Mupirocin 2% Oint 22 Gm Tube TOPICAL 1 applic BID FLOYD Administration Potassium Chloride 40 meq 01/17/25 09:00 Potassium Chloride 20 Meq Packet (For Liquid) PO DAILY FLOYD Sertraline HCl 100 mg 01/13/25 18:25 01/16/25 18:13 Sertraline Hcl 50 Mg Tablet PO 100 mg BID FLOYD Administration Trazodone HCl 200 mg 01/13/25 21:00 01/16/25 20:35 Trazodone Hcl 50 Mg Tablet PO 200 mg HS FLOYD Administration Valacyclovir HCl 500 mg 01/13/25 18:40 01/16/25 18:13 Valacyclovir Hcl 500 Mg Tablet PO 500 mg BID FLOYD Administration Vitamin B Complex 1 cap 01/14/25 09:00 01/16/25 09:15 Vitamin B Complex Capsule PO 1 cap DAILY FLOYD Administration Radiology Results: ITS Impressions Chest X-Ray 01/13/25 12:31 Impression: No acute cardiopulmonary abnormality. Head CT 01/14/25 10:21 Impression: 1.No acute intracranial abnormality. Carotid Doppler Study 01/15/25 14:46 IMPRESSION: 1. <50% stenosis in the right internal carotid artery. 2. <50% stenosis in the left internal carotid artery. Cervical Spine CT 01/15/25 18:24 IMPRESSION: 1. Age-indeterminate compression fractures of T2 and T3. 2. Moderate cervical spondylosis. Labs Labs: Laboratory Results - last 24 hr 01/16/25 01/16/25 01/16/25 04:09 07:31 12:30 WBC 5.6 RBC 3.40 L Hgb 11.0 L Hct 32.8 L MCV 96.5 MCH 32.4 MCHC 33.5 RDW 13.8 Plt Count 134 L MPV 10.3 Sodium Potassium Chloride Carbon Dioxide Anion Gap BUN Creatinine Estim Creat Clear Calc Estimated GFR Glucose POC Capillary Glucose 192 H 219 H Calcium 01/16/25 01/16/25 01/16/25 13:55 13:55 16:42 WBC RBC Hgb Hct MCV MCH MCHC RDW Plt Count MPV Sodium 137 Potassium 3.4 Cancelled Chloride 107 Carbon Dioxide 21 L Anion Gap 9 BUN 16 Creatinine 1.44 H Estim Creat Clear Calc 52 Estimated GFR 48 L Glucose 297 H POC Capillary Glucose 285 H Calcium 8.4 01/16/25 01/17/25 20:25 04:03 WBC 6.4 RBC 3.53 L Hgb 11.5 L Hct 33.5 L MCV 94.9 MCH 32.6 MCHC 34.3 RDW 13.2 Plt Count 121 L MPV 9.4 Sodium 138 Potassium 2.8 L* Chloride 105 Carbon Dioxide 27 Anion Gap 6 BUN 15 Creatinine 1.28 Estim Creat Clear Calc 59 Estimated GFR 55 L Glucose 142 H POC Capillary Glucose 282 H Calcium 8.5 Quality VTE Prophylaxis VTE prophylaxis: pharmacologic ordered
[2025-01-17] MEDS: FERROUS SULFATE 325 MG TABLET PO (08:54)
[2025-01-17] MEDS: ASPIRIN 81 MG ENTERIC TABLET PO (08:54)
[2025-01-17] MEDS: SERTRALINE HCL 50 MG TABLET 100 MG PO ×2 (08:54→17:16)
[2025-01-17] MEDS: VITAMIN B COMPLEX CAPSULE 1 CAP PO (08:54)
[2025-01-17] MEDS: CALCIUM CARBONATE (OSCAL) 500 MG TABLET PO (08:55)
[2025-01-17] MEDS: MONTELUKAST SODIUM 10 MG TABLET PO (08:55)
[2025-01-17] MEDS: MAGNESIUM OXIDE 400 MG TABLET PO (08:55)
[2025-01-17] MEDS: METOPROLOL SUCCINATE EXT REL 25 MG TABCR PO (08:55)
[2025-01-17] MEDS: LIDOCAINE 5% PATCH 1 PATCH TRANSDERM (08:55)
[2025-01-17] MEDS: ENOXAPARIN 40 MG/0.4 ML SYRINGE SUB-Q (08:56)
[2025-01-17] MEDS: AZELASTINE HCL NASAL 0.1% 137 MCG/SPR 30 ML BTL 1 SPRAY NASAL ×2 (08:57→20:20)
[2025-01-17] MEDS: FUROSEMIDE 20 MG TABLET 40 MG PO (08:58)
[2025-01-17] MEDS: CLOPIDOGREL BISULFATE 75 MG TABLET PO (08:58)
[2025-01-17] MEDS: ATORVASTATIN 40 MG TABLET PO (08:59)
[2025-01-17 09:23] LABS: Potassium 3.7 mmol/L (3.4-5.0)
[2025-01-17] MEDS: FLUTICASONE PROPIONATE 0.05% NA SPR 16 GM BTL (*BKC) 1 SPRAY NASAL (11:22)
[2025-01-17] MEDS: INSULIN ASPART (*BKC) 100 UNITS/ML SUB-Q ×3 (12:27→20:37)
[2025-01-17] MEDS: ACETAMINOPHEN 325 MG TABLET 650 MG PO ×2 (13:25→20:21)
[2025-01-17] MEDS: FUROSEMIDE 20 MG TABLET PO (17:16)
[2025-01-17] MEDS: MUPIROCIN 2% OINT 22 GM TUBE 1 APPLIC TOPICAL (17:16)
[2025-01-17] MEDS: INSULIN GLARGINE (*BKC) 100 UNITS/ML 10 UNITS SUB-Q (20:19)
[2025-01-18] VITALS (10 sets, daily range): BP systolic 137–167; BP diastolic 61–85; PULSE 62–93; RESP 18; TEMP 36.2–37; O2SAT 98–99
--- NOTE | 2025-01-18 | ECHO_ITS ---
Patient Info Name: Pawel Hawkins Age: 69 years : 1955 Gender: Male Ht: 68 in Wt: 256 lbs BSA: 2.41 m2 HR: 72 bpm BP: 167 / 84 mmHg Technical Quality: Fair Exam Date: 01/18/2025 10:27 AM Patient Status: I Admit Date: 01/14/2025 Exam Type: CA echo dop bubble study w con Complete two-dimentional, color flow and Doppler transthoracic echocardiogram is performed with agitated saline and with contrast to opacify the left ventricle and to improve the delineation of the left ventricle endocardial borders. Staff Referring Physician: Linsey Ulrich Electrical Tech: Kate Jain Attending Provider: Ty Bustos Contrast/Agitated Saline Contrast/Ag. Saline: Definity Amount: 2.00 ml Existing IV Access: Yes IV Access Condition: patent with no signs of infiltration Contrast/Ag. Saline: Agitated Saline Amount: 12.00 ml Existing IV Access: Yes IV Access Condition: patent with no signs of infiltration Summary 1. Definity contrast administered improved wall motion interpretation. 2. Left ventricular chamber dimension is normal. 3. Left ventricular systolic function is normal, estimated at 60-65. 4. There is mild concentric increased left ventricular wall thickness. 5. The left ventricular diastolic function is grade I diastolic dysfunction. 6. E/e' 10 is mildly elevated. 7. There is mild aortic valve sclerosis. 8. No pulmonary hypertension, estimated pulmonary arterial systolic pressure is 27 mmHg. 9. There is trace pulmonic regurgitation. Left Ventricle E/e' 10 is mildly elevated. Left ventricular chamber dimension is normal. Left ventricular systolic function is normal, estimated at 60-65. There is mild concentric increased left ventricular wall thickness. The left ventricular diastolic function is grade I diastolic dysfunction. Definity contrast administered improved wall motion interpretation. Right Ventricle Right ventricular chamber dimension is normal. Right ventricular systolic function is normal and with normal TAPSE 2.0 cm. Left Atria Left atrial chamber dimension is normal. Right Atria Right atrial chamber dimension is normal. Atrial Septum Intact interatrial septum visualized by 2D and agitated saline imaging. Agitated saline injection with and without valsalva maneuver opacified right side cardiac chambers without shunt to left side cardiac chambers. Aortic Valve The aortic valve is trileaflet. There is mild aortic valve sclerosis. There is no aortic valve stenosis. There is no aortic valve regurgitation. Pulmonic Valve There is trace pulmonic regurgitation. Mitral Valve There is no mitral valve stenosis. There is no mitral valve regurgitation. Tricuspid Valve There is no tricuspid valve regurgitation. No pulmonary hypertension, estimated pulmonary arterial systolic pressure is 27 mmHg. Pericardium/Pleural There is no pericardial effusion. Inferior Vena Cava Normal inferior vena cava with >50% collapse upon inspiration consistent with normal right atrial pressure, 5 mmHg. Aorta The aortic root size at the sinus of Valsalva is normal. Left Ventricular Outflow Tract Name Value Normal LVOT 2D LVOT Diameter 2.2 cm LVOT Doppler LVOT Peak Velocity 98 cm/s LVOT Peak Gradient 4 mmHg LVOT Mean Gradient 2 mmHg LVOT VTI 21 cm LVOT VTI/AV VTI Ratio 0.9 LVOT Stroke Volume 79 ml LVOT CO 15.5 l/min LVOT CI 6.4 l/min/m2 Pulmonic Valve Name Value Normal PV Doppler PV Peak Velocity 89 cm/s PV Peak Gradient 3 mmHg Mitral Valve Name Value Normal MV Diastolic Function MV E Peak Velocity 73 cm/s MV A Peak Velocity 79 cm/s MV E/A 0.9 MV Decel Time (PW) 229 ms MV Annular TDI MV E/e' (Septal) 12.5 MV E/e' (Lateral) 8.7 MV E/e' (Average) 10.6 Tricuspid Valve Name Value Normal TV Regurgitation Doppler TR Peak Velocity 233 cm/s TR Peak Gradient 22 mmHg Estimated PAP/RSVP RA Pressure 5 mmHg <=5 PA Systolic Pressure 27 mmHg <36 RV Systolic Pressure 27 mmHg <36 TV Annular TDI TV Lateral Imelda s' Velocity 12.4 cm/s >=9.5 Aorta Name Value Normal Ascending Aorta Ao Root Diameter (MM) 3.3 cm Ao Root Diam Index (MM) 1.4 cm/m2 Aortic Valve Name Value Normal AV Doppler AV Peak Velocity 117 cm/s AV Peak Gradient 5 mmHg AV Mean Gradient 3 mmHg AV VTI 24 cm AV Area (Cont Eq VTI) 3.3 cm2 >=3.0 AV Area (Cont Eq Willis) 3.1 cm2 AV DI (Willis) 0.84 AV Regurgitation 2D LVOT Area 3.7 cm2 Ventricles Name Value Normal LV Dimensions 2D/MM IVS Diastolic Thickness (2D) 1.2 cm 0.6-1.0 LVID Diastole (2D) 4.1 cm 4.2-5.8 LVIW Diastolic Thickness (2D) 1.0 cm 0.6-1.0 LVID Systole (2D) 2.6 cm 2.5-4.0 LVOT Diameter 2.2 cm LV Mass (2D Cubed) 141.25 g 88.00-224.00 LV Mass Index (2D Cubed) 59 g/m2 49-115 Relative Wall Thickness (2D) 0.48 <=0.42 LV Fractional Shortening/Ejection Fraction 2D/MM LV Fractional Shortening (2D) 37 % 25-43 LV EF (2D Teichholz) 68 % LV Diastolic Volume (4C MOD) 113 ml LV EF (4C MOD) 59 % LV Diastolic Volume (2C MOD) 119 ml LV EF (2C MOD) 71 % LV Diastolic Volume (BP MOD) 116 ml 62-150 LV Diastolic Volume Index (BP MOD) 48 ml/m2 34-74 LV Systolic Volume (BP MOD) 40 ml 21-61 LV Systolic Volume Index (BP MOD) 17 ml/m2 11-31 LV EF (BP MOD) 66 % 52-72 LV Diastolic Length (4C) 8.4 cm LV Systolic Length (4C) 7.2 cm LV Stroke Volume (4C MOD) 67 ml RV Dimensions 2D/MM RVID Diastole (2D) 3.8 cm 2.1-3.5 Atria Name Value Normal LA Dimensions LA Dimension (MM) 2.8 cm 3.0-4.0 LA Volume (4C A-L) 45 ml LA Volume (BP A-L) 42 ml RA Dimensions RA Systolic Major [place] Length (4C) 4.9 cm 2.1-2.7 RA Area (4C) 15.8 cm2 <=18.0 Report Signatures
[2025-01-18 03:52] LABS: Hematocrit 33.6 % (42.0-52.0); Hemoglobin 11.4 g/dL (14.0-18.0); Mean Corpuscular HGB Conc 33.9 g/dl (32-36); Mean Corpuscular Hemoglobin 32.6 pg (26-34); Mean Corpuscular Volume 96.0 fl (80-100); Platelet Count Result 139 k/mm3 (150-375); Red Blood Count 3.50 M/mm3 (4.6-6.20); White Blood Count 6.5 K/mm3 (4.5-10.0)
[2025-01-18 04:14] LABS: Alanine Aminotransferase 22 U/L (6-50); Albumin Level 3.1 g/dL (3.5-5.1); Alkaline Phosphatase 124 U/L (38-126); Aspartate Amino Transferase 31 U/L (17-59); Bilirubin,Total 0.7 mg/dL (0.2-1.3); Blood Urea Nitrogen 15 mg/dL (9-20); Calcium 8.4 mg/dL (8.4-10.2); Carbon Dioxide 29 mmol/L (22-30); Chloride 104 mmol/L (98-107); Estimated CRCL calculation 59 ml/min; Estimated Glomerular Filt Rate 56; Glucose 210 mg/dL (65-110); Potassium 3.3 mmol/L (3.4-5.0); Total Protein 5.9 g/dL (6.3-8.2)
[2025-01-18 04:21] LABS: Anion Gap 2 mmol/L (4-12); Sodium 135 mmol/L (137-145)
--- NOTE | 2025-01-18 08:24 | P.PNIM_ITS ---
Progress Note: A&P Assessment and Plan (1) Altered mental status: Qualifiers: Altered mental status type: disorientation Qualified Code(s): R41.0 - Disorientation, unspecified Code(s): R41.82 - Altered mental status, unspecified Status: Acute Assessment and Plan: Last known well [id number], on original presentation on 01/11. Significant word-finding difficulty noted, confusion, and reported behavioral changes by patient. Symptoms initially concerning for stroke. Patient significantly out of the window for thrombolytics or thrombectomy. Per previous documentation, patient reported his last known well was 4 days prior to 01/11 - head CT from 01/11 in 01/13 were unremarkable. repeat head ct 01/14 remains unremarkable. - carotid doppler: < 50% stenosis of bilateral ICA - CXR, UDS, UA were unremarkable. CO2 20 on BMP. No significant electrolyte derangements. - TSH, B12 and folate WNL - blood cultures added to r/u any infectious process: NGTD - MRI: No acute infarct or other evident acute intracranial process. Periventricular predominant white matter T2 hyperintensity which within normal limits for age and likely sequela of chronic small vessel ischemic disease. - Echo: LVEF 60-65% with grade I diastolic dysfunction - Monitor CBC, CMP, magnesium, troponin, and lipid profile. Monitor blood pressure. Monitor blood glucose - Telemetry monitoring - PT/OT eval and treat - Neurology consulted, appreciate assistance and recommendations MR Angiography of the head/neck: No significant stenosis of the vertebrobasilar arteries or the internal carotid arteries. The anterior, middle, and posterior cerebral arteries are obscured by motion artifact. EEG unremarkable carotid Doppler Patient currently AOx4 following commands on assessment. Denies any hallucinations. Discussed patient with neurology Dr. Severino. He remains on ASA and statin, no plavix required at this time. Patient will require a repeat Brain MRI w/wo given that prior imaging has too much artifact. (2) Seizure: Code(s): R56.9 - Unspecified convulsions Status: Acute Assessment and Plan: Rapid response was called on 01/14. Pt was found on the floor. Per nursing records, pt was in a recliner, stood up, chair alarm went off, and when staff arrived, pt was found on the floor, witness seizure for about 20 seconds. Prior to that, he was a/o x1, restless. Of note, he was in ED prior for c/o AMS and hallucination. Stat head CT, C spine was ordered, neurology was called and DR Severino recommended 2000 mg loading dose of keppra and then 1000 mg bid and pt was moved to IMU. SonJose C was called and updated on condition- all questions answered. - Head CT: unremarkable - C spine CT: age indeterminate compression fractures of t2 and t3 with moderate cervical spondylosis - MRI: No acute infarct or other evident acute intracranial process. Periventricular predominant white matter T2 hyperintensity which within normal limits for age and likely sequela of chronic small vessel ischemic disease. - EEG unremarkable - Keppra 2000 mg loading dose given per neurology recommendations, remains on keppra 1000 mg bid - Seizure precautions (3) Diabetes mellitus: Qualifiers: Chronic kidney disease stage: unspecified stage Diabetes mellitus co mplication detail: with chronic kidney disease Diabetes mellitus complication status: with kidney complications Diabetes mellitus termite control servicer insulin use: without termite control servicer use Diabetes mellitus type: type 2 Qualified Code(s): E11.22 - Type 2 diabetes mellitus with diabetic chronic kidney disease Code(s): E11.9 - Type 2 diabetes mellitus without complications Status: Acute Assessment and Plan: Initial glucose 426, gap 13, however CO2 28 and beta hydroxy 2.14. Given 2L of fluid in the ED - hypoglycemia protocol - POC blood glucose ACHS - home medication: Hold metformin in case of need for contrast and Ozempic (NF) - correct regimen ordered - high dose TIDWM and HS, based off BMI and lantus 10 units - A1C 8.5% on 12/15/2024 - consider art educator consultation once alteration improved (4) CKD (chronic kidney disease): Qualifiers: Chronic kidney disease stage: stage 1 Qualified Code(s): N18.1 - Chronic kidney disease, stage 1 Code(s): N18.9 - Chronic kidney disease, unspecified Status: Chronic Assessment and Plan: - creatinine 1.71, BUN 28, and GFR 40 upon admission. appears at baseline. - creatinine has ranged 1.6-1.8 - trend renal function - trend electrolytes, correct as needed - renally dose medications - monitor I/O (5) Hypertension: Qualifiers: Hypertension type: primary hypertension Qualified Code(s): I10 - Essential (primary) hypertension Code(s): I10 - Essential (primary) hypertension Status: Acute Assessment and Plan: Chronic, continue home medications - Metoprolol 25 mg daily - Lasix 60 mg daily - Lisinopril 80 mg daily - blood pressures remain stable, continue to monitor (6) Hyperlipidemia: Qualifiers: Hyperlipidemia type: mixed hyperlipidemia Qualified Code(s): E78.2 - Mixed hyperlipidemia Code(s): E78.5 - Hyperlipidemia, unspecified Status: Acute Assessment and Plan: - atorvastatin increased from 20 mg daily to 40 mg daily due to concern for stroke Time Spent With Patient Time with patient: 25 - 35 minutes Subjective Date/time seen: 01/18/25 08:24 Interval history: 69 year old male with past medical history of fibromyalgia, hypogonadism, cardiomyopathy, asthma, hyperlipidemia, anemia, depression, gout, CKD, and diabetes presents here with altered mental status. Patient is pleasant sitting up comfortably in bed. He remains alert and oriented x4 at time assessment. He has no complaints denying chest pain, shortness a breath, palpitations, nausea/vomiting, abdominal pain, and weakness/tingling/numbness. Discussed patient with neurology Dr. Severino. He remains on ASA and statin, no plavix required at this time. Patient will require a repeat Brain MRI w/wo given that prior imaging has too much artifact. Review of Systems Review of Systems: All systems reviewed & are unremarkable except as noted in HPI and below Exam Narrative: AF HR 91 RR 18 Spo2 99 BP 146/79 General: male in no acute respiratory distress who is nontoxic appearing, sitting up in bed. HEENT: Normocephalic. Atraumatic. Extraocular movement intact. Sclera clear and anicteric. No facial asymmetry. Chest: Lungs are clear to auscultation bilaterally. CV: Heart was regular rate and rhythm. Abd: Abdomen was soft. Nontender. Nondistended. Positive bowel sounds. Ext: No clubbing, cyanosis, or edema. DP pulses bilaterally. Chronic pretibial discoloration. Neuro: Patient is alert and oriented x4. Strength is 5/5 in both upper and lower extremities. Cranial nerves 2-12 are intact. Speech is clear. Objective Data Vital Signs Vital Signs: Vital Signs - 24 hr 01/17/25 08:55 01/17/25 12:00 01/17/25 12:00 Temperature 98 F Pulse Rate 85 84 90 Respiratory Rate 18 Blood Pressure 161/77 H Pulse Oximetry 97 Oxygen Delivery 01/17/25 16:00 01/17/25 16:00 01/17/25 19:52 Temperature 97.9 F 97.9 F Pulse Rate 77 76 77 Respiratory Rate 18 16 Blood Pressure 179/81 H 156/75 H Pulse Oximetry 98 99 Oxygen Delivery 01/17/25 20:00 01/17/25 20:00 01/18/25 00:00 Temperature Pulse Rate 86 72 Respiratory Rate Blood Pressure Pulse Oximetry Oxygen Delivery Room Air 01/18/25 04:00 01/18/25 04:00 01/18/25 08:00 Temperature 98.2 F 98.6 F Pulse Rate 79 62 78 Respiratory Rate 18 18 Blood Pressure 167/84 H 167/81 H Pulse Oximetry 98 98 Oxygen Delivery Intake/Output Intake/Output: Intake & Output 01/15/25 01/16/25 01/17/25 01/18/25 23:59 23:59 23:59 23:59 Intake Total 2307.5 2520.0 1067.5 300 Output Total 1650 2300 2050 700 Balance 657.5 220.0 -982.5 -400 Meds/Results Medications: Active Medications Generic Name Dose Route Start Last Admin Trade Name Freq PRN Reason Stop Dose Admin Acetaminophen 650 mg 01/13/25 14:12 01/17/25 20:21 Acetaminophen 325 Mg Tablet PO 650 mg Q4H PRN Administration Mild Pain (1-3) or Fever Albuterol 2 puff 01/13/25 18:22 Albuterol Sulfate (*Sp) Aerosol 1 Puff INHALATION Q4-6H PRN Shortness Of Breath Or Wheezing Allopurinol 300 mg 01/14/25 09:00 01/17/25 08:54 Allopurinol 300 Mg Tablet PO 300 mg DAILY FLOYD Administration Aspirin 81 mg 01/14/25 09:00 01/17/25 08:54 Aspirin 81 Mg Enteric Tablet PO 81 mg QAM FLOYD Administration Atorvastatin Calcium 40 mg 01/14/25 09:00 01/17/25 08:59 Atorvastatin 40 Mg Tablet PO 40 mg DAILY FLOYD Administration Azelastine HCl 1 spray 01/13/25 21:00 01/17/25 20:20 Azelastine Hcl Nasal 0.1% 137 Mcg/Spr 30 Ml Btl NASAL 1 spray Q12HR FLOYD Administration Buspirone HCl 10 mg 01/13/25 18:25 01/17/25 17:16 Buspirone Hcl 10 Mg Tablet PO 10 mg BID FLOYD Administration Calcium Carbonate 500 mg 01/14/25 09:00 01/17/25 08:55 Calcium Carbonate (Oscal) 500 Mg Tablet PO 500 mg DAILY FLOYD Administration Clopidogrel Bisulfate 75 mg 01/14/25 09:00 01/17/25 08:58 Clopidogrel Bisulfate 75 Mg Tablet PO 75 mg QAM FLODY Administration Dextrose 12.5 gm 01/13/25 14:13 Dextrose 50% 25 Gm/50 Ml Syringe IV PUSH PRN PRN Hypoglycemia Protocol Diazepam 5 mg 01/14/25 09:30 Diazepam Inj (*Crx) 10 Mg/2 Ml Syringe IV PUSH ONCE PRN seizures Enoxaparin Sodium 40 mg 01/14/25 09:00 01/17/25 08:56 Enoxaparin 40 Mg/0.4 Ml Syringe SUB-Q 40 mg DAILY FLOYD Administration Ferrous Sulfate 325 mg 01/14/25 09:00 01/17/25 08:54 Ferrous Sulfate 325 Mg Tablet PO 325 mg DAILY FLOYD Administration Fluticasone Propionate 1 spray 01/14/25 09:00 01/17/25 17:17 Fluticasone Propionate 0.05% Na Spr 16 Gm Btl (*Bkc) NASAL Not Given BID FLOYD Furosemide 20 mg 01/13/25 18:25 01/17/25 17:16 Furosemide 20 Mg Tablet PO 20 mg QPM FLOYD Administration Furosemide 40 mg 01/14/25 09:00 01/17/25 08:58 Furosemide 20 Mg Tablet PO 40 mg QAM FLOYD Administration Glucagon 1 mg 01/13/25 14:13 Glucagon For Inj 1 Mg Vial IM PRN PRN Hypoglycemia Protocol Glucose 15 gm 01/13/25 14:13 Glucose Oral Gel 15 Gm Of Glucse In 37.5 Gm Tube PO PRN PRN Hypoglycemia Protocol Hydralazine HCl 10 mg 01/14/25 09:45 Hydralazine Hcl 20 Mg/Ml Vial IV PUSH Q8H PRN Blood Pressure - High Hydrocortisone 1 applic 01/14/25 09:00 01/17/25 09:00 Hydrocortisone 1% 30 Gm Cream TOPICAL Not Given DAILY FLOYD Dextrose 1,000 mls @ 100 mls/hr 01/13/25 14:13 Dextrose 5% 1,000 Ml IVPB PRN PRN Hypoglycemia Protocol Levetiracetam 750 mg/ Dextrose 107.5 mls @ 430 mls/hr 01/15/25 21:00 01/17/25 20:21 IVPB 430 mls/hr Q12HR FLOYD Administration Insulin Aspart 4 - 8 units 01/13/25 17:00 01/17/25 17:17 Insulin Aspart (*Bkc) 100 Units/Ml SUB-Q 4 units TIDWM FLOYD Administration Protocol Insulin Aspart 2 - 4 units 01/13/25 21:00 01/17/25 20:37 Insulin Aspart (*Bkc) 100 Units/Ml SUB-Q 2 units HS FLOYD Administration Protocol Insulin Glargine 10 units 01/15/25 21:00 01/17/25 20:19 Insulin Glargine (*Bkc) 100 Units/Ml SUB-Q 10 units HS FLOYD Administration Lidocaine 1 patch 01/14/25 12:45 01/17/25 08:55 Lidocaine 5% Patch TRANSDERM 1 patch DAILY FLOYD Administration Lisinopril 80 mg 01/14/25 09:00 01/17/25 08:54 Lisinopril 20 Mg Tablet PO 80 mg DAILY FLOYD Administration Magnesium Oxide 400 mg 01/14/25 09:00 01/17/25 08:55 Magnesium Oxide 400 Mg Tablet PO 400 mg DAILY FLOYD Administration Metoprolol Succinate 25 mg 01/14/25 09:00 01/17/25 08:55 Metoprolol Succinate Ext Rel 25 Mg Tabcr PO 25 mg DAILY FLOYD Administration Miconazole Nitrate 1 applic 01/14/25 09:00 01/17/25 09:00 Miconazole Nitrate 2% Cream 30 Gm Tube TOPICAL Not Given DAILY FLOYD Montelukast Sodium 10 mg 01/14/25 09:00 01/17/25 08:55 Montelukast Sodium 10 Mg Tablet PO 10 mg DAILY FLOYD Administration Mupirocin 1 applic 01/14/25 09:00 01/17/25 17:16 Mupirocin 2% Oint 22 Gm Tube TOPICAL 1 applic BID FLOYD Administration Perflutren Lipid Microsphere 0 ml 01/17/25 13:48 Perflutren Lipid Microspheres 1.5 Ml Vial Diluted To 10 Ml Total Volume IV PUSH 01/20/25 13:48 ONCE PRN adequate visualization Protocol Potassium Chloride 40 meq 01/17/25 09:00 01/17/25 11:22 Potassium Chloride 20 Meq Packet (For Liquid) PO 40 meq DAILY FLOYD Administration Sertraline HCl 100 mg 01/13/25 18:25 01/17/25 17:16 Sertraline Hcl 50 Mg Tablet PO 100 mg BID FLOYD Administration Trazodone HCl 200 mg 01/13/25 21:00 01/17/25 20:21 Trazodone Hcl 50 Mg Tablet PO 200 mg HS FLOYD Administration Valacyclovir HCl 500 mg 01/13/25 18:40 01/17/25 17:16 Valacyclovir Hcl 500 Mg Tablet PO 500 mg BID FLOYD Administration Vitamin B Complex 1 cap 01/14/25 09:00 01/17/25 08:54 Vitamin B Complex Capsule PO 1 cap DAILY FLOYD Administration Radiology Results: ITS Impressions Chest X-Ray 01/13/25 12:31 Impression: No acute cardiopulmonary abnormality. Head CT 01/14/25 10:21 Impression: 1.No acute intracranial abnormality. Carotid Doppler Study 01/15/25 14:46 IMPRESSION: 1. <50% stenosis in the right internal carotid artery. 2. <50% stenosis in the left internal carotid artery. Cervical Spine CT 01/15/25 18:24 IMPRESSION: 1. Age-indeterminate compression fractures of T2 and T3. 2. Moderate cervical spondylosis. Brain MRI 01/17/25 16:18 IMPRESSION: 1. Limited study lacking the standard T2-weighted, FLAIR and SWAN sequences due to patient's inability to lay flat for the entirety of the study. 2. No acute infarct or other evident acute intracranial process. 3. Periventricular predominant white matter T2 hyperintensity which within normal limits for age and likely sequela of chronic small vessel ischemic disease. Labs Labs: Laboratory Results - last 24 hr 01/17/25 01/17/25 01/17/25 08:58 11:51 16:11 WBC RBC Hgb Hct MCV MCH MCHC RDW Plt Count MPV Sodium Potassium 3.7 Chloride Carbon Dioxide Anion Gap BUN Creatinine Estim Creat Clear Calc Estimated GFR Glucose POC Capillary Glucose 388 H 229 H Calcium Total Bilirubin AST ALT Alkaline Phosphatase Total Protein Albumin 01/17/25 01/18/25 01/18/25 19:41 03:26 07:35 WBC 6.5 RBC 3.50 L Hgb 11.4 L Hct 33.6 L MCV 96.0 MCH 32.6 MCHC 33.9 RDW 13.2 Plt Count 139 L MPV 10.3 Sodium 135 L Potassium 3.3 L Chloride 104 Carbon Dioxide 29 Anion Gap 2 L BUN 15 Creatinine 1.27 Estim Creat Clear Calc 59 Estimated GFR 56 L Glucose 210 H POC Capillary Glucose 222 H 190 H Calcium 8.4 Total Bilirubin 0.7 AST 31 ALT 22 Alkaline Phosphatase 124 Total Protein 5.9 L Albumin 3.1 L Quality VTE Prophylaxis VTE prophylaxis: pharmacologic ordered
[2025-01-18] MEDS: ACETAMINOPHEN 325 MG TABLET 650 MG PO ×2 (08:33→17:52)
[2025-01-18] MEDS: POTASSIUM CHLORIDE 20 MEQ PACKET (FOR LIQUID) 40 MEQ PO (08:34)
[2025-01-18] MEDS: FERROUS SULFATE 325 MG TABLET PO (08:34)
[2025-01-18] MEDS: SERTRALINE HCL 50 MG TABLET 100 MG PO ×2 (08:34→17:28)
[2025-01-18] MEDS: METOPROLOL SUCCINATE EXT REL 25 MG TABCR PO (08:35)
[2025-01-18] MEDS: MAGNESIUM OXIDE 400 MG TABLET PO (08:35)
[2025-01-18] MEDS: ATORVASTATIN 40 MG TABLET PO (08:35)
[2025-01-18] MEDS: CLOPIDOGREL BISULFATE 75 MG TABLET PO (08:36)
[2025-01-18] MEDS: VITAMIN B COMPLEX CAPSULE 1 CAP PO (08:37)
[2025-01-18] MEDS: FUROSEMIDE 20 MG TABLET 40 MG PO (08:37)
[2025-01-18] MEDS: CALCIUM CARBONATE (OSCAL) 500 MG TABLET PO (08:37)
[2025-01-18] MEDS: ASPIRIN 81 MG ENTERIC TABLET PO (08:37)
[2025-01-18] MEDS: LIDOCAINE 5% PATCH 1 PATCH TRANSDERM (08:37)
[2025-01-18] MEDS: MONTELUKAST SODIUM 10 MG TABLET PO (08:37)
[2025-01-18] MEDS: ENOXAPARIN 40 MG/0.4 ML SYRINGE SUB-Q (08:37)
[2025-01-18] MEDS: AZELASTINE HCL NASAL 0.1% 137 MCG/SPR 30 ML BTL 1 SPRAY NASAL ×2 (08:38→20:24)
[2025-01-18] MEDS: FLUTICASONE PROPIONATE 0.05% NA SPR 16 GM BTL (*BKC) 1 SPRAY NASAL (08:39)
[2025-01-18] MEDS: HYDROCORTISONE 1% 30 GM CREAM 1 APPLIC TOPICAL (08:40)
[2025-01-18] MEDS: MUPIROCIN 2% OINT 22 GM TUBE 1 APPLIC TOPICAL (08:40)
[2025-01-18] MEDS: MICONAZOLE NITRATE 2% CREAM 30 GM TUBE 1 APPLIC TOPICAL (08:40)
--- NOTE | 2025-01-18 09:03 | PCNEURO ---
EEG completed on 01/16.
--- NOTE | 2025-01-18 10:29 | WPDNEUROLOGY ---
Neurology EEG Report General Information Date of Study: 01/16/25 TEST Electroencephalogram DIAGNOSIS seizure disorder, altered mental status, hallucinations CONDITION OF RECORDING bedside recording EEG NUMBER [id number] CLINICAL HISTORY the patient is 69-year-old with history of visual symptoms on the right side. He also had difficulty expressing himself. Subsequently had 2 seizures spells. Patient has fears of agitation and confusional state. EEG DESCRIPTION During wakefulness the background activity consists of posterior dominant alpha rhythm at 8-9 hertz with an amplitude of 15-30 microvolts. This appears mildly formed. Anteriorly low amplitude mixed frequency activity was seen. There is no significant anteroposterior gradient. Muscle tension artifacts were seen in the frontotemporal area intermittently. Patient did not progress to stage 2 sleep. Hyperventilation or photic stimulation were not performed. IMPRESSION This is a normal EEG obtained during awake state.
[2025-01-18] MEDS: PERFLUTREN LIPID MICROSPHERES 1.5 ML VIAL DILUTED TO 10 ML TOTAL VOLUME IV PUSH (10:45)
--- NOTE | 2025-01-18 11:03 | IVDEFINITY ---
Prior to administration of IV Definity the patient was educated on the risks and benefits of the imaging enhancing agent including potential adverse side effects. The patient verbalized understanding. Allergies were verified. No exclusion criteria were identified and at least one of the following inclusion criteria were met: 1) physician request, 2) patient technically difficult to image (per the [place] [employer] Echocardi[employer] guidelines of two or more segments not discernable within the apical view), or 3) questionable left ventricular function. ?
[2025-01-18] MEDS: LORazepam (*CRX) 1 MG TABLET PO (12:13)
[2025-01-18] MEDS: INSULIN ASPART (*BKC) 100 UNITS/ML SUB-Q ×3 (12:13→20:30)
[2025-01-18] MEDS: LORazepam INJ (*CRX) 2 MG/ML VIAL 1 MG IV PUSH (14:00)
--- NOTE | 2025-01-18 15:38 | PC.NURSE ---
This patient, Pawel Hawkins, was transferred to [facility] on 01/18/25 at 1528. Personal belongings sent with patient. Report given to BREANNA Fowler. Appropriate documentation sent with patient.
--- NOTE | 2025-01-18 17:18 | P.PNNEUR_ITS ---
Progress Note: A&P Assessment and Plan (1) Seizure disorder: Code(s): G40.909 - Epilepsy, unspecified, not intractable, without status epilepticus Status: Acute Plan I reviewed the MRI scan of the brain which shows significant motion artifacts hence I had requested a MRI with and without contrast which were performed today. Once again the nursing staff called me several times that he was not able to cooperate and he was given Ativan twice. With that MRI was done which did not show any acute infarcts. MR angiography of the brain was performed which did not show any significant pathology or vertebrobasilar system. Once again motion artifacts are seen. I would suggest to continue with the Keppra 750 mg twice a day any further spells the dose may have to be increased. Since he is not able to cooperate any further in terms of MRI I would suggest clinical follow-up. Doppler study was performed which shows less than 50% narrowing in both carotid arteries Subjective Date/time seen: 01/18/25 17:18 Interval history: Patient is 69-year-old with partial complex seizures seen for follow-up. 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 Intermittently patient has been confused however when I saw him today he was fairly alert and cooperative and denies any significant neurologic symptoms. MRI of the brain was performed did not show any acute in farct however there was significant motion artifacts and hence a quality of study was compromised. Review of Systems Review of Systems: Patient denies any additional symptoms. Exam Narrative: Fully conscious alert oriented to self place and person. No aphasia or dysarthria. Exam of cranial nerves did not show any hemianopia field defect at this time. No facial asymmetry tongue was midline motor system moving both upper and lower limbs. No involuntary movements seen. Objective Data Vital Signs Vital Signs: Vital Signs - 24 hr 01/17/25 19:52 01/17/25 20:00 01/17/25 20:00 Temperature 97.9 F Pulse Rate 77 86 Respiratory Rate 16 Blood Pressure 156/75 H Pulse Oximetry 99 Oxygen Delivery Room Air 01/18/25 00:00 01/18/25 04:00 01/18/25 04:00 Temperature 98.2 F Pulse Rate 72 79 62 Respiratory Rate 18 Blood Pressure 167/84 H Pulse Oximetry 98 Oxygen Delivery 01/18/25 08:00 01/18/25 08:00 01/18/25 08:00 Temperature 98.6 F Pulse Rate 78 93 Respiratory Rate 18 Blood Pressure 167/81 H Pulse Oximetry 98 Oxygen Delivery Room Air 01/18/25 08:35 01/18/25 10:10 01/18/25 11:30 Temperature 98.2 F Pulse Rate 92 91 Respiratory Rate 18 Blood Pressure 146/79 H Pulse Oximetry 99 Oxygen Delivery Room Air 01/18/25 12:00 01/18/25 13:30 Temperature Pulse Rate 83 Respiratory Rate Blood Pressure 164/85 H Pulse Oximetry Oxygen Delivery Intake/Output Intake/Output: Intake & Output 01/15/25 01/16/25 01/17/25 01/18/25 23:59 23:59 23:59 23:59 Intake Total 2307.5 2520.0 1175.0 1180 Output Total 1650 2300 2050 2600 Balance 657.5 220.0 -875.0 -1420 Meds/Results Medications: Active Medications Generic Name Dose Route Start Last Admin Trade Name Freq PRN Reason Stop Dose Admin Acetaminophen 650 mg 01/13/25 14:12 01/18/25 08:33 Acetaminophen 325 Mg Tablet PO 650 mg Q4H PRN Administration Mild Pain (1-3) or Fever Albuterol 2 puff 01/13/25 18:22 Albuterol Sulfate (*Sp) Aerosol 1 Puff INHALATION Q4-6H PRN Shortness Of Breath Or Wheezing Allopurinol 300 mg 01/14/25 09:00 01/18/25 08:34 Allopurinol 300 Mg Tablet PO 300 mg DAILY FLOYD Administration Aspirin 81 mg 01/14/25 09:00 01/18/25 08:37 Aspirin 81 Mg Enteric Tablet PO 81 mg QAM FLOYD Administration Atorvastatin Calcium 40 mg 01/14/25 09:00 01/18/25 08:35 Atorvastatin 40 Mg Tablet PO 40 mg DAILY FLOYD Administration Azelastine HCl 1 spray 01/13/25 21:00 01/18/25 08:38 Azelastine Hcl Nasal 0.1% 137 Mcg/Spr 30 Ml Btl NASAL 1 spray Q12HR FLOYD Administration Buspirone HCl 10 mg 01/13/25 18:25 01/18/25 08:36 Buspirone Hcl 10 Mg Tablet PO 10 mg BID FLOYD Administration Calcium Carbonate 500 mg 01/14/25 09:00 01/18/25 08:37 Calcium Carbonate (Oscal) 500 Mg Tablet PO 500 mg DAILY FLOYD Administration Clopidogrel Bisulfate 75 mg 01/14/25 09:00 01/18/25 08:36 Clopidogrel Bisulfate 75 Mg Tablet PO 75 mg QAM FLOYD Administration Dextrose 12.5 gm 01/13/25 14:13 Dextrose 50% 25 Gm/50 Ml Syringe IV PUSH PRN PRN Hypoglycemia Protocol Diazepam 5 mg 01/14/25 09:30 Diazepam Inj (*Crx) 10 Mg/2 Ml Syringe IV PUSH ONCE PRN seizures Enoxaparin Sodium 40 mg 01/14/25 09:00 01/18/25 08:37 Enoxaparin 40 Mg/0.4 Ml Syringe SUB-Q 40 mg DAILY FLOYD Administration Ferrous Sulfate 325 mg 01/14/25 09:00 01/18/25 08:34 Ferrous Sulfate 325 Mg Tablet PO 325 mg DAILY FLOYD Administration Fluticasone Propionate 1 spray 01/14/25 09:00 01/18/25 08:39 Fluticasone Propionate 0.05% Na Spr 16 Gm Btl (*Bkc) NASAL 1 spray BID FLOYD Administration Furosemide 20 mg 01/13/25 18:25 01/17/25 17:16 Furosemide 20 Mg Tablet PO 20 mg QPM FLOYD Administration Furosemide 40 mg 01/14/25 09:00 01/18/25 08:37 Furosemide 20 Mg Tablet PO 40 mg QAM FLOYD Administration Glucagon 1 mg 01/13/25 14:13 Glucagon For Inj 1 Mg Vial IM PRN PRN Hypoglycemia Protocol Glucose 15 gm 01/13/25 14:13 Glucose Oral Gel 15 Gm Of Glucse In 37.5 Gm Tube PO PRN PRN Hypoglycemia Protocol Hydralazine HCl 10 mg 01/14/25 09:45 Hydralazine Hcl 20 Mg/Ml Vial IV PUSH Q8H PRN Blood Pressure - High Hydrocortisone 1 applic 01/14/25 09:00 01/18/25 08:40 Hydrocortisone 1% 30 Gm Cream TOPICAL 1 applic DAILY FLOYD Administration Dextrose 1,000 mls @ 100 mls/hr 01/13/25 14:13 Dextrose 5% 1,000 Ml IVPB PRN PRN Hypoglycemia Protocol Levetiracetam 750 mg/ Dextrose 107.5 mls @ 430 mls/hr 01/15/25 21:00 01/18/25 09:05 IVPB 430 mls/hr Q12HR FLOYD Administration Insulin Aspart 4 - 8 units 01/13/25 17:00 01/18/25 12:13 Insulin Aspart (*Bkc) 100 Units/Ml SUB-Q 5 units TIDWM FLOYD Administration Protocol Insulin Aspart 2 - 4 units 01/13/25 21:00 01/17/25 20:37 Insulin Aspart (*Bkc) 100 Units/Ml SUB-Q 2 units HS FLOYD Administration Protocol Insulin Glargine 10 units 01/15/25 21:00 01/17/25 20:19 Insulin Glargine (*Bkc) 100 Units/Ml SUB-Q 10 units HS FLOYD Administration Lidocaine 1 patch 01/14/25 12:45 01/18/25 08:37 Lidocaine 5% Patch TRANSDERM 1 patch DAILY FLOYD Administration Lisinopril 80 mg 01/14/25 09:00 01/18/25 08:34 Lisinopril 20 Mg Tablet PO 80 mg DAILY FLOYD Administration Magnesium Oxide 400 mg 01/14/25 09:00 01/18/25 08:35 Magnesium Oxide 400 Mg Tablet PO 400 mg DAILY FLOYD Administration Metoprolol Succinate 25 mg 01/14/25 09:00 01/18/25 08:35 Metoprolol Succinate Ext Rel 25 Mg Tabcr PO 25 mg DAILY FLOYD Administration Miconazole Nitrate 1 applic 01/14/25 09:00 01/18/25 08:40 Miconazole Nitrate 2% Cream 30 Gm Tube TOPICAL 1 applic DAILY FLOYD Administration Montelukast Sodium 10 mg 01/14/25 09:00 01/18/25 08:37 Montelukast Sodium 10 Mg Tablet PO 10 mg DAILY FLOYD Administration Mupirocin 1 applic 01/14/25 09:00 01/18/25 08:40 Mupirocin 2% Oint 22 Gm Tube TOPICAL 1 applic BID FLOYD Administration Potassium Chloride 40 meq 01/17/25 09:00 01/18/25 08:34 Potassium Chloride 20 Meq Packet (For Liquid) PO 40 meq DAILY FLOYD Administration Sertraline HCl 100 mg 01/13/25 18:25 01/18/25 08:34 Sertraline Hcl 50 Mg Tablet PO 100 mg BID FLOYD Administration Trazodone HCl 200 mg 01/13/25 21:00 01/17/25 20:21 Trazodone Hcl 50 Mg Tablet PO 200 mg HS FLOYD Administration Valacyclovir HCl 1,000 mg 01/18/25 21:00 Valacyclovir Hcl 500 Mg Tablet PO Q12HR FLOYD Vitamin B Complex 1 cap 01/14/25 09:00 01/18/25 08:37 Vitamin B Complex Capsule PO 1 cap DAILY FLOYD Administration Radiology Results: ITS Impressions Chest X-Ray 01/13/25 12:31 Impression: No acute cardiopulmonary abnormality. Head CT 01/14/25 10:21 Impression: 1.No acute intracranial abnormality. Carotid Doppler Study 01/15/25 14:46 IMPRESSION: 1. <50% stenosis in the right internal carotid artery. 2. <50% stenosis in the left internal carotid artery. Cervical Spine CT 01/15/25 18:24 IMPRESSION: 1. Age-indeterminate compression fractures of T2 and T3. 2. Moderate cervical spondylosis. Brain MRI 01/17/25 16:18 IMPRESSION: 1. Limited study lacking the standard T2-weighted, FLAIR and SWAN sequences due to patient's inability to lay flat for the entirety of the study. 2. No acute infarct or other evident acute intracranial process. 3. Periventricular predominant white matter T2 hyperintensity which within normal limits for age and likely sequela of chronic small vessel ischemic disease. Brain MRA 01/18/25 11:25 IMPRESSION: 1. No significant stenosis of the vertebrobasilar arteries or the internal carotid arteries. The anterior, middle, and posterior cerebral arteries are obscured by motion artifact. Labs Labs: Laboratory Results - last 24 hr 01/17/25 01/18/25 01/18/25 19:41 03:26 07:35 WBC 6.5 RBC 3.50 L Hgb 11.4 L Hct 33.6 L MCV 96.0 MCH 32.6 MCHC 33.9 RDW 13.2 Plt Count 139 L MPV 10.3 Sodium 135 L Potassium 3.3 L Chloride 104 Carbon Dioxide 29 Anion Gap 2 L BUN 15 Creatinine 1.27 Estim Creat Clear Calc 59 Estimated GFR 56 L Glucose 210 H POC Capillary Glucose 222 H 190 H Calcium 8.4 Total Bilirubin 0.7 AST 31 ALT 22 Alkaline Phosphatase 124 Total Protein 5.9 L Albumin 3.1 L 01/18/25 11:30 WBC RBC Hgb Hct MCV MCH MCHC RDW Plt Count MPV Sodium Potassium Chloride Carbon Dioxide Anion Gap BUN Creatinine Estim Creat Clear Calc Estimated GFR Glucose POC Capillary Glucose 288 H Calcium Total Bilirubin AST ALT Alkaline Phosphatase Total Protein Albumin
[2025-01-18] MEDS: FUROSEMIDE 20 MG TABLET PO (17:28)
[2025-01-18] MEDS: INSULIN GLARGINE (*BKC) 100 UNITS/ML 10 UNITS SUB-Q (20:28)
[2025-01-18 21:14] LABS: Cholesterol 85 mg/dL (0-200); HDL Direct 29 mg/dL; Triglycerides 116 mg/dL (<150)
[2025-01-18 22:20] LABS: Vitamin B12 998.0 pg/mL (239-931)
[2025-01-19] VITALS (10 sets, daily range): BP systolic 143–151; BP diastolic 68–76; PULSE 64–98; RESP 18; TEMP 36.2–36.6; O2SAT 98–100
[2025-01-19] MEDS: ACETAMINOPHEN 325 MG TABLET 650 MG PO ×3 (04:17→16:59)
[2025-01-19 05:36] LABS: Hematocrit 34.8 % (42.0-52.0); Hemoglobin 11.9 g/dL (14.0-18.0); Mean Corpuscular HGB Conc 34.2 g/dl (32-36); Mean Corpuscular Hemoglobin 32.8 pg (26-34); Mean Corpuscular Volume 95.9 fl (80-100); Platelet Count Result 140 k/mm3 (150-375); Red Blood Count 3.63 M/mm3 (4.6-6.20); White Blood Count 5.8 K/mm3 (4.5-10.0)
[2025-01-19 05:49] LABS: Alanine Aminotransferase 23 U/L (6-50); Albumin Level 3.3 g/dL (3.5-5.1); Alkaline Phosphatase 150 U/L (38-126); Anion Gap 6 mmol/L (4-12); Aspartate Amino Transferase 28 U/L (17-59); Bilirubin,Total 0.7 mg/dL (0.2-1.3); Blood Urea Nitrogen 20 mg/dL (9-20); Calcium 8.6 mg/dL (8.4-10.2); Carbon Dioxide 29 mmol/L (22-30); Chloride 101 mmol/L (98-107); Estimated CRCL calculation 53 ml/min; Estimated Glomerular Filt Rate 48; Glucose 228 mg/dL (65-110); Potassium 3.3 mmol/L (3.4-5.0); Sodium 136 mmol/L (137-145); Total Protein 6.3 g/dL (6.3-8.2)
--- NOTE | 2025-01-19 07:43 | PM.IMPN ---
Progress Note: A&P Assessment and Plan (1) Altered mental status: Qualifiers: Altered mental status type: disorientation Qualified Code(s): R41.0 - Disorientation, unspecified Code(s): R41.82 - Altered mental status, unspecified Status: Acute Assessment and Plan: Last known well [id number], on original presentation on 01/11. Significant word-finding difficulty noted, confusion, and reported behavioral changes by patient. Symptoms initially concerning for stroke. Patient significantly out of the window for thrombolytics or thrombectomy. Per previous documentation, patient reported his last known well was 4 days prior to 01/11 - head CT from 01/11 in 01/13 were unremarkable. repeat head ct 01/14 remains unremarkable. - carotid doppler: < 50% stenosis of bilateral ICA - CXR, UDS, UA were unremarkable. CO2 20 on BMP. No significant electrolyte derangements. - TSH, B12 and folate WNL - blood cultures added to r/u any infectious process: NGTD - MRI: No acute infarct or other evident acute intracranial process. Periventricular predominant white matter T2 hyperintensity which within normal limits for age and likely sequela of chronic small vessel ischemic disease. - Echo: LVEF 60-65% with grade I diastolic dysfunction - Monitor CBC, CMP, magnesium, troponin, and lipid profile. Monitor blood pressure. Monitor blood glucose - Telemetry monitoring - PT/OT eval and treat Recommending placement, patient agreeable. Care coordination following. - Neurology consulted, appreciate assistance and recommendations MR Angiography of the head/neck: No significant stenosis of the vertebrobasilar arteries or the internal carotid arteries. The anterior, middle, and posterior cerebral arteries are obscured by motion artifact. EEG unremarkable Patient currently AOx3 following commands on assessment. Denies any hallucinations. Resolved. (2) Seizure: Code(s): R56.9 - Unspecified convulsions Status: Acute Assessment and Plan: Rapid response was called on 01/14. Pt was found on the floor. Per nursing records, pt was in a recliner, stood up, chair alarm went off, and when staff arrived, pt was found on the floor, witness seizure for about 20 seconds. Prior to that, he was a/o x1, restless. Of note, he was in ED prior for c/o AMS and hallucination. Stat head CT, C spine was ordered, neurology was called and DR Severino recommended 2000 mg loading dose of keppra and then 1000 mg bid and pt was moved to IMU. SonJose C was called and updated on condition- all questions answered. - Head CT: unremarkable - C spine CT: age indeterminate compression fractures of t2 and t3 with moderate cervical spondylosis - MRI: No acute infarct or other evident acute intracranial process. Periventricular predominant white matter T2 hyperintensity which within normal limits for age and likely sequela of chronic small vessel ischemic disease. - EEG unremarkable - Keppra 2000 mg loading dose given per neurology recommendations, remains on keppra 750 mg bid - Seizure precautions No seizure activity since 01/14. 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 Given 2L of fluid in the ED - hypoglycemia protocol - POC blood glucose ACHS - home medication: Hold metformin in case of need for contrast and Ozempic (NF) - correct regimen ordered - high dose TIDWM and HS, based off BMI and lantus 10 units - A1C 8.5% on 12/15/2024 - consider wellness educator consultation once alteration improved (4) CKD (chronic kidney disease): Qualifiers: Chronic kidney disease stage: stage 1 Qualified Code(s): N18.1 - Chronic kidney disease, stage 1 Code(s): N18.9 - Chronic kidney disease, unspecified Status: Chronic Assessment and Plan: - creatinine 1.71, BUN 28, and GFR 40 upon admission. appears at baseline. - creatinine has ranged 1.6-1.8 - trend renal function - trend electrolytes, correct as needed - renally dose medications - monitor I/O Cr remains at baseline. Continue to monitor. (5) Hypertension: Qualifiers: Hypertension type: primary hypertension Qualified Code(s): I10 - Essential (primary) hypertension Code(s): I10 - Essential (primary) hypertension Status: Acute Assessment and Plan: Chronic, continue home medications - Metoprolol 25 mg daily - Lasix 60 mg daily - Lisinopril 80 mg daily - blood pressures remain stable, continue to monitor (6) Hyperlipidemia: Qualifiers: Hyperlipidemia type: mixed hyperlipidemia Qualified Code(s): E78.2 - Mixed hyperlipidemia Code(s): E78.5 - Hyperlipidemia, unspecified Status: Acute Assessment and Plan: - atorvastatin increased from 20 mg daily to 40 mg daily due to concern for stroke Time Spent With Patient Time with patient: 25 - 35 minutes Subjective Date/time seen: 01/19/25 07:43 Interval history: 69 year old male with past medical history of fibromyalgia, hypogonadism, cardiomyopathy, asthma, hyperlipidemia, anemia, depression, gout, CKD, and diabetes presents here with altered mental status. Patient is pleasant sitting up comfortably in bed. He remains alert and oriented x3 at time of assessment. He continues to deny any hallucinations. He also denies any tingling/numbness/weakness. He has no complaints at this time denying chest pain, shortness a breath, palpitations, nausea vomiting, and abdominal pain. Patient is now agreeable to placement. Care coordination following and LISHA evaluating patient. Review of Systems Review of Systems: All systems reviewed & are unremarkable except as noted in HPI and below Exam Narrative: AF HR 74 RR 18 SpO2 98 BP 151/76 General: male in no acute respiratory distress who is nontoxic appearing, sitting up in bed. HEENT: Normocephalic. Atraumatic. Extraocular movement intact. Sclera clear and anicteric. No facial asymmetry. Chest: Lungs are clear to auscultation bilaterally. CV: Heart was regular rate and rhythm. Abd: Abdomen was soft. Nontender. Nondistended. Positive bowel sounds. Ext: No clubbing, cyanosis, or edema. DP pulses bilaterally. Chronic pretibial discoloration. Neuro: Patient is alert and oriented x4. Strength is 5/5 in both upper and lower extremities. Speech is clear. Objective Data Vital Signs Vital Signs: Vital Signs - 24 hr 01/18/25 08:00 01/18/25 08:00 01/18/25 08:00 Temperature 98.6 F Pulse Rate 78 93 Respiratory Rate 18 Blood Pressure 167/81 H Pulse Oximetry 98 Oxygen Delivery Room Air 01/18/25 08:35 01/18/25 10:10 01/18/25 11:30 Temperature 98.2 F Pulse Rate 92 91 Respiratory Rate 18 Blood Pressure 146/79 H Pulse Oximetry 99 Oxygen Delivery Room Air 01/18/25 12:00 01/18/25 13:30 01/18/25 16:00 Temperature Pulse Rate 83 71 Respiratory Rate Blood Pressure 164/85 H Pulse Oximetry Oxygen Delivery 01/18/25 20:00 01/18/25 20:00 01/18/25 20:31 Temperature 97.1 F L Pulse Rate 66 76 Respiratory Rate 18 Blood Pressure 137/61 Pulse Oximetry 99 Oxygen Delivery Room Air 01/19/25 00:00 01/19/25 04:00 01/19/25 04:55 Temperature 97.2 F L Pulse Rate 64 76 74 Respiratory Rate 18 Blood Pressure 151/76 H Pulse Oximetry 98 Oxygen Delivery Intake/Output Intake/Output: Intake & Output 01/16/25 01/17/25 01/18/25 01/19/25 23:59 23:59 23:59 23:59 Intake Total 2520.0 1175.0 1735.0 200 Output Total 2300 2050 2650 150 Balance 220.0 -875.0 -915.0 50 Meds/Results Medications: Active Medications Generic Name Dose Route Start Last Admin Trade Name Freq PRN Reason Stop Dose Admin Acetaminophen 650 mg 01/13/25 14:12 01/19/25 04:17 Acetaminophen 325 Mg Tablet PO 650 mg Q4H PRN Administration Mild Pain (1-3) or Fever Albuterol 2 puff 01/13/25 18:22 Albuterol Sulfate (*Sp) Aerosol 1 Puff INHALATION Q4-6H PRN Shortness Of Breath Or Wheezing Allopurinol 300 mg 01/14/25 09:00 01/18/25 08:34 Allopurinol 300 Mg Tablet PO 300 mg DAILY FLOYD Administration Aspirin 81 mg 01/14/25 09:00 01/18/25 08:37 Aspirin 81 Mg Enteric Tablet PO 81 mg QAM FLOYD Administration Atorvastatin Calcium 40 mg 01/14/25 09:00 01/18/25 08:35 Atorvastatin 40 Mg Tablet PO 40 mg DAILY FLOYD Administration Azelastine HCl 1 spray 01/13/25 21:00 01/18/25 20:24 Azelastine Hcl Nasal 0.1% 137 Mcg/Spr 30 Ml Btl NASAL 1 spray Q12HR FLOYD Administration Buspirone HCl 10 mg 01/13/25 18:25 01/18/25 17:28 Buspirone Hcl 10 Mg Tablet PO 10 mg BID FLOYD Administration Calcium Carbonate 500 mg 01/14/25 09:00 01/18/25 08:37 Calcium Carbonate (Oscal) 500 Mg Tablet PO 500 mg DAILY FLOYD Administration Clopidogrel Bisulfate 75 mg 01/14/25 09:00 01/18/25 08:36 Clopidogrel Bisulfate 75 Mg Tablet PO 75 mg QAM FLOYD Administration Dextrose 12.5 gm 01/13/25 14:13 Dextrose 50% 25 Gm/50 Ml Syringe IV PUSH PRN PRN Hypoglycemia Protocol Diazepam 5 mg 01/14/25 09:30 Diazepam Inj (*Crx) 10 Mg/2 Ml Syringe IV PUSH ONCE PRN seizures Enoxaparin Sodium 40 mg 01/14/25 09:00 01/18/25 08:37 Enoxaparin 40 Mg/0.4 Ml Syringe SUB-Q 40 mg DAILY FLOYD Administration Ferrous Sulfate 325 mg 01/14/25 09:00 01/18/25 08:34 Ferrous Sulfate 325 Mg Tablet PO 325 mg DAILY FLOYD Administration Fluticasone Propionate 1 spray 01/14/25 09:00 01/18/25 17:28 Fluticasone Propionate 0.05% Na Spr 16 Gm Btl (*Bkc) NASAL Not Given BID FLOYD Furosemide 20 mg 01/13/25 18:25 01/18/25 17:28 Furosemide 20 Mg Tablet PO 20 mg QPM FLOYD Administration Furosemide 40 mg 01/14/25 09:00 01/18/25 08:37 Furosemide 20 Mg Tablet PO 40 mg QAM FLOYD Administration Glucagon 1 mg 01/13/25 14:13 Glucagon For Inj 1 Mg Vial IM PRN PRN Hypoglycemia Protocol Glucose 15 gm 01/13/25 14:13 Glucose Oral Gel 15 Gm Of Glucse In 37.5 Gm Tube PO PRN PRN Hypoglycemia Protocol Hydralazine HCl 10 mg 01/14/25 09:45 Hydralazine Hcl 20 Mg/Ml Vial IV PUSH Q8H PRN Blood Pressure - High Hydrocortisone 1 applic 01/14/25 09:00 01/18/25 08:40 Hydrocortisone 1% 30 Gm Cream TOPICAL 1 applic DAILY FLOYD Administration Dextrose 1,000 mls @ 100 mls/hr 01/13/25 14:13 Dextrose 5% 1,000 Ml IVPB PRN PRN Hypoglycemia Protocol Levetiracetam 750 mg/ Dextrose 107.5 mls @ 430 mls/hr 01/15/25 21:00 01/18/25 20:34 IVPB Infused Q12HR FLOYD Infusion Insulin Aspart 4 - 8 units 01/13/25 17:00 01/18/25 17:29 Insulin Aspart (*Bkc) 100 Units/Ml SUB-Q 6 units TIDWM FLOYD Administration Protocol Insulin Aspart 2 - 4 units 01/13/25 21:00 01/18/25 20:30 Insulin Aspart (*Bkc) 100 Units/Ml SUB-Q 2 units HS FLOYD Administration Protocol Insulin Glargine 10 units 01/15/25 21:00 01/18/25 20:28 Insulin Glargine (*Bkc) 100 Units/Ml SUB-Q 10 units HS FLOYD Administration Lidocaine 1 patch 01/14/25 12:45 01/18/25 08:37 Lidocaine 5% Patch TRANSDERM 1 patch DAILY FLOYD Administration Lisinopril 80 mg 01/14/25 09:00 01/18/25 08:34 Lisinopril 20 Mg Tablet PO 80 mg DAILY FLOYD Administration Magnesium Oxide 400 mg 01/14/25 09:00 01/18/25 08:35 Magnesium Oxide 400 Mg Tablet PO 400 mg DAILY FLOYD Administration Metoprolol Succinate 25 mg 01/14/25 09:00 01/18/25 08:35 Metoprolol Succinate Ext Rel 25 Mg Tabcr PO 25 mg DAILY FLOYD Administration Miconazole Nitrate 1 applic 01/14/25 09:00 01/18/25 08:40 Miconazole Nitrate 2% Cream 30 Gm Tube TOPICAL 1 applic DAILY FLOYD Administration Montelukast Sodium 10 mg 01/14/25 09:00 01/18/25 08:37 Montelukast Sodium 10 Mg Tablet PO 10 mg DAILY FLOYD Administration Mupirocin 1 applic 01/14/25 09:00 01/18/25 17:27 Mupirocin 2% Oint 22 Gm Tube TOPICAL Not Given BID [facility] Potassium Chloride 40 meq 01/17/25 09:00 01/18/25 08:34 Potassium Chloride 20 Meq Packet (For Liquid) PO 40 meq DAILY FLOYD Administration Sertraline HCl 100 mg 01/13/25 18:25 01/18/25 17:28 Sertraline Hcl 50 Mg Tablet PO 100 mg BID FLOYD Administration Trazodone HCl 200 mg 01/13/25 21:00 01/18/25 20:23 Trazodone Hcl 50 Mg Tablet PO 200 mg HS FLOYD Administration Valacyclovir HCl 1,000 mg 01/18/25 21:00 01/18/25 20:23 Valacyclovir Hcl 500 Mg Tablet PO 1,000 mg Q12HR FLOYD Administration Vitamin B Complex 1 cap 01/14/25 09:00 01/18/25 08:37 Vitamin B Complex Capsule PO 1 cap DAILY FLOYD Administration Radiology Results: ITS Impressions Chest X-Ray 01/13/25 12:31 Impression: No acute cardiopulmonary abnormality. Head CT 01/14/25 10:21 Impression: 1.No acute intracranial abnormality. Carotid Doppler Study 01/15/25 14:46 IMPRESSION: 1. <50% stenosis in the right internal carotid artery. 2. <50% stenosis in the left internal carotid artery. Cervical Spine CT 01/15/25 18:24 IMPRESSION: 1. Age-indeterminate compression fractures of T2 and T3. 2. Moderate cervical spondylosis. Brain MRI 01/17/25 16:18 IMPRESSION: 1. Limited study lacking the standard T2-weighted, FLAIR and SWAN sequences due to patient's inability to lay flat for the entirety of the study. 2. No acute infarct or other evident acute intracranial process. 3. Periventricular predominant white matter T2 hyperintensity which within normal limits for age and likely sequela of chronic small vessel ischemic disease. Brain MRA 01/18/25 11:25 IMPRESSION: 1. No significant stenosis of the vertebrobasilar arteries or the internal carotid arteries. The anterior, middle, and posterior cerebral arteries are obscured by motion artifact. Labs Labs: Laboratory Results - last 24 hr 01/13/25 01/18/25 01/18/25 17:03 07:35 11:30 WBC RBC Hgb Hct MCV MCH MCHC RDW Plt Count MPV Sodium Potassium Chloride Carbon Dioxide Anion Gap BUN Creatinine Estim Creat Clear Calc Estimated GFR Glucose POC Capillary Glucose 190 H 288 H Calcium Total Bilirubin AST ALT Alkaline Phosphatase Total Protein Albumin Triglycerides Cholesterol LDL Cholesterol Direct HDL Direct Vitamin B6 4.9 Vitamin B12 Vitamin D 25-Hydroxy Folate 01/18/25 01/18/25 01/18/25 17:22 17:24 20:21 WBC RBC Hgb Hct MCV MCH MCHC RDW Plt Count MPV Sodium Potassium Chloride Carbon Dioxide Anion Gap BUN Creatinine Estim Creat Clear Calc Estimated GFR Glucose POC Capillary Glucose 323 H 255 H Calcium Total Bilirubin AST ALT Alkaline Phosphatase Total Protein Albumin Triglycerides 116 Cholesterol 85 LDL Cholesterol Direct < 30 HDL Direct 29 Vitamin B6 Vitamin B12 998.0 H Vitamin D 25-Hydroxy 20.8 Folate 6.9 01/19/25 05:16 WBC 5.8 RBC 3.63 L Hgb 11.9 L Hct 34.8 L MCV 95.9 MCH 32.8 MCHC 34.2 RDW 13.2 Plt Count 140 L MPV 10.3 Sodium 136 L Potassium 3.3 L Chloride 101 Carbon Dioxide 29 Anion Gap 6 BUN 20 Creatinine 1.44 H Estim Creat Clear Calc 53 Estimated GFR 48 L Glucose 228 H POC Capillary Glucose Calcium 8.6 Total Bilirubin 0.7 AST 28 ALT 23 Alkaline Phosphatase 150 H Total Protein 6.3 Albumin 3.3 L Triglycerides Cholesterol LDL Cholesterol Direct HDL Direct Vitamin B6 Vitamin B12 Vitamin D 25-Hydroxy Folate Quality VTE Prophylaxis VTE prophylaxis: pharmacologic ordered
[2025-01-19] MEDS: INSULIN ASPART (*BKC) 100 UNITS/ML SUB-Q ×4 (08:11→21:04)
[2025-01-19] MEDS: VITAMIN B COMPLEX CAPSULE 1 CAP PO (08:14)
[2025-01-19] MEDS: METOPROLOL SUCCINATE EXT REL 25 MG TABCR PO (08:14)
[2025-01-19] MEDS: CLOPIDOGREL BISULFATE 75 MG TABLET PO (08:14)
[2025-01-19] MEDS: ATORVASTATIN 40 MG TABLET PO (08:14)
[2025-01-19] MEDS: SERTRALINE HCL 50 MG TABLET 100 MG PO ×2 (08:15→16:59)
[2025-01-19] MEDS: MONTELUKAST SODIUM 10 MG TABLET PO (08:15)
[2025-01-19] MEDS: ASPIRIN 81 MG ENTERIC TABLET PO (08:15)
[2025-01-19] MEDS: CALCIUM CARBONATE (OSCAL) 500 MG TABLET PO (08:15)
[2025-01-19] MEDS: FERROUS SULFATE 325 MG TABLET PO (08:15)
[2025-01-19] MEDS: FUROSEMIDE 20 MG TABLET 40 MG PO (08:15)
[2025-01-19] MEDS: MAGNESIUM OXIDE 400 MG TABLET PO (08:15)
[2025-01-19] MEDS: FLUTICASONE PROPIONATE 0.05% NA SPR 16 GM BTL (*BKC) 1 SPRAY NASAL (08:16)
[2025-01-19] MEDS: POTASSIUM CHLORIDE 20 MEQ PACKET (FOR LIQUID) 40 MEQ PO (08:16)
[2025-01-19] MEDS: ENOXAPARIN 40 MG/0.4 ML SYRINGE SUB-Q (08:16)
[2025-01-19] MEDS: MICONAZOLE NITRATE 2% CREAM 30 GM TUBE 1 APPLIC TOPICAL (08:27)
[2025-01-19] MEDS: LIDOCAINE 5% PATCH 1 PATCH TRANSDERM (08:27)
[2025-01-19] MEDS: AZELASTINE HCL NASAL 0.1% 137 MCG/SPR 30 ML BTL 1 SPRAY NASAL (08:29)
[2025-01-19] MEDS: MUPIROCIN 2% OINT 22 GM TUBE 1 APPLIC TOPICAL (08:29)
[2025-01-19] MEDS: FUROSEMIDE 20 MG TABLET PO (17:02)
[2025-01-19] MEDS: INSULIN GLARGINE (*BKC) 100 UNITS/ML 10 UNITS SUB-Q (21:06)
[2025-01-20] VITALS (10 sets, daily range): BP systolic 131–166; BP diastolic 69–80; PULSE 63–92; RESP 17–18; TEMP 36.1–36.8; O2SAT 97–100
[2025-01-20] MEDS: ACETAMINOPHEN 325 MG TABLET 650 MG PO ×2 (00:29→07:51)
[2025-01-20 05:13] LABS: Hematocrit 34.4 % (42.0-52.0); Hemoglobin 11.6 g/dL (14.0-18.0); Mean Corpuscular HGB Conc 33.7 g/dl (32-36); Mean Corpuscular Hemoglobin 32.1 pg (26-34); Mean Corpuscular Volume 95.3 fl (80-100); Platelet Count Result 158 k/mm3 (150-375); Red Blood Count 3.61 M/mm3 (4.6-6.20); White Blood Count 6.3 K/mm3 (4.5-10.0)
[2025-01-20 05:44] LABS: Alanine Aminotransferase 26 U/L (6-50); Albumin Level 3.3 g/dL (3.5-5.1); Alkaline Phosphatase 136 U/L (38-126); Anion Gap 8 mmol/L (4-12); Aspartate Amino Transferase 35 U/L (17-59); Bilirubin,Total 0.6 mg/dL (0.2-1.3); Blood Urea Nitrogen 24 mg/dL (9-20); Calcium 8.4 mg/dL (8.4-10.2); Carbon Dioxide 26 mmol/L (22-30); Chloride 101 mmol/L (98-107); Estimated CRCL calculation 47 ml/min; Estimated Glomerular Filt Rate 43; Glucose 207 mg/dL (65-110); Potassium 3.2 mmol/L (3.4-5.0); Sodium 135 mmol/L (137-145); Total Protein 6.1 g/dL (6.3-8.2)
--- NOTE | 2025-01-20 07:56 | PM.IMPN ---
Progress Note: A&P Assessment and Plan (1) Altered mental status: Qualifiers: Altered mental status type: disorientation Qualified Code(s): R41.0 - Disorientation, unspecified Code(s): R41.82 - Altered mental status, unspecified Status: Acute Assessment and Plan: Last known well [id number], on original presentation on 01/11. Significant word-finding difficulty noted, confusion, and reported behavioral changes by patient. Symptoms initially concerning for stroke. Patient significantly out of the window for thrombolytics or thrombectomy. Per previous documentation, patient reported his last known well was 4 days prior to 01/11 - head CT from 01/11 in 01/13 were unremarkable. repeat head ct 01/14 remains unremarkable. - carotid doppler: < 50% stenosis of bilateral ICA - CXR, UDS, UA were unremarkable. CO2 20 on BMP. No significant electrolyte derangements. - TSH, B12 and folate WNL - blood cultures added to r/u any infectious process: NGTD - MRI: No acute infarct or other evident acute intracranial process. Periventricular predominant white matter T2 hyperintensity which within normal limits for age and likely sequela of chronic small vessel ischemic disease. - Echo: LVEF 60-65% with grade I diastolic dysfunction - Monitor CBC, CMP, magnesium, troponin, and lipid profile. Monitor blood pressure. Monitor blood glucose - Telemetry monitoring - PT/OT eval and treat Recommending placement, patient agreeable. Care coordination following. - Neurology consulted, appreciate assistance and recommendations MR Angiography of the head/neck: No significant stenosis of the vertebrobasilar arteries or the internal carotid arteries. The anterior, middle, and posterior cerebral arteries are obscured by motion artifact. EEG unremarkable Patient currently AOx4 following commands on assessment. Denies any hallucinations. Strength is symmetrical on exam. Resolved. (2) Seizure: Code(s): R56.9 - Unspecified convulsions Status: Acute Assessment and Plan: Rapid response was called on 01/14. Pt was found on the floor. Per nursing records, pt was in a recliner, stood up, chair alarm went off, and when staff arrived, pt was found on the floor, witness seizure for about 20 seconds. Prior to that, he was a/o x1, restless. Of note, he was in ED prior for c/o AMS and hallucination. Stat head CT, C spine was ordered, neurology was called and DR Severino recommended 2000 mg loading dose of keppra and then 1000 mg bid and pt was moved to IMU. SonJose C was called and updated on condition- all questions answered. - Head CT: unremarkable - C spine CT: age indeterminate compression fractures of t2 and t3 with moderate cervical spondylosis - MRI: No acute infarct or other evident acute intracranial process. Periventricular predominant white matter T2 hyperintensity which within normal limits for age and likely sequela of chronic small vessel ischemic disease. - EEG unremarkable - Keppra 2000 mg loading dose given per neurology recommendations, remains on keppra 750 mg bid. Transitioned to oral keppra. - Seizure precautions No seizure activity since 01/14. (3) Diabetes mellitus: Qualifiers: Chronic kidney disease stage: unspecified stage Diabetes mellitus complication detail: with chronic kidney disease Diabetes mellitus complication status: with kidney complications Diabetes mellitus custodial insulin use: without meterman use Diabetes mellitus type: type 2 Qualified Code(s): E11.22 - Type 2 diabetes mellitus with diabetic chronic kidney disease Code(s): E11.9 - Type 2 diabetes mellitus without complications Status: Acute Assessment and Plan: Initial glucose 426, gap 13, however CO2 28 and beta hydroxy 2.14. Given 2L of fluid in the ED - hypoglycemia protocol - POC blood glucose ACHS - home medication: Hold metformin in case of need for contrast and Ozempic (NF) - correct regimen ordered - high dose TIDWM and HS, based off BMI and Lantus 14 units - A1C 8.5% on 12/15/2024 Patient continues to be hyperglycemic on am labs and throughout the day ranging in the mid to upper 200s. Will increase Lantus from 10 units to 14 units. Continue to monitor. (4) CKD (chronic kidney disease): Qualifiers: Chronic kidney disease stage: stage 1 Qualified Code(s): N18.1 - Chronic kidney disease, stage 1 Code(s): N18.9 - Chronic kidney disease, unspecified Status: Chronic Assessment and Plan: - creatinine 1.71, BUN 28, and GFR 40 upon admission. appears at baseline. - creatinine has ranged 1.6-1.8 - trend renal function - trend electrolytes, correct as needed - renally dose medications - monitor I/O Cr remains at baseline. Continue to monitor. (5) Hypertension: Qualifiers: Hypertension type: primary hypertension Qualified Code(s): I10 - Essential (primary) hypertension Code(s): I10 - Essential (primary) hypertension Status: Acute Assessment and Plan: Chronic, continue home medications - Metoprolol 25 mg daily - Lasix 60 mg daily - Lisinopril 80 mg daily - blood pressures reviewed and remain stable, continue to monitor (6) Hyperlipidemia: Qualifiers: Hyperlipidemia type: mixed hyperlipidemia Qualified Code(s): E78.2 - Mixed hyperlipidemia Code(s): E78.5 - Hyperlipidemia, unspecified Status: Acute Assessment and Plan: - atorvastatin increased from 20 mg daily to 40 mg daily due to concern for stroke Time Spent With Patient Time with patient: 25 - 35 minutes Subjective Date/time seen: 01/20/25 07:56 Interval history: 69 year old male with past medical history of fibromyalgia, hypogonadism, cardiomyopathy, asthma, hyperlipidemia, anemia, depression, gout, CKD, and diabetes presents here with altered mental status. Patient is pleasant sitting up comfortably in bed. Use endorsing slight shoulder pain that he relates to lying in bed. Reminded patient that he has lidocaine patches ordered if needed. Patient has no other complaints denying chest pain, shortness a breath, palpitations, nausea/vomiting and abdominal pain. Again patient denies any hallucinations. Review of Systems Review of Systems: All systems reviewed & are unremarkable except as noted in HPI and below Exam Narrative: AF HR 89 RR 18 Spo2 98 BP 131/72 General: male in no acute respiratory distress who is nontoxic appearing, sitting up in bed. HEENT: Normocephalic. Atraumatic. Extraocular movement intact. Sclera clear and anicteric. No facial asymmetry. Chest: Lungs are clear to auscultation bilaterally. CV: Heart was regular rate and rhythm. Abd: Abdomen was soft. Nontender. Nondistended. Positive bowel sounds. Ext: No clubbing, cyanosis, or edema. DP pulses bilaterally. Chronic pretibial discoloration. Neuro: Patient is alert and oriented x4. Strength is 5/5 in both upper and lower extremities. Speech is clear. Objective Data Vital Signs Vital Signs: Vital Signs - 24 hr 01/19/25 08:00 01/19/25 08:00 01/19/25 08:14 Temperature Pulse Rate 78 80 Respiratory Rate Blood Pressure Pulse Oximetry Oxygen Delivery Room Air 01/19/25 09:01/19/25 12:00 01/19/25 16:00 Temperature Pulse Rate 82 98 Respiratory Rate Blood Pressure Pulse Oximetry Oxygen Delivery Room Air 01/19/25 16:07 01/19/25 20:00 01/19/25 20:00 Temperature 97.4 F L Pulse Rate 82 84 Respiratory Rate 18 Blood Pressure 148/68 H Pulse Oximetry 98 Oxygen Delivery Room Air 01/19/25 20:42 01/20/25 00:00 01/20/25 04:00 Temperature 97.8 F Pulse Rate 84 72 64 Respiratory Rate 18 Blood Pressure 143/70 H Pulse Oximetry 100 Oxygen Delivery 01/20/25 06:00 Temperature 97.6 F Pulse Rate 89 Respiratory Rate 18 Blood Pressure 131/72 Pulse Oximetry 98 Oxygen Delivery Intake/Output Intake/Output: Intake & Output 01/17/25 01/18/25 01/19/25 01/20/25 23:59 23:59 23:59 23:59 Intake Total 1175.0 1735.0 1257.5 300 Output Total 2050 2650 150 Balance -875.0 -915.0 1107.5 300 Meds/Results Medications: Active Medications Generic Name Dose Route Start Last Admin Trade Name Freq PRN Reason Stop Dose Admin Acetaminophen 650 mg 01/13/25 14:12 01/20/25 07:51 Acetaminophen 325 Mg Tablet PO 650 mg Q4H PRN Administration Mild Pain (1-3) or Fever Albuterol 2 puff 01/13/25 18:22 Albuterol Sulfate (*Sp) Aerosol 1 Puff INHALATION Q4-6H PRN Shortness Of Breath Or Wheezing Allopurinol 300 mg 01/14/25 09:00 01/19/25 08:15 Allopurinol 300 Mg Tablet PO 300 mg DAILY FLOYD Administration Aspirin 81 mg 01/14/25 09:00 01/19/25 08:15 Aspirin 81 Mg Enteric Tablet PO 81 mg QAM FLOYD Administration Atorvastatin Calcium 40 mg 01/14/25 09:00 01/19/25 08:14 Atorvastatin 40 Mg Tablet PO 40 mg DAILY FLOYD Administration Azelastine HCl 1 spray 01/13/25 21:00 01/19/25 21:00 Azelastine Hcl Nasal 0.1% 137 Mcg/Spr 30 Ml Btl NASAL Not Given Q12HR [facility] Buspirone HCl 10 mg 01/13/25 18:25 01/19/25 16:59 Buspirone Hcl 10 Mg Tablet PO 10 mg BID FLOYD Administration Calcium Carbonate 500 mg 01/14/25 09:00 01/19/25 08:15 Calcium Carbonate (Oscal) 500 Mg Tablet PO 500 mg DAILY FLOYD Administration Clopidogrel Bisulfate 75 mg 01/14/25 09:00 01/19/25 08:14 Clopidogrel Bisulfate 75 Mg Tablet PO 75 mg QAM FLOYD Administration Dextrose 12.5 gm 01/13/25 14:13 Dextrose 50% 25 Gm/50 Ml Syringe IV PUSH PRN PRN Hypoglycemia Protocol Diazepam 5 mg 01/14/25 09:30 Diazepam Inj (*Crx) 10 Mg/2 Ml Syringe IV PUSH ONCE PRN seizures Enoxaparin Sodium 40 mg 01/14/25 09:00 01/19/25 08:16 Enoxaparin 40 Mg/0.4 Ml Syringe SUB-Q 40 mg DAILY FLOYD Administration Ferrous Sulfate 325 mg 01/14/25 09:00 01/19/25 08:15 Ferrous Sulfate 325 Mg Tablet PO 325 mg DAILY FLOYD Administration Fluticasone Propionate 1 spray 01/14/25 09:00 01/19/25 16:59 Fluticasone Propionate 0.05% Na Spr 16 Gm Btl (*Bkc) NASAL Not Given BID FLOYD Furosemide 20 mg 01/13/25 18:25 01/19/25 17:02 Furosemide 20 Mg Tablet PO 20 mg QPM FLOYD Administration Furosemide 40 mg 01/14/25 09:00 01/19/25 08:15 Furosemide 20 Mg Tablet PO 40 mg QAM FLOYD Administration Glucagon 1 mg 01/13/25 14:13 Glucagon For Inj 1 Mg Vial IM PRN PRN Hypoglycemia Protocol Glucose 15 gm 01/13/25 14:13 Glucose Oral Gel 15 Gm Of Glucse In 37.5 Gm Tube PO PRN PRN Hypoglycemia Protocol Hydralazine HCl 10 mg 01/14/25 09:45 Hydralazine Hcl 20 Mg/Ml Vial IV PUSH Q8H PRN Blood Pressure - High Hydrocortisone 1 applic 01/14/25 09:00 01/19/25 08:26 Hydrocortisone 1% 30 Gm Cream TOPICAL Not Given DAILY FLOYD Dextrose 1,000 mls @ 100 mls/hr 01/13/25 14:13 Dextrose 5% 1,000 Ml IVPB PRN PRN Hypoglycemia Protocol Levetiracetam 750 mg/ Dextrose 107.5 mls @ 430 mls/hr 01/15/25 21:00 01/19/25 20:59 IVPB 430 mls/hr Q12HR FLOYD Administration Insulin Aspart 4 - 8 units 01/13/25 17:00 01/19/25 16:59 Insulin Aspart (*Bkc) 100 Units/Ml SUB-Q 8 units TIDWM FLOYD Administration Protocol Insulin Aspart 2 - 4 units 01/13/25 21:00 01/19/25 21:04 Insulin Aspart (*Bkc) 100 Units/Ml SUB-Q 2 units HS FLOYD Administration Protocol Insulin Glargine 10 units 01/15/25 21:00 01/19/25 21:06 Insulin Glargine (*Bkc) 100 Units/Ml SUB-Q 10 units HS FLOYD Administration Lidocaine 1 patch 01/14/25 12:45 01/19/25 08:27 Lidocaine 5% Patch TRANSDERM 1 patch DAILY FLOYD Administration Lisinopril 80 mg 01/14/25 09:00 01/19/25 08:15 Lisinopril 20 Mg Tablet PO 80 mg DAILY FLOYD Administration Magnesium Oxide 400 mg 01/14/25 09:00 01/19/25 08:15 Magnesium Oxide 400 Mg Tablet PO 400 mg DAILY FLOYD Administration Metoprolol Succinate 25 mg 01/14/25 09:00 01/19/25 08:14 Metoprolol Succinate Ext Rel 25 Mg Tabcr PO 25 mg DAILY FLOYD Administration Miconazole Nitrate 1 applic 01/14/25 09:00 01/19/25 08:27 Miconazole Nitrate 2% Cream 30 Gm Tube TOPICAL 1 applic DAILY FLOYD Administration Montelukast Sodium 10 mg 01/14/25 09:00 01/19/25 08:15 Montelukast Sodium 10 Mg Tablet PO 10 mg DAILY FLOYD Administration Mupirocin 1 applic 01/14/25 09:00 01/19/25 17:00 Mupirocin 2% Oint 22 Gm Tube TOPICAL Not Given BID [facility] Potassium Chloride 40 meq 01/17/25 09:00 01/19/25 08:16 Potassium Chloride 20 Meq Packet (For Liquid) PO 40 meq DAILY FLOYD Administration Sertraline HCl 100 mg 01/13/25 18:25 01/19/25 16:59 Sertraline Hcl 50 Mg Tablet PO 100 mg BID FLOYD Administration Trazodone HCl 200 mg 01/13/25 21:00 01/19/25 20:58 Trazodone Hcl 50 Mg Tablet PO 200 mg HS FLOYD Administration Valacyclovir HCl 1,000 mg 01/18/25 21:00 01/19/25 20:58 Valacyclovir Hcl 500 Mg Tablet PO 1,000 mg Q12HR FLOYD Administration Vitamin B Complex 1 cap 01/14/25 09:00 01/19/25 08:14 Vitamin B Complex Capsule PO 1 cap DAILY FLOYD Administration Radiology Results: ITS Impressions Chest X-Ray 01/13/25 12:31 Impression: No acute cardiopulmonary abnormality. Head CT 01/14/25 10:21 Impression: 1.No acute intracranial abnormality. Carotid Doppler Study 01/15/25 14:46 IMPRESSION: 1. <50% stenosis in the right internal carotid artery. 2. <50% stenosis in the left internal carotid artery. Cervical Spine CT 01/15/25 18:24 IMPRESSION: 1. Age-indeterminate compression fractures of T2 and T3. 2. Moderate cervical spondylosis. Brain MRI 01/17/25 16:18 IMPRESSION: 1. Limited study lacking the standard T2-weighted, FLAIR and SWAN sequences due to patient's inability to lay flat for the entirety of the study. 2. No acute infarct or other evident acute intracranial process. 3. Periventricular predominant white matter T2 hyperintensity which within normal limits for age and likely sequela of chronic small vessel ischemic disease. Brain MRA 01/18/25 11:25 IMPRESSION: 1. No significant stenosis of the vertebrobasilar arteries or the internal carotid arteries. The anterior, middle, and posterior cerebral arteries are obscured by motion artifact. Labs Labs: Laboratory Results - last 24 hr 01/13/25 01/19/25 01/19/25 17:03 11:48 16:56 WBC RBC Hgb Hct MCV MCH MCHC RDW Plt Count MPV Sodium Potassium Chloride Carbon Dioxide Anion Gap BUN Creatinine Estim Creat Clear Calc Estimated GFR Glucose POC Capillary Glucose 233 H 371 H Calcium Total Bilirubin AST ALT Alkaline Phosphatase Total Protein Albumin Methylmalonic Acid 123 01/19/25 01/20/25 20:47 05:07 WBC 6.3 RBC 3.61 L Hgb 11.6 L Hct 34.4 L MCV 95.3 MCH 32.1 MCHC 33.7 RDW 13.2 Plt Count 158 MPV 10.2 Sodium 135 L Potassium 3.2 L Chloride 101 Carbon Dioxide 26 Anion Gap 8 BUN 24 H Creatinine 1.61 H Estim Creat Clear Calc 47 Estimated GFR 43 L Glucose 207 H POC Capillary Glucose 277 H Calcium 8.4 Total Bilirubin 0.6 AST 35 ALT 26 Alkaline Phosphatase 136 H Total Protein 6.1 L Albumin 3.3 L Methylmalonic Acid Quality VTE Prophylaxis VTE prophylaxis: pharmacologic ordered
[2025-01-20] MEDS: POTASSIUM CHLORIDE 20 MEQ PACKET (FOR LIQUID) 40 MEQ PO ×2 (08:18→12:28)
[2025-01-20] MEDS: MAGNESIUM OXIDE 400 MG TABLET PO (08:20)
[2025-01-20] MEDS: CALCIUM CARBONATE (OSCAL) 500 MG TABLET PO (08:20)
[2025-01-20] MEDS: METOPROLOL SUCCINATE EXT REL 25 MG TABCR PO (08:20)
[2025-01-20] MEDS: ATORVASTATIN 40 MG TABLET PO (08:21)
[2025-01-20] MEDS: MONTELUKAST SODIUM 10 MG TABLET PO (08:21)
[2025-01-20] MEDS: SERTRALINE HCL 50 MG TABLET 100 MG PO ×2 (08:21→17:58)
[2025-01-20] MEDS: ASPIRIN 81 MG ENTERIC TABLET PO (08:21)
[2025-01-20] MEDS: FUROSEMIDE 20 MG TABLET 40 MG PO (08:21)
[2025-01-20] MEDS: CLOPIDOGREL BISULFATE 75 MG TABLET PO (08:22)
[2025-01-20] MEDS: FERROUS SULFATE 325 MG TABLET PO (08:22)
[2025-01-20] MEDS: AZELASTINE HCL NASAL 0.1% 137 MCG/SPR 30 ML BTL 1 SPRAY NASAL (08:23)
[2025-01-20] MEDS: FLUTICASONE PROPIONATE 0.05% NA SPR 16 GM BTL (*BKC) 1 SPRAY NASAL (08:23)
[2025-01-20] MEDS: MICONAZOLE NITRATE 2% CREAM 30 GM TUBE 1 APPLIC TOPICAL (08:24)
[2025-01-20] MEDS: HYDROCORTISONE 1% 30 GM CREAM 1 APPLIC TOPICAL (08:24)
[2025-01-20] MEDS: MUPIROCIN 2% OINT 22 GM TUBE 1 APPLIC TOPICAL ×2 (08:25→17:59)
[2025-01-20] MEDS: ENOXAPARIN 40 MG/0.4 ML SYRINGE SUB-Q (08:43)
[2025-01-20] MEDS: LIDOCAINE 5% PATCH 1 PATCH TRANSDERM (08:44)
[2025-01-20] MEDS: VITAMIN B COMPLEX CAPSULE 1 CAP PO (08:44)
[2025-01-20] MEDS: INSULIN ASPART (*BKC) 100 UNITS/ML SUB-Q ×4 (08:45→21:42)
[2025-01-20] MEDS: FUROSEMIDE 20 MG TABLET PO (17:58)
[2025-01-20] MEDS: levETIRAcetam Tablet 250 MG, levETIRAcetam Tablet 500 MG 750 MG PO (21:36)
[2025-01-20] MEDS: INSULIN GLARGINE (*BKC) 100 UNITS/ML 14 UNITS SUB-Q (21:43)
[2025-01-21] VITALS (10 sets, daily range): BP systolic 137–152; BP diastolic 44–76; PULSE 59–74; RESP 17–18; TEMP 36.1–36.9; O2SAT 97–100
[2025-01-21 05:31] LABS: Hematocrit 35.8 % (42.0-52.0); Hemoglobin 11.9 g/dL (14.0-18.0); Mean Corpuscular HGB Conc 33.2 g/dl (32-36); Mean Corpuscular Hemoglobin 32.9 pg (26-34); Mean Corpuscular Volume 98.9 fl (80-100); Platelet Count Result 162 k/mm3 (150-375); Red Blood Count 3.62 M/mm3 (4.6-6.20); White Blood Count 5.8 K/mm3 (4.5-10.0)
[2025-01-21 05:53] LABS: Alanine Aminotransferase 30 U/L (6-50); Albumin Level 3.3 g/dL (3.5-5.1); Alkaline Phosphatase 128 U/L (38-126); Anion Gap 5 mmol/L (4-12); Aspartate Amino Transferase 39 U/L (17-59); Bilirubin,Total 0.5 mg/dL (0.2-1.3); Blood Urea Nitrogen 22 mg/dL (9-20); Calcium 8.5 mg/dL (8.4-10.2); Carbon Dioxide 28 mmol/L (22-30); Chloride 103 mmol/L (98-107); Estimated CRCL calculation 51 ml/min; Estimated Glomerular Filt Rate 47; Glucose 194 mg/dL (65-110); Potassium 3.3 mmol/L (3.4-5.0); Sodium 136 mmol/L (137-145); Total Protein 6.2 g/dL (6.3-8.2)
[2025-01-21] MEDS: LIDOCAINE 5% PATCH 1 PATCH TRANSDERM (08:09)
[2025-01-21] MEDS: ENOXAPARIN 40 MG/0.4 ML SYRINGE SUB-Q (08:09)
[2025-01-21] MEDS: VITAMIN B COMPLEX CAPSULE 1 CAP PO (08:11)
[2025-01-21] MEDS: METOPROLOL SUCCINATE EXT REL 25 MG TABCR PO (08:11)
[2025-01-21] MEDS: ATORVASTATIN 40 MG TABLET PO (08:11)
[2025-01-21] MEDS: MAGNESIUM OXIDE 400 MG TABLET PO (08:12)
[2025-01-21] MEDS: SERTRALINE HCL 50 MG TABLET 100 MG PO ×2 (08:12→17:35)
[2025-01-21] MEDS: levETIRAcetam Tablet 250 MG, levETIRAcetam Tablet 500 MG 750 MG PO ×2 (08:12→20:33)
[2025-01-21] MEDS: FERROUS SULFATE 325 MG TABLET PO (08:12)
[2025-01-21] MEDS: MONTELUKAST SODIUM 10 MG TABLET PO (08:14)
[2025-01-21] MEDS: ASPIRIN 81 MG ENTERIC TABLET PO (08:14)
[2025-01-21] MEDS: CLOPIDOGREL BISULFATE 75 MG TABLET PO (08:14)
[2025-01-21] MEDS: CALCIUM CARBONATE (OSCAL) 500 MG TABLET PO (08:14)
[2025-01-21] MEDS: FUROSEMIDE 20 MG TABLET 40 MG PO (08:14)
[2025-01-21] MEDS: POTASSIUM CHLORIDE 20 MEQ PACKET (FOR LIQUID) 40 MEQ PO (08:15)
[2025-01-21] MEDS: AZELASTINE HCL NASAL 0.1% 137 MCG/SPR 30 ML BTL 1 SPRAY NASAL (08:16)
[2025-01-21] MEDS: FLUTICASONE PROPIONATE 0.05% NA SPR 16 GM BTL (*BKC) 1 SPRAY NASAL (08:16)
[2025-01-21] MEDS: MUPIROCIN 2% OINT 22 GM TUBE 1 APPLIC TOPICAL (08:16)
[2025-01-21] MEDS: MICONAZOLE NITRATE 2% CREAM 30 GM TUBE 1 APPLIC TOPICAL (08:16)
[2025-01-21] MEDS: HYDROCORTISONE 1% 30 GM CREAM 1 APPLIC TOPICAL (08:16)
--- NOTE | 2025-01-21 08:29 | PM.IMPN ---
Progress Note: A&P Assessment and Plan (1) Altered mental status: Qualifiers: Altered mental status type: disorientation Qualified Code(s): R41.0 - Disorientation, unspecified Code(s): R41.82 - Altered mental status, unspecified Status: Acute Assessment and Plan: Last known well [id number], on original presentation on 01/11. Significant word-finding difficulty noted, confusion, and reported behavioral changes by patient. Symptoms initially concerning for stroke. Patient significantly out of the window for thrombolytics or thrombectomy. Per previous documentation, patient reported his last known well was 4 days prior to 01/11 - head CT from 01/11 in 01/13 were unremarkable. repeat head ct 01/14 remains unremarkable. - carotid doppler: < 50% stenosis of bilateral ICA - CXR, UDS, UA were unremarkable. CO2 20 on BMP. No significant electrolyte derangements. - TSH, B12 and folate WNL - blood cultures added to r/u any infectious process: negative - MRI: No acute infarct or other evident acute intracranial process. Periventricular predominant white matter T2 hyperintensity which within normal limits for age and likely sequela of chronic small vessel ischemic disease. - Echo: LVEF 60-65% with grade I diastolic dysfunction - Monitor CBC, CMP, magnesium, troponin, and lipid profile. Monitor blood pressure. Monitor blood glucose - Telemetry monitoring - PT/OT eval and treat - Neurology consulted, appreciate assistance and recommendations MR Angiography of the head/neck: No significant stenosis of the vertebrobasilar arteries or the internal carotid arteries. The anterior, middle, and posterior cerebral arteries are obscured by motion artifact. EEG unremarkable Patient currently AOx4 following commands on assessment. Denies any hallucinations. Strength is symmetrical on exam. Resolved. (2) Seizure: Code(s): R56.9 - Unspecified convulsions Status: Acute Assessment and Plan: Rapid response was called on 01/14. Pt was found on the floor. Per nursing records, pt was in a recliner, stood up, chair alarm went off, and when staff arrived, pt was found on the floor, witness seizure for about 20 seconds. Prior to that, he was a/o x1, restless. Of note, he was in ED prior for c/o AMS and hallucination. Stat head CT, C spine was ordered, neurology was called and DR Severino recommended 2000 mg loading dose of keppra and then 1000 mg bid and pt was moved to IMU. SonJose C was called and updated on condition- all questions answered. - Head CT: unremarkable - C spine CT: age indeterminate compression fractures of t2 and t3 with moderate cervical spondylosis - MRI: No acute infarct or other evident acute intracranial process. Periventricular predominant white matter T2 hyperintensity which within normal limits for age and likely sequela of chronic small vessel ischemic disease. - EEG unremarkable - Keppra 2000 mg loading dose given per neurology recommendations, remains on keppra 750 mg bid. Transitioned to oral keppra. - Seizure precautions No seizure activity since 01/14. (3) Diabetes mellitus: Qualifiers: Chronic kidney disease stage: unspecified stage Diabetes mellitus complication detail: with chronic kidney disease Diabetes mellitus complication status: with kidney complications Diabetes mellitus computer terminal operator insulin use: without computer terminal operator use Diabetes mellitus type: type 2 Qualified Code(s): E11.22 - Type 2 diabetes mellitus with diabetic chronic kidney disease Code(s): E11.9 - Type 2 diabetes mellitus without complications Status: Acute Assessment and Plan: Initial glucose 426, gap 13, however CO2 28 and beta hydroxy 2.14. Given 2L of fluid in the ED - hypoglycemia protocol - POC blood glucose ACHS - home medication: Hold metformin in case of need for contrast and Ozempic (NF) - correct regimen ordered - high dose TIDWM and HS, based off BMI and Lantus 17 units - A1C 8.5% on 12/15/2024 Patient continues to be hyperglycemic on am labs and throughout the day ranging in the 200s. Increased Lantus from to 17 units. Had a long discussion with patient about long acting insulin, he states he was previously on lantus a few years ago and is familiar with the medication Continue to monitor. (4) CKD (chronic kidney disease): Qualifiers: Chronic kidney disease stage: stage 1 Qualified Code(s): N18.1 - Chronic kidney disease, stage 1 Code(s): N18.9 - Chronic kidney disease, unspecified Status: Chronic Assessment and Plan: - creatinine 1.71, BUN 28, and GFR 40 upon admission. appears at baseline. - creatinine has ranged 1.6-1.8 - trend renal function - trend electrolytes, correct as needed - renally dose medications - monitor I/O Cr remains at baseline. Continue to monitor. (5) Hypertension: Qualifiers: Hypertension type: primary hypertension Qualified Code(s): I10 - Essential (primary) hypertension Code(s): I10 - Essential (primary) hypertension Status: Acute Assessment and Plan: Chronic, continue home medications - Metoprolol 25 mg daily - Lasix 60 mg daily - Lisinopril 80 mg daily - blood pressures reviewed and remain stable, continue to monitor (6) Hyperlipidemia: Qualifiers: Hyperlipidemia type: mixed hyperlipidemia Qualified Code(s): E78.2 - Mixed hyperlipidemia Code(s): E78.5 - Hyperlipidemia, unspecified Status: Acute Assessment and Plan: - atorvastatin 40 mg daily due to concern for stroke Time Spent With Patient Time with patient: 25 - 35 minutes Subjective Date/time seen: 01/21/25 08:29 Interval history: 69 year old male with past medical history of fibromyalgia, hypogonadism, cardiomyopathy, asthma, hyperlipidemia, anemia, depression, gout, CKD, and diabetes presents here with altered mental status. Patient is pleasant sitting up comfortably in his bed. He remains alert and oriented x4 at time of assessment. He has no complaints denying chest pain, shortness a breath, palpitations, nausea/vomiting, abdominal pain, dizziness/lightheadedness, and hallucinations. Patient was originally agreeable with placement however he continues to improve with PT/OT and is now wishing to go home with home health. Patient continues to have hyperglycemia. Discussed the starting of lantus with him and he states he is familiar with this medication as he was previously on it a few years ago. Review of Systems Review of Systems: All systems reviewed & are unremarkable except as noted in HPI and below Exam Narrative: AF HR 74 RR 17 SpO2 97 BP 147/44 General: male in no acute respiratory distress who is nontoxic appearing, sitting up in bed. HEENT: Normocephalic. Atraumatic. Extraocular movement intact. Sclera clear and anicteric. No facial asymmetry. Chest: Lungs are clear to auscultation bilaterally. CV: Heart was regular rate and rhythm. Abd: Abdomen was soft. Nontender. Nondistended. Positive bowel sounds. Ext: No clubbing, cyanosis, or edema. DP pulses bilaterally. Chronic pretibial discoloration. Neuro: Patient is alert and oriented x4. Strength is 5/5 in both upper and lower extremities. Speech is clear. Objective Data Vital Signs Vital Signs: Vital Signs - 24 hr 01/20/25 12:00 01/20/25 15:34 01/20/25 16:00 Temperature 97.0 F L Pulse Rate 63 68 71 Respiratory Rate 18 Blood Pressure 145/80 H Pulse Oximetry 97 Oxygen Delivery 01/20/25 20:00 01/20/25 20:00 01/20/25 20:29 Temperature 98.2 F Pulse Rate 72 71 Respiratory Rate 17 Blood Pressure 166/69 H Pulse Oximetry 100 Oxygen Delivery Room Air 01/21/25 00:00 01/21/25 05:40 01/21/25 07:18 Temperature 98.5 F Pulse Rate 71 66 59 L Respiratory Rate 17 Blood Pressure 147/44 H Pulse Oximetry 97 Oxygen Delivery 01/21/25 08:11 Temperature Pulse Rate 74 Respiratory Rate Blood Pressure Pulse Oximetry Oxygen Delivery Intake/Output Intake/Output: Intake & Output 01/18/25 01/19/25 01/20/25 01/21/25 23:59 23:59 23:59 23:59 Intake Total 1735.0 1365.0 1220 150 Output Total 2650 150 Balance -915.0 1215.0 1220 150 Meds/Results Medications: Active Medications Generic Name Dose Route Start Last Admin Trade Name Freq PRN Reason Stop Dose Admin Acetaminophen 650 mg 01/13/25 14:12 01/20/25 07:51 Acetaminophen 325 Mg Tablet PO 650 mg Q4H PRN Administration Mild Pain (1-3) or Fever Albuterol 2 puff 01/13/25 18:22 Albuterol Sulfate (*Sp) Aerosol 1 Puff INHALATION Q4-6H PRN Shortness Of Breath Or Wheezing Allopurinol 300 mg 01/14/25 09:00 01/21/25 08:11 Allopurinol 300 Mg Tablet PO 300 mg DAILY FLOYD Administration Aspirin 81 mg 01/14/25 09:00 01/21/25 08:14 Aspirin 81 Mg Enteric Tablet PO 81 mg QAM FLOYD Administration Atorvastatin Calcium 40 mg 01/14/25 09:00 01/21/25 08:11 Atorvastatin 40 Mg Tablet PO 40 mg DAILY FLOYD Administration Azelastine HCl 1 spray 01/13/25 21:00 01/21/25 08:16 Azelastine Hcl Nasal 0.1% 137 Mcg/Spr 30 Ml Btl NASAL 1 spray Q12HR FLOYD Administration Buspirone HCl 10 mg 09/13/25 18:25 01/21/25 08:11 Buspirone Hcl 10 Mg Tablet PO 10 mg BID FLOYD Administration Calcium Carbonate 500 mg 01/14/25 09:00 01/21/25 08:14 Calcium Carbonate (Oscal) 500 Mg Tablet PO 500 mg DAILY FLOYD Administration Clopidogrel Bisulfate 75 mg 01/14/25 09:00 01/21/25 08:14 Clopidogrel Bisulfate 75 Mg Tablet PO 75 mg QAM FLOYD Administration Dextrose 12.5 gm 01/13/25 14:13 Dextrose 50% 25 Gm/50 Ml Syringe IV PUSH PRN PRN Hypoglycemia Protocol Diazepam 5 mg 01/14/25 09:30 Diazepam Inj (*Crx) 10 Mg/2 Ml Syringe IV PUSH ONCE PRN seizures Enoxaparin Sodium 40 mg 01/14/25 09:00 01/21/25 08:09 Enoxaparin 40 Mg/0.4 Ml Syringe SUB-Q 40 mg DAILY FLOYD Administration Ferrous Sulfate 325 mg 01/14/25 09:00 01/21/25 08:12 Ferrous Sulfate 325 Mg Tablet PO 325 mg DAILY FLOYD Administration Fluticasone Propionate 1 spray 01/14/25 09:00 01/21/25 08:16 Fluticasone Propionate 0.05% Na Spr 16 Gm Btl (*Bkc) NASAL 1 spray BID FLOYD Administration Furosemide 20 mg 01/13/25 18:25 01/20/25 17:58 Furosemide 20 Mg Tablet PO 20 mg QPM FLOYD Administration Furosemide 40 mg 01/14/25 09:00 01/21/25 08:14 Furosemide 20 Mg Tablet PO 40 mg QAM FLOYD Administration Glucagon 1 mg 01/13/25 14:13 Glucagon For Inj 1 Mg Vial IM PRN PRN Hypoglycemia Protocol Glucose 15 gm 01/13/25 14:13 Glucose Oral Gel 15 Gm Of Glucse In 37.5 Gm Tube PO PRN PRN Hypoglycemia Protocol Hydralazine HCl 10 mg 01/14/25 09:45 Hydralazine Hcl 20 Mg/Ml Vial IV PUSH Q8H PRN Blood Pressure - High Hydrocortisone 1 applic 01/14/25 09:00 01/21/25 08:16 Hydrocortisone 1% 30 Gm Cream TOPICAL 1 applic DAILY FLOYD Administration Dextrose 1,000 mls @ 100 mls/hr 01/13/25 14:13 Dextrose 5% 1,000 Ml IVPB PRN PRN Hypoglycemia Protocol Insulin Aspart 4 - 8 units 01/13/25 17:00 01/21/25 08:15 Insulin Aspart (*Bkc) 100 Units/Ml SUB-Q Not Given TIDWM FLOYD Protocol Insulin Aspart 2 - 4 units 01/13/25 21:00 01/20/25 21:42 Insulin Aspart (*Bkc) 100 Units/Ml SUB-Q 2 units HS FLOYD Administration Protocol Insulin Glargine 14 units 01/20/25 21:00 01/20/25 21:43 Insulin Glargine (*Bkc) 100 Units/Ml SUB-Q 14 units HS FLOYD Administration Levetiracetam 250 mg/ 750 mg 01/20/25 21:00 01/21/25 08:12 Levetiracetam 500 mg PO 750 mg Q12HR FLOYD Administration Lidocaine 1 patch 01/14/25 12:45 01/21/25 08:09 Lidocaine 5% Patch TRANSDERM 1 patch DAILY FLOYD Administration Lisinopril 80 mg 01/14/25 09:00 01/21/25 08:09 Lisinopril 20 Mg Tablet PO 80 mg DAILY FLOYD Administration Magnesium Oxide 400 mg 01/14/25 09:00 01/21/25 08:12 Magnesium Oxide 400 Mg Tablet PO 400 mg DAILY FLOYD Administration Metoprolol Succinate 25 mg 01/14/25 09:00 01/21/25 08:11 Metoprolol Succinate Ext Rel 25 Mg Tabcr PO 25 mg DAILY FLOYD Administration Miconazole Nitrate 1 applic 01/14/25 09:00 01/21/25 08:16 Miconazole Nitrate 2% Cream 30 Gm Tube TOPICAL 1 applic DAILY FLOYD Administration Montelukast Sodium 10 mg 01/14/25 09:00 01/21/25 08:14 Montelukast Sodium 10 Mg Tablet PO 10 mg DAILY FLOYD Administration Mupirocin 1 applic 01/14/25 09:00 01/21/25 08:16 Mupirocin 2% Oint 22 Gm Tube TOPICAL 1 applic BID FLOYD Administration Potassium Chloride 40 meq 01/17/25 09:00 01/21/25 08:15 Potassium Chloride 20 Meq Packet (For Liquid) PO 40 meq DAILY FLOYD Administration Sertraline HCl 100 mg 01/13/25 18:25 01/21/25 08:12 Sertraline Hcl 50 Mg Tablet PO 100 mg BID FLOYD Administration Trazodone HCl 200 mg 01/13/25 21:00 01/20/25 21:35 Trazodone Hcl 50 Mg Tablet PO 200 mg HS FLOYD Administration Valacyclovir HCl 1,000 mg 01/18/25 21:00 01/21/25 08:10 Valacyclovir Hcl 500 Mg Tablet PO 1,000 mg Q12HR FLOYD Administration Vitamin B Complex 1 cap 01/14/25 09:00 01/21/25 08:11 Vitamin B Complex Capsule PO 1 cap DAILY FLOYD Administration Radiology Results: ITS Impressions Chest X-Ray 01/13/25 12:31 Impression: No acute cardiopulmonary abnormality. Head CT 01/14/25 10:21 Impression: 1.No acute intracranial abnormality. Carotid Doppler Study 01/15/25 14:46 IMPRESSION: 1. <50% stenosis in the right internal carotid artery. 2. <50% stenosis in the left internal carotid artery. Cervical Spine CT 01/15/25 18:24 IMPRESSION: 1. Age-indeterminate compression fractures of T2 and T3. 2. Moderate cervical spondylosis. Brain MRI 01/17/25 16:18 IMPRESSION: 1. Limited study lacking the standard T2-weighted, FLAIR and SWAN sequences due to patient's inability to lay flat for the entirety of the study. 2. No acute infarct or other evident acute intracranial process. 3. Periventricular predominant white matter T2 hyperintensity which within normal limits for age and likely sequela of chronic small vessel ischemic disease. Brain MRA 01/18/25 11:25 IMPRESSION: 1. No significant stenosis of the vertebrobasilar arteries or the internal carotid arteries. The anterior, middle, and posterior cerebral arteries are obscured by motion artifact. Labs Labs: Laboratory Results - last 24 hr 01/20/25 01/20/25 01/20/25 11:32 16:51 20:27 WBC RBC Hgb Hct MCV MCH MCHC RDW Plt Count MPV Sodium Potassium Chloride Carbon Dioxide Anion Gap BUN Creatinine Estim Creat Clear Calc Estimated GFR Glucose POC Capillary Glucose 315 H 215 H 276 H Calcium Total Bilirubin AST ALT Alkaline Phosphatase Total Protein Albumin 01/21/25 01/21/25 04:44 08:11 WBC 5.8 RBC 3.62 L Hgb 11.9 L Hct 35.8 L MCV 98.9 MCH 32.9 MCHC 33.2 RDW 13.2 Plt Count 162 MPV 10.4 Sodium 136 L Potassium 3.3 L Chloride 103 Carbon Dioxide 28 Anion Gap 5 BUN 22 H Creatinine 1.47 H Estim Creat Clear Calc 51 Estimated GFR 47 L Glucose 194 H POC Capillary Glucose 195 H Calcium 8.5 Total Bilirubin 0.5 AST 39 ALT 30 Alkaline Phosphatase 128 H Total Protein 6.2 L Albumin 3.3 L Quality VTE Prophylaxis VTE prophylaxis: pharmacologic ordered
[2025-01-21] MEDS: INSULIN ASPART (*BKC) 100 UNITS/ML SUB-Q ×3 (13:34→20:37)
[2025-01-21] MEDS: FUROSEMIDE 20 MG TABLET PO (17:35)
[2025-01-21] MEDS: INSULIN GLARGINE (*BKC) 100 UNITS/ML 17 UNITS SUB-Q (20:38)
[2025-01-22] VITALS: PULSE 64
[2025-01-22 04:00] VITALS: PULSE 65
[2025-01-22 05:05] LABS: Hematocrit 34.6 % (42.0-52.0); Hemoglobin 11.3 g/dL (14.0-18.0); Mean Corpuscular HGB Conc 32.7 g/dl (32-36); Mean Corpuscular Hemoglobin 32.0 pg (26-34); Mean Corpuscular Volume 98.0 fl (80-100); Platelet Count Result 176 k/mm3 (150-375); Red Blood Count 3.53 M/mm3 (4.6-6.20); White Blood Count 5.8 K/mm3 (4.5-10.0)
[2025-01-22 05:37] LABS: Alanine Aminotransferase 28 U/L (6-50); Albumin Level 3.2 g/dL (3.5-5.1); Alkaline Phosphatase 136 U/L (38-126); Anion Gap 7 mmol/L (4-12); Aspartate Amino Transferase 31 U/L (17-59); Bilirubin,Total 0.4 mg/dL (0.2-1.3); Blood Urea Nitrogen 24 mg/dL (9-20); Calcium 8.6 mg/dL (8.4-10.2); Carbon Dioxide 27 mmol/L (22-30); Chloride 102 mmol/L (98-107); Estimated CRCL calculation 45 ml/min; Estimated Glomerular Filt Rate 40; Glucose 168 mg/dL (65-110); Potassium 3.2 mmol/L (3.4-5.0); Sodium 136 mmol/L (137-145); Total Protein 6.0 g/dL (6.3-8.2)
[2025-01-22 06:00] VITALS: BP 125/82; PULSE 75; RESP 18; TEMP 36.2; O2SAT 96
[2025-01-22 08:00] VITALS: PULSE 73
[2025-01-22] MEDS: POTASSIUM CHLORIDE 20 MEQ PACKET (FOR LIQUID) 40 MEQ PO ×2 (09:50→09:59)
[2025-01-22] MEDS: FUROSEMIDE 20 MG TABLET 40 MG PO (09:51)
[2025-01-22] MEDS: CALCIUM CARBONATE (OSCAL) 500 MG TABLET PO (09:51)
[2025-01-22] MEDS: FERROUS SULFATE 325 MG TABLET PO (09:51)
[2025-01-22] MEDS: CLOPIDOGREL BISULFATE 75 MG TABLET PO (09:51)
[2025-01-22] MEDS: ASPIRIN 81 MG ENTERIC TABLET PO (09:51)
[2025-01-22] MEDS: SERTRALINE HCL 50 MG TABLET 100 MG PO (09:52)
[2025-01-22] MEDS: levETIRAcetam Tablet 250 MG, levETIRAcetam Tablet 500 MG 750 MG PO (09:52)
[2025-01-22] MEDS: ATORVASTATIN 40 MG TABLET PO (09:52)
[2025-01-22] MEDS: MAGNESIUM OXIDE 400 MG TABLET PO (09:52)
[2025-01-22] MEDS: VITAMIN B COMPLEX CAPSULE 1 CAP PO (09:52)
[2025-01-22 09:53] VITALS: PULSE 73
[2025-01-22] MEDS: MONTELUKAST SODIUM 10 MG TABLET PO (09:53)
[2025-01-22] MEDS: METOPROLOL SUCCINATE EXT REL 25 MG TABCR PO (09:53)
[2025-01-22] MEDS: LIDOCAINE 5% PATCH 1 PATCH TRANSDERM (09:54)
[2025-01-22] MEDS: ENOXAPARIN 40 MG/0.4 ML SYRINGE SUB-Q (09:54)
[2025-01-22] MEDS: AZELASTINE HCL NASAL 0.1% 137 MCG/SPR 30 ML BTL 1 SPRAY NASAL (09:57)
[2025-01-22] MEDS: FLUTICASONE PROPIONATE 0.05% NA SPR 16 GM BTL (*BKC) 1 SPRAY NASAL (09:57)
[2025-01-22] MEDS: MICONAZOLE NITRATE 2% CREAM 30 GM TUBE 1 APPLIC TOPICAL (09:58)
[2025-01-22] MEDS: MUPIROCIN 2% OINT 22 GM TUBE 1 APPLIC TOPICAL (09:58)
[2025-01-22] MEDS: HYDROCORTISONE 1% 30 GM CREAM 1 APPLIC TOPICAL (09:58)
--- NOTE | 2025-01-22 11:19 | P.DS_ITS ---
DS: Admitting Diagnosis Discharge Date 01/22/2025 Admitting Diagnosis ams seizure dm ckd htn hld DS: Discharge Diagnosis Discharge Diagnosis (1) Altered mental status: Qualifiers: Altered mental status type: disorientation Qualified Code(s): R41.0 - Disorientation, unspecified Code(s): R41.82 - Altered mental status, unspecified Status: Acute (2) Seizure: Code(s): R56.9 - Unspecified convulsions Status: Acute (3) Diabetes mellitus: Qualifiers: Chronic kidney disease stage: unspecified stage Diabetes mellitus complication detail: with chronic kidney disease Diabetes mellitus complication status: with kidney complications Diabetes mellitus custodial insulin use: without custodial use Diabetes mellitus type: type 2 Qualified Code(s): E11.22 - Type 2 diabetes mellitus with diabetic chronic kidney disease Code(s): E11.9 - Type 2 diabetes mellitus without complications Status: Acute (4) CKD (chronic kidney disease): Qualifiers: Chronic kidney disease stage: stage 1 Qualified Code(s): N18.1 - Chronic kidney disease, stage 1 Code(s): N18.9 - Chronic kidney disease, unspecified Status: Chronic (5) Hypertension: Qualifiers: Hypertension type: primary hypertension Qualified Code(s): I10 - Essential (primary) hypertension Code(s): I10 - Essential (primary) hypertension Status: Acute (6) Hyperlipidemia: Qualifiers: Hyperlipidemia type: mixed hyperlipidemia Qualified Code(s): E78.2 - Mixed hyperlipidemia Code(s): E78.5 - Hyperlipidemia, unspecified Status: Acute DS: Summary Hospital Course Reason for hospitalization: ams seizure dm ckd htn hld Hospital Course: 69 year old male with past medical history of fibromyalgia, hypogonadism, cardiomyopathy, asthma, hyperlipidemia, anemia, depression, gout, CKD, and diabetes presents here with altered mental status. Significant word-finding difficulty noted, confusion, and reported behavioral changes by patient, concerning for CVA. UDS, UA were unremarkable. CO2 20 on BMP. No significant electrolyte derangements. CXR unremarkable. Head CT from 01/11 and 01/13 were unremarkable. Repeat head ct 01/14 remained unremarkable. Carotid Doppler showed < 50% stenosis of bilateral ICA. Neurology consulted. MRI showed no acute infarct or other evident acute intracranial process. Periventricular predominant white matter T2 hyperintensity which within normal limits for age and likely sequela of chronic small vessel ischemic disease. MR Angiography of the head/neck showed no significant stenosis of the vertebrobasilar arteries or the internal carotid arteries. Per neurology the MRI and MRA showed significant motion artifacts. Repeat MRI was obtained and showed no acute intracranial process. Echo showed LVEF 60-65% with grade I diastolic dysfunction. Patient started on aspirin, plavix and high intensity statin. Discussed medications with neurology Dr. Severino prior to discharge and patient to stay on the ASA and high intensity statin indefinitely and the Plavix for 3 weeks. Prior to discharge patient returned to baseline mental status and remained AOx4. During admission, a rapid response was called on 01/14. Pt was found on the floor. Per nursing records, pt was in a recliner, stood up, chair alarm went off, and when staff arrived, pt was found on the floor, witness seizure for about 20 seconds. Prior to that, he was a/o x1, restless. Stat head CT and C spine was ordered unremarkable. Neurology was called and DR Severino recommended 2000 mg loading dose of keppra. Patient transitioned to oral 750 mg BID keppra prior to discharge. EEG unremarkable. Prior to discharge discussed patient with neurology Dr. Severino. Per neurology patient is stable for discharge from their standpoint with follow up in the office in 6-8 weeks. During admission patient noted to be hyperglycemic. Initial glucose 426, gap 13, however CO2 28 and beta hydroxy 2.14. Started on lantus 17 units. Per patient he was previously on this medication. During admission patient was initially having weakness and PT/OT recommended placement for further therapy. Throughout admission patients strength improved and he was able to walker 270 ft w/wo assistive device prior to discharge. Patient was no longer agreeable to placement. Patient agreeable to home health which was set up by care coordination. Patient had no complaints at time of discharge denying chest pain, shortness a breath, palpitations, nausea/vomiting, pain, dizziness/lightheadedness, and hallucinations. At time of discharge had a long discussion about the new medications the patient is being started on with him and his son in law. Side effects were discussed. All questions and concerns were answered at that time. Patient discharged home with home health in a stable condition. Follow up with Neurology as scheduled and his primary care provider in 1 week. Status at Discharge Functional status at discharge: uses cane/walker Time Spent with Patient Time attestation: Total time spent providing and/or coordinating discharge services: Time spent: Greater than 30 minutes Exam Narrative: AF HR 75 RR 18 Spo2 96 BP 125/82 General: male in no acute respiratory distress who is nontoxic appearing, sitting up in chair HEENT: Normocephalic. Atraumatic. Extraocular movement intact. Sclera clear and anicteric. No facial asymmetry. Chest: Lungs are clear to auscultation bilaterally. CV: Heart was regular rate and rhythm. Abd: Abdomen was soft. Nontender. Nondistended. Positive bowel sounds. Ext: No clubbing, cyanosis, or edema. DP pulses bilaterally. Chronic pretibial discoloration. Neuro: Patient is alert and oriented x4. Strength is 5/5 in both upper and lower extremities. Speech is clear. DS: Data Data Completed and Pending Completed studies during hospitalization: Brain MRA Brain MRI Brain MRI C spine CT Carotid doppler Head CT Chest XR Head CT Labs on day of discharge: Labs from last 24 hours 01/22/25 01/22/25 01/21/25 07:48 04:43 20:11 WBC 5.8 RBC 3.53 L Hgb 11.3 L Hct 34.6 L MCV 98.0 MCH 32.0 MCHC 32.7 RDW 13.2 Plt Count 176 MPV 9.9 Sodium 136 L Potassium 3.2 L Chloride 102 Carbon Dioxide 27 Anion Gap 7 BUN 24 H Creatinine 1.69 H Estim Creat Clear Calc 45 Estimated GFR 40 L Glucose 168 H POC Capillary Glucose 170 H 309 H Calcium 8.6 Total Bilirubin 0.4 AST 31 ALT 28 Alkaline Phosphatase 136 H Total Protein 6.0 L Albumin 3.2 L 01/21/25 01/21/25 16:59 12:22 WBC RBC Hgb Hct MCV MCH MCHC RDW Plt Count MPV Sodium Potassium Chloride Carbon Dioxide Anion Gap BUN Creatinine Estim Creat Clear Calc Estimated GFR Glucose POC Capillary Glucose 323 H 264 H Calcium Total Bilirubin AST ALT Alkaline Phosphatase Total Protein Albumin Discharge Plan Discharge Attending physician on discharge: Elias Dao Consulting providers: Shelbie Severino; Linsey Ulrich Discharging Clinician: Linsey Ulrich Anticipated Discharge Date/Time: 01/22/25 10:56 Patient Disposition: Home with Home Health Service Activity: as tolerated Diet: as tolerated and diabetic Discharge Instructions: Discharge disposition: Patient admitted to the hospital for confusion Neurology evaluated Concern for possible stroke and diagnosed with new onset seizure Take all medications as prescribed even if feeling better Aspirin 81 mg daily Atorvastatin dose increased from 20 mg to 40 mg daily Plavix 75 mg daily, course to be completed in 3 weeks Keppra 750 twice a day Attached is information on these medications Given new onset seizures do not drive, operate heavy machinery, or swim alone for at least 6 months and cleared by neurology Eat well balanced meals and stay hydrated Strict bleeding precautions since you are being started on Plavix including shaving with an electric razor, holding pressure for greater than 20 minutes for injury, protection of had with any falls, etc. Follow-up with neurology in 6-8 weeks Patient noted to have elevated glucose levels throughout admission Started on long acting insulin: Lantus 17 units nightly Attached is information on this medication Continue home diabetes regimen as well Monitor your blood sugar level with each meal Keep a record of your blood sugars for primary care follow up During admission patient noted to have consistently low potassium levels Started on a potassium supplement Follow up with primary care provider about potassium levels Monitor blood pressures Take caution while standing, rising, or moving Change positions slowly taking a break between each position change If you standing feel dizzy sit back down and take a break Encouraged to continue with yearly vaccinations Return to the emergency department if he developed sudden shortness of breath, chest pain, nausea, vomiting, upset stomach or intractable diarrhea Return to the emergency department if you develop fever greater than 100.5 Follow-up with the primary care physician within 1-2 weeks Thank you for choosing [facility] for your healthcare needs Per Care Coordination. Patient to have [facility] for RN/PT/OT silvia [phone]. They will contact you to schedule first visit. Patient Instructions: Potassium Chloride (By mouth), Aspirin (By mouth), Atorvastatin (By mouth), Clopidogrel (By mouth), Levetiracetam (By mouth), Insulin Glargine (By injection), Hypoglycemia in a Person with Diabetes (DC), Meal Planning with Diabetes Exchanges (DC), Blood Thinners (DC), What to Do if Your Blood Sugar is Low (DC), Diabetes and Exercise (DC) Patient Language: Bengali Stand Alone Forms: General Discharge Information Follow-up/Referrals: Shelbie Severino MD [Physician, Neurology] - Call for Appointment Evan Rebolledo DO [Primary Care Provider, Internal Medicine] - 1 Week Discharge Medications: New atorvastatin 40 mg Tablet 40 mg PO DAILY Qty: 30 0RF clopidogrel 75 mg Tablet 75 mg PO QAM 21 Days Qty: 21 0RF aspirin 81 mg Tablet,Delayed Release (Dr/Ec) 81 mg PO QAM Qty: 30 0RF potassium chloride 20 mEq Packet 40 meq PO DAILY Qty: 15 0RF levetiracetam 250 mg Tablet 750 mg PO Q12HR Qty: 60 0RF (DME) blood-glucose meter [OneTouch Verio Flex meter] [facility] Qty: 1 0RF Rx Instructions: May substitute to in-stock meter and/or covered by insurance. Use As Directed (DME) OneTouch Verio test strips Strip Qty: 1 0RF Rx Instructions: May substitute to in-stock and/or covered by insurance strips. Use As Directed (DME) pen needle, diabetic 32 gauge x 5/32 Needle Qty: 1 0RF Rx Instructions: As Directed (DME) lancets [OneTouch Delica Plus Lancet] 30 gauge [facility] Qty: 1 0RF Rx Instructions: May substitute to in-stock and/or covered by insurance lancets. Use As Directed insulin glargine [Lantus Solostar U-100 Insulin] 100 unit/mL (3 mL) insulin pen 17 unit subcut QPM Qty: 3 0RF Continued valacyclovir 500 mg tablet 500 mg PO BID ferrous sulfate [Feosol] 325 mg (65 mg iron) tablet 325 mg PO DAILY triamcinolone acetonide 0.025 % cream 1 applic topical DAILY ketoconazole 2 % cream 1 applic topical DAILY vitamin B complex [B Complex-Vitamin B12] Tablet 1 tablet PO DAILY calcium carbonate [Calcium 500] 500 mg calcium (1,250 mg) tablet 500 mg PO DAILY mupirocin 2 % ointment 1 applic topical BID furosemide 20 mg tablet See Rx Instructions .ROUTE .COMPLEX Qty: 270 1RF Dose Instruction: TAKE 2 TABLETS BY MOUTH EVERY MORNING AND 1 TABLET DAILY AT NIGHT Rx Instructions: TAKE 2 TABLETS BY MOUTH EVERY MORNING AND 1 TABLET DAILY AT NIGHT albuterol sulfate 90 mcg/actuation HFA aerosol inhaler 2 puff inhalation Q4-6H PRN (Reason: shortness of breath or wheezing) Qty: 8.5 1RF allopurinol 300 mg tablet See Rx Instructions .ROUTE .COMPLEX Qty: 90 1RF Dose Instruction: TAKE 1 TABLET BY MOUTH DAILY Rx Instructions: TAKE 1 TABLET BY MOUTH DAILY acetaminophen [Tylenol Extra Strength] 500 mg tablet 1,000 mg PO Q6H PRN (Reason: pain) Qty: 50 0RF (DME) blood-glucose meter Misc See Rx Instructions .Route Qty: 1 0RF Rx Instructions: Use to test BS once daily (DME) Blood Glucose Test Strip See Rx Instructions .Route Qty: 50 3RF Rx Instructions: Use to check BS once daily (DME) lancets-blood glucose strips 30 gauge combo pack See Rx Instructions .Route Qty: 200 2RF Rx Instructions: Use to check BS once daily lisinopril 40 mg tablet 80 mg PO DAILY Qty: 90 3RF azelastine 137 mcg (0.1 %) spray,non-aerosol 137 mcg intranasal Q12H Qty: 90 1RF Rx Instructions: administer into each nostril sertraline 100 mg tablet See Rx Instructions .ROUTE .COMPLEX Qty: 180 0RF Dose Instruction: TAKE 1 TABLET BY MOUTH TWICE DAILY Rx Instructions: TAKE 1 TABLET BY MOUTH TWICE DAILY metformin 500 mg tablet 1,000 mg PO BID Qty: 360 1RF buspirone 10 mg tablet See Rx Instructions .ROUTE .COMPLEX Qty: 180 1RF Dose Instruction: TAKE 1 TABLET BY MOUTH TWICE DAILY Rx Instructions: TAKE 1 TABLET BY MOUTH TWICE DAILY metoprolol succinate 25 mg tablet extended release 24 hr 25 mg PO DAILY Qty: 90 1RF montelukast [Singulair] 10 mg tablet 10 mg PO DAILY Qty: 90 1RF magnesium oxide 400 mg (241.3 mg magnesium) tablet See Rx Instructions .ROUTE .COMPLEX Qty: 90 1RF Dose Instruction: TAKE 1 TABLET BY MOUTH DAILY Rx Instructions: TAKE 1 TABLET BY MOUTH DAILY trazodone 100 mg tablet See Rx Instructions .ROUTE .COMPLEX Qty: 180 1RF Dose Instruction: TAKE 2 TABLETS BY MOUTH EVERY DAY AT BEDTIME Rx Instructions: TAKE 2 TABLETS BY MOUTH EVERY DAY AT BEDTIME fluticasone propionate 50 mcg/actuation spray,suspension See Rx Instructions .ROUTE .COMPLEX Qty: 48 1RF Dose Instruction: SHAKE LIQUID AND USE 1 SPRAY IN EACH NOSTRIL TWICE DAILY Rx Instructions: SHAKE LIQUID AND USE 1 SPRAY IN EACH NOSTRIL TWICE DAILY Ozempic 0.25 mg or 0.5 mg (2 mg/3 mL) pen injector 0.5 mg subcut WEEKLY Qty: 3 0RF Rx Instructions: for 4 weeks Discontinued atorvastatin 20 mg tablet See Rx Instructions .ROUTE .COMPLEX Qty: 90 1RF Dose Instruction: TAKE 1 TABLET BY MOUTH DAILY Rx Instructions: TAKE 1 TABLET BY MOUTH DAILY. Date of admission: 01/14/25 12:29 Primary Care Provider: Evan Rebolledo Admitting Provider: Ty Bustos Attending physician on admission: Ty Bustos Condition: Stable Hospitalist MIPS Heart Failure (Exclusion) Patient has history of Heart Transplant or Left Ventricular Assistive Device?: No IF YES, STOP HERE Heart Failure (Qualifier) Patient has current or prior documentation of LVEF less than or equal to 40%, or mod/servere depressed LVSF?: No IF NO, STOP HERE
[2025-01-23 08:10] LABS: Vit. B1, Whole Blood 140.4
== END 2025-01-22 11:50 | disposition home health service (06) | DRG 101 ==
LOC: ANHED 12:26 → ANH2MED 14:43 → ANHIMU 01-14 08:39 → ANH2MED 01-21 14:14 → ANHIMU 01-23 07:57
PROVIDERS: Family Medicine; Internal Medicine; Nurse Practitioner; Psychiatry & Neurology Neurology; Student in an Organized Health Care Education/Training Program; Admitting Provider General Practice; Emergency Provider Emergency Medicine; PCP Internal Medicine; Visit Provider Student in an Organized Health Care Education/Training Program
DX: R56.9 Unspecified convulsions (principal); I42.9 Cardiomyopathy, unspecified; I12.9 Hypertensive chronic kidney disease with stage 1 through stage 4 chronic kidney disease, or unspecified chronic kidney disease; N18.9 Chronic kidney disease, unspecified; J45.909 Unspecified asthma, uncomplicated; E87.6 Hypokalemia; E11.22 Type 2 diabetes mellitus with diabetic chronic kidney disease; E78.5 Hyperlipidemia, unspecified; M10.9 Gout, unspecified; M19.90 Unspecified osteoarthritis, unspecified site; M79.7 Fibromyalgia; H53.461 Homonymous bilateral field defects, right side; R41.82 Altered mental status, unspecified; F32.A Depression, unspecified; Z20.822 Contact with and (suspected) exposure to COVID-19; Z98.84 Bariatric surgery status
CPT/HCPCS: 36415; 36600; 70450; 70544; 70551; 70553; 71045; 72125; 80048; 80053; 80061; 80307; 82010; 82077; 82306; 82550; 82607; 82746; 82805; 82948; 83036; 83735; 83921; 84100; 84132; 84207; 84425; 84436; 84443; 84484; 85018; 85025; 85027; 85610; 85730; 87040; 93005; 93880; 95816; 96361; 96374; 96375; 96376; 97110; 97116; 97162; 97166; 97530; 97535; 99285; A9270; A9577; C8929; G0378; J1650; J1815; J1953; J2060; J3475; J7030; Q9957

== ENCOUNTER 2025-01-26 11:01 | Outpatient (CLI) | payer MEDICARE, SELFPAY ==
--- OUTSIDE RECORDS SUMMARY | 2025-01-26 11:05 | XMS_ITS | Clinical Summary ---
Author Organization [facility] Address [address] [place] [id number] Phone Care Team Providers Care Project Engineer [employer]s Name Role Phone Evan Rebolledo DO Primary Care Provider [phone] Allergies Active Allergy Reactions Criticality Noted Date [...] (02/26/2022): Added automatically from request for surgery [id number] Generalized abdominal pain 11/06/2019 Overview (02/26/2022): Added automatically from request for surgery [id number] Immunizations Immunization Administration Dates Next Due Influenza [...] 01/15/2022 Insurance [employer] MEDICARE ADVANTAGE Care Teams Project Engineer [employer]s Relationship Specialty Start Date End Date Evan Rebolledo DO [address] [place] [address] PCP - General Internal Medicine 01/22/22
--- OUTSIDE RECORDS SUMMARY | 2025-01-26 11:05 | XMS_ITS | Clinical Summary ---
Author Organization [facility] Address [address] [place] [address] Phone Care Team Providers Care Lumber Puller Name Role Phone KeshaEvan Kevyn Primary Care [...] 3 Active fluticasone propionate (FLONASE) 50 mcg/spray [place], Suspension nasal inhaler SHAKE LIQUID AND USE 1 SPRAY IN EACH NOSTRIL TWICE DAILY 3 Active Trulicity 4.5 mg/0.5 mL injection 3 Active azelastine (ASTELIN) 137 mcg/actuation nasal spray Administer 1 Dunnigan in each nostril Continuous as needed. 3 [...] (02/24/2022): Added automatically from request for surgery [id number] Diarrhea 11/06/2019 Overview (02/24/2022): Added automatically from request for surgery [id number] Encounters Date Type Department Care Team Description 01/16/2025 External Device Data [facility] Provider, Abstract 12/19/2024 External Device Data [facility] Provider, Abstract 12/05/2024 External Device Data [facility] Provider, Abstract 11/23/2024 Telephone [facility] [address] [place] [address] Aga Domínguez FNP Erroneous encounter-disregard from Last 3 Months Social History Tobacco [...] Care Team (Late st Contact Info) Description 02/06/2025 3:00 PM CDT Procedure visit [facility] [address] [place] [address] Aga Domínguez FNP [address] [place] [address] 02/14/2025 3:30 PM CDT Office Visit [facility] [address] [place] [address] Tyson De La Cruz MD [address] [place] [address] 02/28/2025 1:00 PM CDT Office Visit [facility] - [place] [address] [facility] [address] [place] [address] Molina Camacho MD [address] [facility] [address] [place] [address] 04/02/2025 1:00 PM RIGGING SLINGER Procedure visit [facility] [address] [facility] [address] [place] [address] Torri Le NP [address] [facility] [address] [place] [address] Health Maintenance Due Date Last [...] INFLUENZA VACCINE (#1) 2024 01/15/2022 COVID-19 Vaccine ( - 2024-2 6 season) 2025 12/17/2021, 01/03/2021, 07/05/2020, Additional history exists Insurance [employer] PPO [facility] RX [employer] Medicare Part D [employer] PPO [facility] Care Teams Lumber Puller Relationship Specialty Start Date End Date Evan Rebolledo DO [address] [facility] [address] [place] [address] PCP - General Internal Medicine 01/22/22
[2025-01-26 18:07] LABS: Hematocrit 36.9 % (42.0-52.0); Hemoglobin 12.2 g/dL (14.0-18.0); Immature Granulocyte Percent A 0.4 % (0-0.5); Lymphocytes Absolute Auto 1.68 K/mm3 (0.9-3.2); Mean Corpuscular HGB Conc 33.1 g/dl (32-36); Mean Corpuscular Hemoglobin 32.4 pg (26-34); Mean Corpuscular Volume 97.9 fl (80-100); Nucleated Red Blood Cells Absolute Auto 0.000 K/mm3 (0.0-0.012); Nucleated Red Blood Cells Perc 0.0 % (0.0-0.2); Platelet Count Result 205 k/mm3 (150-375); Red Blood Count 3.77 M/mm3 (4.6-6.20); White Blood Count 7.2 K/mm3 (4.5-10.0)
[2025-01-26 18:28] LABS: Alanine Aminotransferase 40 U/L (6-50); Albumin Level 3.6 g/dL (3.5-5.1); Alkaline Phosphatase 138 U/L (38-126); Anion Gap 9 mmol/L (4-12); Aspartate Amino Transferase 51 U/L (17-59); Bilirubin,Total 0.3 mg/dL (0.2-1.3); Blood Urea Nitrogen 40 mg/dL (9-20); Calcium 9.0 mg/dL (8.4-10.2); Carbon Dioxide 25 mmol/L (22-30); Chloride 104 mmol/L (98-107); Estimated Glomerular Filt Rate 35; Glucose 191 mg/dL (65-110); Potassium 3.9 mmol/L (3.4-5.0); Sodium 138 mmol/L (137-145); Total Protein 6.6 g/dL (6.3-8.2)
== END 2025-01-26 11:02 | disposition home or self-care (01) ==
LOC: ANHGOSHLAB 11:02
PROVIDERS: PCP Internal Medicine; Visit Provider Clinical Nurse Specialist
DX: I10 Essential (primary) hypertension (principal)
CPT/HCPCS: 36415; 80053; 85025

== ENCOUNTER 2025-02-26 11:20 | Outpatient (CLI) | payer MEDICARE, SELFPAY ==
--- OUTSIDE RECORDS SUMMARY | 2025-02-26 12:56 | XMS_ITS | Clinical Summary ---
Author Organization [facility] Address [address] [place] [phone] Phone Care Team Providers Care Tumbler Plater Name Role Phone Evan Rebolledo DO Primary Care Provider [phone] Allergies Active Allergy Reactions Criticality Noted Date [...] (02/26/2022): Added automatically from request for surgery [id number] Generalized abdominal pain 11/06/2019 Overview (02/26/2022): Added automatically from request for surgery [id number] Immunizations Immunization Administration Dates Next Due Influenza [...] 01/15/2022 Insurance [employer] MEDICARE ADVANTAGE Care Teams Tumbler Plater Relationship Specialty Start Date End Date Evan Rebolledo DO [address] [place] [address] PCP - General Internal Medicine 01/22/22
--- OUTSIDE RECORDS SUMMARY | 2025-02-26 12:56 | XMS_ITS | Clinical Summary ---
Author Organization [facility] Address [address] [place] [address] Phone Care Team Providers Care Sammying Machine Operator Name Role Phone ThangEavn thakur Kevyn Primary Care Provider Allergies Active Allergy Reactions Criticality Noted Date Comments Prednisone Hallucination,Anaphy laxi s,Hives,Other (See Comments),Palpitations High 03/15/2018 Hyper-manic; auditory hallucinations Hyper-manic; auditory hallucinations Medications metFORMIN (GLUCOPHAGE) 500 mg tablet Take 1,000 mg by mouth 4 times daily. 11/14/19 Active metoprolol succinate (TOPROL XL) 25 mg Extended Release 24 hour tablet Take 25 mg by mouth daily. 01/18/20 22 Active furosemide (LASIX) 20 mg tablet Take 20 Tablets by mouth daily. 12/04/19 22 Active sertraline (ZOLOFT) 100 mg tablet Take 200 mg by mouth daily. 11/05/19 22 Active busPIRone (BUSPAR) 10 mg tablet Take 10 mg by mouth daily. 11/14/19 22 Active atorvastatin (LIPITOR) 20 mg tablet Take 20 mg by mouth daily. 10/29/19 22 Active allopurinoL (ZYLOPRIM) 300 mg tablet Take 300 mg by mouth daily. 12/03/19 Active magnesium oxide (MAG-OX) 400 mg (241.3 mg magnesium) tablet Take 400 mg by mouth daily. 11/08/19 Active lisinopriL (PRINIVIL) 20 mg tablet Take 20 mg by mouth daily. 11/05/19 Active traZODone (DESYREL) 100 mg tablet Take 100 mg by mouth daily at bedtime. 11/18/19 Active onabotulinumtoxi nA (BOTOX) 200 unit Recon SolnIndications: Intractable chronic migraine without aura and without status migrainosus Inject up to 200u IM to the head and neck muscles every 12 weeks in the MD office. Discard unused portion. 1 Each 02/25/20 22 Active triamcinolone acetonide (KENALOG) 0.025 % Cream APPLY TOPICALLY TO RASH ON LEGS TWICE DAILY FOR 4 WEEKS FOR FLARES. DO NOT APPLY TO FACE 11/24/19 23 Active mupirocin (BACTROBAN) 2 % Ointment APPLY TO CRUSTED AREAS ON THE FACE THREE TIMES DAILY FOR 1 WEEK NEEDED 11/25/19 23 Active Ketoconazole 2 % Foam APPLY TOPICALLY TO THE AFFECTED AREA TWICE DAILY 11/26/19 23 Active fluticasone propionate (FLONASE) 50 mcg/spray [place], Suspension nasal inhaler SHAKE LIQUID AND USE 1 SPRAY IN EACH NOSTRIL TWICE DAILY 11/18/19 23 Active Trulicity 4.5 mg/0.5 mL injection 10/24/19 23 Active azelastine (ASTELIN) 137 mcg/actuation nasal spray Administer 1 [place] in each nostril Continuous as needed. 04/11/20 23 Active montelukast (SINGULAIR) 10 mg tablet Take 1 Tablet by mouth daily. 09/21/19 24 Active baclofen (LIORESAL) 10 mg tablet Take 1-2 pills up to two times a day for headache, can use up to 5 days a week. 60 Tablet 6 01/31/20 24 Active Aimovig Autoinjector 140 mg/mL Auto-Injector ADMINISTER 1 ML(140 MG) UNDER THE SKIN EVERY 28 DAYS 1 mL 5 10/22/19 25 Active albuterol sulfate HFA 90 mcg/actuation aerosol inhaler 2 Puffs by See Admin Instructions route every 6 hours as needed. 01/27/20 25 Active aspirin (ECOTRIN EC) 81 mg Tablet, Delayed Release (E.C.) Take 81 mg by mouth daily in the morning. 01/23/20 25 Active Lantus Solostar U-100 Insulin 100 unit/mL (3 mL) solution for injection Inject 17 Units by subcutaneous injection see administration instructions. 01/24/20 25 Active levETIRAcetam (KEPPRA) 250 mg tablet Take 250 mg by mouth 2 times daily. 01/23/20 25 Active Ozempic 1 mg/dose (4 mg/3 mL) Pen Injector Inject 1 mg by subcutaneous injection every 7 days. 02/01/20 Active valACYclovir (VALTREX) 1 gram tablet Take 1 Gram by mouth daily. 02/09/20 Active Active Problems Problem Noted Date Diagnosed Date Intractable chronic migraine without aura and without status migrainosus 07/13/2024 Generalized abdominal pain 11/06/2019 Overview (02/24/2022): Added automatically from request for surgery [id number] Diarrhea 11/06/2019 Overview (02/24/2022): Added automatically from request for surgery [id number] Encounters Date Type Department Care Team Description 02/15/2025 Abstract [facility] Neurology [address] [place] [address] Tyson De La Cruz MD 02/15/2025 Abstract [facility] Neurology [address] [place] [address] Tyson De La Cruz MD 02/14/2025 3:30 PM CDT Office Visit [facility] Neurology [address] [place] [address] Tyson De LaC ruz MD Seizure ([facility]/HCC) (Primary Dx); Intractable chronic migraine without aura and without status migrainosus 01/29/2025 Telephone [facility] Neurology [address] [place] [address] Tyson De La Cruz MD Requesting a call 01/16/2025 External Device Data STL ABSTRACTION Provider, [...] Sign Reading Time Taken Comments Blood Pressure 138/76 02/14/2025 3:28 PM CDT Pulse 75 02/14/2025 3:28 PM CDT Temperature 36.1 C (96.9 F) 07/21/2024 11:34 AM CDT Respiratory Rate 16 07/21/2024 11:34 AM CDT Oxygen Saturation 97% 02/14/2025 3:28 PM CDT Inhaled Oxygen Concentration - - Weight 122.9 kg (271 lb) 02/14/2025 3:28 PM CDT Height 172.7 cm (5' 8) 02/14/2025 3:28 PM CDT Body Mass Index 41.21 02/14/2025 3:28 PM CDT Plan of Treatment Upcoming Encounters Date Type Department Care Team (Late st Contact Info) Description 02/28/2025 1:00 PM CDT Office Visit [facility] Oncology and Hematology [facility] [address] [facility] [address] [place] [id number] Molina Camacho MD [address] [facility] [address] [place] [address] 03/05/2025 8:30 AM ACQUISITION SPECIALIST Procedure visit [facility] Neurology [address] [facility] [address] [place] [address] Aga Domínguez, DAVE [address] [facility] [address] [place] [address] 04/02/2025 1:00 PM ACQUISITION SPECIALIST Procedure visit [facility] Neurology [address] [facility] [address] [place] [address] Torri Le, HANDY [address] [facility] [address] [place] [address] Health Maintenance Due Date Last [...] VACCINE (60+ or ) (1 - Risk 50-74 years 1-dose series) 2003 Medicare [place]vant[place] Preventative Visit/Annual Wellness Visit 05/03/2024 INFLUENZA VACCINE (#1) 2024 01/15/2022 COVID-19 Vaccine (2024-2 6 season) 2025 12/17/2021, 01/03/2021, 07/05/2020, Additional history exists Insurance AETNA [facility] RX AETNA Medicare Part D AETNA PPO MCR Care Teams Sammying Machine Operator Relationship Specialty Start Date End Date Evan Rebolledo DO [address] [facility] [address] [place] [address] PCP - General Internal Medicine 01/22/22
[2025-02-26 13:17] LABS: Hematocrit 33.7 % (42.0-52.0); Hemoglobin 11.0 g/dL (14.0-18.0); Immature Granulocyte Percent A 0.4 % (0-0.5); Lymphocytes Absolute Auto 1.26 K/mm3 (0.9-3.2); Mean Corpuscular HGB Conc 32.6 g/dl (32-36); Mean Corpuscular Hemoglobin 32.8 pg (26-34); Mean Corpuscular Volume 100.6 fl (80-100); Nucleated Red Blood Cells Absolute Auto 0.000 K/mm3 (0.0-0.012); Nucleated Red Blood Cells Perc 0.0 % (0.0-0.2); Platelet Count Result 157 k/mm3 (150-375); Red Blood Count 3.35 M/mm3 (4.6-6.20); White Blood Count 5.5 K/mm3 (4.5-10.0)
[2025-02-26 13:30] LABS: Alanine Aminotransferase 53 U/L (6-50); Albumin Level 3.9 g/dL (3.5-5.1); Alkaline Phosphatase 110 U/L (38-126); Anion Gap 10 mmol/L (4-12); Aspartate Amino Transferase 47 U/L (17-59); Bilirubin,Total 0.5 mg/dL (0.2-1.3); Blood Urea Nitrogen 35 mg/dL (9-20); Calcium 8.9 mg/dL (8.4-10.2); Carbon Dioxide 26 mmol/L (22-30); Chloride 104 mmol/L (98-107); Estimated Glomerular Filt Rate 52; Glucose 148 mg/dL (65-110); Potassium 4.6 mmol/L (3.4-5.0); Sodium 140 mmol/L (137-145); Total Protein 6.9 g/dL (6.3-8.2)
[2025-02-26 17:24] LABS: Hemoglobin A1C 7.3 % (<5.7)
== END 2025-02-26 11:21 | disposition home or self-care (01) ==
PROVIDERS: PCP Internal Medicine; Visit Provider Clinical Nurse Specialist
DX: E11.22 Type 2 diabetes mellitus with diabetic chronic kidney disease (principal); I51.89 Other ill-defined heart diseases; I12.9 Hypertensive chronic kidney disease with stage 1 through stage 4 chronic kidney disease, or unspecified chronic kidney disease; N18.9 Chronic kidney disease, unspecified
CPT/HCPCS: 36415; 80053; 83036; 85025

== ENCOUNTER 2025-02-28 09:27 | Outpatient (CLI) | payer MEDICARE, SELFPAY ==
[2025-02-28 09:46] LABS: Hematocrit 32.8 % (42.0-52.0); Hemoglobin 10.8 g/dL (14.0-18.0); Immature Granulocyte Percent A 0.2 % (0-0.5); Lymphocytes Absolute Auto 0.82 K/mm3 (0.9-3.2); Mean Corpuscular HGB Conc 32.9 g/dl (32-36); Mean Corpuscular Hemoglobin 33.0 pg (26-34); Mean Corpuscular Volume 100.3 fl (80-100); Nucleated Red Blood Cells Absolute Auto 0.000 K/mm3 (0.0-0.012); Nucleated Red Blood Cells Perc 0.0 % (0.0-0.2); Platelet Count Result 134 k/mm3 (150-375); Red Blood Count 3.27 M/mm3 (4.6-6.20); White Blood Count 8.1 K/mm3 (4.5-10.0)
--- OUTSIDE RECORDS SUMMARY | 2025-02-28 10:23 | XMS_ITS | Clinical Summary ---
Author Organization [facility] Address [address] [place] [address] Phone Care Team Providers Care Back Strip Machine Operator Name Role Phone ThangEvan thakur Kevyn Primary [...] 23 Active fluticasone propionate (FLONASE) 50 mcg/spray [place], Suspension nasal inhaler SHAKE LIQUID AND USE 1 SPRAY IN EACH NOSTRIL TWICE DAILY 11/18/19 23 Active Trulicity 4.5 mg/0.5 mL injection 10/24/19 23 Active azelastine (ASTELIN) 137 mcg/actuation nasal spray Administer 1 [place] in each nostril Continuous as needed. 04/11/20 [...] (02/24/2022): Added automatically from request for surgery [id number] Diarrhea 11/06/2019 Overview (02/24/2022): Added automatically from request for surgery [id number] Encounters Date Type Department Care Team Description 02/15/2025 Abstract [facility] Neurology [address] [place] [address] Tyson De La Cruz MD 02/15/2025 Abstract [facility] Neurology [address] [place] [address] Tyson De La Cruz MD 02/14/2025 3:30 PM CDT Office Visit [facility] Neurology [address] [place] [address] Tyson De La Cruz MD Seizure ([facility]/HCC) (Primary Dx); Intractable chronic migraine without aura and without status migrainosus 01/29/2025 Telephone [facility] Neurology [address] [place] [address] Tyson De La Cruz MD Requesting a [...] Care Team (Late st Contact Info) Description 03/05/2025 8:30 AM MOLDED GRID AND PARTS INSPECTOR Procedure visit [facility] Neurology [address] [facility] [address] [place] [address] Aga Domínguez FNP [address] [facility] [address] [place] [address] 03/07/2025 9:45 AM MOLDED GRID AND PARTS INSPECTOR Office Visit [facility] Oncology and Hematology - [place] [address] [facility] [address] [place] [address] Molina Camacho MD [address] [facility] [address] [place] [address] 04/02/2025 1:00 PM MOLDED GRID AND PARTS INSPECTOR Procedure visit [facility] Neurology [address] [facility] [address] [place] [address] Torri Le NP [address] [facility] [address] [place] [address] Health Maintenance Due Date Last [...] 50-74 years 1-dose series) 2003 [place] ([place]) Preventative Visit/Annual Wellness Visit 05/03/2024 INFLUENZA VACCINE (#1) 2024 01/15/2022 COVID-19 Vaccine (2024-2 6 season) 2025 12/17/2021, 01/03/2021, 07/05/2020, Additional history exists Insurance AETNA [facility] RX AETNA Medicare Part D AETNA PPO MCR Care Teams Back Strip Machine Operator Relationship Specialty Start Date End Date Evan Rebolledo DO [address] [facility] [address] [place] [address] PCP - General Internal Medicine 01/22/22
--- OUTSIDE RECORDS SUMMARY | 2025-02-28 10:23 | XMS_ITS | Clinical Summary ---
Author Organization [facility] Address [address] [place] [address] Phone Care Team Providers Care Cake Former Name Role Phone Evan Rebolledo DO Primary [...] (02/26/2022): Added automatically from request for surgery [id number] Generalized abdominal pain 11/06/2019 Overview (02/26/2022): Added automatically from request for surgery [id number] Immunizations Immunization Administration Dates Next Due Influenza [...] 01/15/2022 Insurance AETNA MEDICARE ADVANTAGE Care Teams Cake Former Relationship Specialty Start Date End Date Evan Rebolledo DO [address] [place] [address] PCP - General Internal Medicine 01/22/22
--- OUTSIDE RECORDS SUMMARY | 2025-02-28 10:23 | XMS_ITS | Patient Health Record ---
Author Organization [facility] Address [address] [address] Care Team Providers Care Registered Medical Transcriptionist Name Role Phone Torri Turner Primary Care Provider Reason For Referral No Information Immunizations Vaccine Route Administration Date Status Comme nts [id number] Vaccine IM Intramuscular 06/07/2020 Administered Pt tolerated we ll. [id number] Vaccine IM Intramuscular 07/05/2020 Administered Pt tolerated we ll. [id number] Vaccine IM Intramuscular 01/03/2021 Administered Pt tolerated we ll KTirporh-[id number]-49 BOOSTER IM Intramuscular 12/17/2021 Administered Pt tolerated injection well Social History Social History [facility] Social Info Question Answer Notes Household/Enviromental [...] Coverage End Date [place] Aetna [address] [place], [place] [id number] Pawel Lan Self - patient is the insured Aetna PPO [address] [place], [place] [id number] Pawel Lan Self - patient is the insured 1
[2025-02-28 10:38] LABS: Iron 63 ug/dL (49-181)
[2025-02-28 10:39] LABS: Alanine Aminotransferase 44 U/L (6-50); Albumin Level 3.8 g/dL (3.5-5.1); Alkaline Phosphatase 105 U/L (38-126); Anion Gap 9 mmol/L (4-12); Aspartate Amino Transferase 37 U/L (17-59); Bilirubin,Total 0.6 mg/dL (0.2-1.3); Blood Urea Nitrogen 31 mg/dL (9-20); Calcium 8.9 mg/dL (8.4-10.2); Carbon Dioxide 26 mmol/L (22-30); Chloride 103 mmol/L (98-107); Estimated Glomerular Filt Rate 54; Glucose 189 mg/dL (65-110); Potassium 4.5 mmol/L (3.4-5.0); Sodium 138 mmol/L (137-145); Total Protein 6.8 g/dL (6.3-8.2)
[2025-02-28 10:47] LABS: Immunoglobulin A 324 mg/dL (70-400); Immunoglobulin G 813 mg/dL (700-1600); Immunoglobulin M 45 mg/dL (40-230)
[2025-02-28 10:50] LABS: Percent Iron Saturation 21 % (20-50)
[2025-02-28 11:19] LABS: Ferritin 54.40 ng/mL (11.1-264)
[2025-02-28 11:33] LABS: Vitamin B12 444.0 pg/mL (239-931)
[2025-03-01 13:08] LABS: Albumin 3.3 g/dL (2.9-4.4); Alpha-1-Globulin 0.3 g/dL (0.0-0.4); Alpha-2-Globulin 0.9 g/dL (0.4-1.0); Gamma Globulin 0.8 g/dL (0.4-1.8)
[2025-03-01 15:09] LABS: Free Lambda Lt Chains, Serum 44.7 mg/L (5.7-26.3); Kappa/Lambda Ratio, Serum 1.14 (0.26-1.65)
== END 2025-02-28 09:28 | disposition home or self-care (01) ==
PROVIDERS: PCP Internal Medicine; Visit Provider Internal Medicine Hematology & Oncology
DX: D64.9 Anemia, unspecified (principal); C90.00 Multiple myeloma not having achieved remission
CPT/HCPCS: 36415; 80053; 82607; 82728; 82784; 83521; 83540; 83550; 84155; 84165; 85025

== ENCOUNTER 2025-03-22 14:57 | Emergency (ER) | payer MEDICARE, SELFPAY ==
[2025-03-22 15:13] VITALS: BP 177/84; PULSE 73; RESP 16; TEMP 36.3; O2SAT 98
--- NOTE | 2025-03-22 15:52 | ED.BACK ---
HPI - Back Pain/Injury General Chief Complaint: Back Pain/Injury Stated Complaint: Back Pain Time Seen by Provider: 03/22/25 15:37 Source: patient and RN notes reviewed Mode of arrival: ambulatory Limitations: no limitations History of Present Illness HPI Narrative: 69 year old male patient with history of CKD, DM, fibromyalgia, seizure disorder, and chronic back pain, presents today complaining of a 2 week history of right mid back pain that has been radiating laterally and moving about the back. He currently rates his pain 9/10 and has been taking Tylenol without relief. States he has been over taking Tylenol, up to 10-12 extra strength tablets per day. Denies numbness or tingling. Patient was seen by his PCP 3 days ago for same complaint, requesting pain medication. She would like to do a rheumatological work up, ordered some labs, and requested that patient take Tylenol for his discomfort. Patient has not had his labs drawn yet. Related Data Home Medications ?Medication ?Instructions ?Recorded ?Confirmed ?Last Taken ?Type ferrous sulfate 325 mg (65 mg 325 mg PO DAILY 03/23/19 03/22/25 05/21/19 History iron) tablet (Feosol) ketoconazole 2 % topical cream 1 applic topical DAILY 04/17/20 03/22/25 Unknown History triamcinolone acetonide 0.025 % 1 applic topical DAILY 04/17/20 03/22/25 Unknown History topical cream vitamin B complex (B 1 tablet PO DAILY 04/17/20 03/22/25 Unknown History Complex-Vitamin B12 tablet) calcium carbonate (Calcium 500) 500 mg PO DAILY 09/26/20 03/22/25 Unknown History valacyclovir 500 mg tablet 500 mg PO BID 04/15/23 03/22/25 Unknown History mupirocin 2 % topical ointment 1 applic topical BID 05/19/23 03/22/25 Unknown History Allergies Allergy/AdvReac Type Severity Reaction Status Date / Time prednisone Allergy Severe Anaphylaxis Verified 03/22/25 15:06 [facility] Past Medical History Medical History Post herpetic neuralgia Rhabdomyolysis Screening PSA (prostate specific antigen) Groin pain Encounter for surgical aftercare following surgery on the digestive system Upper respiratory infection Chronic rhinitis Seizure disorder Cerebral vascular accident Hypogonadism in male Fibromyalgia Morbid obesity with BMI of 40.0-44.9, adult Cardiomyopathy History of transfusion Asthma Generalized pain Edema Hyperlipidemia Cellulitis of right lower extremity Herpes zoster infection of oral mucosa Anemia Depression Gout Seasonal allergies Osteoarthritis CKD (chronic kidney disease) Dyslipidemia Hypertension Diabetes mellitus Surgical History Surgical History Status post laparoscopic cholecystectomy 05/22/2019 History of carpal tunnel release Hx of gastric bypass Family History Family History Father Diabetes mellitus Asthma Family history of coronary artery disease Mother FH: ovarian cancer in first degree relative Social History Social History Social History: Caffeine- tea occasionally Smoking status: Never smoker Alcohol intake: never Substance use: never Substance use type: does not use Do You Feel Safe in your Home?: Yes Lack of Transportation: No Lack of Food: Never True Current Housing: I Have Housing Concerned About Future Housing: No Difficulty Paying Gas/Electric Bills: No Difficulty Paying for Meds: No Currently Unemployed: No Education: Master's Degree or Higher Difficulty w/ Childcare or Family Care: No Living arrangements: with family Gender identity (if verbalized by the patient): Male Spiritual care concerns: No Comments At time of signature, I have reviewed and agree with nursing past medical, surgical, social and family history unless otherwise noted. Please see nursing chart for further information. There is no relevant family history pertinent to the presenting complaint Exam Narrative: GENERAL: Well-appearing, well-nourished, and in no acute distress. HEAD: Normocephalic, atraumatic. EYES: EOMI. No redness or drainage. Conjunctivae normal. ENT: Mucous membranes pink and moist. NECK: Normal AROM. CHEST: No respiratory distress. Clear to auscultation. HEART: Regular rate and rhythm. No murmur appreciated. MUSCULOSKELETAL: Generalized tenderness of the right mid to upper back. EXTREMITIES: Normal range of motion. No edema. SKIN: Warm, dry, no rash. Capillary refill normal. Normal skin turgor. NEURO: No focal deficits. Alert and oriented x3. Gait steady. PSYCH: Normal affect. No signs of depression or anxiety. Course Course Level of Care: Express Care Visit Vital Signs Vital signs: Vital Signs Temperature 97.4 F L 03/22/25 15:13 Pulse Rate 73 03/22/25 15:13 Respiratory Rate 16 03/22/25 15:13 Blood Pressure 177/84 H 03/22/25 15:13 Pulse Oximetry 98 03/22/25 15:13 Temperature 97.4 F L 03/22/25 15:13 Pulse Rate 73 03/22/25 15:13 Respiratory Rate 16 03/22/25 15:13 Blood Pressure 177/84 H 03/22/25 15:13 Pulse Oximetry 98 03/22/25 15:13 Reviewed MDM - Back Pain/Injury MDM Narrative Medical decision making narrative: 69 year old male patient with history of CKD, DM, fibromyalgia, seizure disorder, and chronic back pain, presents today complaining of a 2 week history of right mid back pain that has been radiating laterally and moving about the back. He currently rates his pain 9/10 and has been taking Tylenol without relief. States he has been over taking Tylenol, up to 10-12 extra strength tablets per day. Denies numbness or tingling. Patient was seen by his PCP 3 days ago for same complaint, requesting pain medication. She would like to do a rheumatological work up, ordered some labs, and requested that patient take Tylenol for his discomfort. Patient has not had his labs drawn yet. Upon exam, patient has mild tenderness to the right mid to upper back. Neurovascularly intact. Discussed with patient that his options for pain control were quite limited: no NSAIDs due to CKD, no narcotics due to hx of opiate abuse and advanced age, no tramadol due to hx of seizure disorder. I cautioned him against overusing Tylenol as well. We discussed using topical lidocaine patches. He can purchase OTC for now as most insurance requires prior authorizations that cannot be completed at [facility]. He can request his PCP prescribe them for him at a later date if he finds them helpful. Patient agrees to this plan. VSS with elevated BP. Anticipatory guidance given. Differential Diagnosis Differential diagnosis: Likely thoracic back pain and other (DDD, DJD, mid back strain, exacerbation of chronic back pain) Critical Care Time Critical Care Time Critical Care Time: No Discharge Plan Discharge Clinical Impression: Mid back pain Patient Disposition: Home Condition: Stable Additional Instructions: Purchase some OTC Salonpas lidocaine patches for your back. You can check with your PCP to see if they will write for some prescription patches as well. Please only take Tylenol in doses suggested on the bottle. Patient Language: Nepalese Prescriptions: No Action valacyclovir 500 mg tablet 500 mg PO BID ferrous sulfate [Feosol] 325 mg (65 mg iron) tablet 325 mg PO DAILY triamcinolone acetonide 0.025 % cream 1 applic topical DAILY ketoconazole 2 % cream 1 applic topical DAILY vitamin B complex [B Complex-Vitamin B12] Tablet 1 tablet PO DAILY calcium carbonate [Calcium 500] 500 mg calcium (1,250 mg) tablet 500 mg PO DAILY mupirocin 2 % ointment 1 applic topical BID furosemide 20 mg tablet See Rx Instructions .ROUTE .COMPLEX Qty: 270 1RF Dose Instruction: TAKE 2 TABLETS BY MOUTH EVERY MORNING AND 1 TABLET DAILY AT NIGHT Rx Instructions: TAKE 2 TABLETS BY MOUTH EVERY MORNING AND 1 TABLET DAILY AT NIGHT allopurinol 300 mg tablet See Rx Instructions .ROUTE .COMPLEX Qty: 90 1RF Dose Instruction: TAKE 1 TABLET BY MOUTH DAILY Rx Instructions: TAKE 1 TABLET BY MOUTH DAILY albuterol sulfate 90 mcg/actuation HFA aerosol inhaler 2 puff inhalation Q4-6H PRN (Reason: shortness of breath or wheezing) Qty: 8.5 1RF acetaminophen [Tylenol Extra Strength] 500 mg tablet 1,000 mg PO Q6H PRN (Reason: pain) Qty: 50 0RF potassium chloride 20 mEq Packet 40 meq PO DAILY Qty: 15 0RF (DME) blood-glucose meter [OneTouch Verio Flex meter[place] [facility] Qty: 1 0RF Rx Instructions: May substitute to in-stock meter and/or covered by insurance. Use As Directed (DME) pen needle, diabetic 32 gauge x /32 Needle Qty: 1 0RF Rx Instructions: As Directed (DME) blood-glucose meter [facility] See Rx Instructions .Route Qty: 1 0RF Rx Instructions: Use to test BS once daily (DME) lancets-blood glucose strips 30 gauge combo pack See Rx Instructions .Route Qty: 200 2RF Rx Instructions: Use to check BS once daily azelastine 137 mcg (0.1 %) spray,non-aerosol 137 mcg intranasal Q12H Qty: 90 1RF Rx Instructions: administer into each nostril buspirone 10 mg tablet See Rx Instructions .ROUTE .COMPLEX Qty: 180 1RF Dose Instruction: TAKE 1 TABLET BY MOUTH TWICE DAILY Rx Instructions: TAKE 1 TABLET BY MOUTH TWICE DAILY magnesium oxide 400 mg (241.3 mg magnesium) tablet See Rx Instructions .ROUTE .COMPLEX Qty: 90 1RF Dose Instruction: TAKE 1 TABLET BY MOUTH DAILY Rx Instructions: TAKE 1 TABLET BY MOUTH DAILY trazodone 100 mg tablet See Rx Instructions .ROUTE .COMPLEX Qty: 180 1RF Dose Instruction: TAKE 2 TABLETS BY MOUTH EVERY DAY AT BEDTIME Rx Instructions: TAKE 2 TABLETS BY MOUTH EVERY DAY AT BEDTIME fluticasone propionate 50 mcg/actuation spray,suspension See Rx Instructions .ROUTE .COMPLEX Qty: 48 1RF Dose Instruction: SHAKE LIQUID AND USE 1 SPRAY IN EACH NOSTRIL TWICE DAILY Rx Instructions: SHAKE LIQUID AND USE 1 SPRAY IN EACH NOSTRIL TWICE DAILY Ozempic 1 mg/dose (4 mg/3 mL) pen injector 1 mg subcut WEEKLY Qty: 3 1RF lisinopril 40 mg tablet 40 mg PO DAILY Qty: 90 0RF Rx Instructions: Decreased to 40 mg on 01/29/25. Dr. Centeno notified. Prescribed by Dr. Centeno ([facility] OneTouch Verio test strips Strip See Rx Instructions .ROUTE .COMPLEX Qty: 100 1RF Dose Instruction: USE TO TEST BLOOD SUGAR THREE TIMES DAILY WITH MEALS AND AT BEDTIME Rx Instructions: USE TO TEST BLOOD SUGAR THREE TIMES DAILY WITH MEALS AND AT BEDTIME (DME) lancets [OneTouch Delica Plus Lancet] 30 gauge misc See Rx Instructions .ROUTE .COMPLEX Qty: 100 3RF Dose Instruction: USE TO TEST BLOOD SUGAR THREE TIMES DAILY WITH MEALS AND AT BEDTIME Rx Instructions: USE TO TEST BLOOD SUGAR THREE TIMES DAILY WITH MEALS AND AT BEDTIME atorvastatin 40 mg tablet 40 mg PO DAILY Qty: 30 5RF sertraline 100 mg tablet See Rx Instructions .ROUTE .COMPLEX Qty: 180 1RF Dose Instruction: TAKE 1 TABLET BY MOUTH TWICE DAILY Rx Instructions: TAKE 1 TABLET BY MOUTH TWICE DAILY metformin 500 mg tablet 1,000 mg PO BID Qty: 360 1RF metoprolol succinate 25 mg tablet extended release 24 hr 25 mg PO DAILY Qty: 90 1RF montelukast [Singulair] 10 mg tablet 10 mg PO DAILY Qty: 90 1RF levetiracetam [Keppra] 750 mg tablet 750 mg PO Q12H Qty: 60 2RF Follow-up/Referrals: Evan Rebolledo DO [Primary Care Provider, Internal Medicine] Time of Disposition: 15:52
== END 2025-03-22 15:55 | disposition home or self-care (01) ==
PROVIDERS: Emergency Provider Nurse Practitioner; PCP Internal Medicine
DX: M54.6 Pain in thoracic spine (principal); I12.9 Hypertensive chronic kidney disease with stage 1 through stage 4 chronic kidney disease, or unspecified chronic kidney disease; E11.22 Type 2 diabetes mellitus with diabetic chronic kidney disease; N18.9 Chronic kidney disease, unspecified; Z79.84 Long term (current) use of oral hypoglycemic drugs; Z79.85 Long-term (current) use of injectable non-insulin antidiabetic drugs; E78.5 Hyperlipidemia, unspecified; J45.909 Unspecified asthma, uncomplicated; I42.9 Cardiomyopathy, unspecified; M79.7 Fibromyalgia; G40.909 Epilepsy, unspecified, not intractable, without status epilepticus; M62.82 Rhabdomyolysis; M19.90 Unspecified osteoarthritis, unspecified site; E66.01 Morbid (severe) obesity due to excess calories; Z68.41 Body mass index [BMI] 40.0-44.9, adult; M10.9 Gout, unspecified; D64.9 Anemia, unspecified; F32.A Depression, unspecified; Z86.73 Personal history of transient ischemic attack (TIA), and cerebral infarction without residual deficits; Z98.84 Bariatric surgery status
CPT/HCPCS: 99211; G0463

== ENCOUNTER 2025-03-26 10:07 | Outpatient (CLI) | payer MEDICARE, SELFPAY ==
--- OUTSIDE RECORDS SUMMARY | 2025-03-26 11:43 | XMS_ITS | Clinical Summary ---
Author Organization [facility] Address [address] [place] [id number] Phone Care Team Providers Care Barrel Rifler Hook Name Role Phone Evan Rebolledo DO Primary Care Provider [phone] Allergies Active Allergy Reactions Criticality Noted Date [...] (02/26/2022): Added automatically from request for surgery [id number] Generalized abdominal pain 11/06/2019 Overview (02/26/2022): Added automatically from request for surgery [id number] Immunizations Immunization Administration Dates Next Due Influenza [...] 01/15/2022 Insurance AETNA MEDICARE ADVANTAGE Care Teams Barrel Rifler Hook Relationship Specialty Start Date End Date Evan Rebolledo DO [address] [place] [address] PCP - General Internal Medicine 01/22/22
--- OUTSIDE RECORDS SUMMARY | 2025-03-26 11:43 | XMS_ITS | Clinical Summary ---
Author Organization [facility] Address [address] [place] [address] Phone Care Team Providers Care Men'S Golf Coach Name Role Phone Evan Rebolledo DO Primary Care Provider Allergies Active Allergy Reactions Criticality Noted Date Comments Prednisone Hallucination,Anaphy laxi s,Hives,Other (See Comments),Palpitations High 03/15/2018 Hyper-manic; auditory hallucinations Hyper-manic; auditory hallucinations Medications metFORMIN (GLUCOPHAGE) 500 mg tablet Take 1,000 mg by mouth 4 times daily. 11/14/19 22 Active metoprolol succinate (TOPROL XL) 25 mg Extended Release 24 hour tablet Take 25 mg by mouth daily. 01/18/20 22 Active furosemide (LASIX) 20 mg tablet Take 20 Tablets by mouth daily. 12/04/19 22 Active sertraline (ZOLOFT) 100 mg tablet Take 200 mg by mouth daily. 11/05/19 Active busPIRone (BUSPAR) 10 mg tablet Take 10 mg by mouth daily. 11/14/19 22 Active atorvastatin (LIPITOR) 20 mg tablet Take 20 mg by mouth daily. 10/29/19 22 Active allopurinoL (ZYLOPRIM) 300 mg tablet Take 300 mg by mouth daily. 12/03/19 22 Active magnesium oxide (MAG-OX) 400 mg (241.3 mg magnesium) tablet Take 400 mg by mouth daily. 11/08/19 22 Active lisinopriL (PRINIVIL) 20 mg tablet Take 20 mg by mouth daily. 11/05/19 Active traZODone (DESYREL) 100 mg tablet Take 100 mg by mouth daily at bedtime. 11/18/19 22 Active onabotulinumtoxi nA (BOTOX) 200 unit Recon [...] 23 Active fluticasone propionate (FLONASE) 50 mcg/spray [place], Suspension nasal inhaler SHAKE LIQUID AND USE 1 SPRAY IN EACH NOSTRIL TWICE DAILY 11/18/19 23 Active Trulicity 4.5 mg/0.5 mL injection 10/24/19 23 Active azelastine (ASTELIN) 137 mcg/actuation nasal spray Administer 1 [place] in each nostril Continuous as needed. 04/11/20 [...] 250 mg by mouth 2 times daily. 09/22/20 25 Active Ozempic 1 mg/dose (4 mg/3 mL) Pen Injector Inject 1 mg by subcutaneous injection every 7 days. 02/01/20 Active valACYclovir (VALTREX) 1 gram tablet Take 1 Gram by mouth daily. 02/09/20 Active Active Problems Problem Noted Date Diagnosed Date Intractable chronic migraine without aura and without status migrainosus 07/13/2024 Generalized abdominal pain 11/06/2019 Overview (02/24/2022): Added automatically from request for surgery [id number] Diarrhea 11/06/2019 Overview (02/24/2022): Added automatically from request for surgery [id number] Encounters Date Type Department Care Team Description 03/14/2025 Abstract [facility] [place] [address] [place] [address] Molina Camacho MD 03/09/2025 8:30 AM MULTIMEDIA EDITOR Office Visit [facility] [place] [address] [facility] [place] [address] Molina Camacho MD Chronic anemia (Primary Dx) 03/06/2025 Abstract [facility] [address] [facility] [address] [place] [address] Aga Domínguez FNP 03/05/2025 8:30 AM MULTIMEDIA EDITOR Procedure visit [facility] [address] [facility] [address] [place] [address] Aga Domínguez FNP Intractable chronic migraine without aura and without status migrainosus (Primary Dx) 03/05/2025 Orders Only [facility] [place] [address] [place] [address] Molina Camacho MD 03/02/2025 Orders Only [facility] [place] [address] [place] [address] Molina Camacho MD 03/01/2025 Orders Only [facility] [place] [address] [place] [address] Molina Camacho MD 02/15/2025 Abstract [facility] [address] [facility] [address] [place] [address] Tyson De La Cruz MD 02/15/2025 Abstract [facility] [address] [facility] [address] [place] [address] Tyson De La Cruz MD 02/14/2025 3:30 PM CDT Office Visit [facility] [address] [facility] [address] [place] [address] Tyson De La Cruz MD Seizure (CMS/HCC) (Primary Dx); Intractable chronic migraine without aura and without status migrainosus 01/29/2025 Telephone [facility] [address] [facility] [address] [place] [address] Tyson De La Cruz MD Requesting a [...] Sign Reading Time Taken Comments Blood Pressure 183/97 03/09/2025 8:28 AM MULTIMEDIA EDITOR Pulse 77 03/09/2025 8:23 AM MULTIMEDIA EDITOR Temperature 36.7 C (98 F) 03/09/2025 8:23 AM MULTIMEDIA EDITOR Respiratory Rate 16 03/09/2025 8:23 AM MULTIMEDIA EDITOR Oxygen Saturation 93% 03/09/2025 8:23 AM MULTIMEDIA EDITOR Inhaled Oxygen Concentration - - Weight 124.6 kg (274 lb 12.8 oz) 03/09/2025 8:23 AM MULTIMEDIA EDITOR Height 172.7 cm (5' 8) 03/05/2025 8:33 AM MULTIMEDIA EDITOR Body Mass Index 41.78 03/05/2025 8:33 AM MULTIMEDIA EDITOR Plan of Treatment Upcoming Encounters Date Type Department Care Team (Late st Contact Info) Description 05/28/2025 9:30 AM MULTIMEDIA EDITOR Procedure visit [facility] [address] [place] [address] [place] [address] Aga Domínguez FNP [address] [place] [address] 08/20/2025 9:30 AM CDT Procedure visit [facility] [address] [place] [address] [place] [address] Aga Domínguez, ENVIRONMENTAL ENGINEERING INTERN [address] [place] [address] 09/11/2025 10:00 AM CDT Office Visit [facility] [place] [address] [facility] [address] [place] [address] Molina Camacho MD [address] [facility] [address] [place] [address] Health Maintenance Due Date Last Done Comments [...] - Risk 50-74 years 1-dose series) 2003 INFLUENZA VACCINE (#1) 2024 01/15/2022 COVID-19 Vaccine (5 - 2024-2 6 season) 2025 12/17/2021, 01/03/2021, 07/05/2020, Additional history exists Procedures Procedure Name Priority Date/Time Associated Diagnosis Comments MT CHEMODERVATE FACIAL/TRIGEM/CERV MUSC MIGRAINE Routine 03/05/2025 8:45 AM MULTIMEDIA EDITOR Intractable chronic migraine without aura and without status migrainosus COMPREHENSIVE METABOLIC PANEL Routine 02/28/2025 1:33 PM CDT PROTEIN ELECTROPHORESIS, CSF Routine 02/28/2025 11:31 AM CDT KAPPA/LAMBDA LIGHT CHAINS Routine 02/28/2025 7:55 AM CDT from Last 3 Months Results * MT CHEMODERVATE FACIAL/TRIGEM/CERV MUSC MIGRAINE (03/05/2025 8:45 AM MULTIMEDIA EDITOR) Narrative Aga Domínguez FNP - 03/05/2025 8:45 AM MULTIMEDIA EDITOR Aga Domínguez FNP 03/05/2025 9:02 AM Botox Procedure Note Patient: Pawel Hawkins / 69 y.o. / male : 1955 BP (!) 170/89 Pulse 85 Ht 5' 8 (1.727 m) Wt 122.9 kg (271 lb) SpO2 96% BMI 41.21 kg/m Procedure Performed: Botox for Chronic Migraine without Aura Date of Service: 03/05/2025 Provider: DAVE Bruno Medical Necessity for Procedure: [...] Medical History: Diagnosis Date Arthritis Diabetes mellitus Headache Herpes zoster Migraine with aura Supporting [...] units (lot # see jul; expiration see jul) was reconstituted using 4 ml preservative free saline to a final concentration of 50 units/ml. Using 1 ml syringes with 30 gauge 0.5 inch needles, and aseptic technique, Botox was administered as follows: Muscle # units Right # of inj sites Right # units Left # of inj sites Left Total units Solution Developer 5 1 5 1 10 Procerus 5 [...] and stable condition. Medications Administered This Visit: Were there any complications during this procedure or following previous Botox procedures for Chronic Migraine?: No Treatment Plan: Continue Botox every 12 weeks Follow up assessment scheduled needs to establish with new provider DAVE Bruno Aga ACOSTA PROCEDURE/MINOR SURGIC AL ORDERABLES Final Result * COMPREHENSIVE METABOLIC PANEL (02/28/2025 1:33 PM CDT) Blood Molina Camacho MD CHEMISTRY ORDERABLES Final Resu lt * PROTEIN ELECTROPHORESIS, CSF (02/28/2025 11:31 AM CDT) Cerebrospinal fluid CEREBROSPINAL FLUID / Unknown Molina Camacho MD BODY FLUIDS AND STOOLS Final Re sult * KAPPA/LAMBDA, FREE LIGHT CHAINS (02/28/2025 7:55 AM CDT) Blood Molina Camacho MD CHEMISTRY ORDERABLES Final Resu lt from Last 3 Months Insurance RX [employer] Medicare Part D [employer] [facility] Care Teams Men'S Golf Coach Relationship Specialty Start Date End Date Evan Rebolledo DO [facility] [address] PCP - General Internal Medicine 01/22/22
[2025-03-27 15:09] LABS: ANA by IFA Rfx Titer/Pattern Negative (.)
== END 2025-03-26 10:08 | disposition home or self-care (01) ==
PROVIDERS: PCP Internal Medicine; Visit Provider Clinical Nurse Specialist
DX: M25.50 Pain in unspecified joint (principal)
CPT/HCPCS: 36415; 86038; 86430